=== PATIENT | female | born 1950 | race Caucasian/White ===

== ENCOUNTER 2016-11-20 10:01 | Emergency (ER) | payer MEDICARE ==
[~2016-11-20] VITALS: Ht 175.3 cm; Wt 66.0 kg
[~2016-11-20 10:01] MED LIST: ALPR.5 PO; BENZ1TAB PO; CYAN100025 SL; D32000TA PO; DICY10 PO; DIPH25CA PO; FERR325T PO; LEVO.15 PO; METH5TAB PO; OXYGENTANK NAS.CANULA; REST30CA PO; SERO50TA PO; THIA100T PO; VITA500T PO; ZOFR8TAB4 SL; ZOLO50TA PO
[2016-11-20 10:04] VITALS: BP 156/90; PULSE 77; RESP 16; TEMP 98.2; O2SAT 98
[2016-11-20] MEDS ORDERED: SODIUM CHLOR 0.9% 1000 ML INJ 1,000 ML IV SCH (11:20)
[2016-11-20 11:25] VITALS: RESP 17; O2SAT 98
[2016-11-20] MEDS ORDERED: HYDROmorphone HCL PF 1 MG/ML VIAL IVS ONE ×2 (11:30→14:00)
[2016-11-20] MEDS ORDERED: ONDANSETRON HCL 4 MG/2 ML VIAL IVP ONE ×2 (11:30→14:00)
[2016-11-20] MEDS ORDERED: DIATRIZOATE MEGLUM/DIATRIZOATE SOD 9 ML CUP ONE (11:42)
--- NOTE | 2016-11-20 11:42 | PD ---
HPI Chief Complaint: GI Complaint Time Seen by Provider: 11:05 Travel History International Travel<30 days: No Contact w/Intl Traveler<30days: No Traveled to known affect area: No History of Present Illness HPI 66-year-old female comes into the emergency Department with multiple complaints. Patient complains of question cellulitis of both lower extremities. Recently treated with Keflex. Patient has history of abdominal surgeries in the distant past as well as multiple back surgeries. Patient is a smoker of long duration, and continues to smoke 3-4 cigarettes a day. Patient denies cardiac history or circulation issues in the lower extremities. Patient reports six-day history of nausea and vomiting without "being able to keep anything down". Patient has generalized malaise, weakness, and generalized abdominal pain. She denies specific complaints of fever. She states she has been moving her bowels but she hasn't been eating as well. Patient has a history of ovarian cancer, some type of bowel cancer requiring resection in the distant past, as well as breast cancer. [facility] She has a history of MRSA, is allergic to Compazine, phenothiazines, and Tigan. 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 She lives alone. PFSH Past Medical History Hx Anticoagulant Therapy: Yes Arthritis: Yes Asthma: No Autoimmune Disease: No Bipolar Disorder: Yes Anxiety: Yes Depression: Yes Heart Rhythm Problems: No Cancer: Yes (Thyroid, Ovarian, Rt breast,colon) Cardiovascular Problems: Yes High Cholesterol: No Chemotherapy: Yes (2012) Chest Pain: No Congestive Heart Failure: No COPD: Yes Cerebrovascular Accident: Yes Diabetes: No Diminished Hearing: No Deep Vein Thrombosis: Yes Endocrine: Yes Gastrointestinal Disorders: Yes (malabsorption, partial gastrectomy s/p GI bleed ) GERD: Yes Genitourinary: Yes ("urination problems" frequency, and retention) Hiatal Hernia: No Immune Disorder: No Implanted Vascular Access Dvce: Yes Kidney Stones: No Musculoskeletal: Yes (back surgery x 5 ) Neurologic: Yes (seizure ) Psychiatric: Yes (depression) Reproductive: Yes (ovarian cancer, breast cancer ) Respiratory: No Immunizations Current: Yes Migraines: No Radiation Therapy: Yes Renal Failure: No Seizures: Yes Sickle Cell Disease: No Sleep Apnea: No Thyroid Disease: Yes (thyroidectomy/hyperthyrodism) Ulcer: Yes Tetanus Vaccination: > 5 Years Influenza Vaccination: Yes Menopausal: Yes : 2 Para: 2 Past Surgical History Abdominal Surgery: Yes (partial gastrectomy) AICD: No Appendectomy: Yes Arteriovenous Shunt: No Body Medical Devices: "hardware in back" Cardiac Surgery: Yes Cholecystectomy: Yes Ear Surgery: No Endocrine Surgery: Yes Eye Surgery: No Genitourinary Surgery: No Gynecologic Surgery: Yes (right ovary removed/D&C/C -section) Insulin Pump: No Joint Replacement: No Mastectomy: Yes (RT) Oral Surgery: No Pacemaker: No Thoracic Surgery: Yes Tonsillectomy: Yes Other Surgery: Yes (thyroidectomy, rt oopherectomy, rt lumpectomy, partial gastrectomy, back ) Social History Alcohol Use: No Tobacco Use: Yes (less than 1/2ppd) Substance Use: No Allergies-Medications (Allergen,Severity, Reaction): Coded Allergies: Phenothiazines (Verified Allergy, Severe, RASH, 11/20/16) Tigan (Verified Allergy, Severe, TETANY, 11/20/16) Compazine (Verified Adverse Reaction, Severe, Nausea/Vomiting, 11/20/16) *MDRO Multi-Drug Resistant Organism (Verified Adverse Reaction, Unknown, ) 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/19/2016 Reported Meds & Prescriptions Reported Meds & Active Scripts Active Seroquel (Quetiapine Fumarate) 50 Mg Tab 50 Mg PO BID Zofran Odt (Ondansetron Odt) 8 Mg Tab 8 Mg SL Q8H PRN Reported Diphenhydramine (Diphenhydramine HCl) 25 Mg Cap 50 Mg PO Q6H PRN itching Bentyl (Dicyclomine HCl) 10 Mg Cap 10 Mg PO QID Ferrous Sulfate 325 Mg Tab 325 Mg PO BID Methadone (Methadone HCl) 5 Mg Tab 5 Mg PO BID Restoril (Temazepam) 30 Mg Cap 30 Mg PO HS PRN Zoloft (Sertraline HCl) 50 Mg Tab 50 Mg PO BID Xanax (Alprazolam) 0.5 Mg Tab 0.5 Mg PO Q8H PRN Vitamin C (Ascorbic Acid) 500 Mg Tab 500 Mg PO Thiamine (Thiamine HCl) 100 Mg Tab 100 Mg PO DAILY D3 (Cholecalciferol) 2,000 Unit Tab PO DAILY Synthroid (Levothyroxine Sodium) 150 Mcg Tab 150 Mcg PO DAILY B-12 (Cyanocobalamin) 1,000 Mcg Subl 1,000 Mcg SL DAILY Benztropine (Benztropine Mesylate) 1 Mg Tab 1 Mg PO HS Review of Systems Except as stated in HPI: all other systems reviewed are Neg General / Constitutional: Positive: Chills, Weight Loss, No: Fever Eyes: No: Visual changes HENT: Positive: Lightheadedness, No: Headaches, Vertigo, Sore Throat, Rhinitis , Rhinorrhea, Congestion, Neck Stiffness, Neck Pain, Earache Cardiovascular: No: Chest Pain or Discomfort Respiratory: No: Cough, Shortness of Breath, Wheezing Gastrointestinal: Positive: Nausea, Vomiting, Abdominal Pain, Loss of Appetite , No: Diarrhea, Constipation Genitourinary: No: Urgency, Frequency, Dysuria Musculoskeletal: Positive: Myalgias, No: Arthralgias, Limited ROM, Edema, Pain Skin: Positive Lesions, No Rash Neurologic: No: Weakness Psychiatric: Positive: Depression, No: Suicidal Ideations, Homicidal Ideation Endocrine: No: Polydipsia Hematologic/Lymphatic: No: Easy Bruising Physical Exam Narrative GENERAL: Patient appears in mild to moderate distress. Patient is cachectic and obviously depressed. SKIN: Warm and dry. Poor turgor. Moderate pallor. HEAD: Atraumatic. Normocephalic. EYES: Pupils equal and round. No scleral icterus. No injection or drainage. ENT: No nasal bleeding or discharge. Mucous membranes pink and moist. Pharynx is normal. Airway is patent. NECK: Trachea midline. No JVD. CARDIOVASCULAR: Regular rate and rhythm. No murmurs gallops or rubs. RESPIRATORY: No accessory muscle use. Clear to auscultation. Breath sounds equal bilaterally. GASTROINTESTINAL: Abdomen soft, mild generalized tenderness, nondistended. No point tenderness or rebound. No guarding. Hepatic and splenic margins not palpable. No CVA tenderness appreciated. MUSCULOSKELETAL: Extremities without clubbing, cyanosis, or edema. No obvious deformities. NEUROLOGICAL: Awake and alert. No obvious cranial nerve deficits. Motor grossly within normal limits. Five out of 5 muscle strength in the arms and legs. Normal speech. PSYCHIATRIC: Appropriate mood and affect; insight and judgment normal. Data Data Last Documented VS Vital Signs Date Time Temp Pulse Resp B/P Pulse Ox O2 Delivery O2 Flow Rate FiO2 11/20/16 14:30 17 11/20/16 13:10 86 133/79 97 Room Air 11/20/16 10:04 98.2 Orders Complete Blood Count With Diff (11/20/16 11:20) Comprehensive Metabolic Panel (11/20/16 11:20) Lipase (11/20/16 11:20) Lactic Acid (11/20/16 11:20) Prothrombin Time / Inr (Pt) (11/20/16 11:20) Act Partial Throm Time (Ptt) (11/20/16 11:20) Urinalysis - C+S If Indicated (11/20/16 11:20) Iv Access Insert/Monitor (11/20/16 11:20) Ecg Monitoring (11/20/16 11:20) Oximetry (11/20/16 11:20) Ondansetron Inj (Zofran Inj) (11/20/16 11:30) Sodium Chlor 0.9% 1000 Ml Inj (Ns 1000 M (11/20/16 11:20) Sodium Chloride 0.9% Flush (Ns Flush) (11/20/16 11:30) Electrocardiogram (11/20/16 11:20) Hydromorphone Pf Inj (Dilaudid Pf Inj) (11/20/16 11:30) Chest, Single Ap (11/20/16 11:20) Oral Contrast - Adult (11/20/16 11:30) Diatrizoate Liq ( Gastroview Liq) (11/20/16 11:42) Ct Abd/Pel W/O Iv Contrast (11/20/16 13:12) Ondansetron Inj (Zofran Inj) (11/20/16 14:00) Pantoprazole Inj (Protonix Inj) (11/20/16 14:00) Hydromorphone Pf Inj (Dilaudid Pf Inj) (11/20/16 14:00) Labs Laboratory Tests Test 11/20/16 11/20/16 12:00 14:15 White Blood Count 4.4 TH/MM3 Red Blood Count 3.05 MIL/MM3 Hemoglobin 9.9 GM/DL Hematocrit 29.7 % Mean Corpuscular Volume 97.6 FL Mean Corpuscular Hemoglobin 32.4 PG Mean Corpuscular Hemoglobin 33.2 % Concent Red Cell Distribution Width 18.4 % Platelet Count 211 TH/MM3 Mean Platelet Volume 8.4 FL Neutrophils (%) (Auto) 59.4 % Lymphocytes (%) (Auto) 32.3 % Monocytes (%) (Auto) 5.8 % Eosinophils (%) (Auto) 1.0 % Basophils (%) (Auto) 1.5 % Neutrophils # (Auto) 2.6 TH/MM3 Lymphocytes # (Auto) 1.4 TH/MM3 Monocytes # (Auto) 0.3 TH/MM3 Eosinophils # (Auto) 0.0 TH/MM3 Basophils # (Auto) 0.1 TH/MM3 CBC Comment DIFF FINAL Differential Comment Prothrombin Time 10.3 SEC Prothromb Time International 0.9 RATIO Ratio Activated Partial 26.6 SEC Thromboplast Time Sodium Level 143 MEQ/L Potassium Level 4.0 MEQ/L Chloride Level 113 MEQ/L Carbon Dioxide Level 24.1 MEQ/L Anion Gap 6 MEQ/L Blood Urea Nitrogen 17 MG/DL Creatinine 0.84 MG/DL Estimat Glomerular Filtration 68 ML/MIN Rate Random Glucose 72 MG/DL Lactic Acid Level 0.6 mmol/L Calcium Level 8.4 MG/DL Total Bilirubin 0.4 MG/DL Aspartate Amino Transf 16 U/L (AST/SGOT) Alanine Aminotransferase 20 U/L (ALT/SGPT) Alkaline Phosphatase 98 U/L Total Protein 7.1 GM/DL Albumin 3.5 GM/DL Lipase 92 U/L Urine Color LIGHT-YELLOW Urine Turbidity CLEAR Urine pH 5.5 Urine Specific [place] 1.009 Urine Protein NEG mg/dL Urine Glucose (UA) NEG mg/dL Urine Ketones NEG mg/dL Urine Occult Blood TRACE Urine Nitrite NEG Urine Bilirubin NEG Urine Urobilinogen LESS THAN 2.0 MG/DL Urine Leukocyte Esterase NEG Urine RBC 2 /hpf Urine WBC 1 /hpf Urine Squamous Epithelial <1 /hpf Cells Urine Mucus FEW /lpf Microscopic Urinalysis Comment CULT NOT INDICATED MDM Medical Decision Making Medical Screen Exam Complete: Yes Emergency Medical Condition: Yes Differential Diagnosis Nausea vomiting. Abdominal pain. Bowel Obstruction. Sepsis. Urinary tract infection. Dehydration. Electrolyte imbalance. Narrative Course Patient is uncomfortable but medically stable at time of exam. EKG is obtained showing normal sinus rhythm without ST changes. IV access is obtained patient is given 4 mg Zofran IV as well as 1 mg of hydromorphone IV. Patient is given 1000 mL of normal saline bolus. [place] labs ordered including CBC, CMP, lipase, lactic acid, PT PTT and INR, and urinalysis. CT of the abdomen with oral contrast is ordered. Patient refuses to take oral contrast for the CT. It was switched to just IV contrast. When patient arrives to the CT area, she refused IV contrast. Upon return to the department the patient is complaining of ongoing abdominal pain and nausea. Patient is given additional Dilantin 1 mg IV as well as an additional Zofran 4 mg IV. Patient is given pantoprazole 40 mg IV as well. CBC shows CBC shows mild anemia with hemoglobin of 9.9. CMP shows a chloride of 113. Normal creatinine of 0.84. Glucose is somewhat low at 72. Calcium is 8.4. AST, LT and alkaline phosphatase are normal. Lipase is 92. Chest x-ray shows no acute process per radiology. Abdominal CT shows no acute process per radiology. Patient is given Zofran 4 mg one every 6 hours when necessary nausea vomiting. Follow-up with 1 refill. Patient should follow-up with her primary care physician as discussed. Diagnosis Primary Impression: Abdominal pain Qualified Code: R10.84 - Generalized abdominal pain Additional Impressions: Depression Qualified Code: F32.9 - Depression, unspecified depression type Intractable nausea and vomiting Qualified Code: R11.2 - Intractable vomiting with nausea, unspecified vomiting type Referrals: Primary Care Physician Patient Instructions: General Instructions Additional Instructions: Abdominal CT shows no acute process per radiology. Patient is given Zofran 4 mg one every 6 hours when necessary nausea vomiting. Follow-up with 1 refill. Patient should follow-up with her primary care physician as discussed. Med/Other Pt SpecificInfo: Prescription(s) given Disposition: 01 DISCHARGE HOME Condition: Stable Jeremy Fernandez Nov 20, 2016 11:42
[2016-11-20 12:29] LABS: AUTOMATED NEUTROPHIL # 2.6 TH/MM3 (1.8-7.7); BASOPHIL # 0.1 TH/MM3 (0-0.2); BASOPHIL % 1.5 % (0.0-2.0); HEMATOCRIT 29.7 % (35.0-46.0); HEMO FLAGS DIFF FINAL; LYMPH % 32.3 % (9.0-44.0); LYMPHOCYTE # 1.4 TH/MM3 (1.0-4.8); MEAN CELL VOLUME 97.6 FL (80.0-100.0); MEAN CORPUSCULAR HEMOGLOBIN 32.4 PG (27.0-34.0); MEAN CORPUSCULAR HGB CONC 33.2 % (32.0-36.0); MONO % 5.8 % (0.0-8.0); NEUT % 59.4 % (16.0-70.0); PLATELET COUNT 211 TH/MM3 (150-450); RED BLOOD COUNT 3.05 MIL/MM3 (4.00-5.30); RED CELL DISTRIBUTION WIDTH 18.4 % (11.6-17.2); WHITE BLOOD COUNT 4.4 TH/MM3 (4.0-11.0)
[2016-11-20 12:31] LABS: APTT (PATIENT) 26.6 SEC (24.3-30.1); INTERNATIONAL NORMALIZED RATIO 0.9 RATIO; PROTHROMBIN TIME - PATIENT 10.3 SEC (9.8-11.6)
[2016-11-20 12:38] LABS: ANION GAP 6 MEQ/L (5-15); AST (GOT) 16 U/L (15-37); BICARBONATE 24.1 MEQ/L (21.0-32.0); BLOOD UREA NITROGEN 17 MG/DL (7-18); CHLORIDE 113 MEQ/L (98-107); GLOMERULAR FILTRATION RATE 68 ML/MIN (>89); SODIUM (NA) 143 MEQ/L (136-145)
[2016-11-20 12:42] LABS: ALKALINE PHOSPHATASE 98 U/L (45-117); ALT (GPT) 20 U/L (10-53); TOTAL BILIRUBIN ADULT 0.4 MG/DL (0.2-1.0)
[2016-11-20] MEDS: SODIUM CHLORIDE 0.9% FLUSH 5 ML FLUSH IVF PRN ×2 (13:05→14:02)
[2016-11-20 13:10] VITALS: BP 133/79; PULSE 86; RESP 17; O2SAT 97
--- NOTE | 2016-11-20 13:35 | RADRPT ---
EXAM DATE/TIME: 11/20/2016 11:40 [facility] COMPARISON: CHEST SINGLE AP, May 21, 2016, 3:37. INDICATIONS : Chest pain and shortness of breath. MEDICAL HISTORY : Carcinoma, breast. Carcinoma, thyroid. SURGICAL HISTORY : Mastectomy, bilateral. ENCOUNTER: Initial ACUITY: 3 days PAIN SCORE: 2/10 LOCATION: Bilateral chest FINDINGS: A single view of the chest demonstrates the lungs to be hypoinflated with no acute infiltrate. There may be some minimal atelectatic changes in the left lower lobe, however. No effusions. Heart size is normal. Surgical clips and tomasa are seen in the upper abdomen. Possible fracture deformity of the anterolateral right sixth rib. There is some sclerosis and linear lucency along the superomedial aspe ct of the left scapula possibly representing an old fracture injury. CONCLUSION: 1. Hypoinflation with minimal left basilar atelectatic changes. 2. Suggestion of old healed fracture deformities in the anterolateral right sixth rib in the superome dial aspect of the left scapula. 3. Stable postsurgical changes in the abdomen. 4. No acute infiltrate. Mitchell Pretty MD on November 20, 2016 at 13:28 Board Certified Radiologist. This report was verified electronically.
[2016-11-20] MEDS ORDERED: PANTOPRAZOLE SODIUM 40 MG VIAL IVP ONE (14:00)
[2016-11-20 14:30] VITALS: RESP 17
[2016-11-20 14:30] LABS: BLOOD, URINE TRACE (NEG); COMMENT (UR) CULT NOT INDICATED; CULTURE IF INDICATED CULT NOT INDICATED; GLUCOSE,URINE NEG (NEG); KETONE, URINE NEG (NEG); MUCUS URINE FEW /lpf (OCC); NITRITE,URINE NEG (NEG); PH, URINE 5.5 (5.0-8.5); SQUAMOUS EPITHELIAL CELL URINE <1 /hpf (0-5); URINE COLOR LIGHT-YELLOW (YELLW/STRAW)
--- NOTE | 2016-11-20 14:33 | RADRPT ---
EXAM DATE/TIME: 11/20/2016 13:37 [facility] COMPARISON: CT ABDOMEN & PELVIS W CONTRAST, June 28, 2016, 21:27. INDICATIONS : Nausea, vomiting and abdominal pain. ORAL CONTRAST: Patient refused oral contrast. RADIATION DOSE: 6.68 CTDIvol (mGy) MEDICAL HISTORY : Hypertension. Cerebrovascular disease. Cardiovascular disease. Thyroid, ovarian, breast and colon ca ncer. SURGICAL HISTORY : Appendectomy. Cholecystectomy. Hysterectomy. Partial gastrectomy. Right mastectomy. Oophorectomy. Lum bar fusion. Right femoral hay. ENCOUNTER: Initial ACUITY: 1 day PAIN SCALE: 6/10 LOCATION: Bilateral lower quadrant TECHNIQUE: Volumetric scanning of the abdomen and pelvis was performed. Using automated exposure control and ad justment of the mA and/or kV according to patient size, radiation dose was kept as low as reasonably achievable to obtain optimal diagnostic quality images. FINDINGS: LOWER LUNGS: The visualized lower lungs are clear. LIVER: Homogeneous density without lesion. There is no dilation of the biliary tree. No calcified gallston es. Status post cholecystectomy. SPLEEN: Normal size without lesion. PANCREAS: Within normal limits. KIDNEYS: Normal in size and shape. There is no mass, stone, or hydronephrosis. ADRENAL GLANDS: Within normal limits. VASCULAR: There is no aortic aneurysm. BOWEL/MESENTERY: The patient is status post partial gastrectomy. The small bowel and colon demonstrate no acute abnorm ality. There is no free intraperitoneal air or fluid. ABDOMINAL WALL: Within normal limits. RETROPERITONEUM: There is no lymphadenopathy. BLADDER: No wall thickening or mass. REPRODUCTIVE: Within normal limits. INGUINAL: There is no lymphadenopathy or hernia. MUSCULOSKELETAL: Hardware is noted within the lower lumbar spine and right proximal femur. CONCLUSION: No acute disease. Joseph Carter MD on November 20, 2016 at 14:27 Board Certified Radiologist. This report was verified electronically.
[2016-11-20] MEDS ORDERED: ZOFR4TAB PO (14:37)
[2016-11-20 16:20] VITALS: BP 130/76; TEMP 98
--- NOTE | 2016-11-21 12:59 | EKG ---
Date Performed: 11/20/2016 Time Performed: 12:11:59 PTAGE: 66 years EKG: Sinus rhythm NORMAL ECG WARNING: DATA QUALITY MAY AFFECT INTERPRETATION PREVIOUS TRACING : 06/29/2016 13.58 Compared to previous tracing, sinus rate is slower. DOCTOR: Claude Campos Interpretating Date/Time 11/21/2016 12:58:18
== END 2016-11-20 16:20 | disposition home or self-care (01) ==
LOC: NEPB 10:01
DX: R10.84 Generalized abdominal pain (principal); F32.9 Major depressive disorder, single episode, unspecified; R11.2 Nausea with vomiting, unspecified; R53.1 Weakness; E07.9 Disorder of thyroid, unspecified; Z72.0 Tobacco use; Z79.01 Long term (current) use of anticoagulants; Z87.39 Personal history of other diseases of the musculoskeletal system and connective tissue; Z86.59 Personal history of other mental and behavioral disorders; Z87.09 Personal history of other diseases of the respiratory system; Z86.718 Personal history of other venous thrombosis and embolism; Z87.19 Personal history of other diseases of the digestive system; Z87.448 Personal history of other diseases of urinary system; Z86.14 Personal history of Methicillin resistant Staphylococcus aureus infection; Z86.69 Personal history of other diseases of the nervous system and sense organs; Z85.43 Personal history of malignant neoplasm of ovary; Z85.3 Personal history of malignant neoplasm of breast; Z85.038 Personal history of other malignant neoplasm of large intestine
CPT/HCPCS: 71010; 74176; 80053; 81001; 83605; 83690; 85025; 85610; 85730; 93005; 96374; 96375; 96376; 99285; C9113; J1170; J2405; J7030; Q9963

== ENCOUNTER 2016-12-28 13:01 | Inpatient (IN) | payer OTHER, MEDICARE ==
[~2016-12-28] VITALS: Ht 175.3 cm; Wt 63.0 kg
[~2016-12-28 13:01] MED LIST changes: -OXYGENTANK NAS.CANULA; +ZOFR4TAB PO
[2016-12-28 13:08] VITALS: BP 145/74; PULSE 99; RESP 20; TEMP 98.3; O2SAT 99
--- NOTE | 2016-12-28 14:51 | PD ---
HPI Chief Complaint: Edema Time Seen by Provider: 14:50 Travel History International Travel<30 days: No Contact w/Intl Traveler<30days: No Traveled to known affect area: No History of Present Illness HPI 66 year old female presents to the emergency department for evaluation of bilateral leg edema and chest pain. Patient states that she has had bilateral lower leg edema for approximately 10 days. She states this has been improving over the course of the 10 days. She has been elevating them and staying off of her feet as much as possible. She states that she was on a diuretic which she quit approximately 3 weeks ago because she did not like the side effects from the diuretic. The patient states the last night she had an episode of chest pain which kept her awake throughout the night. She states it was on the left side and radiated to the right side. She reports minor discomfort at this time associated with breathing and congestion. Patient states she went to her primary care physician [facility] today who told her she needed come to the emergency department. She states she does not really want to be here, but promised her physician she would be here. The patient states that she has been coughing up sputum. She does state that there has been some black specks in her sputum. Patient states she has mild shortness of breath associated with a cough. She does report 3 episodes of vomiting last night. Patient reports history of chronic back pain, multiple GI surgeries, previous pneumonia in 2003 , gastric ulcers, hypothyroidism. Patient denies any cardiac history or history of CHF. PFSH Past Medical History Hx Anticoagulant Therapy: Yes Arthritis: Yes Asthma: No Autoimmune Disease: No Bipolar Disorder: Yes Anxiety: Yes Depression: Yes Heart Rhythm Problems: No Cancer: Yes (Thyroid, Ovarian, Rt breast,colon) Cardiovascular Problems: Yes High Cholesterol: No Chemotherapy: Yes (2012) Chest Pain: No Congestive Heart Failure: No COPD: Yes Cerebrovascular Accident: Yes Diabetes: No Diminished Hearing: No Deep Vein Thrombosis: Yes Endocrine: Yes Gastrointestinal Disorders: Yes (malabsorption, partial gastrectomy s/p GI bleed ) GERD: Yes Genitourinary: Yes ("urination problems" frequency, and retention) Hiatal Hernia: No Immune Disorder: No Implanted Vascular Access Dvce: Yes Kidney Stones: No Musculoskeletal: Yes (back surgery x 5 ) Neurologic: Yes (seizure ) Psychiatric: Yes (depression) Reproductive: Yes (ovarian cancer, breast cancer ) Respiratory: Yes Immunizations Current: Yes Migraines: No Radiation Therapy: Yes Renal Failure: No Seizures: Yes Sickle Cell Disease: No Sleep Apnea: No Thyroid Disease: Yes (thyroidectomy/hyperthyrodism) Ulcer: Yes Menopausal: Yes : 2 Para: 2 Past Surgical History Abdominal Surgery: Yes (partial gastrectomy) AICD: No Appendectomy: Yes Arteriovenous Shunt: No Body Medical Devices: "hardware in back" Cardiac Surgery: Yes Cholecystectomy: Yes Ear Surgery: No Endocrine Surgery: Yes Eye Surgery: No Genitourinary Surgery: No Gynecologic Surgery: Yes (right ovary removed/D&C/C -section) Insulin Pump: No Joint Replacement: No Mastectomy: Yes (RT) Oral Surgery: No Pacemaker: No Thoracic Surgery: Yes Tonsillectomy: Yes Other Surgery: Yes (thyroidectomy, rt oopherectomy, rt lumpectomy, partial gastrectomy, back ) Social History Alcohol Use: No Tobacco Use: Yes (less than 1/2ppd) Substance Use: No Allergies-Medications (Allergen,Severity, Reaction): Coded Allergies: Phenothiazines (Verified Allergy, Severe, RASH, 12/28/16) Tigan (Verified Allergy, Severe, TETANY, 12/28/16) Compazine (Verified Adverse Reaction, Severe, Nausea/Vomiting, 12/28/16) *MDRO Multi-Drug Resistant Organism (Verified Adverse Reaction, Unknown, ) 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/19/2016 Reported Meds & Prescriptions Reported Meds & Active Scripts Active Reported Ferrous Sulfate 325 Mg Tab 325 Mg PO BID Restoril (Temazepam) 30 Mg Cap 30 Mg PO HS PRN Vitamin C (Ascorbic Acid) 500 Mg Tab 500 Mg PO DAILY Thiamine (Thiamine HCl) 100 Mg Tab 100 Mg PO DAILY D3 (Cholecalciferol) 2,000 Unit Tab 2,000 Units PO DAILY Synthroid (Levothyroxine Sodium) 150 Mcg Tab 150 Mcg PO DAILY B-12 (Cyanocobalamin) 1,000 Mcg Subl 1,000 Mcg SL DAILY Review of Systems Except as stated in HPI: all other systems reviewed are Neg Physical Exam Narrative GENERAL: Well-developed well-nourished female patient, ambulatory. Afebrile. SKIN: Warm and dry. HEAD: Normocephalic. Traumatic. EYES: No scleral icterus. No injection or drainage. NECK: Supple, trachea midline. No JVD or lymphadenopathy. CARDIOVASCULAR: Regular rate and rhythm without murmurs, gallops, or rubs. RESPIRATORY: Breath sounds equal bilaterally. No accessory muscle use. Lungs sounds with scattered rhonchi and wheezing throughout. GASTROINTESTINAL: Abdomen soft, non-tender, nondistended. MUSCULOSKELETAL: No cyanosis. Bilateral 2+ lower extremity edema. BACK: Nontender without obvious deformity. No CVA tenderness. Data Data Last Documented VS Vital Signs Date Time Temp Pulse Resp B/P Pulse Ox O2 Delivery O2 Flow Rate FiO2 12/28/16 19:46 83 16 101/57 100 Nasal Cannula 2 12/28/16 13:08 98.3 Orders Electrocardiogram (12/28/16 13:12) Basic Metabolic Panel (Bmp) (12/28/16 14:48) B-Type Natriuretic Peptide (12/28/16 14:48) Ckmb (Isoenzyme) Profile (12/28/16 14:48) Complete Blood Count With Diff (12/28/16 14:48) D-Dimer (12/28/16 14:48) Magnesium (Mg) (12/28/16 14:48) Prothrombin Time / Inr (Pt) (12/28/16 14:48) Act Partial Throm Time (Ptt) (12/28/16 14:48) Troponin I (12/28/16 14:48) Chest, Single Ap (12/28/16 14:48) Ecg Monitoring (12/28/16 14:48) Bilateral Bp Monitoring (12/28/16 14:48) Iv Access Insert/Monitor (12/28/16 14:48) Oximetry (12/28/16 14:48) Oxygen Administration (12/28/16 14:48) Sodium Chloride 0.9% Flush (Ns Flush) (12/28/16 15:00) Albuterol-Ipratropium Neb (Duoneb Neb) (12/28/16 15:00) Aspirin Chew (Aspirin Chew) (12/28/16 15:00) Vascular Access Team Consult PRN (12/28/16 15:33) Vascular Poc Ultrasound (12/28/16 ) Lactic Acid Sepsis Protocol (12/28/16 16:27) Blood Culture (12/28/16 16:27) Sodium Chloride 0.9% Flush (Ns Flush) (12/28/16 16:30) Ceftriaxone Inj (Rocephin Inj) (12/28/16 16:30) Azithromycin Inj (Zithromax Inj) (12/28/16 16:30) CKMB (12/28/16 16:09) CKMB% (12/28/16 16:09) Ct Pulmonary Angiogram (12/28/16 ) Morphine Inj (Morphine Inj) (12/28/16 17:45) Vascular Access Team Consult PRN (12/28/16 17:39) Lorazepam Inj (Ativan Inj) (12/28/16 18:15) Vascular Poc Ultrasound (12/28/16 ) Iohexol 350 Inj (Omnipaque 350 Inj) (12/28/16 19:28) Labs Laboratory Tests Test 12/28/16 12/28/16 16:09 16:38 White Blood Count 6.2 TH/MM3 Red Blood Count 3.19 MIL/MM3 Hemoglobin 10.1 GM/DL Hematocrit 29.7 % Mean Corpuscular Volume 93.0 FL Mean Corpuscular Hemoglobin 31.5 PG Mean Corpuscular Hemoglobin 33.9 % Concent Red Cell Distribution Width 17.4 % Platelet Count 287 TH/MM3 Mean Platelet Volume 8.1 FL Neutrophils (%) (Auto) 66.1 % Lymphocytes (%) (Auto) 22.5 % Monocytes (%) (Auto) 9.5 % Eosinophils (%) (Auto) 1.0 % Basophils (%) (Auto) 0.9 % Neutrophils # (Auto) 4.1 TH/MM3 Lymphocytes # (Auto) 1.4 TH/MM3 Monocytes # (Auto) 0.6 TH/MM3 Eosinophils # (Auto) 0.1 TH/MM3 Basophils # (Auto) 0.1 TH/MM3 CBC Comment DIFF FINAL Differential Comment Prothrombin Time 10.7 SEC Prothromb Time International 1.0 RATIO Ratio Activated Partial 32.3 SEC Thromboplast Time D-Dimer Quantitative (PE/DVT) 1.60 MG/L FEU Sodium Level 136 MEQ/L Potassium Level 3.4 MEQ/L Chloride Level 102 MEQ/L Carbon Dioxide Level 27.6 MEQ/L Anion Gap 6 MEQ/L Blood Urea Nitrogen 14 MG/DL Creatinine 1.05 MG/DL Estimat Glomerular Filtration 53 ML/MIN Rate Random Glucose 101 MG/DL Calcium Level 8.3 MG/DL Magnesium Level 2.0 MG/DL Total Creatine Kinase 377 U/L Creatine Kinase MB 4.9 NG/ML Creatine Kinase MB % 1.3 % Troponin I LESS THAN 0.02 NG/ML B-Type Natriuretic Peptide 27 PG/ML Lactic Acid Level 1.3 mmol/L MDM Medical Decision Making Medical Screen Exam Complete: Yes Emergency Medical Condition: Yes Medical Record Reviewed: Yes Interpretation(s) Last Impressions Chest X-Ray 12/28/16 1448 Signed Impressions: Service Date/Time: Wednesday, December 28, 2016 14:52 - CONCLUSION: 1. Patchy opacity within the left lung base consistent with probable pneumonia. Clinical pneumonia is recommended. Joseph Carter MD CT PA - CONCLUSION: 1. No evidence of pulmonary embolism. 2. Multiple bilateral scattered pulmonary infiltrates suggestive of an inflammatory process such as pneumonia. 3. Questionable thickening of the distal esophagus. Differential Diagnosis ACS versus pneumonia versus PE versus URI versus CHF Narrative Course 66-year-old female presents to the emergency department for evaluation of bilateral lower extremity edema that is improving and an episode of chest pain last night. She does report associated cough with sputum production. EKG is completed in triage shows normal sinus rhythm, heart rate 84, no acute ST changes. CBC, BMP, BNP, CK, troponin, magnesium, d-dimer, PTT, PTT/INR are ordered and pending. Chest x-ray is ordered and pending. Patient is given DuoNeb 2 and aspirin 162 by mouth. BC shows no acute abnormalities. BMP shows creatinine of 1.05. BNP is 27. CK is 377. Troponin is 0.02. Magnesium is 2.0. D-dimer is 1.60. Coags show no acute abnormality. Chest x-ray shows Patchy opacity within the left lung base consistent with probable pneumonia. Lactic Acid is 1.3. Patient is given Rocephin 1 gm IV and Azithromycin 500mg IV. CT PA is ordered and pending. CT PA shows no evidence of pulmonary embolism; multiple bilateral scattered pulmonary infiltrates suggestive of an inflammatory process such as pneumonia; questionable thickening of the distal esophagus. [facility] is paged for admission. Dr. Taylor accepted admission. Diagnosis Primary Impression: Pneumonia Qualified Code: J18.9 - Pneumonia of both lungs due to infectious organism, unspecified part of lung Additional Impression: Chest pain Qualified Code: R07.9 - Chest pain, unspecified type Admitting Information Admitting Physician Requests: Admit Domi Garsia Dec 28, 2016 14:51
[2016-12-28] MEDS ORDERED: SODIUM CHLORIDE 0.9% FLUSH 5 ML FLUSH IVF PRN ×2 (15:00→16:30)
[2016-12-28] MEDS ORDERED: ASPIRIN 81 MG CHEW TAB CHEW ONE (15:00)
[2016-12-28] MEDS: RESP: ALBUTEROL 2.5 MG/IPRATROPIUM 0.5 MG NEB (SCH) INH (15:25)
--- NOTE | 2016-12-28 16:23 | RADRPT ---
EXAM DATE/TIME: 12/28/2016 14:52 [facility] COMPARISON: CHEST SINGLE AP, November 20, 2016, 11:40. INDICATIONS: Chest pain. Cough. MEDICAL HISTORY: Hypertension. Cerebrovascular disease. Cardiovascular disease. Thyroid, ovarian, breast and colo n cancer. SURGICAL HISTORY: Appendectomy. Cholecystectomy. Hysterectomy. Partial gastrectomy. Right mastectomy. Oophorectomy. Lum bar fusion. Right femoral hay. ENCOUNTER: Initial ACUITY: 2 days PAIN SCORE: 3/10 LOCATION: Bilateral chest FINDINGS: There is patchy opacity within the left lung base consistent with probable focal pneumonia. Clinical correlation is recommended. The right lung is clear. The heart is stable. Hardware is noted withi n the lumbar spine. CONCLUSION: 1. Patchy opacity within the left lung base consistent with probable pneumonia. Clinical pneumonia is recommended. Joseph Carter MD on December 28, 2016 at 16:08 Board Certified Radiologist. This report was verified electronically.
[2016-12-28] MEDS ORDERED: AZITHROMYCIN INJ 500 MG in SODIUM CHLOR 0.9% 250 ML INJ 250 ML IV ONE (16:30)
[2016-12-28] MEDS ORDERED: cefTRIAXone INJ 1,000 MG in SODIUM CHLORIDE 0.9% INJ 100 ML IV ONE (16:30)
[2016-12-28 16:44] LABS: AUTOMATED NEUTROPHIL # 4.1 TH/MM3 (1.8-7.7); BASOPHIL # 0.1 TH/MM3 (0-0.2); BASOPHIL % 0.9 % (0.0-2.0); EOSINOPHIL # 0.1 TH/MM3 (0-0.4); HEMATOCRIT 29.7 % (35.0-46.0); HEMO FLAGS DIFF FINAL; LYMPH % 22.5 % (9.0-44.0); LYMPHOCYTE # 1.4 TH/MM3 (1.0-4.8); MEAN CORPUSCULAR HEMOGLOBIN 31.5 PG (27.0-34.0); MEAN CORPUSCULAR HGB CONC 33.9 % (32.0-36.0); MONO % 9.5 % (0.0-8.0); NEUT % 66.1 % (16.0-70.0); PLATELET COUNT 287 TH/MM3 (150-450); RED BLOOD COUNT 3.19 MIL/MM3 (4.00-5.30); RED CELL DISTRIBUTION WIDTH 17.4 % (11.6-17.2); WHITE BLOOD COUNT 6.2 TH/MM3 (4.0-11.0)
[2016-12-28 16:50] LABS: ANION GAP 6 MEQ/L (5-15); BICARBONATE 27.6 MEQ/L (21.0-32.0); BLOOD UREA NITROGEN 14 MG/DL (7-18); CHLORIDE 102 MEQ/L (98-107); GLOMERULAR FILTRATION RATE 53 ML/MIN (>89); POTASSIUM 3.4 MEQ/L (3.5-5.1); SODIUM (NA) 136 MEQ/L (136-145)
[2016-12-28 16:54] LABS: CREATINE KINASE 377 U/L (26-192)
[2016-12-28 17:01] LABS: APTT (PATIENT) 32.3 SEC (24.3-30.1); PROTHROMBIN TIME - PATIENT 10.7 SEC (9.8-11.6)
[2016-12-28 17:07] LABS: CKMB 4.9 NG/ML (0.5-3.6)
[2016-12-28 17:29] VITALS: BP 133/70; PULSE 80; RESP 20; O2SAT 98
[2016-12-28 17:30] VITALS: O2SAT 98
[2016-12-28] MEDS ORDERED: MORPHINE SULFATE 8 MG/ML INJ IV PUSH ONE (17:45)
[2016-12-28] MEDS ORDERED: LORazepam 2 MG/ML VIAL IV PUSH ONE (18:15)
--- NOTE | 2016-12-28 18:25 | PD ---
Physical Exam Date Seen by Provider: Dec 28, 2016 Narrative Patient is being seen with Domi Garsia for several complaints. [facility]. However, she also has cellulitis of both lower extremities. She states that the cellulitis is actually markedly improved today compared to previous. Data Data Last Documented VS Vital Signs Date Time Temp Pulse Resp B/P Pulse Ox O2 Delivery O2 Flow Rate FiO2 12/28/16 17:30 98 Room Air 12/28/16 17:29 80 20 133/70 12/28/16 13:08 98.3 Orders Electrocardiogram (12/28/16 13:12) Basic Metabolic Panel (Bmp) (12/28/16 14:48) B-Type Natriuretic Peptide (12/28/16 14:48) Ckmb (Isoenzyme) Profile (12/28/16 14:48) Complete Blood Count With Diff (12/28/16 14:48) D-Dimer (12/28/16 14:48) Magnesium (Mg) (12/28/16 14:48) Prothrombin Time / Inr (Pt) (12/28/16 14:48) Act Partial Throm Time (Ptt) (12/28/16 14:48) Troponin I (12/28/16 14:48) Chest, Single Ap (12/28/16 14:48) Ecg Monitoring (12/28/16 14:48) Bilateral Bp Monitoring (12/28/16 14:48) Iv Access Insert/Monitor (12/28/16 14:48) Oximetry (12/28/16 14:48) Oxygen Administration (12/28/16 14:48) Sodium Chloride 0.9% Flush (Ns Flush) (12/28/16 15:00) Albuterol-Ipratropium Neb (Duoneb Neb) (12/28/16 15:00) Aspirin Chew (Aspirin Chew) (12/28/16 15:00) Vascular Access Team Consult PRN (12/28/16 15:33) Vascular Poc Ultrasound (12/28/16 ) Lactic Acid Sepsis Protocol (12/28/16 16:27) Blood Culture (12/28/16 16:27) Sodium Chloride 0.9% Flush (Ns Flush) (12/28/16 16:30) Ceftriaxone Inj (Rocephin Inj) (12/28/16 16:30) Azithromycin Inj (Zithromax Inj) (12/28/16 16:30) CKMB (12/28/16 16:09) CKMB% (12/28/16 16:09) Ct Pulmonary Angiogram (12/28/16 ) Morphine Inj (Morphine Inj) (12/28/16 17:45) Vascular Access Team Consult PRN (12/28/16 17:39) Lorazepam Inj (Ativan Inj) (12/28/16 18:15) Vascular Poc Ultrasound (12/28/16 ) Labs Laboratory Tests Test 12/28/16 12/28/16 16:09 16:38 White Blood Count 6.2 TH/MM3 Red Blood Count 3.19 MIL/MM3 Hemoglobin 10.1 GM/DL Hematocrit 29.7 % Mean Corpuscular Volume 93.0 FL Mean Corpuscular Hemoglobin 31.5 PG Mean Corpuscular Hemoglobin 33.9 % Concent Red Cell Distribution Width 17.4 % Platelet Count 287 TH/MM3 Mean Platelet Volume 8.1 FL Neutrophils (%) (Auto) 66.1 % Lymphocytes (%) (Auto) 22.5 % Monocytes (%) (Auto) 9.5 % Eosinophils (%) (Auto) 1.0 % Basophils (%) (Auto) 0.9 % Neutrophils # (Auto) 4.1 TH/MM3 Lymphocytes # (Auto) 1.4 TH/MM3 Monocytes # (Auto) 0.6 TH/MM3 Eosinophils # (Auto) 0.1 TH/MM3 Basophils # (Auto) 0.1 TH/MM3 CBC Comment DIFF FINAL Differential Comment Prothrombin Time 10.7 SEC Prothromb Time International 1.0 RATIO Ratio Activated Partial 32.3 SEC Thromboplast Time D-Dimer Quantitative (PE/DVT) 1.60 MG/L FEU Sodium Level 136 MEQ/L Potassium Level 3.4 MEQ/L Chloride Level 102 MEQ/L Carbon Dioxide Level 27.6 MEQ/L Anion Gap 6 MEQ/L Blood Urea Nitrogen 14 MG/DL Creatinine 1.05 MG/DL Estimat Glomerular Filtration 53 ML/MIN Rate Random Glucose 101 MG/DL Calcium Level 8.3 MG/DL Magnesium Level 2.0 MG/DL Total Creatine Kinase 377 U/L Creatine Kinase MB 4.9 NG/ML Creatine Kinase MB % 1.3 % Troponin I LESS THAN 0.02 NG/ML B-Type Natriuretic Peptide 27 PG/ML Lactic Acid Level 1.3 mmol/L MDM Supervised Visit with HIRO: Yes Narrative Course I, Dr. Gurrola, have reviewed the advance practice practitioner's documentation and am in agreement, met with the patient face to face, made the diagnosis, and the medical decision making was done by me. *My assessment and Findings: Patient is awake and alert. She is a little bit despondent and tearful. She states she is very uncomfortable and would like to go home. She understands that she needs to stay. She has redness and warmth of both lower extremities. CBC & BMP Diagram 12/28/16 16:09 Last Impressions Chest X-Ray 12/28/16 1448 Signed Impressions: Service Date/Time: Wednesday, December 28, 2016 14:52 - CONCLUSION: 1. Patchy opacity within the left lung base consistent with probable pneumonia. Clinical pneumonia is recommended. MD Galileo Reynolds,Linda Ghotra MD Dec 28, 2016 18:25
[2016-12-28 18:42] VITALS: BP 125/70; PULSE 85; RESP 22; O2SAT 96
[2016-12-28] MEDS ORDERED: IOHEXOL 350 MG/ML 10 ML VIAL (for RAD DIAG) IV ONE (19:28)
--- NOTE | 2016-12-28 19:44 | RADRPT ---
EXAM DATE/TIME: 12/28/2016 19:22 [facility] COMPARISON: No previous studies available for comparison. INDICATIONS : Bilateral leg edema and chest pain last night. IV CONTRAST: 50 cc Omnipaque 350 (iohexol) IV RADIATION DOSE: 23.38 CTDIvol (mGy) MEDICAL HISTORY : Stroke. Hypertension. deep vein thrombosis, breast cancer, colon cancer, ovarian cancer SURGICAL HISTORY : Mastectomy, bilateral. Cholecystectomy. ENCOUNTER: Initial ACUITY: 1 day PAIN SCALE: Non-responsive LOCATION: Bilateral chest TECHNIQUE: Volumetric scanning of the chest was performed using a pulmonary embolism protocol MIP images were re constructed. Using automated exposure control and adjustment of the mA and/or kV according to patien t size, radiation dose was kept as low as reasonably achievable to obtain optimal diagnostic quality images. FINDINGS: PULMONARY ARTERIES: No filling defects are seen in the pulmonary arteries through the segmental level. LUNGS: There are multiple scattered pulmonary infiltrates throughout both lung carpenter. The scattered infiltr ates are seen throughout the upper and lower lung carpenter. PLEURAE: There is no pleural thickening or pleural effusion. MEDIASTINUM: There is good visualization of the great vessels of the middle mediastinum. No evidence of mediastin al or hilar adenopathy/mass. MUSCULOSKELETAL: Within normal limits for patient age. MISCELLANEOUS: There is some questionable thickening of the distal esophagus. CONCLUSION: 1. No evidence of pulmonary embolism. 2. Multiple bilateral scattered pulmonary infiltrates suggestive of an inflammatory process such as p neumonia. 3. Questionable thickening of the distal esophagus. Rayshawn Fritz MD on December 28, 2016 at 19:39 Board Certified Radiologist. This report was verified electronically.
[2016-12-28 19:46] VITALS: BP 101/57; PULSE 83; RESP 16; O2SAT 100
[2016-12-28] MEDS ORDERED: SODIUM CHLORIDE 0.9% FLUSH 5 ML FLUSH FLUSH PRN (20:15)
[2016-12-28] MEDS ORDERED: NALOXONE HCL 0.4 MG/ML AMP IV PRN (20:15)
[2016-12-28] MEDS ORDERED: ONDANSETRON HCL 4 MG/2 ML VIAL IVP PRN (20:15)
[2016-12-28] MEDS: SODIUM CHLORIDE 0.9% FLUSH 5 ML FLUSH FLUSH SCH (21:41)
[2016-12-28 22:15] VITALS: BP 134/77; PULSE 87; RESP 20; TEMP 97; O2SAT 100
[2016-12-29] VITALS: BP 121/72; PULSE 80; RESP 19; TEMP 96.8; O2SAT 100
--- NOTE | 2016-12-29 01:08 | HHI.HP ---
[facility] Admission Diagnosis bilateral pneumonia, chest pain Diagnoses: Chief Complaint: not giving specific complaints to me Travel History International Travel<30 Days: No Contact w/Intl Traveler <30 Da: No Traveled to Known Affected Are: No History of Present Illness History from ER PA communication, minimally from patient, and review of medical records. Patient is quite sleepy at the time of my exam. She is also somewhat angry because she states she is afraid that she would not fall asleep. She states she just cannot shut her mind down. She also reports of pain as soon as I came in. She is however pleasant enough to answer yes or no questions. She just wouldn' t participate in conversation. As per ER communication, patient came to hospital with complaint of chest pain. To me, patient did report of chest pain which she is not really able to describe in detail. She also reports her shortness of breath. Stated she was having nausea and vomiting as well. Not able to clarify how much. Denies any blood in it. Denies diarrhea. Denies abdominal pain. Patient states that she was under hospice care up until about 3 months ago. She states that she was receiving oxygen at home at that time and now she has been off oxygen. She reports that she is under hospice because she lives alone and that they are afraid that she would not do well. However denies any history of cancer. Denies history of CHF. Reports she does have COPD. But she states she is not really on oxygen otherwise. Again, patient states she is afraid to live alone. When asked whether she would like to stay at a rehabilitation facility or assisted living facility, she answered yes. In the emergency room, further workup revealed the patient has multiple bilateral pulmonary infiltrates. Review of Systems Except as stated in HPI: all other systems reviewed are Neg Past Family Social History Past Medical History Per EMR: Bipolar disorder History of alcohol abuse Chronic back pains Hypothyroidism History of subarachnoid hemorrhagesecondary to fall History of thyroid and ovarian cancer per notes History of breast cancer per notes History of DVT Past Surgical History Per EMR: Thyroidectomy, oophorectomy Cholecystectomy Partial gastrectomy Mastectomy Appendectomy Reported Medications Patient's medications listed on EMRreviewed Allergies: Coded Allergies: Phenothiazines (Verified Allergy, Severe, RASH, 12/28/16) Tigan (Verified Allergy, Severe, TETANY, 12/28/16) Compazine (Verified Adverse Reaction, Severe, Nausea/Vomiting, 12/28/16) *MDRO Multi-Drug Resistant Organism (Verified Adverse Reaction, Unknown, ) 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/19/2016 Family History Patient does not remember medical conditions and her family Social History Report she smokes less than half a pack a day. She denies any alcohol abuse or drug abuse. Per EMR: Patient used to be alcoholic and did have hospital admissions for withdrawal Physical Exam Vital Signs Vital Signs Date Time Temp Pulse Resp B/P Pulse Ox O2 Delivery O2 Flow Rate FiO2 12/29/16 00:00 96.8 80 19 121/72 100 12/28/16 22:15 97.0 87 20 134/77 100 12/28/16 19:46 83 16 101/57 100 Nasal Cannula 2 12/28/16 18:42 85 22 125/70 96 Room Air 12/28/16 17:30 98 Room Air 12/28/16 17:30 98 Room Air 12/28/16 17:29 80 20 133/70 98 Room Air 12/28/16 14:36 20 Room Air 12/28/16 13:08 98.3 99 20 145/74 99 Room Air Physical Exam GENERAL: This is elderly lady, looks much older than her age, sleeping and quite drowsy, only answers yes or no questions, but did get quite mad when car pusher came to draw blood SKIN: No rashes, ecchymoses or lesions. Cool and dry. HEAD: Atraumatic. Normocephalic. No temporal or scalp tenderness. EYES: No scleral icterus. No injection or drainage. ENT: Nose without bleeding, purulent drainage or septal hematoma. Airway patent. NECK: Trachea midline. No JVD Supple, nontender, no meningeal signs. CARDIOVASCULAR: Regular rate and rhythm without murmurs, gallops, or rubs. RESPIRATORY: Decreased air entry bilaterally, has a productive cough during exam. Breath sounds equal bilaterally. GASTROINTESTINAL: Abdomen soft, non-tender, nondistended. No guarding. MUSCULOSKELETAL: Extremities without clubbing, cyanosis, or edema. No calf tenderness. NEUROLOGICAL: quite sleepy, but is alert and oriented, moving all 4 limbs, no focal deficit noted grossly, Normal speech. Laboratory Laboratory Tests Test 12/28/16 12/28/16 16:09 16:38 White Blood Count 6.2 Red Blood Count 3.19 Hemoglobin 10.1 Hematocrit 29.7 Mean Corpuscular Volume 93.0 Mean Corpuscular Hemoglobin 31.5 Mean Corpuscular Hemoglobin 33.9 Concent Red Cell Distribution Width 17.4 Platelet Count 287 Mean Platelet Volume 8.1 Neutrophils (%) (Auto) 66.1 Lymphocytes (%) (Auto) 22.5 Monocytes (%) (Auto) 9.5 Eosinophils (%) (Auto) 1.0 Basophils (%) (Auto) 0.9 Neutrophils # (Auto) 4.1 Lymphocytes # (Auto) 1.4 Monocytes # (Auto) 0.6 Eosinophils # (Auto) 0.1 Basophils # (Auto) 0.1 CBC Comment DIFF FINAL Differential Comment Prothrombin Time 10.7 Prothromb Time International 1.0 Ratio Activated Partial 32.3 Thromboplast Time D-Dimer Quantitative (PE/DVT) 1.60 Sodium Level 136 Potassium Level 3.4 Chloride Level 102 Carbon Dioxide Level 27.6 Anion Gap 6 Blood Urea Nitrogen 14 Creatinine 1.05 Estimat Glomerular Filtration 53 Rate Random Glucose 101 Calcium Level 8.3 Magnesium Level 2.0 Total Creatine Kinase 377 Creatine Kinase MB 4.9 Creatine Kinase MB % 1.3 Troponin I LESS THAN 0.02 B-Type Natriuretic Peptide 27 Lactic Acid Level 1.3 Date/Time Procedure Status Source Growth 12/28/16 16:45 Aerobic Blood Culture Received Blood Peripheral Pending 12/28/16 16:45 Anaerobic Blood Culture Received Blood Peripheral Pending Result Diagram: 12/28/16 1609 12/28/16 1609 Imaging Last 48 hours Impressions Chest X-Ray 12/28/16 1448 Signed Impressions: Service Date/Time: Wednesday, December 28, 2016 14:52 - CONCLUSION: 1. Patchy opacity within the left lung base consistent with probable pneumonia. Clinical pneumonia is recommended. Joseph Carter MD CT Angiography 12/28/16 0000 Signed Impressions: Service Date/Time: Wednesday, December 28, 2016 19:22 - CONCLUSION: 1. No evidence of pulmonary embolism. 2. Multiple bilateral scattered pulmonary infiltrates suggestive of an inflammatory process such as pneumonia. 3. Questionable thickening of the distal esophagus. Rayshawn Fritz MD Assessment and Plan Problem List: (1) Pneumonia ICD Code: J18.9 Status: Acute (2) Chest pain ICD Code: R07.9 Status: Acute Assessment and Plan Impression: Bilateral pneumoniawas multiple pulmonary infiltrates Hypokalemia Elevated d-dimerCT pulmonary angiogram is negative for pulmonary emboli Inability to care for selfwith history of being on hospice service up until about 3 weeks ago per patient Bipolar disorder History of alcohol abuse Chronic back pains Hypothyroidism History of subarachnoid hemorrhagesecondary to fall History of thyroid and ovarian cancer per notes History of breast cancer per notes History of DVT Plan: Patient was given Rocephin and azithromycin in ER. Given that patient has multiple pulmonary infiltrates, with questionable history of alcoholism, I would choose levofloxacin at this point. Replace potassium 50 mEq by mouth 1 dose now. Case management consult for possible rehabilitation/intermediate placement. Physical therapy consult. Would need further history from patient once she is a little more cooperative. Patient did have previous hospitalizations and her psychiatry service. Consider psychiatry or palliative care evaluation based on how much patient can provide history and clarify her goals of care. She was telling me that she was under hospice service up until 3 weeks ago. Resume home meds. DVT prophylaxiswith Lovenox. GI prophylaxis on pantoprazole. Discussed Condition With patient, ER provider Physician Certification 2 Midnight Certification Type: Admission for Inpatient Services Order for Inpatient Services The services are ordered in accordance with Medicare regulations or non- Medicare payer requirements, as applicable. In the case of services not specified as inpatient-only, they are appropriately provided as inpatient services in accordance with the 2-midnight benchmark. Estimated LOS (days): 2 days is the estimated time the patient will need to remain in the hospital, assuming treatment plan goals are met and no additional complications. Post-Hospital Plan: Not yet determined Problem Qualifiers (1) Pneumonia: Qualified Code: J18.9 - Pneumonia of both lungs due to infectious organism, unspecified part of lung (2) Chest pain: Qualified Code: R07.9 - Chest pain, unspecified type Sangeeta Taylor MD Dec 29, 2016 01:08
[2016-12-29 01:36] LABS: CREATINE KINASE 214 U/L (26-192)
[2016-12-29 01:49] LABS: CKMB 2.7 NG/ML (0.5-3.6)
[2016-12-29 04:00] VITALS: BP 120/70; PULSE 92; RESP 19; TEMP 96.9; O2SAT 98
[2016-12-29] MEDS ORDERED: POTASSIUM CHLORIDE 25 MEQ EFFERVESCENT TAB PO ONE (05:00)
[2016-12-29 05:23] LABS: AUTOMATED NEUTROPHIL # 3.6 TH/MM3 (1.8-7.7); BASOPHIL % 0.9 % (0.0-2.0); EOSINOPHIL # 0.1 TH/MM3 (0-0.4); EOSINOPHIL % 1.2 % (0.0-4.0); HEMATOCRIT 26.6 % (35.0-46.0); HEMO FLAGS DIFF FINAL; LYMPH % 17.9 % (9.0-44.0); LYMPHOCYTE # 0.9 TH/MM3 (1.0-4.8); MEAN CELL VOLUME 92.7 FL (80.0-100.0); MEAN CORPUSCULAR HEMOGLOBIN 32.2 PG (27.0-34.0); MEAN CORPUSCULAR HGB CONC 34.7 % (32.0-36.0); MONO % 9.9 % (0.0-8.0); NEUT % 70.1 % (16.0-70.0); PLATELET COUNT 265 TH/MM3 (150-450); RED BLOOD COUNT 2.87 MIL/MM3 (4.00-5.30); RED CELL DISTRIBUTION WIDTH 17.5 % (11.6-17.2); WHITE BLOOD COUNT 5.1 TH/MM3 (4.0-11.0)
[2016-12-29 05:41] LABS: ANION GAP 7 MEQ/L (5-15); BICARBONATE 26.8 MEQ/L (21.0-32.0); BLOOD UREA NITROGEN 11 MG/DL (7-18); CHLORIDE 107 MEQ/L (98-107); GLOMERULAR FILTRATION RATE 61 ML/MIN (>89); POTASSIUM 3.5 MEQ/L (3.5-5.1); SODIUM (NA) 141 MEQ/L (136-145)
[2016-12-29 05:45] LABS: CREATINE KINASE 287 U/L (26-192)
[2016-12-29 05:57] LABS: CKMB 3.9 NG/ML (0.5-3.6)
[2016-12-29] MEDS ORDERED: LEVOTHYROXINE SODIUM 150 MCG TAB PO SCH (06:00)
[2016-12-29] MEDS ORDERED: MORPHINE SULFATE 4 MG/ML INJ IV PUSH ONE (06:30)
[2016-12-29 08:00] VITALS: BP 133/74; PULSE 86; RESP 17; TEMP 97.8; O2SAT 97
[2016-12-29] MEDS: SODIUM CHLORIDE 0.9% FLUSH 5 ML FLUSH FLUSH SCH (08:29)
[2016-12-29 08:59] LABS: BLOOD, URINE NEG (NEG); COMMENT (UR) CULT NOT INDICATED; CULTURE IF INDICATED CULT NOT INDICATED; GLUCOSE,URINE NEG (NEG); KETONE, URINE NEG (NEG); MUCUS URINE FEW /lpf (OCC); NITRITE,URINE NEG (NEG); SQUAMOUS EPITHELIAL CELL URINE 1 /hpf (0-5); URINE COLOR YELLOW (YELLW/STRAW)
[2016-12-29] MEDS ORDERED: THIAMINE HCL 100 MG TAB PO SCH (09:00)
[2016-12-29] MEDS ORDERED: LEVOFLOXACIN 750 MG PREMIX INJ 150 ML IV SCH (09:00)
[2016-12-29] MEDS ORDERED: ENOXAPARIN SODIUM 40 MG/0.4 ML SYRINGE SQ SCH (09:00)
--- NOTE | 2016-12-29 09:46 | HHI.PR ---
Addendum to Inpatient Note Additional Information Patient was admitted due to chest pain, leg swelling. Patient seen/examined. Patient wants to go home badly. She is on room air. We will get a PT eval. If she does well with PT, we may be able to discharge her home today with oral abx and we can continue home health. Discussed with GREG. Conrado Prince DO Dec 29, 2016 9:46 am
--- NOTE | 2016-12-29 09:47 | HHI.FF ---
Face to Face Verification Diagnosis: (1) Pneumonia (2) Chest pain Physical Therapy Order: Evaluate and Treat, Improve ambulation, Strength and gait training Home Health Nursing Order: Medical education Signs/symptoms of disease process Medication education-adverse effect Nursing assessment with vital signs I have seen patient Nancy Cain on 12/29/16. My clinical findings support the need for the requested home health care services because: Ltd mobility - disease progression Patient has SOB Deconditioned w/ increased weakness Need for psychosocial assistance High risk of falls Infection w/ risk of complications I certify that my clinical findings support that this patient is homebound because: Unsteady gait/balance Unsafe to leave home unassisted Need for psychosocial assistance Unable to use public transportation Conrado Prince DO Dec 29, 2016 9:47 am
--- NOTE | 2016-12-29 10:01 | EKG ---
Date Performed: 12/29/2016 Time Performed: 05:12:10 PTAGE: 66 years EKG: Sinus rhythm Possible anterior infarct - age undetermined Low QRS voltages in precordial leads Abnormal ECG PREVIOUS TRACING : 12/28/2016 13.19 DOCTOR: Nabor Lopes Interpretating Date/Time 12/29/2016 09:59:53
--- NOTE | 2016-12-29 10:24 | EKG ---
Date Performed: 12/28/2016 Time Performed: 13:19:14 PTAGE: 66 years EKG: Sinus rhythm NORMAL ECG INTERPRETATION BASED ON A DEFAULT AGE OF 41 YEARS NO PREVIOUS TRACING DOCTOR: Nabor Lopes Interpretating Date/Time 12/29/2016 10:20:09
[2016-12-29 12:00] VITALS: BP 136/81; PULSE 89; RESP 18; TEMP 97.3; O2SAT 95
[2016-12-29] MEDS ORDERED: LEVA750T PO ×2 (13:00→13:01)
--- NOTE | 2016-12-29 13:09 | HHI.PR ---
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 CT PE showed no PE but showed patchy infiltrates. Patient was started on IV abx. Currently, patient is doing well on room air. She is tolerating diet. PT evaluated patient and she is doing well using her walker. Patient strongly feels that she would do better at home where she can sleep better. She will [facility] this week or at the latest on Wednesday next week. Objective Vitals Vital Signs Date Time Temp Pulse Resp B/P Pulse Ox O2 Delivery O2 Flow Rate FiO2 12/29/16 12:00 97.3 89 18 136/81 95 12/29/16 08:00 97.8 86 17 133/74 97 12/29/16 04:00 96.9 92 19 120/70 98 12/29/16 00:00 96.8 80 19 121/72 100 12/28/16 22:15 97.0 87 20 134/77 100 12/28/16 19:46 83 16 101/57 100 Nasal Cannula 2 12/28/16 18:42 85 22 125/70 96 Room Air 12/28/16 17:30 98 Room Air 12/28/16 17:30 98 Room Air 12/28/16 17:29 80 20 133/70 98 Room Air 12/28/16 14:36 20 Room Air 12/28/16 13:08 98.3 99 20 145/74 99 Room Air I/O 12/28/16 12/28/16 12/28/16 12/29/16 12/29/16 12/29/16 07:00 15:00 23:00 07:00 15:00 23:00 Intake Total 120 ml 240 ml Balance 120 ml 240 ml Intake Oral 120 ml 240 ml IV Total 0 ml # Voids 0 2 Result Diagram: 12/29/16 0458 12/29/16 0458 Imaging Last Impressions Chest X-Ray 12/28/16 1448 Signed Impressions: Service Date/Time: Wednesday, December 28, 2016 14:52 - CONCLUSION: 1. Patchy opacity within the left lung base consistent with probable pneumonia. Clinical pneumonia is recommended. Joseph Carter MD CT Angiography 12/28/16 0000 Signed Impressions: Service Date/Time: Wednesday, December 28, 2016 19:22 - CONCLUSION: 1. No evidence of pulmonary embolism. 2. Multiple bilateral scattered pulmonary infiltrates suggestive of an inflammatory process such as pneumonia. 3. Questionable thickening of the distal esophagus. Rayshawn Fritz MD Objective Remarks GENERAL: AOX3, NAD. SKIN: Warm and dry. HEAD: Normocephalic. EYES: No scleral icterus. No injection or drainage. NECK: Supple, trachea midline. No JVD or lymphadenopathy. CARDIOVASCULAR: Regular rate and rhythm without murmurs, gallops, or rubs. RESPIRATORY: Breath sounds equal bilaterally. No accessory muscle use. GASTROINTESTINAL: Abdomen soft, non-tender, nondistended. MUSCULOSKELETAL: No cyanosis, or edema. BACK: Nontender without obvious deformity. No CVA tenderness. Procedures None. A/P Problem List: (1) Pneumonia ICD Code: J18.9 Status: Acute (2) Chest pain ICD Code: R07.9 Status: Acute Assessment and Plan Ms. Cain is a 66 year old [place] who presented to the ED on 2016 due to bilateral lower ext edema, chest discomfort. She reports feeling much better. She wants to be discharged home today 12/29/2016. - Bilateral pneumonia - Will continue Levaquin for 4 more days to complete a 5 day course. - Patient is doing well on room air. - Follow up with PCP in 3-5 days. - Lower ext edema - BNP 27. - Keep legs elevated - Chest discomfort - Troponins x [address] PE did not show any PE. Full code. Discharge patient to home with home health. Condition on discharge: Improved Heart healthy Diet as tolerated Ad Freya activity Rx written: - Levaquin 750mg Qday x 4 days. Follow-up with primary care physician within 3-5 days. Problem Qualifiers (1) Pneumonia: Qualified Code: J18.9 - Pneumonia of both lungs due to infectious organism, unspecified part of lung (2) Chest pain: Qualified Code: R07.9 - Chest pain, unspecified type Conrado Prince DO Dec 29, 2016 1:09 pm
--- NOTE | 2016-12-29 13:10 | HHI.DCPOC ---
Discharge Care Plan Diagnosis: (1) Pneumonia Goals to Promote Your Health * To prevent worsening of your condition and complications * To maintain your health at the optimal level Directions to Meet Your Goals Take your medications as prescribed Follow your dietary instruction Follow activity as directed Keep your appointments as scheduled Take your immunizations and boosters as scheduled If your symptoms worsen call your PCP, if no PCP go to Urgent Care Center or Emergency Room Smoking is Dangerous to Your Health. Avoid second hand smoke Call the 24-hour hour crisis hotline for domestic abuse at Conrado Prince DO Dec 29, 2016 1:10 pm
[2016-12-30] MEDS ORDERED: PNEUMOCOCCAL POLYVALENT INJ 25 MCG/0.5 ML SYR IM ONE (10:00)
== END 2016-12-29 14:00 | disposition home health service (06) | DRG 190 ==
LOC: NEPA 13:01 → NEDA 20:03 → N07A 22:05
PROVIDERS: ADMIT Hospitalist; ATTEND Hospitalist
DX: J44.0 Chronic obstructive pulmonary disease with (acute) lower respiratory infection (principal); J18.9 Pneumonia, unspecified organism; E03.9 Hypothyroidism, unspecified; G89.29 Other chronic pain; M54.9 Dorsalgia, unspecified; R60.9 Edema, unspecified; F17.210 Nicotine dependence, cigarettes, uncomplicated; Z85.43 Personal history of malignant neoplasm of ovary; Z85.3 Personal history of malignant neoplasm of breast; Z86.718 Personal history of other venous thrombosis and embolism; E87.6 Hypokalemia; Z87.01 Personal history of pneumonia (recurrent); Z87.11 Personal history of peptic ulcer disease; Z90.3 Acquired absence of stomach [part of]; Z86.73 Personal history of transient ischemic attack (TIA), and cerebral infarction without residual deficits
CPT/HCPCS: 71010; 71275; 76937; 80048; 81001; 82550; 82552; 83605; 83735; 83880; 84484; 85025; 85379; 85610; 85730; 87040; 93005; 94664; 96374; 96375; J0456; J0696; J1650; J1956; J2060; J2270; J7050; Q9967

== ENCOUNTER 2017-02-07 16:10 | Inpatient (IN) | payer MEDICARE, OTHER ==
[~2017-02-07] VITALS: Ht 172.7 cm; Wt 63.8 kg
[2017-02-07] VITALS (8 sets, daily range): BP systolic 105–155; BP diastolic 67–105; PULSE 57–67; RESP 16–24; TEMP 97.9; O2SAT 95–99
[~2017-02-07 16:10] MED LIST changes: -ALPR.5 PO; -BENZ1TAB PO; -DICY10 PO; -DIPH25CA PO; +LEVA750T PO; -METH5TAB PO; -SERO50TA PO; -ZOFR4TAB PO; -ZOFR8TAB4 SL; -ZOLO50TA PO
[2017-02-07] MEDS ORDERED: SODIUM CHLORIDE 0.9% FLUSH 10 ML FLUSH IVF PRN (16:45)
[2017-02-07] MEDS ORDERED: SODIUM CHLOR 0.9% 1000 ML INJ 1,000 ML IV ONE (16:45)
[2017-02-07] MEDS ORDERED: HALOPERIDOL LACTATE 5 MG/ML AMP IM ONE (16:45)
--- NOTE | 2017-02-07 17:05 | RADRPT ---
EXAM DATE/TIME: 02/07/2017 16:29 [facility] COMPARISON: CHEST SINGLE AP, December 28, 2016, 14:52. INDICATIONS : Syncope MEDICAL HISTORY : Hypertension. Cardiovascular disease. Cerebrovascular disease. Thyroid, ovarian, breast and colo n cancer. SURGICAL HISTORY : Appendectomy. Cholecystectomy. Hysterectomy. Thyroid, ovarian, breast and colon cancer. ENCOUNTER: Initial ACUITY: 1 day PAIN SCORE: 0/10 LOCATION: chest FINDINGS: The previously seen left lung base infiltrate has improved with minimal atelectasis and/or infiltrate remaining at the site. There is no appreciable pleural effusion for technique. Heart and mediastin um are unremarkable. There are old left clavicular and rib fractures. CONCLUSION: Minimal left lung base atelectasis and/or infiltrate. Chester Thorpe MD on February 07, 2017 at 17:01 Board Certified Radiologist. This report was verified electronically.
[2017-02-07 17:10] LABS: AUTOMATED NEUTROPHIL # 1.7 TH/MM3 (1.8-7.7); BASOPHIL % 1.2 % (0.0-2.0); HEMATOCRIT 32.6 % (35.0-46.0); HEMO FLAGS DIFF FINAL; LYMPH % 44.6 % (9.0-44.0); LYMPHOCYTE # 1.5 TH/MM3 (1.0-4.8); MEAN CELL VOLUME 91.4 FL (80.0-100.0); MEAN CORPUSCULAR HEMOGLOBIN 31.1 PG (27.0-34.0); MONO % 4.6 % (0.0-8.0); NEUT % 48.6 % (16.0-70.0); PLATELET COUNT 237 TH/MM3 (150-450); RED BLOOD COUNT 3.57 MIL/MM3 (4.00-5.30); RED CELL DISTRIBUTION WIDTH 18.8 % (11.6-17.2); WHITE BLOOD COUNT 3.4 TH/MM3 (4.0-11.0)
[2017-02-07 17:21] LABS: APTT (PATIENT) 28.9 SEC (24.3-30.1); PROTHROMBIN TIME - PATIENT 11.1 SEC (9.8-11.6)
[2017-02-07] MEDS ORDERED: LACTULOSE SYRUP 20 GM/30 ML CUP PO ONE (18:15)
--- NOTE | 2017-02-07 18:18 | RADRPT ---
EXAM DATE/TIME: 02/07/2017 17:58 [facility] COMPARISON: CT BRAIN W/O CONTRAST, June 12, 2016, 12:36. INDICATIONS : Altered mental status. RADIATION DOSE: 58.72 CTDIvol (mGy) MEDICAL HISTORY : Stroke. Seizures. Cardiovascular diseaseDVT, Breast and ovarian cancer SURGICAL HISTORY : Appendectomy. Cholecystectomy.Mastectomy, bilateral. ENCOUNTER: Initial ACUITY: 1 day PAIN SCALE: Non-responsive LOCATION: cranial TECHNIQUE: Multiple contiguous axial images were obtained of the head. Using automated exposure control and adjustment of the mA and/or kV according to patient size, radiation dose was kept as low as reasonably achievable to obtain optimal diagnostic quality images. FINDINGS: There is no evidence for intracranial hemorrhage, mass effect, mass lesions, or edema. The visualize d bony structures appear intact. Slight degree of brain atrophy is seen. Slight periventricular whit e matter changes are seen nonspecific mostly consistent with chronic small vessel ischemic changes. There are no signs of acute infarction for technique. CONCLUSION: Slight atrophic and small vessel ischemic changes without any evidence for acute hemorrhage or mass effect. Chester Thorpe MD on February 07, 2017 at 18:15 Board Certified Radiologist. This report was verified electronically.
[2017-02-07] MEDS ORDERED: LORazepam 2 MG/ML VIAL IV PUSH ONE ×2 (18:30→22:15)
[2017-02-07] MEDS ORDERED: KETOROLAC TROMETHAMINE 30 MG/ML (IVP) VIAL IV PUSH ONE (19:00)
[2017-02-07 19:12] LABS: BLOOD, URINE TRACE (NEG); COMMENT (UR) CULT NOT INDICATED; CULTURE IF INDICATED CULT NOT INDICATED; GLUCOSE,URINE NEG (NEG); KETONE, URINE NEG (NEG); NITRITE,URINE NEG (NEG); PH, URINE 6.5 (5.0-8.5); SQUAMOUS EPITHELIAL CELL URINE <1 /hpf (0-5); URINE COLOR YELLOW (YELLW/STRAW)
--- NOTE | 2017-02-07 19:16 | PD ---
Physical Exam Narrative General: The patient is a well-developed well-nourished female, slightly pale appearing, in no acute distress. She reports a history of falling. She cannot recall when she fell, why, or how she fell. Head and Neck exam: Head is normocephalic atraumatic. Eyes: EOMI, pupils are equal round and reactive to light. Nose: Midline septum with pink mucous membranes Mouth: Dentition unremarkable. Moist mucus membranes. Posterior oropharynx is not erythematous. No tonsillar hypertrophy. Uvula midline. Airway patent. Neck: No palpable lymphadenopathy. No nuchal rigidity. No thyromegaly. Cardiovascular: Regular rate and rhythm without murmurs, gallops, or rubs. Lungs: Clear to auscultation bilaterally. No wheezes, rhonchi, or rales. Abdomen: Soft, with tenderness on palpation in the right lower quadrant of the abdomen and suprapubic area, no other tenderness on palpation of the other quadrants of the abdomen. Negative [place] sign. Normal bowel sounds are audible. No guarding, rebound, or rigidity. Extremities: No clubbing, cyanosis, or edema. 2+ pulses in all 4 extremities. No calf tenderness on palpation. Neurologic Exam: Cranial nerves 2-12 were intact on exam. Strength is 5/5 in all 4 extremities. No sensory deficits noted. The patient is oriented to person, place, however not time, or details regarding the situation. Skin Exam: No rash noted. Intact skin that is warm and dry. Data Data Last Documented VS Vital Signs Date Time Temp Pulse Resp B/P Pulse Ox O2 Delivery O2 Flow Rate FiO2 02/07/17 19:10 64 24 147/90 96 Room Air 02/07/17 16:29 97.9 Orders Electrocardiogram (02/07/17 16:32) Ammonia (02/07/17 16:32) Complete Blood Count With Diff (02/07/17 16:32) Comprehensive Metabolic Panel (02/07/17 16:32) Creatine Kinase (Cpk) (02/07/17 16:32) Prothrombin Time / Inr (Pt) (02/07/17 16:32) Act Partial Throm Time (Ptt) (02/07/17 16:32) Troponin I (02/07/17 16:32) Thyroid Stimulating Hormone (02/07/17 16:32) Lactic Acid Sepsis Protocol (02/07/17 16:32) Urinalysis - C+S If Indicated (02/07/17 16:32) Ua Includes Microscopic (02/07/17 16:32) Chest, Single Ap (02/07/17 16:32) Ct Brain W/O Iv Contrast(Rout) (02/07/17 16:32) Blood Glucose (02/07/17 16:32) Ecg Monitoring (02/07/17 16:32) Iv Access Insert/Monitor (02/07/17 16:32) Oximetry (02/07/17 16:32) Sodium Chloride 0.9% Flush (Ns Flush) (02/07/17 16:45) Drug Screen, Random Urine (02/07/17 16:32) Alcohol (Ethanol) (02/07/17 16:32) Salicylates (Aspirin) (02/07/17 16:32) Tylenol (Acetaminophen) (02/07/17 16:32) Sodium Chlor 0.9% 1000 Ml Inj (Ns 1000 M (02/07/17 16:45) Cath For Specimen (02/07/17 16:36) Haloperidol Inj (Haldol Inj) (02/07/17 16:45) Lactulose Liq (Lactulose Liq) (02/07/17 18:15) Consult Psychiatry (02/07/17 ) Lorazepam Inj (Ativan Inj) (02/07/17 18:30) Ketorolac Inj (Toradol Inj) (02/07/17 19:00) (Hub Use Only)Inp Phy Cons/Ref (02/07/17 ) Ct Abd/Pel W Iv Contrast(Rout) (02/07/17 19:10) Ceftriaxone Inj (Rocephin Inj) (02/07/17 19:30) Azithromycin Inj (Zithromax Inj) (02/07/17 19:30) Restraints Non-Violent FER.Q3H (02/07/17 19:29) CKMB (02/07/17 16:40) CKMB% (02/07/17 16:40) Iohexol 350 Inj (Omnipaque 350 Inj) (02/07/17 20:59) Labs Laboratory Tests Test 02/07/17 02/07/17 02/07/17 16:40 17:15 18:40 White Blood Count 3.4 TH/MM3 Red Blood Count 3.57 MIL/MM3 Hemoglobin 11.1 GM/DL Hematocrit 32.6 % Mean Corpuscular Volume 91.4 FL Mean Corpuscular Hemoglobin 31.1 PG Mean Corpuscular Hemoglobin 34.0 % Concent Red Cell Distribution Width 18.8 % Platelet Count 237 TH/MM3 Mean Platelet Volume 10.3 FL Neutrophils (%) (Auto) 48.6 % Lymphocytes (%) (Auto) 44.6 % Monocytes (%) (Auto) 4.6 % Eosinophils (%) (Auto) 1.0 % Basophils (%) (Auto) 1.2 % Neutrophils # (Auto) 1.7 TH/MM3 Lymphocytes # (Auto) 1.5 TH/MM3 Monocytes # (Auto) 0.2 TH/MM3 Eosinophils # (Auto) 0.0 TH/MM3 Basophils # (Auto) 0.0 TH/MM3 CBC Comment DIFF FINAL Differential Comment Prothrombin Time 11.1 SEC Prothromb Time International 1.0 RATIO Ratio Activated Partial 28.9 SEC Thromboplast Time Sodium Level 138 MEQ/L Potassium Level 4.8 MEQ/L Chloride Level 108 MEQ/L Carbon Dioxide Level 20.0 MEQ/L Anion Gap 10 MEQ/L Blood Urea Nitrogen 17 MG/DL Creatinine 0.98 MG/DL Estimat Glomerular Filtration 57 ML/MIN Rate Random Glucose 83 MG/DL Calcium Level 7.5 MG/DL Total Bilirubin 0.6 MG/DL Aspartate Amino Transf 36 U/L (AST/SGOT) Alanine Aminotransferase 18 U/L (ALT/SGPT) Alkaline Phosphatase 66 U/L Ammonia 56 MCMOL/L Total Creatine Kinase 351 U/L Creatine Kinase MB 6.1 NG/ML Creatine Kinase MB % 1.7 % Troponin I LESS THAN 0.02 NG/ML Total Protein 6.1 GM/DL Albumin 2.9 GM/DL Thyroid Stimulating Hormone 50.000 uIU/ML 3rd Gen Acetaminophen Level LESS THAN 2.0 MCG/ML Ethyl Alcohol Level LESS THAN 3 MG/DL Lactic Acid Level 0.6 mmol/L Salicylates Level 3.8 MG/DL Urine Color YELLOW Urine Turbidity CLEAR Urine pH 6.5 Urine Specific [place] 1.015 Urine Protein NEG mg/dL Urine Glucose (UA) NEG mg/dL Urine Ketones NEG mg/dL Urine Occult Blood TRACE Urine Nitrite NEG Urine Bilirubin NEG Urine Urobilinogen 2.0 MG/DL Urine Leukocyte Esterase NEG Urine RBC 5 /hpf Urine WBC 2 /hpf Urine Squamous Epithelial <1 /hpf Cells Microscopic Urinalysis Comment CULT NOT INDICATED Urine Opiates Screen POS Urine Barbiturates Screen NEG Urine Amphetamines Screen NEG Urine Benzodiazepines Screen POS Urine Cocaine Screen NEG Urine Cannabinoids Screen POS MDM Medical Record Reviewed: Yes Supervised Visit with HIRO: No Interpretation(s) Last Impressions Abdomen/Pelvis CT 02/07/17 1910 Signed Impressions: Service Date/Time: Tuesday, February 07, 2017 20:57 - CONCLUSION: Stable chronic changes. Chester Thorpe MD Head CT 02/07/17 1632 Signed Impressions: Service Date/Time: Tuesday, February 07, 2017 17:58 - CONCLUSION: Slight atrophic and small vessel ischemic changes without any evidence for acute hemorrhage or mass effect. Chester Thorpe MD Chest X-Ray 02/07/171631 Signed Impressions: Service Date/Time: Tuesday, February 07, 2017 16:29 - CONCLUSION: Minimal left lung base atelectasis and/or infiltrate. Chester Thorpe MD Narrative Course During the course of the patients emergency department visit, the patients history, examination, and differential diagnosis were reviewed with the patient. The patient had IV access obtained and blood work sent for analysis. The patient's case was checked out to me by Dr. Shah. Please see her complete history and physical. She reported that the patient has a history of falling and being found on the ground. The patient was noted to have an elevated ammonia level on her laboratory studies. CT scan of the head, chest x- ray was reportedly unremarkable. On my examination the patient had right lower quadrant abdominal discomfort. A CT scan abdomen and pelvis has been added to the patient's workup. The patient was initially provided normal saline 1 L IV fluid bolus, Haldol 2 mg IM, Ativan 1 mg IV, Toradol 30 mg IV 1 for pain. The patient reports a history of chronic low back pain with 5 prior surgeries. The patient was also given lactulose for an elevated ammonia level at 56. The patient was also treated for her lung infiltrate with antibiotic as Dr. Shah was concerned that her altered mentation may be related to an infection. The patients laboratory studies were reviewed and remarkable for a white count of 3.4, hemoglobin 11.1, platelets 237 with 44.6 monocytes, ammonia level LVI, lactic acid 0.6, PT 11.1, PTT 28.9, urinalysis shows trace occult blood, 5 RBCs , otherwise unremarkable. Urine drug screen is positive for opiates, benzodiazepines, cannabinoids. Alcohol level less than 3, acetaminophen less than 2, salicylate 3.8. CMP is remarkable for chloride of 108, CO2 20, calcium 7.5, CPK 351 with 1.7% MB, troponin I less than 0.02, TSH 50. Radiology studies were reviewed and remarkable for a CT scan of the brain that shows a slight atrophic and small vessel ischemic change without any evidence for acute hemorrhage or mass effect, chest x-ray shows minimal left lung base atelectasis and / or infiltrate. CT scan of the abdomen and pelvis showed no acute abnormality. The patients results were discussed with the patient, including the plan of care. I explained that further testing and/ or monitoring is indicated based on the patients history, examination, and/ or laboratory findings. Therefore, I recommended admission for additional evaluation. The patient expressed understanding and was agreeable with this plan. The patient was admitted to the hospital in guarded condition and [facility] Physician Communication Physician Communication The patient's case will be discussed with the [facility] service for admission. Diagnosis Primary Impression: Altered mental status Qualified Code: R41.0 - Disorientation Additional Impression: Hypothyroid Qualified Code: E03.9 - Hypothyroidism, unspecified type Admitting Information Admitting Physician Requests: Admit Supriya Marie MD Feb 07, 2017 19:16
[2017-02-07 19:21] LABS: ANION GAP 10 MEQ/L (5-15); AST (GOT) 36 U/L (15-37); BLOOD UREA NITROGEN 17 MG/DL (7-18); CHLORIDE 108 MEQ/L (98-107); GLOMERULAR FILTRATION RATE 57 ML/MIN (>89); POTASSIUM 4.8 MEQ/L (3.5-5.1); SODIUM (NA) 138 MEQ/L (136-145)
[2017-02-07 19:23] LABS: AMPHETAMINE, URINE NEG (NEG); BARBITURATES, URINE NEG (NEG); COCAINE, URINE NEG (NEG)
--- NOTE | 2017-02-07 19:23 | PD ---
HPI Chief Complaint: Psychiatric Symptoms Time Seen by Provider: 16:32 Travel History International Travel<30 days: No Contact w/Intl Traveler<30days: No Traveled to known affect area: No History of Present Illness HPI Patient is a 66-year-old female brought in by EMS after she was on the ground for 16 hours and unable to get up. Per EMS she told them that she was unable to care for herself and she had not eaten in 2 days. EMS states that she was unwilling to go to the hospital, place were called. Police placed the patient under David act because supposedly she said that she did not want to live. Patient does not provide any history, states she is cold. PFSH Past Medical History Hx Anticoagulant Therapy: Yes Arthritis: Yes Asthma: No Autoimmune Disease: No Bipolar Disorder: Yes Anxiety: Yes Depression: Yes Heart Rhythm Problems: No Cancer: Yes (Thyroid, Ovarian, Rt breast,colon) Cardiovascular Problems: Yes High Cholesterol: No Chemotherapy: Yes (2012) Chest Pain: No Congestive Heart Failure: No COPD: Yes Cerebrovascular Accident: Yes Diabetes: No Diminished Hearing: No Deep Vein Thrombosis: Yes Endocrine: Yes Gastrointestinal Disorders: Yes (malabsorption, partial gastrectomy s/p GI bleed ) GERD: Yes Genitourinary: Yes ("urination problems" frequency, and retention) Hiatal Hernia: No Immune Disorder: No Implanted Vascular Access Dvce: Yes Kidney Stones: No Musculoskeletal: Yes (back surgery x 5 ) Neurologic: Yes (seizure ) Psychiatric: Yes (depression) Reproductive: Yes (ovarian cancer, breast cancer ) Respiratory: Yes Immunizations Current: Yes Migraines: No Radiation Therapy: Yes Renal Failure: No Seizures: Yes Sickle Cell Disease: No Sleep Apnea: No Thyroid Disease: Yes (thyroidectomy/hyperthyrodism) Ulcer: Yes Tetanus Vaccination: Unknown Menopausal: Yes : 2 Para: 2 Past Surgical History Abdominal Surgery: Yes (partial gastrectomy) AICD: No Appendectomy: Yes Arteriovenous Shunt: No Body Medical Devices: "hardware in back" Cardiac Surgery: Yes Cholecystectomy: Yes Ear Surgery: No Endocrine Surgery: Yes Eye Surgery: No Genitourinary Surgery: No Gynecologic Surgery: Yes (right ovary removed/D&C/C -section) Insulin Pump: No Joint Replacement: No Mastectomy: Yes (RT) Oral Surgery: No Pacemaker: No Thoracic Surgery: Yes Tonsillectomy: Yes Other Surgery: Yes (thyroidectomy, rt oopherectomy, rt lumpectomy, partial gastrectomy, back ) Social History Alcohol Use: No Tobacco Use: Yes (less than 1/2ppd) Substance Use: No Allergies-Medications (Allergen,Severity, Reaction): Coded Allergies: Phenothiazines (Verified Allergy, Severe, RASH, 02/07/17) Tigan (Verified Allergy, Severe, TETANY, 02/07/17) Compazine (Verified Adverse Reaction, Severe, Nausea/Vomiting, 02/07/17) *MDRO Multi-Drug Resistant Organism (Verified Adverse Reaction, Unknown, ) 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 SKIN: Focused skin assessment warm/dry. No wounds or skin breakdown. HEAD: Atraumatic. Normocephalic. EYES: Pupils equal and round. No scleral icterus. Extraocular movements intact. ENT: Mucous membranes pink and moist. NECK: Trachea midline. No JVD. CARDIOVASCULAR: Regular rate and rhythm. No murmur appreciated. RESPIRATORY: No accessory muscle use. Clear to auscultation. Breath sounds equal bilaterally. GASTROINTESTINAL: Abdomen soft, non-tender, nondistended. MUSCULOSKELETAL: No obvious deformities. No clubbing. No cyanosis. No edema. NEUROLOGICAL: Awake and alert, refusing to answer questions.. No obvious cranial nerve deficits. Motor grossly within normal limits. Normal speech. Data Data Last Documented VS Vital Signs Date Time Temp Pulse Resp B/P Pulse Ox O2 Delivery O2 Flow Rate FiO2 02/07/17 21:39 65 17 152/105 99 Room Air 02/07/17 16:29 97.9 Orders Electrocardiogram (02/07/17 16:32) Ammonia (02/07/17 16:32) Complete Blood Count With Diff (02/07/17 16:32) Comprehensive Metabolic Panel (02/07/17 16:32) Creatine Kinase (Cpk) (02/07/17 16:32) Prothrombin Time / Inr (Pt) (02/07/17 16:32) Act Partial Throm Time (Ptt) (02/07/17 16:32) Troponin I (02/07/17 16:32) Thyroid Stimulating Hormone (02/07/17 16:32) Lactic Acid Sepsis Protocol (02/07/17 16:32) Urinalysis - C+S If Indicated (02/07/17 16:32) Ua Includes Microscopic (02/07/17 16:32) Chest, Single Ap (02/07/17 16:32) Ct Brain W/O Iv Contrast(Rout) (02/07/17 16:32) Blood Glucose (02/07/17 16:32) Ecg Monitoring (02/07/17 16:32) Iv Access Insert/Monitor (02/07/17 16:32) Oximetry (02/07/17 16:32) Sodium Chloride 0.9% Flush (Ns Flush) (02/07/17 16:45) Drug Screen, Random Urine (02/07/17 16:32) Alcohol (Ethanol) (02/07/17 16:32) Salicylates (Aspirin) (02/07/17 16:32) Tylenol (Acetaminophen) (02/07/17 16:32) Sodium Chlor 0.9% 1000 Ml Inj (Ns 1000 M (02/07/17 16:45) Cath For Specimen (02/07/17 16:36) Haloperidol Inj (Haldol Inj) (02/07/17 16:45) Lactulose Liq (Lactulose Liq) (02/07/17 18:15) Consult Psychiatry (02/07/17 ) Lorazepam Inj (Ativan Inj) (02/07/17 18:30) Ketorolac Inj (Toradol Inj) (02/07/17 19:00) (Hub Use Only)Inp Phy Cons/Ref (02/07/17 ) Ct Abd/Pel W Iv Contrast(Rout) (02/07/17 19:10) Ceftriaxone Inj (Rocephin Inj) (02/07/17 19:30) Azithromycin Inj (Zithromax Inj) (02/07/17 19:30) Restraints Non-Violent FER.Q3H (02/07/17 19:29) CKMB (02/07/17 16:40) CKMB% (02/07/17 16:40) Iohexol 350 Inj (Omnipaque 350 Inj) (02/07/17 20:59) Admit Order (Ed Use Only) (02/07/17 21:39) Labs Laboratory Tests Test 02/07/17 02/07/17 02/07/17 16:40 17:15 18:40 White Blood Count 3.4 TH/MM3 Red Blood Count 3.57 MIL/MM3 Hemoglobin 11.1 GM/DL Hematocrit 32.6 % Mean Corpuscular Volume 91.4 FL Mean Corpuscular Hemoglobin 31.1 PG Mean Corpuscular Hemoglobin 34.0 % Concent Red Cell Distribution Width 18.8 % Platelet Count 237 TH/MM3 Mean Platelet Volume 10.3 FL Neutrophils (%) (Auto) 48.6 % Lymphocytes (%) (Auto) 44.6 % Monocytes (%) (Auto) 4.6 % Eosinophils (%) (Auto) 1.0 % Basophils (%) (Auto) 1.2 % Neutrophils # (Auto) 1.7 TH/MM3 Lymphocytes # (Auto) 1.5 TH/MM3 Monocytes # (Auto) 0.2 TH/MM3 Eosinophils # (Auto) 0.0 TH/MM3 Basophils # (Auto) 0.0 TH/MM3 CBC Comment DIFF FINAL Differential Comment Prothrombin Time 11.1 SEC Prothromb Time International 1.0 RATIO Ratio Activated Partial 28.9 SEC Thromboplast Time Sodium Level 138 MEQ/L Potassium Level 4.8 MEQ/L Chloride Level 108 MEQ/L Carbon Dioxide Level 20.0 MEQ/L Anion Gap 10 MEQ/L Blood Urea Nitrogen 17 MG/DL Creatinine 0.98 MG/DL Estimat Glomerular Filtration 57 ML/MIN Rate Random Glucose 83 MG/DL Calcium Level 7.5 MG/DL Total Bilirubin 0.6 MG/DL Aspartate Amino Transf 36 U/L (AST/SGOT) Alanine Aminotransferase 18 U/L (ALT/SGPT) Alkaline Phosphatase 66 U/L Ammonia 56 MCMOL/L Total Creatine Kinase 351 U/L Creatine Kinase MB 6.1 NG/ML Creatine Kinase MB % 1.7 % Troponin I LESS THAN 0.02 NG/ML Total Protein 6.1 GM/DL Albumin 2.9 GM/DL Thyroid Stimulating Hormone 50.000 uIU/ML 3rd Gen Acetaminophen Level LESS THAN 2.0 MCG/ML Ethyl Alcohol Level LESS THAN 3 MG/DL Lactic Acid Level 0.6 mmol/L Salicylates Level 3.8 MG/DL Urine Color YELLOW Urine Turbidity CLEAR Urine pH 6.5 Urine Specific [place] 1.015 Urine Protein NEG mg/dL Urine Glucose (UA) NEG mg/dL Urine Ketones NEG mg/dL Urine Occult Blood TRACE Urine Nitrite NEG Urine Bilirubin NEG Urine Urobilinogen 2.0 MG/DL Urine Leukocyte Esterase NEG Urine RBC 5 /hpf Urine WBC 2 /hpf Urine Squamous Epithelial <1 /hpf Cells Microscopic Urinalysis Comment CULT NOT INDICATED Urine Opiates Screen POS Urine Barbiturates Screen NEG Urine Amphetamines Screen NEG Urine Benzodiazepines Screen POS Urine Cocaine Screen NEG Urine Cannabinoids Screen POS MDM Medical Decision Making Medical Screen Exam Complete: Yes Emergency Medical Condition: Yes Medical Record Reviewed: Yes Interpretation(s) ECG shows sinus rhythm at 69, no ST elevation or depression. Differential Diagnosis Electrolyte abnormality versus sepsis versus CVA versus encephalopathy Narrative Course Patient is a 66-year-old female who comes in because she was unable to care for self at home and is placed under David act. Patient does not provide any history. Exam shows no obvious injuries. IV established, labs sent. Labs show an elevated ammonia level. Patient given lactulose. Patient is very agitated, refusing to cooperate with any medical treatments her exams. She was given a small dose of Haldol as well as Ativan. CT head performed shows no acute abnormalities. Chest x-ray shows a possible left lower lung infiltrate. Given Rocephin and azithromycin. Patient will require admission. Signed out to Dr. Marie for further management. Diagnosis Primary Impression: Altered mental status Qualified Code: R41.0 - Delirium Additional Impression: Pneumonia Qualified Code: J18.1 - Pneumonia of left lower lobe due to infectious organism Scripts Docusate Sodium (Colace)100 Mg [id number] Mg PO BID PRN (Constipation) #60 CAP Ref 0 Prov:Naldo Chase MD 02/11/17 Morphine IR 15 Mg Tab15 Mg PO Q6HR PRN (PAIN GREATER THAN 5) #120 TAB Prov:Naldo Chase MD 02/11/17 Morphine ER 30 Mg Tab30 Mg PO Q12HR #60 TAB Prov:Naldo Chase MD 02/11/17 Temazepam (Restoril)15 Mg Cap15 Mg PO HS PRN (INSOMNIA) #30 CAP Prov:Naldo Chase MD 02/11/17 Farhana Shah MD Feb 07, 2017 19:23
[2017-02-07] MEDS ORDERED: AZITHROMYCIN INJ 500 MG in SODIUM CHLOR 0.9% 250 ML INJ 250 ML IV ONE (19:30)
[2017-02-07] MEDS ORDERED: cefTRIAXone INJ 1,000 MG in SODIUM CHLORIDE 0.9% INJ 100 ML IV ONE (19:30)
[2017-02-07 19:33] LABS: ACETAMINOPHEN LESS THAN 2.0 MCG/ML (10.0-30.0); ALKALINE PHOSPHATASE 66 U/L (45-117); ALT (GPT) 18 U/L (10-53); CREATINE KINASE 351 U/L (26-192); TOTAL BILIRUBIN ADULT 0.6 MG/DL (0.2-1.0)
[2017-02-07 19:46] LABS: CKMB 6.1 NG/ML (0.5-3.6)
[2017-02-07] MEDS ORDERED: IOHEXOL 350 MG/ML 10 ML VIAL (for RAD DIAG) IV ONE (20:59)
--- NOTE | 2017-02-07 21:16 | RADRPT ---
EXAM DATE/TIME: 02/07/2017 20:57 [facility] COMPARISON: CT ABDOMEN & PELVIS W/O CONTRAST, November 20, 2016, 13:37. INDICATIONS : Possible fall. Failure to thrive. IV CONTRAST: 86 cc Omnipaque 350 (iohexol) IV ORAL CONTRAST: No oral contrast ingested. RADIATION DOSE: 5.78 CTDIvol (mGy) MEDICAL HISTORY : Cardiovascular disease. Seizures. Deep venous thrombosis.CVA. Thyroid cancer. Breast cancer. Colon ca ncer. SURGICAL HISTORY : Appendectomy. Cholecystectomy.Mastectomy. Lumbar surgery. Right hip replacement. ENCOUNTER: Initial ACUITY: 1 day PAIN SCALE: 10/10 LOCATION: Bilateral abdomen TECHNIQUE: Volumetric scanning of the abdomen and pelvis was performed. Using automated exposure control and ad justment of the mA and/or kV according to patient size, radiation dose was kept as low as reasonably achievable to obtain optimal diagnostic quality images. FINDINGS: CT Abdomen: The liver, spleen, pancreas, kidneys, adrenals are unremarkable. There is no evidence for any appreciable pathological adenopathy, free fluid, or bowel obstruction. There is old fracture of L1 transverse process on the right. There are postsurgical changes in the lower lumbosacral spine an d right hip. There is evidence for prior cholecystectomy. Chronic vascular calcifications are present involving the aorta, iliac arteries without any significant stenosis or aneurysmal dilatations for t echnique. Small hiatal hernia is seen. CT pelvis: There is no evidence for mass, abscess formation, or any significant adenopathy within the pelvis. CONCLUSION: Stable chronic changes. Chester Thorpe MD on February 07, 2017 at 21:11 Board Certified Radiologist. This report was verified electronically.
[2017-02-07] MEDS ORDERED: SODIUM CHLORIDE 0.9% FLUSH 10 ML FLUSH IV FLUSH PRN (22:15)
[2017-02-07] MEDS ORDERED: NALOXONE HCL 0.4 MG/ML AMP IV PRN (22:15)
[2017-02-07] MEDS ORDERED: ONDANSETRON HCL 4 MG/2 ML VIAL IVP PRN (22:15)
--- NOTE | 2017-02-07 22:43 | HHI.HP ---
[facility] Service [facility] Primary Care Physician [facility] Admission Diagnosis AMS, hepatic encephalopathy, hypothyroid Diagnoses: Chief Complaint: found down unable to get up- under david act Travel History International Travel<30 Days: No Contact w/Intl Traveler <30 Da: No Traveled to Known Affected Are: No History of Present Illness This is a 66-year-old female patient with a past medical history per medical records include bipolar disorder, EtOH abuse, chronic back pain, hypothyroidism , subarachnoid hemorrhage secondary to fall, thyroid, ovarian and breast cancer , breast cancer and DVT. Patient is currently confused and disoriented alert and oriented to person and place only. Unable to provide reliable information. Information gathered from patient as well as prior computerized charting. Patient reports earlier today she got dizzy and fell down. This not recall if she lost consciousness or hit her head. Unable to recall any further information regarding the event. Blood glucose on arrival was 83. Per ER documentation patient neighbor heard her yelling for help and called EMS. EMS arrived patient was found on the living room floor and unable to get up. Patient was reluctant to come to the hospital and made a statement regarding she wanted to . Police were then called and patient was placed under David act and brought to the emergency department for further evaluation and treatment At this time patient denies shortness of breath chest pain nausea vomiting diarrhea constipation fevers or chills. Patient does complain of right knee pain and abrasion noted. Review of Systems ROS Limitations: Clinical Condition, Poor Historian Past Family Social History Past Medical History Per EMR: Bipolar disorder History of alcohol abuse Chronic back pains Hypothyroidism History of subarachnoid hemorrhagesecondary to fall History of thyroid and ovarian cancer per notes History of breast cancer per notes History of DVT Past Surgical History Per EMR: Thyroidectomy, oophorectomy Cholecystectomy Partial gastrectomy Mastectomy Appendectomy Reported Medications Per record: Ferrous Sulfate 325 Mg Tab 325 Mg PO BID Restoril (Temazepam) 30 Mg Cap 30 Mg PO HS PRN Vitamin C (Ascorbic Acid) 500 Mg Tab 500 Mg PO DAILY Thiamine (Thiamine HCl) 100 Mg Tab 100 Mg PO DAILY D3 (Cholecalciferol) 2,000 Unit Tab 2,000 Units PO DAILY Synthroid (Levothyroxine Sodium) 150 Mcg Tab 150 Mcg PO DAILY B-12 (Cyanocobalamin) 1,000 Mcg Subl 1,000 Mcg SL DAILY Allergies: Coded Allergies: Phenothiazines (Verified Allergy, Severe, RASH, 02/07/17) Tigan (Verified Allergy, Severe, TETANY, 02/07/17) Compazine (Verified Adverse Reaction, Severe, Nausea/Vomiting, 02/07/17) *MDRO Multi-Drug Resistant Organism (Verified Adverse Reaction, Unknown, ) 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/19/2016 Active Ordered Medications Current Medications Medications (Trade) Dose Ordered Sig/Anya Route Start Time Stop Time Status Last Admin (NS Flush) 2 ml UNSCH PRN IV FLUSH 02/07/17 22:15 (NS Flush) 2 ml BID IV FLUSH 02/08/17 09:00 (Zofran Inj) 4 mg Q6H PRN IVP 02/07/17 22:15 (Narcan Inj) 0.4 mg UNSCH PRN IV 02/07/17 22:15 (Lactulose Liq) 30 ml QID PO 02/08/17 09:00 (Ferrous Sulfate) 325 mg BID PO 02/08/17 09:00 (Synthroid) 150 mcg DAILY@06 PO 02/08/17 06:00 Family History Patient does not remember medical conditions and her family Social History Report she smokes less than half a pack a day. She denies any alcohol abuse at this time reports she quit drinking New Years reilly Denies illicit or drug abuse. Per EMR: Patient has a history of ETOH abuse and did have hospital admissions for withdrawal Physical Exam Vital Signs Vital Signs Date Time Temp Pulse Resp B/P Pulse Ox O2 Delivery O2 Flow Rate FiO2 02/07/17 22:11 98 02/07/17 21:39 65 17 152/105 99 Room Air 02/07/17 19:10 64 24 147/90 96 Room Air 02/07/17 18:51 65 20 120/85 99 02/07/17 16:35 95 Room Air 02/07/17 16:29 97.9 67 19 105/67 96 Physical Exam GENERAL: This is a thin malnourished 66 year old female patient who appears older than stated age, is currently confused alert and oriented to person and place only SKIN: Abrasion right HEAD: Atraumatic. Normocephalic. No temporal or scalp tenderness. EYES: Extraocular motions intact. No scleral icterus. No injection or drainage. CARDIOVASCULAR: Regular rate and rhythm without murmurs, gallops, or rubs. RESPIRATORY: Clear to auscultation. Breath sounds equal bilaterally. No wheezes , rales, or rhonchi. GASTROINTESTINAL: Abdomen soft, non-tender, nondistended. No guarding. MUSCULOSKELETAL: generalized muscle atrophy Extremities without edema. No joint tenderness, effusion, or edema noted. No calf tenderness. Negative Homans sign bilaterally. NEUROLOGICAL: Awake and alert. Confused alert and oriented to person and place. No focal deficits appreciated. Slurred speech. Laboratory Laboratory Tests Test 02/07/17 02/07/17 02/07/17 16:40 17:15 18:40 White Blood Count 3.4 Red Blood Count 3.57 Hemoglobin 11.1 Hematocrit 32.6 Mean Corpuscular Volume 91.4 Mean Corpuscular Hemoglobin 31.1 Mean Corpuscular Hemoglobin 34.0 Concent Red Cell Distribution Width 18.8 Platelet Count 237 Mean Platelet Volume 10.3 Neutrophils (%) (Auto) 48.6 Lymphocytes (%) (Auto) 44.6 Monocytes (%) (Auto) 4.6 Eosinophils (%) (Auto) 1.0 Basophils (%) (Auto) 1.2 Neutrophils # (Auto) 1.7 Lymphocytes # (Auto) 1.5 Monocytes # (Auto) 0.2 Eosinophils # (Auto) 0.0 Basophils # (Auto) 0.0 CBC Comment DIFF FINAL Differential Comment Prothrombin Time 11.1 Prothromb Time International 1.0 Ratio Activated Partial 28.9 Thromboplast Time Sodium Level 138 Potassium Level 4.8 Chloride Level 108 Carbon Dioxide Level 20.0 Anion Gap 10 Blood Urea Nitrogen 17 Creatinine 0.98 Estimat Glomerular Filtration 57 Rate Random Glucose 83 Calcium Level 7.5 Total Bilirubin 0.6 Aspartate Amino Transf 36 (AST/SGOT) Alanine Aminotransferase 18 (ALT/SGPT) Alkaline Phosphatase 66 Ammonia 56 Total Creatine Kinase 351 Creatine Kinase MB 6.1 Creatine Kinase MB % 1.7 Troponin I LESS THAN 0.02 Total Protein 6.1 Albumin 2.9 Thyroid Stimulating Hormone 50.000 3rd Gen Acetaminophen Level LESS THAN 2.0 Ethyl Alcohol Level LESS THAN 3 Lactic Acid Level 0.6 Salicylates Level 3.8 Urine Color YELLOW Urine Turbidity CLEAR Urine pH 6.5 Urine Specific [place] 1.015 Urine Protein NEG Urine Glucose (UA) NEG Urine Ketones NEG Urine Occult Blood TRACE Urine Nitrite NEG Urine Bilirubin NEG Urine Urobilinogen 2.0 Urine Leukocyte Esterase NEG Urine RBC 5 Urine WBC 2 Urine Squamous Epithelial <1 Cells Microscopic Urinalysis Comment CULT NOT INDICATED Urine Opiates Screen POS Urine Barbiturates Screen NEG Urine Amphetamines Screen NEG Urine Benzodiazepines Screen POS Urine Cocaine Screen NEG Urine Cannabinoids Screen POS Result Diagram: 02/07/17 1640 02/07/17 1640 Imaging Last Impressions Abdomen/Pelvis CT 02/07/17 1910 Signed Impressions: Service Date/Time: Tuesday, February 07, 2017 20:57 - CONCLUSION: Stable chronic changes. Chester Thorpe MD Head CT 02/07/17 1632 Signed Impressions: Service Date/Time: Tuesday, February 07, 2017 17:58 - CONCLUSION: Slight atrophic and small vessel ischemic changes without any evidence for acute hemorrhage or mass effect. Chester Thorpe MD Chest X-Ray 02/07/17 1632 Signed Impressions: Service Date/Time: Tuesday, February 07, 2017 16:29 - CONCLUSION: Minimal left lung base atelectasis and/or infiltrate. Chester Thorpe MD Assessment and Plan Problem List: (1) Fall ICD Code: W19.XXXA Status: Acute (2) Rhabdomyolysis ICD Code: M62.82 Status: Acute (3) Hepatic encephalopathy ICD Code: K72.90 Status: Acute (4) Hypothyroid ICD Code: E03.9 Status: Chronic Assessment and Plan This is a 66-year-old female patient with a past medical history per medical records include bipolar disorder, EtOH abuse, chronic back pain, hypothyroidism , subarachnoid hemorrhage secondary to fall, thyroid, ovarian and breast cancer , breast cancer and DVT. Patient is currently confused and disoriented alert and oriented to person and place only. Unable to provide reliable information. Information gathered from patient as well as prior computerized charting. Patient reports earlier today she got dizzy and fell down. Patient placed under David act after she made a comment she wanted to then was brought to the emergency department for further evaluation and treatment. Fall unknown etiology possible syncopal episode CT of the head reviewed and reveals slight atrophic and small vessel ischemic changes without any evidence for acute hemorrhagic or mass effect US bilateral carotid arteries pending Echocardiogram pending Orthostatic vital signs once patient is more oriented/cooperative Altered mental status possible hepatic encephalopathy- ammonia elevated 56 CT of the head reviewed and reveals slight atrophic and small vessel ischemic changes without any evidence for acute hemorrhage or mass effect Lactulose 4 times a day Recheck ammonia in a.m. Serial neuro checks Mild rhabdomyolysis total CK 351 Normal saline 100 cc/h Recheck CPK in a.m. Hypothyroidism question medication noncompliance Restart home Synthroid 150 mcg daily Check TSH, T3 and T4 History of alcoholism not clear of current call use alcohol use CIWA protocol with thiamine and folic acid Seizure precautions and serial neuro checks Currently under David act- consult psychiatry Sitter at bedside Patient treated with azithromycin and Rocephin in emergency department for possible left lower lobe pneumonia. Chest x-ray reviewed by myself as well as Dr. Chase does not appear to be acute pneumonia. White blood cell count 3.4. Patient afebrile lung sounds clear.- Continue monitor patient off antibiotics SCDs for DVT prophylaxis Discussed with ER provider, nursing Dr. Chase and patient This note was transcribed by scribe [Merry Alvarado]. I, Dr. Naldo Chase personally performed the history, physical exam, and medical decision making; and confirmed the accuracy of the information in the transcribed note. Authenticated by Dr. Naldo Chase on 02/08/17 at 00:15. Physician Certification 2 Midnight Certification Type: Admission for Inpatient Services Order for Inpatient Services The services are ordered in accordance with Medicare regulations or non- Medicare payer requirements, as applicable. In the case of services not specified as inpatient-only, they are appropriately provided as inpatient services in accordance with the 2-midnight benchmark. Estimated LOS (days): 3 days is the estimated time the patient will need to remain in the hospital, assuming treatment plan goals are met and no additional complications. Post-Hospital Plan: Not yet determined Problem Qualifiers (1) Hypothyroid: Qualified Code: E03.9 - Hypothyroidism, unspecified type Emelyn Alvarado Feb 07, 2017 22:43 Naldo Chase MD February 08, 2017 00:15
[2017-02-08 00:01] VITALS: BP 135/83; PULSE 77; RESP 17; TEMP 95.1; O2SAT 94
--- NOTE | 2017-02-08 00:46 | RADRPT ---
EXAM DATE/TIME: 02/08/2017 00:06 [place] COMPARISON: No previous studies available for comparison. INDICATIONS : Syncope. MEDICAL HISTORY : Hyperthyroidism. Carcinoma, breast. Osteoporosis. Carcinoma, ovarian. Arthritis . UTI. Seizures. Chronic back pain. CVA. Syncope. HTN. DVT. COPD. Dyspnea. Ulcer. GI Bleed. GERD. A nticoagulant therapy. PTSD. Anxiety. Bipolar disorder. ESBL Ecoli. SURGICAL HISTORY : Thyroidectomy. Tonsillectomy. Cholecystectomy. Partial gastrectomy. Appendecto my. Right oopherectomy. Right mastectomy. D&C. . Back. ENCOUNTER: Initial ACUITY: 1 day PAIN SCORE: 0/10 LOCATION: Bilateral neck PEAK SYSTOLIC VELOCITIES (cm/sec): ICA/CCA RATIO: Right: 1.0 Left: 1.3 ICA: Right: 39 Left: 45 CCA: Right: 39 Left: 36 ECA: Right: 23 Left: 48 VERTEBRAL: Right: 19 antegrade Left: 29 antegrade Elevated flow velocities and ICA/CCA ratios have been found to correlate with increased degrees of vessel stenosis, calculated as percentage of diameter relative to a normal segment of distal ICA/CCA FINDINGS: Ultrasound of the carotid arteries was performed bilaterally using real-time Doppler and color Dopple r imaging. Examination of the right carotid artery demonstrates mild fibrous plaque within the bifurcation. No w aveform abnormalities are identified and no spectral broadening is seen. Examination of the left schulz tid artery demonstrates mild fibrous plaque within the bulb. No waveform abnormalities are identified and no spectral broadening is seen. There is antegrade flow in both vertebral arteries. CONCLUSION: No evidence of hemodynamically significant lesion. Enoc Bains MD on February 08, 2017 at 0:44 Board Certified Radiologist. This report was verified electronically.
[2017-02-08 04:19] VITALS: BP 105/66; PULSE 85; RESP 18; TEMP 98.2; O2SAT 94
[2017-02-08] MEDS: LEVOTHYROXINE SODIUM 150 MCG TAB PO SCH (06:16)
[2017-02-08 07:30] VITALS: BP 163/85; PULSE 61; RESP 20; TEMP 95.2; O2SAT 100
[2017-02-08] MEDS: SODIUM CHLOR 0.9% 1000 ML INJ 1,000 ML IV SCH ×2 (08:45→18:45)
[2017-02-08] MEDS ORDERED: LACTULOSE SYRUP 20 GM/30 ML CUP PO SCH (09:00)
[2017-02-08] MEDS: SODIUM CHLORIDE 0.9% FLUSH 10 ML FLUSH IV FLUSH SCH ×2 (09:09→21:54)
[2017-02-08] MEDS: FERROUS SULFATE 325 MG (65 MG ELEMENTAL IRON) TAB PO SCH ×2 (09:09→21:49)
[2017-02-08 09:22] LABS: AUTOMATED NEUTROPHIL # 3.4 TH/MM3 (1.8-7.7); BASOPHIL # 0.1 TH/MM3 (0-0.2); BASOPHIL % 1.2 % (0.0-2.0); EOSINOPHIL % 0.2 % (0.0-4.0); HEMATOCRIT 39.1 % (35.0-46.0); HEMO FLAGS AUTO DIFF; LYMPH % 20.8 % (9.0-44.0); LYMPHOCYTE # 0.9 TH/MM3 (1.0-4.8); MEAN CELL VOLUME 90.7 FL (80.0-100.0); MEAN CORPUSCULAR HEMOGLOBIN 30.9 PG (27.0-34.0); MEAN CORPUSCULAR HGB CONC 34.1 % (32.0-36.0); MONO % 2.4 % (0.0-8.0); NEUT % 75.4 % (16.0-70.0); PLATELET COUNT 194 TH/MM3 (150-450); RED BLOOD COUNT 4.31 MIL/MM3 (4.00-5.30); RED CELL DISTRIBUTION WIDTH 18.5 % (11.6-17.2); WHITE BLOOD COUNT 4.5 TH/MM3 (4.0-11.0)
[2017-02-08 09:41] LABS: ALKALINE PHOSPHATASE 84 U/L (45-117); ALT (GPT) 20 U/L (10-53); ANION GAP 11 MEQ/L (5-15); AST (GOT) 48 U/L (15-37); BLOOD UREA NITROGEN 13 MG/DL (7-18); CHLORIDE 102 MEQ/L (98-107); CREATINE KINASE 699 U/L (26-192); FREE T4 0.18 NG/DL (0.76-1.46); GLOMERULAR FILTRATION RATE 60 ML/MIN (>89); POTASSIUM 4.2 MEQ/L (3.5-5.1); SODIUM (NA) 134 MEQ/L (136-145); TOTAL BILIRUBIN ADULT 0.4 MG/DL (0.2-1.0)
[2017-02-08 10:05] LABS: CKMB 16.4 NG/ML (0.5-3.6)
[2017-02-08 11:20] LABS: OVALOCYTES 1+ (NORMAL); PLATELET ESTIMATE SMEAR NORMAL (NORMAL); PLATELET MORPHOLOGY ENLARGED (NORMAL); SCAN/DIFF AUTO DIFF CONFIRMED
--- NOTE | 2017-02-08 12:01 | HHI.PR ---
Subjective Remarks Mrs. Cain is doing well compared to yesterday. Less disorientation. Able to communicate. She is not aware of any history of liver disease. Hepatic encephalopathy has resolved. Objective Vital Signs Date Time Temp Pulse Resp B/P Pulse Ox O2 Delivery O2 Flow Rate FiO2 02/08/17 07:30 95.2 61 20 163/85 100 02/08/17 04:19 98.2 85 18 105/66 94 02/08/17 00:01 95.1 77 17 135/83 94 02/07/17 23:10 Room Air 02/07/17 23:03 57 16 148/85 95 Room Air 02/07/17 22:23 64 18 155/86 96 Room Air 02/07/17 22:11 98 02/07/17 21:39 65 17 152/105 99 Room Air 02/07/17 19:10 64 24 147/90 96 Room Air 02/07/17 18:51 65 20 120/85 99 02/07/17 16:35 95 Room Air 02/07/17 16:29 97.9 67 19 105/67 96 I/O 02/07/17 02/07/17 02/07/17 02/08/17 02/08/17 02/08/17 07:00 15:00 23:00 07:00 15:00 23:00 Intake Total 240 ml Balance 240 ml Intake Oral 240 ml # Voids 5 # Bowel Movements 1 Result Diagram: 02/08/17 0850 02/08/17 0714 Imaging Last Impressions Abdomen/Pelvis CT 02/07/17 1910 Signed Impressions: Service Date/Time: Tuesday, February 07, 2017 20:57 - CONCLUSION: Stable chronic changes. Chester Thorpe MD Head CT 02/07/17 163 Signed Impressions: Service Date/Time: Tuesday, February 07, 2017 17:58 - CONCLUSION: Slight atrophic and small vessel ischemic changes without any evidence for acute hemorrhage or mass effect. Chester Thorpe MD Chest X-Ray 02/07/17 163 Signed Impressions: Service Date/Time: Tuesday, February 07, 2017 16:29 - CONCLUSION: Minimal left lung base atelectasis and/or infiltrate. Chester Thorpe MD Carotid Artery Ultrasound 02/07/17 0000 Signed Impressions: Service Date/Time: Wednesday, February 08, 2017 00:06 - CONCLUSION: No evidence of hemodynamically significant lesion. Enoc Bains MD Objective Remarks GENERAL: NAD, A&Ox1 SKIN: Warm and dry. HEAD: Normocephalic. EYES: No scleral icterus. No injection or drainage. NECK: Supple, trachea midline. No JVD or lymphadenopathy. CARDIOVASCULAR: Regular rate and rhythm without murmurs, gallops, or rubs. RESPIRATORY: Breath sounds equal bilaterally. No accessory muscle use. GASTROINTESTINAL: Abdomen soft, non-tender, nondistended. MUSCULOSKELETAL: No cyanosis, or edema. BACK: Nontender without obvious deformity. No CVA tenderness. Medications and IVs Administered Medications Medications (Trade) Dose Ordered Sig/Anya Route PRN Reason Start Time Stop Time Status Last Admin Dose Admin Sodium Chloride (NS Flush) 2 ml BID IV FLUSH 02/08/17 09:00 02/08/17 09:09 Lactulose (Lactulose Liq) 30 ml QID PO 02/08/17 09:00 02/08/17 09:10 Ferrous Sulfate (Ferrous Sulfate) 325 mg BID PO 02/08/17 09:00 02/08/17 09:09 Levothyroxine Sodium 150 mcg 150 mcg DAILY@06 PO 02/08/17 06:00 02/08/17 06:16 Sodium Chloride (NS 1000 ml Inj) 1,000 ml @ 100 mls/hr Q10H IV 02/07/17 22:45 02/08/17 08:45 A/P Problem List: (1) Altered mental status ICD Code: R41.82 (2) Hepatic encephalopathy ICD Code: K72.90 (3) Hypothyroidism ICD Code: E03.9 Assessment and Plan Hepatic Encephalopathy Altered Mental Status Improving Follow for further improvement Hypothyroidism Appears not controlled May be due to non-compliance Levothyroxine Global Weakness PT started Problem Qualifiers (1) Altered mental status: Qualified Code: R41.0 - Disorientation Naldo Chase MD February 08, 2017 12:01
[2017-02-08] MEDS: traMADol HCL 50 MG TAB PO PRN ×2 (13:09→21:49)
--- NOTE | 2017-02-08 15:39 | PD.CONS ---
Provisional Diagnosis Admission Date Feb 07, 2017 at 21:41 [place] I. Bipolar disorder, alcohol and cannabis use disorder, [place] II. Deferred [place] III. Hypothyroidism, chronic back pain, SAH, breast cancer History of Present Illness Service Psychiatry Consult Requested By Primary Care Physician [facility] HPI The patient is a 66-year-old woman, domiciled alone, unemployed, single, with psychiatric history of bipolar disorder, alcohol use disorder, 1 previous psychiatric hospitalizations, no suicidal attempts, medical history chronic back pain, hypothyroidism, subarachnoid hemorrhage secondary to fall, thyroid, ovarian and breast cancer, breast cancer and DVT. Patient placed under David act after she made a comment she wanted to then was brought to the emergency department for further evaluation and treatment. Patient was admitted with acute encephalopathy, hepatic encephalopathy ammonia was elevated. Mild rhabdomyolysis total CK 351, Hypothyroidism question medication noncompliance. Patient seen today for psychiatric evaluation, patient was lethargic, distant, poorly cooperative. However, she did say that her mood is fine, she denies depression, she denies suicidal and homicidal ideation, she denies visual and auditory hallucinations. Patient knows that she is in the hospital in [place], she thinks that is the end of January 2017. She knows that the president is Myles Khoury. She reports almost daily use of cannabis , occasional use of alcohol. No agitation, aggressive behavior, hostility has been reported in the last hour. Review of Systems Constitutional: DENIES: Diaphoretic episodes, Fatigue, Fever, Weight gain, Weight loss, Chills, Dizziness, Change in appetite, Night Sweats Endocrine: DENIES: Abnorml menstrual pattern, Heat/cold intolerance, Polydipsia , Polyuria, Polyphagia Eyes: DENIES: Blurred vision, Diplopia, Eye inflammation, Eye pain, Vision loss , Photosensitivity, Double Vision Ears, nose, mouth, throat: DENIES: Tinnitus, Hearing loss, Vertigo, Nasal discharge, Oral lesions, Throat pain, Hoarseness, Ear Pain, Running Nose, Epistaxis, Sinus Pain, Toothache, Odynophagia Respiratory: DENIES: Apneas, Cough, Snoring, Wheezing, Hemoptysis, Sputum production, Shortness of breath Cardiovascular: DENIES: Chest pain, Palpitations, Syncope, Dyspnea on Exertion , PND, Lower Extremity Edema, Orthopnea, Claudication Gastrointestinal: DENIES: Abdominal pain, Black stools, Bloody stools, Constipation, Diarrhea, Nausea, Vomiting, Difficulty Swallowing, Anorexia Genitourinary: DENIES: Abnormal vaginal bleeding, Dysmenorrhea, Dyspareunia, Sexual dysfunction, Urinary frequency, Urinary incontinence, Urgency, Hematuria , Dysuria, Nocturia, Vaginal discharge Musculoskeletal: DENIES: Joint pain, Muscle aches, Stiffness, Joint Swelling, Back pain, Neck pain Integumentary: DENIES: Abnormal pigmentation, Pruritus, Rash, Nail changes, Breast masses, Breast skin changes, Nipple discharge Hematologic/lymphatic: DENIES: Bruising, Lymphadenopathy Immunologic/allergic: DENIES: Eczema, Urticaria Neurologic: DENIES: Abnormal gait, Headache, Localized weakness, Paresthesias, Seizures, Speech Problems, Tremor, Poor Balance Psychiatric: DENIES: Anxiety, Confusion, Mood changes, Depression, Hallucinations, Agitation, Suicidal Ideation, Homicidal Ideation, Delusions Past Family Social History Coded Allergies: Phenothiazines (Verified Allergy, Severe, RASH, 02/07/17) Tigan (Verified Allergy, Severe, TETANY, 02/07/17) Compazine (Verified Adverse Reaction, Severe, Nausea/Vomiting, 02/07/17) *MDRO Multi-Drug Resistant Organism (Verified Adverse Reaction, Unknown, ) 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/19/2016 Active Scripts Levofloxacin (Levaquin)750 Mg [id number] Mg PO DAILY #4 TAB Ref 0 Prov:Carolina Princezulay LEGGETT 12/29/16 Reported Medications Ferrous Sulfate 325 Mg [id number] Mg PO BID #30 TAB Ref 0 08/17/16 Temazepam (Restoril)30 Mg Cap30 Mg PO HS PRN (INSOMNIA) #30 CAP Ref 0 08/17/16 Ascorbic Acid (Vitamin C)500 Mg [id number] Mg PO DAILY Ref 0 08/17/16 Thiamine 100 Mg [id number] Mg PO DAILY Ref 0 08/17/16 Cholecalciferol (D3)2,000 Unit Tab2,000 Units PO DAILY 08/17/16 Levothyroxine (Synthroid)150 Mcg [id number] Mcg PO DAILY #30 TAB Ref 0 08/17/16 Cyanocobalamin (B-12)1,000 Mcg Subl1,000 Mcg SL DAILY Ref 0 08/17/16 Current Medications Medications (Trade) Dose Ordered Sig/Anya Route Start Time Stop Time Status Last Admin (NS Flush) 2 ml UNSCH PRN IV FLUSH 02/07/17 22:15 (NS Flush) 2 ml BID IV FLUSH 02/08/17 09:00 02/08/17 09:09 (Zofran Inj) 4 mg Q6H PRN IVP 02/07/17 22:15 (Narcan Inj) 0.4 mg UNSCH PRN IV 02/07/17 22:15 (Ferrous Sulfate) 325 mg BID PO 02/08/17 09:00 02/08/17 09:09 Levothyroxine Sodium 150 mcg 150 mcg DAILY@06 PO 02/08/17 06:00 02/08/17 06:16 (NS 1000 ml Inj) 1,000 ml @ 100 mls/hr Q10H IV 02/07/17 22:45 02/08/17 08:45 (Ultram) 50 mg Q8H PRN PO 02/08/17 12:45 02/08/17 13:09 Family History Patient denies family psychiatric history Social History Patient says that she lives alone in [place], her highest level of education is high school, she has 2 kids, she is single Patient's Strengths (min. 2) Verbal communication Physical Exam Physical exam patient seems to be lethargic, somnolent, but no tremors, no asterixis, presents Vital Signs Vital Signs Date Time Temp Pulse Resp B/P Pulse Ox O2 Delivery O2 Flow Rate FiO2 02/08/17 07:30 95.2 61 20 163/85 100 02/07/17 23:10 [address] Air Lab Results CT of the head reviewed and reveals slight atrophic and small vessel ischemic changes without any evidence for acute hemorrhagic or mass effect US bilateral carotid arteries pending Toxicology is positive for cannabis, benzodiazepines and opiates BAL is negative WBC 3.4, HBG is 4.3, HCT 39. NA 134, K 4.2, ammonia is now 17, was 56, AST 20, ALT 84, TSH 72.100, Mental Status Examination Appearance elderly woman, appears older than his stated age, [facility], superficially cooperative, lethargic Speech: Hesitant Orientation: x3 Memory: Remote Thought Content: Unremarkable Hallucination Type: None Attention and Concentration: Abnormal Suicidal Ideation: No Homicidal Ideation: No Judgment: WNL Affect: Good Affect if Inappropriate: Flat Mood: Appropriate Motor Activity: Normal gait Assessment & Plan Problem List: (1) Delirium due to another medical condition Assessment & Plan: The patient is a 66-year-old woman, domiciled alone, unemployed, single, with psychiatric history of bipolar disorder, alcohol use disorder, 1 previous psychiatric hospitalizations, no suicidal attempts, medical history chronic back pain, hypothyroidism, subarachnoid hemorrhage secondary to fall, thyroid, ovarian and breast cancer, breast cancer and DVT. Patient placed under David act after she made a comment she wanted to then was brought to the emergency department for further evaluation and treatment. On psychiatric evaluation the patient is just superficially cooperative, but denies depression, denies anxiety, denies jocelyn, and denies perceptual disturbances, no paranoia, no delusions, no disorganized behavior, not delirium observe, patient seems to be a little confused, but able to answer most of questions. Current presentation seems to be mostly related with underlying medical conditions and no to a primary psychiatric condition. Patient does not meet criteria for second admission at this moment, David act would be lifted. Agree with [facility] protocol. Patient has risk for delirium, sundowning. Agitation and aggressive behavior could be an issue, will order Haldol 2 mg every 3 hours when necessary aggressive behavior and agitation. We' ll follow-up. ICD Code: F05 Assessment & Plan Estimated LOS: Oliver Baker MD February 08, 2017 15:38
[2017-02-08 20:00] VITALS: BP 151/102; PULSE 75; RESP 18; TEMP 98.6; O2SAT 99
--- NOTE | 2017-02-08 23:03 | EKG ---
Date Performed: 02/07/2017 Time Performed: 16:39:52 PTAGE: 66 years EKG: Sinus rhythm NORMAL ECG NO PREVIOUS TRACING DOCTOR: Bashir Yeager Interpretating Date/Time 02/08/2017 23:00:53
[2017-02-08 23:33] VITALS: PULSE 78
[2017-02-08] MEDS ORDERED: HALOPERIDOL LACTATE 5 MG/ML AMP IV PUSH ONE (23:45)
[2017-02-09] VITALS (9 sets, daily range): BP systolic 103–160; BP diastolic 65–97; PULSE 63–104; RESP 17–19; TEMP 97–98.8; O2SAT 99–100
[2017-02-09] MEDS: SODIUM CHLOR 0.9% 1000 ML INJ 1,000 ML IV SCH ×3 (04:03→23:46)
[2017-02-09] MEDS: LEVOTHYROXINE SODIUM 150 MCG TAB PO SCH (06:05)
[2017-02-09] MEDS: FERROUS SULFATE 325 MG (65 MG ELEMENTAL IRON) TAB PO SCH ×2 (07:56→20:43)
[2017-02-09] MEDS: traMADol HCL 50 MG TAB PO PRN (07:57)
[2017-02-09] MEDS: SODIUM CHLORIDE 0.9% FLUSH 10 ML FLUSH IV FLUSH SCH ×2 (07:57→20:43)
--- NOTE | 2017-02-09 08:34 | HHI.PR ---
Subjective Remarks Orientation is returning to baseline. She is angry about pain and reports that at home she is on demerol, morphine, and dilaudid. No other complaints. No reported liver disease. Objective Vital Signs Date Time Temp Pulse Resp B/P Pulse Ox O2 Delivery O2 Flow Rate FiO2 02/09/17 08:16 69 02/09/17 07:54 97.2 63 18 160/97 99 02/09/17 04:00 97.4 104 19 131/96 100 02/09/17 01:24 Room Air 02/09/17 00:00 97.0 75 18 105/80 99 02/08/17 23:33 78 02/08/17 20:00 98.6 75 18 151/102 99 02/08/17 16:03 16 I/O 02/08/17 02/08/17 02/08/17 02/09/17 02/09/17 02/09/17 07:00 15:00 23:00 07:00 15:00 23:00 Intake Total 240 ml 120 ml 240 ml 120 ml Balance 240 ml 120 ml 240 ml 120 ml Intake Oral 240 ml 120 ml 240 ml 120 ml # Voids 5 5 2 1 # Bowel Movements 1 4 0 0 Result Diagram: 02/08/17 0850 02/08/17 0714 Objective Remarks GENERAL: NAD, A&Ox3 SKIN: Warm and dry. HEAD: Normocephalic. EYES: No scleral icterus. No injection or drainage. NECK: Supple, trachea midline. No JVD or lymphadenopathy. CARDIOVASCULAR: Regular rate and rhythm without murmurs, gallops, or rubs. RESPIRATORY: Breath sounds equal bilaterally. No accessory muscle use. GASTROINTESTINAL: Abdomen soft, non-tender, nondistended. MUSCULOSKELETAL: No cyanosis, or edema. BACK: Nontender without obvious deformity. No CVA tenderness. Medications and IVs Administered Medications Medications (Trade) Dose Ordered Sig/Anya Route PRN Reason Start Time Stop Time Status Last Admin Dose Admin Sodium Chloride (NS Flush) 2 ml BID IV FLUSH 02/08/17 09:00 02/09/17 07:57 Ferrous Sulfate (Ferrous Sulfate) 325 mg BID PO 02/08/17 09:00 02/09/17 07:56 Levothyroxine Sodium 150 mcg 150 mcg DAILY@06 PO 02/08/17 06:00 02/09/17 06:05 Sodium Chloride (NS 1000 ml Inj) 1,000 ml @ 100 mls/hr Q10H IV 02/07/17 22:45 02/08/17 08:45 A/P Problem List: (1) Altered mental status ICD Code: R41.82 (2) Hepatic encephalopathy ICD Code: K72.90 (3) Hypothyroidism ICD Code: E03.9 Assessment and Plan Hepatic Encephalopathy Altered Mental Status Resolved Hypothyroidism Appears not controlled May be due to non-compliance Levothyroxine Global Weakness PT continued Chronic Pain Narcotic resumed MS contin 30 mg Q12h MS IR 15 mg PRN Discharge Planning Home PT vs. SNF at discharge. Medical discharge tomorrow if improvement remains and stability is observed. Problem Qualifiers (1) Altered mental status: Qualified Code: R41.0 - Disorientation Naldo Chase MD February 09, 2017 08:33
[2017-02-09] MEDS: MORPHINE SULFATE 30 MG CONTROLLED RELEASE TAB PO SCH ×2 (09:34→20:43)
[2017-02-09 11:08] LABS: HEMATOCRIT 39.9 % (35.0-46.0); MEAN CELL VOLUME 91.6 FL (80.0-100.0); MEAN CORPUSCULAR HEMOGLOBIN 31.3 PG (27.0-34.0); MEAN CORPUSCULAR HGB CONC 34.1 % (32.0-36.0); PLATELET COUNT 237 TH/MM3 (150-450); RED BLOOD COUNT 4.35 MIL/MM3 (4.00-5.30); RED CELL DISTRIBUTION WIDTH 18.4 % (11.6-17.2); REVIEW FLAG FINAL; WHITE BLOOD COUNT 4.9 TH/MM3 (4.0-11.0)
[2017-02-09 11:25] LABS: ALKALINE PHOSPHATASE 94 U/L (45-117); ALT (GPT) 29 U/L (10-53); ANION GAP 14 MEQ/L (5-15); AST (GOT) 73 U/L (15-37); BICARBONATE 20.7 MEQ/L (21.0-32.0); BLOOD UREA NITROGEN 7 MG/DL (7-18); CHLORIDE 93 MEQ/L (98-107); GLOMERULAR FILTRATION RATE 40 ML/MIN (>89); SODIUM (NA) 128 MEQ/L (136-145); TOTAL BILIRUBIN ADULT 0.5 MG/DL (0.2-1.0)
[2017-02-10] VITALS (7 sets, daily range): BP systolic 94–118; BP diastolic 58–69; PULSE 70–90; RESP 15–18; TEMP 97.7–98.7; O2SAT 97–100
[2017-02-10] MEDS: LEVOTHYROXINE SODIUM 150 MCG TAB PO SCH (05:50)
[2017-02-10] MEDS: MORPHINE SULFATE 30 MG CONTROLLED RELEASE TAB PO SCH ×2 (08:25→21:01)
[2017-02-10] MEDS: FERROUS SULFATE 325 MG (65 MG ELEMENTAL IRON) TAB PO SCH ×2 (08:25→21:01)
[2017-02-10] MEDS: SODIUM CHLORIDE 0.9% FLUSH 10 ML FLUSH IV FLUSH SCH ×2 (08:25→21:01)
--- NOTE | 2017-02-10 09:58 | HHI.PR ---
Subjective Remarks Orientation is returned to baseline. Pain is now under control without sedation. Ambulation is unsteady. Hyponatremia is present this morning. She has no known prior history of hyponatremia. Objective Vital Signs Date Time Temp Pulse Resp B/P Pulse Ox O2 Delivery O2 Flow Rate FiO2 02/10/17 08:22 98.0 74 16 94/68 98 02/10/17 04:50 98.4 76 15 99/58 98 02/10/17 01:25 97.7 77 16 105/66 100 02/09/17 22:30 74 02/09/17 21:43 18 02/09/17 21:10 98.8 68 17 121/75 99 02/09/17 17:56 82 02/09/17 15:33 98.2 75 18 103/65 99 02/09/17 11:43 97.0 78 18 106/71 99 I/O 02/09/17 02/09/17 02/09/17 02/10/17 02/10/17 02/10/17 07:00 15:00 23:00 07:00 15:00 23:00 Intake Total 120 ml 500 ml 480 ml 240 ml Balance 120 ml 500 ml 480 ml 240 ml Intake Oral 120 ml 500 ml 480 ml 240 ml # Voids 1 2 3 2 # Bowel Movements 0 0 0 0 Result Diagram: 02/09/17 1049 02/09/17 1049 Objective Remarks GENERAL: NAD, A&Ox3 SKIN: Warm and dry. HEAD: Normocephalic. EYES: No scleral icterus. No injection or drainage. NECK: Supple, trachea midline. No JVD or lymphadenopathy. CARDIOVASCULAR: Regular rate and rhythm without murmurs, gallops, or rubs. RESPIRATORY: Breath sounds equal bilaterally. No accessory muscle use. GASTROINTESTINAL: Abdomen soft, non-tender, nondistended. MUSCULOSKELETAL: No cyanosis, or edema. BACK: Nontender without obvious deformity. No CVA tenderness. A/P Problem List: (1) Altered mental status ICD Code: R41.82 (2) Hepatic encephalopathy ICD Code: K72.90 (3) Hypothyroidism ICD Code: E03.9 Assessment and Plan Hepatic Encephalopathy Altered Mental Status Resolved Hyponatremia Likely related to metabolic disturbance that lead to her encephalopathy Limit free fluids Follow sodium level Hypothyroidism Appears not controlled May be due to non-compliance Levothyroxine Global Weakness PT continued Chronic Pain controlled MS contin 30 mg Q12h MS IR 15 mg PRN Discharge Planning Home PT vs. SNF at discharge. Medical discharge tomorrow pending improvement in hyponatremia. Problem Qualifiers (1) Altered mental status: Qualified Code: R41.0 - Disorientation Naldo Chase MD February 10, 2017 09:58
--- NOTE | 2017-02-10 10:07 | EC ---
Study Study Date:02/08/2017 STUDY CONCLUSIONS SUMMARY - Left ventricle: The cavity size was normal. Wall thickness was normal. Systolic function was normal. The estimated ejection fraction was 60%. Wall motion was normal; there were no regional wall motion abnormalities. - Aortic valve: Trace regurgitation. - Mitral valve: Mild regurgitation. If LV function is below 40, please consider prescribing an ACEI or ARB or document rationale for non-use. PROCEDURE DATA STUDY STATUS: Elective. Procedure: Transthoracic echocardiography. Image quality was good. Scanning was performed from the parasternal, apical, and subcostal acoustic windows. Study completion: The patient tolerated the procedure well. Transthoracic echocardiography. M-mode, complete 2D, complete spectral Doppler, and color Doppler. Height: Height: 69in. Weight: Weight: 159.7lb. Body mass index: BMI: 23.6kg/m^2. Body surface area: BSA: 1.88m^2. Patient status: Inpatient. CARDIAC ANATOMY LEFT VENTRICLE: The cavity size was normal. Wall thickness was normal. Systolic function was normal. The estimated ejection fraction was 60%. Wall motion was normal; there were no regional wall motion abnormalities. AORTIC VALVE: Trileaflet; mildly thickened, mildly calcified leaflets. Doppler: Transvalvular velocity was within the normal range. There was no stenosis. Trace regurgitation. Valve area: 3.09cm^2 (Vmax). Indexed valve area: 1.64cm^2/m^2 (Vmax). AORTA: Aortic root: The aortic root was normal in size. MITRAL VALVE: Structurally normal valve. Doppler: Transvalvular velocity was within the normal range. There was no evidence for stenosis. Mild regurgitation. Valve area by pressure half-time: 5.5cm^2. Indexed valve area by pressure half-time: 2.93cm^2/m^2. LEFT ATRIUM: The atrium was normal in size. RIGHT VENTRICLE: The cavity size was normal. Wall thickness was normal. PULMONIC VALVE: Doppler: Transvalvular velocity was within the normal range. There was no evidence for stenosis. No regurgitation. TRICUSPID VALVE: Structurally normal valve. Doppler: Transvalvular velocity was within the normal range. Trace regurgitation. Peak gradient: 12mm Hg (D). PULMONARY ARTERY: The main pulmonary artery was normal-sized. Systolic pressure was within the normal range. RIGHT ATRIUM: The atrium was normal in size. PERICARDIUM: There was no pericardial effusion. SYSTEMIC VEINS: Inferior vena cava: The vessel was normal in size. Patient weight: 159.7lb _Ejection fraction:_ 65-75% _Fractional shortening:_ 32% up to 5Kg 5-11.5Kg 11.6-22.9Kg 23-45Kg 45-57Kg Aortic Root 7-13 <17 13-22 17-27 17-27 LA diam 6-13 <23 24-38 33-47 37-40 RVID 10-17 7-15 7-15 7-18 8-17 LVIDd 12-22 <32 24-38 33-47 37-40 LVPW 2-4 3-6 5-7 6-8 7-8 IVS 2-4 3-6 5-7 6-8 7-8 BASIC MEASUREMENTS ADULT NORMAL Left ventricle LV internal dimension, ED, chordal *35.1 mm 43-52 level, PLAX LV internal dimension, ES, chordal 23.8 mm 23-38 level, PLAX Fractional shortening, chordal level, 32 % >29 PLAX LV posterior wall thickness, ED 8.5 mm IVS/LVPW ratio, ED 1 <1.3 Ventricular septum Septal thickness, ED 8.52 mm Aortic valve Leaflet separation 17 mm 15-26 Left atrium Anterior-posterior dimension 30 mm Anterior-posterior dimension index 1.6 cm/m^2 <2.2 Right ventricle RV internal dimension, ED, PLAX 24.8 mm 19-38 BASIC MEASUREMENTS ADULT NORMAL Aortic valve Leaflet separation 17 mm 15-26 Aorta Root diameter, ED 29 mm 20-37 DOPPLER MEASUREMENTS ADULT NORMAL Aortic valve Peak velocity, S 71.8 cm/s Valve area, Vmax 3.09 cm^2 Valve area index, Vmax 1.64 cm^2/m^2 Mitral valve Peak E-wave velocity 48.4 cm/s Peak A-wave velocity 62.7 cm/s Pressure half-time 40 ms Peak E/A ratio 0.8 Valve area, pressure half-time 5.5 cm^2 Valve area index, pressure half-time 2.93 cm^2/m^2 Tricuspid valve Peak gradient, D 12 mm Hg Maximal inflow velocity 176 cm/s Pulmonic valve Peak velocity, S 70 cm/s LEGEND: Mean values are shown as u=mean value. Asterisk (*) rosales values outside specified normal range. Prepared and signed by Brendan Lea [id number]
[2017-02-10] MEDS: SODIUM CHLOR 0.9% 1000 ML INJ 1,000 ML IV SCH ×2 (11:22→21:01)
[2017-02-10] MEDS: TEMAZEPAM 15 MG CAP PO PRN (21:27)
[2017-02-11 00:40] VITALS: BP 92/68; PULSE 84; RESP 16; TEMP 98.8; O2SAT 96
[2017-02-11] MEDS: SODIUM CHLOR 0.9% 1000 ML INJ 1,000 ML IV SCH ×3 (04:10→20:55)
[2017-02-11] MEDS: LEVOTHYROXINE SODIUM 150 MCG TAB PO SCH (04:10)
[2017-02-11] MEDS: MORPHINE SULFATE 15 MG TAB PO PRN ×2 (04:11→15:23)
[2017-02-11 04:50] VITALS: BP 102/67; PULSE 74; RESP 17; TEMP 97.1; O2SAT 100
[2017-02-11 08:00] VITALS: BP 113/72; PULSE 73; RESP 18; TEMP 98.7; O2SAT 100
[2017-02-11] MEDS: FERROUS SULFATE 325 MG (65 MG ELEMENTAL IRON) TAB PO SCH ×2 (08:35→20:55)
[2017-02-11] MEDS: SODIUM CHLORIDE 0.9% FLUSH 10 ML FLUSH IV FLUSH SCH ×2 (08:35→20:55)
[2017-02-11] MEDS: MORPHINE SULFATE 30 MG CONTROLLED RELEASE TAB PO SCH ×2 (08:36→20:55)
[2017-02-11] MEDS ORDERED: MORP1TAB25 PO (09:22)
[2017-02-11] MEDS ORDERED: REST15CA PO (09:22)
[2017-02-11] MEDS ORDERED: COLA100C3 PO (09:22)
[2017-02-11] MEDS ORDERED: MSIR15 PO (09:22)
[2017-02-11 10:29] LABS: BICARBONATE 23.4 MEQ/L (21.0-32.0)
--- NOTE | 2017-02-11 11:18 | HHI.DS ---
Discharge Summary Admission Date Feb 07, 2017 at 21:41 Discharge Date: February 11, 2017 Admitting Diagnosis AMS, hepatic encephalopathy, hypothyroid (1) Fall ICD Code: W19.XXXA Diagnosis: Principal (2) Rhabdomyolysis ICD Code: M62.82 Diagnosis: Secondary (3) Hepatic encephalopathy ICD Code: K72.90 Diagnosis: Principal (4) Hypothyroid ICD Code: E03.9 Diagnosis: Principal Procedures none Brief History - From Admission This is a 66-year-old female patient with a past medical history per medical records include bipolar disorder, EtOH abuse, chronic back pain, hypothyroidism , subarachnoid hemorrhage secondary to fall, thyroid, ovarian and breast cancer , breast cancer and DVT. Patient is currently confused and disoriented alert and oriented to person and place only. Unable to provide reliable information. Information gathered from patient as well as prior computerized charting. Patient reports earlier today she got dizzy and fell down. This not recall if she lost consciousness or hit her head. Unable to recall any further information regarding the event. Blood glucose on arrival was 83. Per ER documentation patient neighbor heard her yelling for help and called EMS. EMS arrived patient was found on the living room floor and unable to get up. Patient was reluctant to come to the hospital and made a statement regarding she wanted to . Police were then called and patient was placed under David act and brought to the emergency department for further evaluation and treatment At this time patient denies shortness of breath chest pain nausea vomiting diarrhea constipation fevers or chills. Patient does complain of right knee pain and abrasion noted. CBC/BMP: 02/09/17 1049 02/11/17 0936 Significant Findings Laboratory Tests Test 02/09/17 02/11/17 10:49 09:36 Red Cell Distribution Width 18.4 % (11.6-17.2) Sodium Level 128 MEQ/L (136-145) Chloride Level 93 MEQ/L (98-107) Carbon Dioxide Level 20.7 MEQ/L (21.0-32.0) Creatinine 1.34 MG/DL 1.13 MG/DL (0.50-1.00) (0.50-1.00) Estimat Glomerular Filtration 40 ML/MIN (>89) 48 ML/MIN (>89) Rate Random Glucose 160 MG/DL (74-106) Aspartate Amino Transf 73 U/L (15-37) (AST/SGOT) Total Protein 9.1 GM/DL (6.4-8.2) Blood Urea Nitrogen 19 MG/DL (7-18) Imaging Last Impressions Abdomen/Pelvis CT 02/07/17 1910 Signed Impressions: Service Date/Time: Tuesday, February 07, 2017 20:57 - CONCLUSION: Stable chronic changes. Chester Thorpe MD Head CT 02/07/17 1632 Signed Impressions: Service Date/Time: Tuesday, February 07, 2017 17:58 - CONCLUSION: Slight atrophic and small vessel ischemic changes without any evidence for acute hemorrhage or mass effect. Chester Thorpe MD Chest X-Ray 02/07/17 1632 Signed Impressions: Service Date/Time: Tuesday, February 07, 2017 16:29 - CONCLUSION: Minimal left lung base atelectasis and/or infiltrate. Chester Thorpe MD Carotid Artery Ultrasound 02/07/17 0000 Signed Impressions: Service Date/Time: Wednesday, February 08, 2017 00:06 - CONCLUSION: No evidence of hemodynamically significant lesion. Enoc Bains MD PE at Discharge GENERAL: NAD, A&Ox3 SKIN: Warm and dry. HEAD: Normocephalic. EYES: No scleral icterus. No injection or drainage. NECK: Supple, trachea midline. No JVD or lymphadenopathy. CARDIOVASCULAR: Regular rate and rhythm without murmurs, gallops, or rubs. RESPIRATORY: Breath sounds equal bilaterally. No accessory muscle use. GASTROINTESTINAL: Abdomen soft, non-tender, nondistended. MUSCULOSKELETAL: No cyanosis, or edema. BACK: Nontender without obvious deformity. No CVA tenderness. Pt update on day of discharge Sodium level normalized today. Cleared for discharge today. Hospital Course Mrs. Cain is a 66 year old female admitted with a fall, rhabdomyalysis, and confussion secondary to hepatic encephalopathy vs. metabolic encephalopathy. She had hyponatremia while here, likely reflective of her metabolic disturbance. Through time her mentation returned to normal, her ammonia level normalized and today her sodium level has normalized. She is medically stable now and retains weakness. She will benefit from PT with SNF placement for continued PT till strength and balance improve so that she can regain her functional and independent status. Discharge today. Pt Condition on Discharge: Stable Discharge Disposition: Discharge Home Discharge Time: > 30 minutes Discharge Instructions DIET: Follow Instructions for: As Tolerated, No Restrictions Activities you can perform: Regular-No Restrictions Follow up Referrals: PCP Follow-up - 2 Weeks New Medications: Docusate Sodium (Colace) 100 Mg Cap 100 MG PO BID PRN Constipation #60 Ref 0 CAP Morphine ER (Morphine ER) 30 Mg Tab 30 MG PO Q12HR Pain Management #60 TAB Morphine IR (Morphine IR) 15 Mg Tab 15 MG PO Q6HR PRN PAIN GREATER THAN 5 #120 TAB Temazepam (Restoril) 15 Mg Cap 15 MG PO HS PRN INSOMNIA #30 CAP Continued Medications: Ascorbic Acid (Vitamin C) 500 Mg Tab 500 MG PO DAILY Nutritional Supplement Ref 0 TAB Cholecalciferol (D3) 2,000 Unit Tab 2000 UNITS PO DAILY Cyanocobalamin (B-12) 1,000 Mcg Subl 1000 MCG SL DAILY Nutritional Supplement Ref 0 TAB.SL Ferrous Sulfate (Ferrous Sulfate) 325 Mg Tab 325 MG PO BID Nutritional Supplement #30 Ref 0 TAB Levofloxacin (Levaquin) 750 Mg Tab 750 MG PO DAILY Infection #4 Ref 0 TAB Levothyroxine (Synthroid) 150 Mcg Tab 150 MCG PO DAILY Thyroid #30 Ref 0 TAB Thiamine (Thiamine) 100 Mg Tab 100 MG PO DAILY Nutritional Supplement Ref 0 TAB Discontinued Medications: Temazepam (Restoril) 30 Mg Cap 30 MG PO HS PRN INSOMNIA #30 Ref 0 CAP Naldo Chase MD February 11, 2017 11:18
[2017-02-11 12:00] VITALS: BP 100/77; PULSE 84; RESP 18; TEMP 98.1; O2SAT 100
[2017-02-11 16:00] VITALS: BP 121/65; PULSE 82; RESP 18; TEMP 98.4; O2SAT 100
--- NOTE | 2017-02-11 17:17 | HHI.PYPN ---
Subjective Remarks Patient was seen for psychiatric reevaluation today, she was found eating her breakfast, in a good spirit, reports good mood, motivation to continue a rehabilitation program in outpatient basis, denies depressive symptoms, denies anxiety, denies perceptual disturbances, patient is fully oriented 3, no attention deficit, no fluctuation of consciousness observed. Patient is fully compliant with medications, no significant side effects reported. No agitation , no aggressive behavior, no hostility reported. Review of Systems Constitutional: DENIES: Diaphoretic episodes, Fatigue, Fever, Weight gain, Weight loss, Chills, Dizziness, Change in appetite, Night Sweats Endocrine: DENIES: Abnorml menstrual pattern, Heat/cold intolerance, Polydipsia , Polyuria, Polyphagia Eyes: DENIES: Blurred vision, Diplopia, Eye inflammation, Eye pain, Vision loss , Photosensitivity, Double Vision Ears, nose, mouth, throat: DENIES: Tinnitus, Hearing loss, Vertigo, Nasal discharge, Oral lesions, Throat pain, Hoarseness, Ear Pain, Running Nose, Epistaxis, Sinus Pain, Toothache, Odynophagia Respiratory: DENIES: Apneas, Cough, Snoring, Wheezing, Hemoptysis, Sputum production, Shortness of breath Cardiovascular: DENIES: Chest pain, Palpitations, Syncope, Dyspnea on Exertion , PND, Lower Extremity Edema, Orthopnea, Claudication Gastrointestinal: DENIES: Abdominal pain, Black stools, Bloody stools, Constipation, Diarrhea, Nausea, Vomiting, Difficulty Swallowing, Anorexia Genitourinary: DENIES: Abnormal vaginal bleeding, Dysmenorrhea, Dyspareunia, Sexual dysfunction, Urinary frequency, Urinary incontinence, Urgency, Hematuria , Dysuria, Nocturia, Vaginal discharge Musculoskeletal: DENIES: Joint pain, Muscle aches, Stiffness, Joint Swelling, Back pain, Neck pain Hematologic/lymphatic: DENIES: Bruising, Lymphadenopathy Immunologic/allergic: DENIES: Eczema, Urticaria Neurologic: DENIES: Abnormal gait, Headache, Localized weakness, Paresthesias, Seizures, Speech Problems, Tremor, Poor Balance Psychiatric: DENIES: Anxiety, Confusion, Mood changes, Depression, Hallucinations, Agitation, Suicidal Ideation, Homicidal Ideation, Delusions Objective Alert: Yes [place]: Person, Place, Date, Situation Mood: Calm Affect: Appropriate Memory Intact: Immediate, Recent, Remote Hallucinations: Other (patient denies) Delusions: No Delusion Type: Other (patient denies) Suicidal: Ideation (patient denies) Homicidal: Ideation (patient denies) Insight/Judgment Good Labs Test 02/11/17 09:36 Sodium Level 136 MEQ/L Potassium Level 5.0 MEQ/L Chloride Level 106 MEQ/L Carbon Dioxide Level 23.4 MEQ/L Anion Gap 7 MEQ/L Blood Urea Nitrogen 19 MG/DL Creatinine 1.13 MG/DL Estimat Glomerular Filtration 48 ML/MIN Rate Random Glucose 103 MG/DL Calcium Level 8.5 MG/DL Vitals/IOs Vital Signs Date Time Temp Pulse Resp B/P Pulse Ox O2 Delivery O2 Flow Rate FiO2 02/11/17 12:00 98.1 84 18 100/77 100 02/09/17 01:24 Room Air Intake and Output 02/10/17 02/10/17 02/11/17 08:00 16:00 00:00 Intake Total 240 ml 920 ml 240 ml Balance 240 ml 920 ml 240 ml Assessment & Plan Problem List: (1) Delirium due to another medical condition Assessment & Plan: Patient does not present any evidence of depression, anxiety , jocelyn or psychosis. Patient is fully oriented 3, no attention deficit, no gross cognitive impairment observed. He seems motivated, future oriented, she wants to be discharged to complete rehabilitation program. Patient does not need any further psychiatric intervention. Patient does not need a sitter, David act will be lifted. ICD Code: F05 Assessment & Plan Estimated LOS: days Justification for Cont. Inpt. Patient does not meet criteria for psychiatric admission at this moment Oliver Acevedo MD February 11, 2017 17:17
[2017-02-11 20:40] VITALS: BP 94/58; PULSE 74; RESP 17; TEMP 98.4; O2SAT 100
[2017-02-11] MEDS: TEMAZEPAM 15 MG CAP PO PRN (20:55)
[2017-02-12 00:37] VITALS: BP 96/65; PULSE 80; RESP 17; TEMP 97.7; O2SAT 99
[2017-02-12 04:50] VITALS: BP 97/66; PULSE 90; RESP 17; TEMP 98.1; O2SAT 99
[2017-02-12] MEDS: LEVOTHYROXINE SODIUM 150 MCG TAB PO SCH (04:55)
[2017-02-12 07:05] LABS: BICARBONATE 22.4 MEQ/L (21.0-32.0); POTASSIUM 4.6 MEQ/L (3.5-5.1)
[2017-02-12 07:42] LABS: HEMATOCRIT 31.2 % (35.0-46.0); MEAN CELL VOLUME 90.8 FL (80.0-100.0); MEAN CORPUSCULAR HEMOGLOBIN 30.6 PG (27.0-34.0); MEAN CORPUSCULAR HGB CONC 33.7 % (32.0-36.0); PLATELET COUNT 126 TH/MM3 (150-450); RED BLOOD COUNT 3.44 MIL/MM3 (4.00-5.30); RED CELL DISTRIBUTION WIDTH 18.4 % (11.6-17.2); WHITE BLOOD COUNT 6.3 TH/MM3 (4.0-11.0)
[2017-02-12 07:51] LABS: REVIEW FLAG AUTO DIFF
[2017-02-12 08:00] VITALS: BP 100/79; PULSE 92; RESP 18; TEMP 99; O2SAT 100
[2017-02-12] MEDS: FERROUS SULFATE 325 MG (65 MG ELEMENTAL IRON) TAB PO SCH ×2 (09:57→21:02)
[2017-02-12] MEDS: MORPHINE SULFATE 30 MG CONTROLLED RELEASE TAB PO SCH ×2 (09:58→21:02)
[2017-02-12] MEDS: SODIUM CHLORIDE 0.9% FLUSH 10 ML FLUSH IV FLUSH SCH ×2 (09:59→21:02)
[2017-02-12 12:00] VITALS: BP 101/64; PULSE 80; RESP 16; TEMP 99; O2SAT 100
[2017-02-12] MEDS: SODIUM CHLOR 0.9% 1000 ML INJ 1,000 ML IV SCH ×2 (12:45→21:07)
--- NOTE | 2017-02-12 15:37 | HHI.FF ---
Face to Face Verification Diagnosis: (1) Fall (2) Rhabdomyolysis (3) Altered mental status Physical Therapy Order: Evaluate and Treat I have seen patient Nancy Cain on 02/11/17. My clinical findings support the need for the requested home health care services because: Deconditioned w/ increased weakness High risk of falls I certify that my clinical findings support that this patient is homebound because: Unsteady gait/balance Unable to use public transportation Naldo Chase MD February 12, 2017 15:37
[2017-02-12 16:00] VITALS: BP 107/66; PULSE 76; RESP 18; TEMP 98.9; O2SAT 95
[2017-02-12] MEDS: MORPHINE SULFATE 15 MG TAB PO PRN (17:28)
[2017-02-12 20:00] VITALS: BP 102/62; PULSE 76; RESP 20; TEMP 97.4; O2SAT 100
[2017-02-12] MEDS: TEMAZEPAM 15 MG CAP PO PRN (22:26)
[2017-02-13] VITALS (7 sets, daily range): BP systolic 97–143; BP diastolic 63–78; PULSE 68–98; RESP 16–22; TEMP 97.3–99.1; O2SAT 98–100
[2017-02-13] MEDS: LEVOTHYROXINE SODIUM 150 MCG TAB PO SCH (04:03)
[2017-02-13] MEDS: MORPHINE SULFATE 15 MG TAB PO PRN ×2 (04:03→17:55)
[2017-02-13] MEDS: SODIUM CHLOR 0.9% 1000 ML INJ 1,000 ML IV SCH ×3 (08:45→22:12)
[2017-02-13] MEDS: SODIUM CHLORIDE 0.9% FLUSH 10 ML FLUSH IV FLUSH SCH ×2 (08:48→21:00)
[2017-02-13] MEDS: MORPHINE SULFATE 30 MG CONTROLLED RELEASE TAB PO SCH ×2 (08:49→22:10)
[2017-02-13] MEDS: FERROUS SULFATE 325 MG (65 MG ELEMENTAL IRON) TAB PO SCH ×2 (08:49→22:10)
[2017-02-13] MEDS: TEMAZEPAM 15 MG CAP PO PRN (22:27)
[2017-02-14] VITALS (8 sets, daily range): BP systolic 90–134; BP diastolic 65–71; PULSE 82–108; RESP 16–22; TEMP 97.3–98.5; O2SAT 98–100
[2017-02-14] MEDS: LEVOTHYROXINE SODIUM 150 MCG TAB PO SCH (05:17)
[2017-02-14] MEDS: SODIUM CHLORIDE 0.9% FLUSH 10 ML FLUSH IV FLUSH SCH ×2 (09:14→19:33)
[2017-02-14] MEDS: MAGNESIUM HYDROXIDE SUSP 30 ML CUP PO PRN (09:14)
[2017-02-14] MEDS: DOCUSATE SODIUM 100 MG CAP PO SCH ×2 (09:15→19:41)
[2017-02-14] MEDS: FERROUS SULFATE 325 MG (65 MG ELEMENTAL IRON) TAB PO SCH ×2 (09:15→19:41)
[2017-02-14] MEDS: MORPHINE SULFATE 30 MG CONTROLLED RELEASE TAB PO SCH ×2 (09:16→21:33)
[2017-02-14] MEDS: SODIUM CHLOR 0.9% 1000 ML INJ 1,000 ML IV SCH (14:45)
[2017-02-14] MEDS: MORPHINE SULFATE 15 MG TAB PO PRN (17:04)
[2017-02-15 00:40] VITALS: BP 98/63; PULSE 72; RESP 17; TEMP 98.5; O2SAT 99
[2017-02-15] MEDS: SODIUM CHLOR 0.9% 1000 ML INJ 1,000 ML IV SCH (00:45)
[2017-02-15 04:38] VITALS: BP 99/78; PULSE 85; RESP 17; TEMP 98.5; O2SAT 99
[2017-02-15] MEDS: LEVOTHYROXINE SODIUM 150 MCG TAB PO SCH (05:25)
[2017-02-15 07:50] VITALS: BP 113/68; PULSE 88; RESP 17; TEMP 97.8; O2SAT 98
[2017-02-15] MEDS: MAGNESIUM HYDROXIDE SUSP 30 ML CUP PO PRN (08:10)
[2017-02-15] MEDS: DOCUSATE SODIUM 100 MG CAP PO SCH (08:10)
[2017-02-15] MEDS: FERROUS SULFATE 325 MG (65 MG ELEMENTAL IRON) TAB PO SCH (08:11)
[2017-02-15] MEDS: SODIUM CHLORIDE 0.9% FLUSH 10 ML FLUSH IV FLUSH SCH (08:12)
[2017-02-15] MEDS: MORPHINE SULFATE 30 MG CONTROLLED RELEASE TAB PO SCH (08:12)
== END 2017-02-15 10:22 | disposition home health service (06) | DRG 442 ==
LOC: NEPE 16:10 → NEDA 21:41 → N06A 23:31
PROVIDERS: ADMIT Hospitalist; ATTEND Hospitalist
DX: K72.90 Hepatic failure, unspecified without coma (principal); E46 Unspecified protein-calorie malnutrition; F05 Delirium due to known physiological condition; M62.82 Rhabdomyolysis; E87.1 Hypo-osmolality and hyponatremia; Z68.1 Body mass index [BMI] 19.9 or less, adult; F32.9 Major depressive disorder, single episode, unspecified; Z91.14 Patient's other noncompliance with medication regimen; E89.0 Postprocedural hypothyroidism; F41.9 Anxiety disorder, unspecified; K21.9 Gastro-esophageal reflux disease without esophagitis; F17.210 Nicotine dependence, cigarettes, uncomplicated; G89.29 Other chronic pain; Z86.718 Personal history of other venous thrombosis and embolism; G47.00 Insomnia, unspecified
CPT/HCPCS: 70450; 71010; 74177; 76937; 80048; 80053; 80307; 81001; 82140; 82550; 82552; 82948; 83605; 84439; 84443; 84481; 84484; 85025; 85027; 85610; 85730; 93005; 93306; 93880; 96361; 96365; 96367; 96372; 96375; J0456; J0696; J1630; J1885; J2060; J7030; J7050; P9612; Q9967

== ENCOUNTER 2017-03-19 11:04 | Emergency (ER) | payer OTHER, MEDICARE ==
[~2017-03-19] VITALS: Ht 175.3 cm; Wt 58.0 kg
[~2017-03-19 11:04] MED LIST changes: +COLA100C3 PO; +MORP1TAB25 PO; +MSIR15 PO; +REST15CA PO; -REST30CA PO
[2017-03-19 11:14] VITALS: PULSE 64; RESP 19; TEMP 98.1; O2SAT 98
[2017-03-19] MEDS ORDERED: SODIUM CHLOR 0.9% 1000 ML INJ 1,000 ML IV SCH (11:17)
[2017-03-19 11:21] VITALS: BP 179/89; PULSE 47; RESP 16; O2SAT 98
[2017-03-19] MEDS ORDERED: ONDANSETRON HCL 4 MG/2 ML VIAL IVP ONE (11:30)
[2017-03-19] MEDS ORDERED: HYDROmorphone HCL PF 1 MG/ML VIAL IVS ONE (11:30)
[2017-03-19] MEDS ORDERED: SODIUM CHLORIDE 0.9% FLUSH 10 ML FLUSH IV FLUSH PRN (11:30)
--- NOTE | 2017-03-19 11:30 | PD ---
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 Patient states she stopped chemotherapy and radiation 2 months ago she was done doing it. Patient does not wish to have hospice. Patient states she just wants to be left alone at home by herself. Patient states starting yesterday the pain got worse and she began having vomiting and diarrhea. Patient reports she has not been able to keep her pain medications down secondary to this. Patient describes a sharp/ stabbing pain throughout her abdomen. Patient reports she has not been able to keep any fluid or food down since yesterday. Denies any blood in vomit or stool and reports vomiting is nonbilious. Patient states she's been dry heaving today. Patient patient states she does not want hospice. PFSH Past Medical History Hx Anticoagulant Therapy: Yes Arthritis: Yes Asthma: No Autoimmune Disease: No Bipolar Disorder: Yes Anxiety: Yes Depression: Yes Heart Rhythm Problems: No Cancer: Yes (Thyroid, Ovarian, Rt breast,colon) Cardiovascular Problems: Yes High Cholesterol: No Chemotherapy: Yes Chest Pain: No Congestive Heart Failure: No COPD: Yes Cerebrovascular Accident: No Diabetes: No Diminished Hearing: No Deep Vein Thrombosis: Yes Endocrine: Yes Gastrointestinal Disorders: Yes (malabsorption, partial gastrectomy s/p GI bleed ) GERD: Yes Genitourinary: Yes ("urination problems" frequency, and retention) Hiatal Hernia: No Immune Disorder: No Implanted Vascular Access Dvce: Yes Kidney Stones: No Musculoskeletal: Yes Neurologic: Yes (seizure ) Psychiatric: Yes (depression) Reproductive: Yes (ovarian cancer, breast cancer ) Respiratory: Yes Immunizations Current: Yes Migraines: No Radiation Therapy: Yes Renal Failure: No Seizures: Yes Sickle Cell Disease: No Sleep Apnea: No Thyroid Disease: Yes (thyroidectomy/hyperthyrodism) Ulcer: Yes ?: Not Menopausal: Yes : 2 Para: 2 Past Surgical History Abdominal Surgery: No AICD: No Appendectomy: Yes Arteriovenous Shunt: No Body Medical Devices: "hardware in back" Cardiac Surgery: No Cholecystectomy: Yes Ear Surgery: No Endocrine Surgery: No Eye Surgery: No Genitourinary Surgery: No Gynecologic Surgery: No Insulin Pump: No Joint Replacement: No Mastectomy: Yes (RT) Oral Surgery: No Pacemaker: No Thoracic Surgery: Yes Tonsillectomy: Yes Other Surgery: Yes (thyroidectomy, rt oopherectomy, rt lumpectomy, partial gastrectomy, back ) Social History Alcohol Use: No Tobacco Use: Yes (less than 1/2ppd) Substance Use: Yes (MARIJUANA) Allergies-Medications (Allergen,Severity, Reaction): Coded Allergies: Phenothiazines (Verified Allergy, Severe, RASH, 02/07/17) Tigan (Verified Allergy, Severe, TETANY, 02/07/17) Compazine (Verified Adverse Reaction, Severe, Nausea/Vomiting, 02/07/17) *MDRO Multi-Drug Resistant Organism (Verified Adverse Reaction, Unknown, ) 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/19/2016 Reported Meds & Prescriptions Reported Meds & Active Scripts Active Zofran Odt (Ondansetron Odt) 4 Mg Tab 4 Mg SL Q6HR PRN Colace (Docusate Sodium) 100 Mg Cap 100 Mg PO BID PRN Morphine IR (Morphine Sulfate) 15 Mg Tab 15 Mg PO Q6HR PRN Morphine ER (Morphine Sulfate) 30 Mg Tab 30 Mg PO Q12HR Restoril (Temazepam) 15 Mg Cap 15 Mg PO HS PRN Levaquin (Levofloxacin) 750 Mg Tab 750 Mg PO DAILY Reported Ferrous Sulfate 325 Mg Tab 325 Mg PO BID Vitamin C (Ascorbic Acid) 500 Mg Tab 500 Mg PO DAILY Thiamine (Thiamine HCl) 100 Mg Tab 100 Mg PO DAILY D3 (Cholecalciferol) 2,000 Unit Tab 2,000 Units PO DAILY Synthroid (Levothyroxine Sodium) 150 Mcg Tab 150 Mcg PO DAILY B-12 (Cyanocobalamin) 1,000 Mcg Subl 1,000 Mcg SL DAILY Review of Systems Except as stated in HPI: all other systems reviewed are Neg Physical Exam Narrative GENERAL: Well-developed, well nourished, in no acute distress, and non-ill appearing. SKIN: Focused skin assessment warm and dry. HEAD: Atraumatic. Normocephalic. EYES: Pupils equal and round. EOMI. No scleral icterus. No injection or drainage. ENT: No nasal bleeding or discharge. Mucous membranes pink and moist. NECK: Trachea midline. Supple. No nuclear rigidity. CARDIOVASCULAR: Regular rate and rhythm. No murmur appreciated. RESPIRATORY: No accessory muscle use. No respiratory distress. Clear to auscultation. Breath sounds equal bilaterally. GASTROINTESTINAL: Abdomen soft, nondistended, without guarding. Hepatic and splenic margins not palpable. Normal bowel sounds 4. No pulsatile mass. Patient reports tenderness to palpation throughout her abdomen. MUSCULOSKELETAL: No obvious deformities. No clubbing. No cyanosis. No edema. Full range of motion. NEUROLOGICAL: Awake and alert. No obvious cranial nerve deficits. Motor grossly within normal limits. Normal speech. PSYCHIATRIC: Appropriate mood and affect; insight and judgment normal. Data Data Last Documented VS Vital Signs Date Time Temp Pulse Resp B/P Pulse Ox O2 Delivery O2 Flow Rate FiO2 03/19/17 11:21 47 16 179/89 98 Room Air 03/19/17 11:14 98.1 Orders Complete Blood Count With Diff (03/19/17 11:17) Comprehensive Metabolic Panel (03/19/17 11:17) Lipase (03/19/17 11:17) Prothrombin Time / Inr (Pt) (03/19/17 11:17) Act Partial Throm Time (Ptt) (03/19/17 11:17) Iv Access Insert/Monitor (03/19/17 11:17) Ecg Monitoring (03/19/17 11:17) Oximetry (03/19/17 11:17) Ondansetron Inj (Zofran Inj) (03/19/17 11:30) Sodium Chlor 0.9% 1000 Ml Inj (Ns 1000 M (03/19/17 11:17) Sodium Chloride 0.9% Flush (Ns Flush) (03/19/17 11:30) Hydromorphone Pf Inj (Dilaudid Pf Inj) (03/19/17 11:30) Oral Contrast - Adult (03/19/17 11:23) Electrocardiogram (03/19/17 11:30) Chest, Single Ap (03/19/17 11:30) Thyroid Stimulating Hormone (03/19/17 11:32) Ct Abd/Pel W/O Iv Contrast (03/19/17 11:42) Sodium Chlor 0.9% 1000 Ml Inj (Ns 1000 M (03/19/17 11:45) Vascular Access Team Consult/P PRN (03/19/17 12:31) Vascular Poc Ultrasound (03/19/17 ) Creatine Kinase (Cpk) (03/19/17 13:46) Labs Laboratory Tests Test 03/19/17 13:50 White Blood Count 4.0 TH/MM3 Red Blood Count 3.50 MIL/MM3 Hemoglobin 10.8 GM/DL Hematocrit 32.4 % Mean Corpuscular Volume 92.6 FL Mean Corpuscular Hemoglobin 30.9 PG Mean Corpuscular Hemoglobin 33.4 % Concent Red Cell Distribution Width 20.0 % Platelet Count 231 TH/MM3 Mean Platelet Volume 9.2 FL Neutrophils (%) (Auto) 72.0 % Lymphocytes (%) (Auto) 23.8 % Monocytes (%) (Auto) 2.7 % Eosinophils (%) (Auto) 0.1 % Basophils (%) (Auto) 1.4 % Neutrophils # (Auto) 2.9 TH/MM3 Lymphocytes # (Auto) 1.0 TH/MM3 Monocytes # (Auto) 0.1 TH/MM3 Eosinophils # (Auto) 0.0 TH/MM3 Basophils # (Auto) 0.1 TH/MM3 CBC Comment DIFF FINAL Differential Comment Prothrombin Time 10.3 SEC Prothromb Time International 0.9 RATIO Ratio Activated Partial 26.9 SEC Thromboplast Time Sodium Level 139 MEQ/L Potassium Level 4.3 MEQ/L Chloride Level 110 MEQ/L Carbon Dioxide Level 23.6 MEQ/L Anion Gap 5 MEQ/L Blood Urea Nitrogen 11 MG/DL Creatinine 0.91 MG/DL Estimat Glomerular Filtration 62 ML/MIN Rate Random Glucose 76 MG/DL Calcium Level 8.3 MG/DL Total Bilirubin 0.6 MG/DL Aspartate Amino Transf 23 U/L (AST/SGOT) Alanine Aminotransferase 19 U/L (ALT/SGPT) Alkaline Phosphatase 77 U/L Total Protein 7.3 GM/DL Albumin 3.6 GM/DL Lipase 232 U/L Thyroid Stimulating Hormone 63.300 uIU/ML 3rd Gen [facility] Medical Decision Making Medical Screen Exam Complete: Yes Emergency Medical Condition: Yes Interpretation(s) Chest x-ray read by radiologist shows: No acute disease. EKG reviewed by Dr. Hernández shows sinus bradycardia with a ventricular rhythm of 57. No STEMI. CT the abdomen and pelvis her by the radiologist shows: 1. Post surgical changes with a possible previous gastric bypass as well as cholecystectomy. Patient has a right medullary hay and compression screw and multilevel fixation of the lumbar spine. 2. Small hiatal hernia. 3. Small amount of air within the left common femoral vein. This is non- specific and overtly benign. 4. Otherwise, no acute intraperitoneal or pelvic process to explain current clinical symptoms. Differential Diagnosis Obstruction, colitis, metastatic disease, electrolyte abnormality, dehydration, anemia, pneumonia, other Narrative Course Patient is refusing treatments patient's when something for pain and to be admitted to the hospital. 1225 patient reassessed feeling better status post medication and is now agreeable for additional intervention. 1500 discussed all findings and plan care of patient, who is agreeable to go home with a prescription for Zofran. Patient requesting additional pain medication prior to discharge. Patient informs she can take her pain medication when she gets home. The patient presented with abdominal pain with a reported history of colon and uterine cancer. There was no significant history of fever. The patient appeared comfortable, well hydrated and the abdominal exam was mildly tender without guarding or rebound and no focal tenderness to me. Laboratory and radiologic/CT evaluation revealed no significant abnormalities including cancer. There was no evidence of an acute, surgical abdomen at this time. There was no clinical evidence to support appendicitis, bowel obstruction, cholecystitis/ cholelithiasis, pancreatitis, perforation of gastric ulcer, colitis, diverticulitis, bacterial peritonitis, obstruction, volvulus, hernial incarceration or strangulation at this time. There was no evidence to support vascular pathology such as AAA, mesenteric ischemia. There was also no clinical evidence by history, exam or risk factors to suggest atypical presentation of cardiac disease such as ACS, AMI or atypical angina. No evidence to suggest genitourinary etiology as well. Clinical picture was discussed with the patient , as well as plan of care. The patient was instructed to follow up with their physician. Abdominal pain warnings were discussed with the patient. The patient is to return if worsens, pain worsens or changes, develop fever, inability to tolerate fluids with or without vomiting, unable to establish follow up or as needed. The patient agrees with plan. Upon review of patient's record it appears patient is a history of substance dependency and I would questions/ suspect that this could be some underlying drug-seeking behavior secondary to patient report a history of cancer but has not been able to be found in patient' s record or on CAT scan along with patient requesting pain medication and refused initial workup until her pain was controlled. Patient in no obvious distress upon re-evaluation. All pertinent laboratory/ Radiology result(s) discussed with patient. Discussed patient with Dr. Hernández, who saw and evaluated patient and is in agreement with plan of care and disposition. Any questions/concerns in reference to patient diagnosis/ condition discussed and clarified prior to patient's discharge. Reinforced sheer importance of close follow up with patient's primary physician or primary care clinic. Instructed patient to return to ED immediately, if symptoms return/ worsen. Pt showed understanding of above instructions. Further instructions and recommendations were detailed in discharge paperwork. Pt ambulated without difficulty out of ED at discharge. Diagnosis Primary Impression: Abdominal pain Qualified Code: R10.9 - Abdominal pain, unspecified location Patient Instructions: Abdominal Pain (ED), General Instructions Additional Instructions: Follow-up with your primary care physician in 2-3 days for reevaluation. Take all medication as prescribed. Return to the emergency department if symptoms get worse. Med/Other Pt SpecificInfo: Prescription(s) given Scripts Ondansetron Odt (Zofran Odt)4 Mg Tab4 Mg SL Q6HR PRN (Nausea/Vomiting) #12 TAB Ref 0 Prov:Swathi Hernández MD 03/19/17 Disposition: 01 DISCHARGE HOME Condition: Stable Joaquín Cunha Mar 19, 2017 11:30
[2017-03-19] MEDS ORDERED: SODIUM CHLOR 0.9% 1000 ML INJ 1,000 ML IV ONE (11:45)
--- NOTE | 2017-03-19 12:38 | RADRPT ---
EXAM DATE/TIME: 03/19/2017 12:09 [facility] COMPARISON: CHEST SINGLE AP, February 07, 2017, 16:29. INDICATIONS : Vomiting. MEDICAL HISTORY : Carcinoma, colon. Chronic obstructive pulmonary disease. Ovarian cancer. SURGICAL HISTORY : Patient was unsure of procedures. ENCOUNTER: Initial ACUITY: 1 day PAIN SCORE: 9/10 LOCATION: Bilateral chest FINDINGS: A single view of the chest demonstrates the lungs to be symmetrically aerated without evidence of mas s, infiltrate or effusion. The cardiomediastinal contours are unremarkable. Old rib fractures are n oted. CONCLUSION: No acute disease. Shahab Low MD FACR on March 19, 2017 at 12:36 Board Certified Radiologist. This report was verified electronically.
[2017-03-19 14:37] LABS: AUTOMATED NEUTROPHIL # 2.9 TH/MM3 (1.8-7.7); BASOPHIL # 0.1 TH/MM3 (0-0.2); BASOPHIL % 1.4 % (0.0-2.0); EOSINOPHIL % 0.1 % (0.0-4.0); HEMATOCRIT 32.4 % (35.0-46.0); HEMO FLAGS DIFF FINAL; LYMPH % 23.8 % (9.0-44.0); MEAN CELL VOLUME 92.6 FL (80.0-100.0); MEAN CORPUSCULAR HEMOGLOBIN 30.9 PG (27.0-34.0); MEAN CORPUSCULAR HGB CONC 33.4 % (32.0-36.0); MONO % 2.7 % (0.0-8.0); PLATELET COUNT 231 TH/MM3 (150-450)
--- NOTE | 2017-03-19 14:39 | RADRPT ---
EXAM DATE/TIME: 03/19/2017 13:04 [facility] COMPARISON: CT ABDOMEN & PELVIS W CONTRAST, February 07, 2017, 20:57. CT ABDOMEN & PELVIS W/O CONTRAST, November, 13:37. INDICATIONS : Nausea, vomiting, Diarhhea for one day. ORAL CONTRAST: Prescribed oral contrast ingested. RADIATION DOSE: 10.08 CTDIvol (mGy) MEDICAL HISTORY : Seizures. Chronic obstructive pulmonary disease. Carcinoma, breast. Ovarian and colon cancer. SURGICAL HISTORY : Gastrectomy, cholecystectomy, appendectomy, right mastectomy ENCOUNTER: Initial ACUITY: 1 day PAIN SCALE: 0/10 LOCATION: Bilateral upper quadrant TECHNIQUE: Volumetric scanning of the abdomen and pelvis was performed. Using automated exposure control and ad justment of the mA and/or kV according to patient size, radiation dose was kept as low as reasonably achievable to obtain optimal diagnostic quality images. FINDINGS: The lung bases are clear. There appears to be a small hiatal hernia. Below the diaphragm, there are post surgical changes with a line of tomasa along the lesser curvatur e of the stomach. This may be part of a gastric bypass with an apparent gastric jejunostomy and poss ibly partitioning of the majority of the gastric lumen. There is a second area of surgical staple ri ng in the left abdomen possibly representing Kwesi-en-Y loop. The patient has also had a cholecystect tucker. Otherwise, the liver, spleen, pancreas, adrenals and kidneys are grossly unremarkable on this non-con trasted study. The uterus is diminutive but otherwise radiographically intact. Non-contrasted bowel is grossly unremarkable. Marked atrophy of the left rectus abdominus musculature. There is some be nign appearing dystrophic type calcification in the aponeurosis overlying the gluteus haris muscle bilaterally. The patient has posterior fixation of the lower lumbar spine. Of note, there is a small amount of air identified in the left common femoral vein. CONCLUSION: 1. Post surgical changes with a possible previous gastric bypass as well as cholecystectomy. Patient has a right medullary hay and compression screw and multilevel fixation of the lumbar spine. 2. Small hiatal hernia. 3. Small amount of air within the left common femoral vein. This is non-specific and overtly benign. Has the patient had a recent intervention in this region? 4. Otherwise, no acute intraperitoneal or pelvic process to explain current clinical symptoms. Mitchell Pretty MD on March 19, 2017 at 13:38 Board Certified Radiologist. This report was verified electronically.
[2017-03-19 14:45] LABS: APTT (PATIENT) 26.9 SEC (24.3-30.1); INTERNATIONAL NORMALIZED RATIO 0.9 RATIO; PROTHROMBIN TIME - PATIENT 10.3 SEC (9.8-11.6)
[2017-03-19 14:55] LABS: ANION GAP 5 MEQ/L (5-15); AST (GOT) 23 U/L (15-37); BICARBONATE 23.6 MEQ/L (21.0-32.0); BLOOD UREA NITROGEN 11 MG/DL (7-18); CHLORIDE 110 MEQ/L (98-107); GLOMERULAR FILTRATION RATE 62 ML/MIN (>89); POTASSIUM 4.3 MEQ/L (3.5-5.1); SODIUM (NA) 139 MEQ/L (136-145)
[2017-03-19 14:59] LABS: ALKALINE PHOSPHATASE 77 U/L (45-117); ALT (GPT) 19 U/L (10-53); TOTAL BILIRUBIN ADULT 0.6 MG/DL (0.2-1.0)
--- NOTE | 2017-03-19 15:05 | PD ---
Data Data Last Documented VS Vital Signs Date Time Temp Pulse Resp B/P Pulse Ox O2 Delivery O2 Flow Rate FiO2 03/19/17 11:21 47 16 179/89 98 Room Air 03/19/17 11:14 98.1 Orders Complete Blood Count With Diff (03/19/17 11:17) Comprehensive Metabolic Panel (03/19/17 11:17) Lipase (03/19/17 11:17) Prothrombin Time / Inr (Pt) (03/19/17 11:17) Act Partial Throm Time (Ptt) (03/19/17 11:17) Iv Access Insert/Monitor (03/19/17 11:17) Ecg Monitoring (03/19/17 11:17) Oximetry (03/19/17 11:17) Ondansetron Inj (Zofran Inj) (03/19/17 11:30) Sodium Chlor 0.9% 1000 Ml Inj (Ns 1000 M (03/19/17 11:17) Sodium Chloride 0.9% Flush (Ns Flush) (03/19/17 11:30) Hydromorphone Pf Inj (Dilaudid Pf Inj) (03/19/17 11:30) Oral Contrast - Adult (03/19/17 11:23) Electrocardiogram (03/19/17 11:30) Chest, Single Ap (03/19/17 11:30) Thyroid Stimulating Hormone (03/19/17 11:32) Ct Abd/Pel W/O Iv Contrast (03/19/17 11:42) Sodium Chlor 0.9% 1000 Ml Inj (Ns 1000 M (03/19/17 11:45) Vascular Access Team Consult/P PRN (03/19/17 12:31) Vascular Poc Ultrasound (03/19/17 ) Creatine Kinase (Cpk) (03/19/17 13:46) Labs Laboratory Tests Test 03/19/17 13:50 White Blood Count 4.0 TH/MM3 Red Blood Count 3.50 MIL/MM3 Hemoglobin 10.8 GM/DL Hematocrit 32.4 % Mean Corpuscular Volume 92.6 FL Mean Corpuscular Hemoglobin 30.9 PG Mean Corpuscular Hemoglobin 33.4 % Concent Red Cell Distribution Width 20.0 % Platelet Count 231 TH/MM3 Mean Platelet Volume 9.2 FL Neutrophils (%) (Auto) 72.0 % Lymphocytes (%) (Auto) 23.8 % Monocytes (%) (Auto) 2.7 % Eosinophils (%) (Auto) 0.1 % Basophils (%) (Auto) 1.4 % Neutrophils # (Auto) 2.9 TH/MM3 Lymphocytes # (Auto) 1.0 TH/MM3 Monocytes # (Auto) 0.1 TH/MM3 Eosinophils # (Auto) 0.0 TH/MM3 Basophils # (Auto) 0.1 TH/MM3 CBC Comment DIFF FINAL Differential Comment Prothrombin Time 10.3 SEC Prothromb Time International 0.9 RATIO Ratio Activated Partial 26.9 SEC Thromboplast Time Sodium Level 139 MEQ/L Potassium Level 4.3 MEQ/L Chloride Level 110 MEQ/L Carbon Dioxide Level 23.6 MEQ/L Anion Gap 5 MEQ/L Blood Urea Nitrogen 11 MG/DL Creatinine 0.91 MG/DL Estimat Glomerular Filtration 62 ML/MIN Rate Random Glucose 76 MG/DL Calcium Level 8.3 MG/DL Total Bilirubin 0.6 MG/DL Aspartate Amino Transf 23 U/L (AST/SGOT) Alanine Aminotransferase 19 U/L (ALT/SGPT) Alkaline Phosphatase 77 U/L Total Protein 7.3 GM/DL Albumin 3.6 GM/DL Lipase 232 U/L MDM Supervised Visit with HIRO: Yes Narrative Course The history, exam, and medical decision-making in the associated midlevel provider note were completed with my assistance. I reviewed and agree with the findings presented. I attest that I had a [id number] encounter with the patient on the same day, and personally performed and documented my assessment and findings in the medical record. *My assessment and Findings: This is a 66-year-old female who reports that she has a history of end-stage cancer coming in with pain all over, nausea and vomiting. She is a very poor historian, Very disagreeable and says she doesn't want to talk to us only ask her questions. She says she only wants pain medication and to be admitted overnight. She wants to be left to . She says she is supposed to be on hospice care but she hates hospice and hospice is just a " watch". Her history is pretty inconsistent. She has a fairly benign exam. Labs were obtained and a CT abdomen and pelvis was obtained that demonstrates no evidence of diffuse metastatic cancer as her history would suggest. She has been admitted multiple times for similar bizarre presentations. When she was told that her tests were all normal she was eager to go and wanted a phone. She appears normal and not encephalopathic or delirious. I think she is safe for discharge. I have a suspicion for drug-seeking behavior or secondary gain. Swathi Hernández MD Mar 19, 2017 15:04
[2017-03-19] MEDS ORDERED: ZOFR4TAB3 SL (15:14)
--- NOTE | 2017-03-21 10:10 | EKG ---
Date Performed: 03/19/2017 Time Performed: 14:15:15 PTAGE: 66 years EKG: SINUS BRADYCARDIA WITH SINUS ARRHYTHMIA BORDERLINE ECG PREVIOUS TRACING : 02/07/2017 16.39 DOCTOR: Rigo Harry Interpretating Date/Time 03/21/2017 09:53:31
== END 2017-03-19 15:42 | disposition home or self-care (01) ==
LOC: NEPC 11:04
DX: R10.84 Generalized abdominal pain (principal); R11.2 Nausea with vomiting, unspecified; G89.3 Neoplasm related pain (acute) (chronic); R19.7 Diarrhea, unspecified; R00.1 Bradycardia, unspecified; I49.8 Other specified cardiac arrhythmias; J44.9 Chronic obstructive pulmonary disease, unspecified; K21.9 Gastro-esophageal reflux disease without esophagitis; F17.210 Nicotine dependence, cigarettes, uncomplicated; Z85.038 Personal history of other malignant neoplasm of large intestine; Z85.42 Personal history of malignant neoplasm of other parts of uterus; Z85.3 Personal history of malignant neoplasm of breast; Z85.43 Personal history of malignant neoplasm of ovary; Z86.718 Personal history of other venous thrombosis and embolism; Z92.21 Personal history of antineoplastic chemotherapy; Z92.3 Personal history of irradiation
CPT/HCPCS: 71010; 74176; 80053; 82550; 83690; 84443; 85025; 85610; 85730; 93005; 96361; 96374; 96375; 99285; J1170; J2405; J7030

== ENCOUNTER 2017-03-21 03:43 | Emergency (ER) | payer OTHER, MEDICARE ==
[~2017-03-21] VITALS: Ht 175.3 cm; Wt 57.0 kg
[~2017-03-21 03:43] MED LIST changes: +ZOFR4TAB3 SL
[2017-03-21 03:50] VITALS: BP 167/87; PULSE 65; RESP 22; TEMP 98.2; O2SAT 98
[2017-03-21] MEDS ORDERED: VITA250T3 PO (04:00)
[2017-03-21] MEDS ORDERED: FERR325T2 (04:00)
[2017-03-21] MEDS ORDERED: COLA100C (04:00)
[2017-03-21] MEDS ORDERED: VITA100T54 PO (04:00)
[2017-03-21] MEDS ORDERED: MORPHINE SULFATE 4 MG/ML INJ IM ONE (04:30)
--- NOTE | 2017-03-21 04:32 | PD ---
HPI Chief Complaint: Abdominal Pain Time Seen by Provider: 04:29 Travel History International Travel<30 days: No Contact w/Intl Traveler<30days: No Traveled to known affect area: No History of Present Illness HPI Patient 66-year-old female presents emergency Department with abdominal pain. Patient states she has a history of pelvic cancer and is currently on hospice. She states that the pain became very severe this morning and she's been taking her hydrocodone at home without significant relief. Notably she was here yesterday for similar complaints she had a CAT scan of her abdomen at that time which was completely negative and did not show any masses according to Dr. Swathi Dumas's note. Patient denies any chest pain or shortness of breath. She states that she cannot keep any food down. PFSH Past Medical History Hx Anticoagulant Therapy: Yes Arthritis: Yes Asthma: No Autoimmune Disease: No Bipolar Disorder: Yes Anxiety: Yes Depression: Yes Heart Rhythm Problems: No Cancer: Yes (STAGE III OVARIAN CA) Cardiovascular Problems: Yes High Cholesterol: No Chemotherapy: Yes (2 MONTHS AGO ) Chest Pain: No Congestive Heart Failure: No COPD: Yes Cerebrovascular Accident: No Diabetes: No Diminished Hearing: No Deep Vein Thrombosis: Yes Endocrine: Yes Gastrointestinal Disorders: Yes (malabsorption, partial gastrectomy s/p GI bleed ) GERD: Yes Genitourinary: Yes ("urination problems" frequency, and retention) Headaches: No Hiatal Hernia: No Hypertension: No (PATIENT LOW ) Immune Disorder: No Implanted Vascular Access Dvce: Yes Kidney Stones: No Musculoskeletal: Yes Neurologic: Yes (seizure ) Psychiatric: Yes (depression) Reproductive: Yes (ovarian cancer, breast cancer ) Respiratory: Yes Immunizations Current: Yes Migraines: No Radiation Therapy: Yes Renal Failure: No Seizures: Yes Sickle Cell Disease: No Sleep Apnea: No Thyroid Disease: Yes (THROID SX) Ulcer: Yes Menopausal: Yes : 2 Para: 2 Past Surgical History Abdominal Surgery: Yes (CANCER REMOVAL SX IN INTESTINES) AICD: No Appendectomy: Yes Arteriovenous Shunt: No Body Medical Devices: "hardware in back" Cardiac Surgery: No Cholecystectomy: Yes Ear Surgery: No Endocrine Surgery: Yes (THYROID SX, BREAST SX) Eye Surgery: No Genitourinary Surgery: No Gynecologic Surgery: No Insulin Pump: No Joint Replacement: No Mastectomy: Yes (RT) Neurologic Surgery: No Oral Surgery: No Pacemaker: No Thoracic Surgery: Yes Tonsillectomy: Yes Other Surgery: Yes (5 BACK SURGERIES) Social History Alcohol Use: No Tobacco Use: Yes (2 CIGARETTES PER DAY) Substance Use: No Allergies-Medications (Allergen,Severity, Reaction): Coded Allergies: Phenothiazines (Verified Allergy, Severe, RASH, 03/21/17) Tigan (Verified Allergy, Severe, TETANY, 03/21/17) Compazine (Verified Adverse Reaction, Severe, Nausea/Vomiting, 03/21/17) *MDRO Multi-Drug Resistant Organism (Verified Adverse Reaction, Unknown, ) 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/19/2016 Reported Meds & Prescriptions Reported Meds & Active Scripts Active Zofran Odt (Ondansetron Odt) 4 Mg Tab 4 Mg SL Q6HR PRN Morphine IR (Morphine Sulfate) 15 Mg Tab 15 Mg PO Q6HR PRN Morphine ER (Morphine Sulfate) 30 Mg Tab 30 Mg PO Q12HR Restoril (Temazepam) 15 Mg Cap 15 Mg PO HS PRN Reported Vitamin B-1 (Thiamine HCl) 100 Mg Tab 100 Mg PO DAILY Ferrous Sulfate DR (Ferrous Sulfate) 325 Mg Tabdr BID Colace (Docusate Sodium) 100 Mg Capsule BID Vitamin C (Ascorbic Acid) 250 Mg Tab 500 Mg PO D3 (Cholecalciferol) 2,000 Unit Tab 2,000 Units PO DAILY Synthroid (Levothyroxine Sodium) 150 Mcg Tab 150 Mcg PO DAILY B-12 (Cyanocobalamin) 1,000 Mcg Subl 1,000 Mcg SL DAILY Review of Systems Except as stated in HPI: all other systems reviewed are Neg Physical Exam Narrative GENERAL: Well developed, thin build, appears much older than stated age, in moderate discomfort. SKIN: Focused skin assessment warm/dry. HEAD: Atraumatic. Normocephalic. EYES: Pupils equal and round. No scleral icterus. No injection or drainage. ENT: No nasal bleeding or discharge. Mucous membranes pink and moist. NECK: Trachea midline. No JVD. CARDIOVASCULAR: Regular rate and rhythm. No murmur appreciated. RESPIRATORY: No accessory muscle use. Clear to auscultation. Breath sounds equal bilaterally. GASTROINTESTINAL: Abdomen soft, non-tender, nondistended. Hepatic and splenic margins not palpable. MUSCULOSKELETAL: No obvious deformities. No clubbing. No cyanosis. No edema. NEUROLOGICAL: Awake and alert. No obvious cranial nerve deficits. Motor grossly within normal limits. Normal speech. PSYCHIATRIC: Appropriate mood and affect; insight and judgment normal. Data Data Last Documented VS Vital Signs Date Time Temp Pulse Resp B/P Pulse Ox O2 Delivery O2 Flow Rate FiO2 03/21/17 06:57 66 16 135/84 96 Room Air 03/21/17 03:50 98.2 Orders Morphine Inj (Morphine Inj) (03/21/17 04:30) Basic Metabolic Panel (Bmp) (03/21/17 04:31) Complete Blood Count With Diff (03/21/17 04:31) Hospice Consult (03/21/17 07:23) Labs Laboratory Tests Test 03/21/17 04:36 White Blood Count 4.5 TH/MM3 Red Blood Count 3.96 MIL/MM3 Hemoglobin 12.3 GM/DL Hematocrit 37.3 % Mean Corpuscular Volume 94.3 FL Mean Corpuscular Hemoglobin 31.2 PG Mean Corpuscular Hemoglobin 33.1 % Concent Red Cell Distribution Width 19.2 % Platelet Count 221 TH/MM3 Mean Platelet Volume 9.5 FL Neutrophils (%) (Auto) 59.4 % Lymphocytes (%) (Auto) 33.7 % Monocytes (%) (Auto) 4.9 % Eosinophils (%) (Auto) 0.5 % Basophils (%) (Auto) 1.5 % Neutrophils # (Auto) 2.7 TH/MM3 Lymphocytes # (Auto) 1.5 TH/MM3 Monocytes # (Auto) 0.2 TH/MM3 Eosinophils # (Auto) 0.0 TH/MM3 Basophils # (Auto) 0.1 TH/MM3 CBC Comment DIFF FINAL Differential Comment Sodium Level 133 MEQ/L Potassium Level 4.2 MEQ/L Chloride Level 103 MEQ/L Carbon Dioxide Level 17.9 MEQ/L Anion Gap 12 MEQ/L Blood Urea Nitrogen 10 MG/DL Creatinine 0.97 MG/DL Estimat Glomerular Filtration 58 ML/MIN Rate Random Glucose 88 MG/DL Calcium Level 8.8 MG/DL [facility] Medical Decision Making Medical Screen Exam Complete: Yes Emergency Medical Condition: Yes Differential Diagnosis Dehydration, electrolyte abnormalities, anemia, chronic abdominal pain. Narrative Course Patient 66-year-old female presents emerged permit with abdominal pain. She's been evaluated once already in this institution this week. Abdomen is benign. Multiple times by me and nursing to start IV was unsuccessful. Blood work was obtained and sent for analysis. The patient was given morphine IM and is much more comfortable. Discussed with her she needs to consider going to hospice care center and she stated to me that she didn't want to ever go to the care center because they just won't let her there. I asked her why she is on hospice then and she could not give me a straight answer. I think it is appropriate for [facility] to come speak with the patient that she says this is her company. We'll speak with case management to possibly arrange them coming in. She was discussed with Dr. Tafoya to follow-up laboratory results disposition the patient appropriately. Joseph Marcum MD Mar 21, 2017 04:32
[2017-03-21 06:14] LABS: AUTOMATED NEUTROPHIL # 2.7 TH/MM3 (1.8-7.7); BASOPHIL # 0.1 TH/MM3 (0-0.2); BASOPHIL % 1.5 % (0.0-2.0); EOSINOPHIL % 0.5 % (0.0-4.0); HEMATOCRIT 37.3 % (35.0-46.0); HEMO FLAGS DIFF FINAL; LYMPH % 33.7 % (9.0-44.0); LYMPHOCYTE # 1.5 TH/MM3 (1.0-4.8); MEAN CELL VOLUME 94.3 FL (80.0-100.0); MEAN CORPUSCULAR HEMOGLOBIN 31.2 PG (27.0-34.0); MEAN CORPUSCULAR HGB CONC 33.1 % (32.0-36.0); MONO % 4.9 % (0.0-8.0); NEUT % 59.4 % (16.0-70.0); PLATELET COUNT 221 TH/MM3 (150-450); RED BLOOD COUNT 3.96 MIL/MM3 (4.00-5.30); RED CELL DISTRIBUTION WIDTH 19.2 % (11.6-17.2); WHITE BLOOD COUNT 4.5 TH/MM3 (4.0-11.0)
[2017-03-21 06:57] VITALS: BP 135/84; PULSE 66; RESP 16; O2SAT 96
[2017-03-21 07:04] LABS: BICARBONATE 17.9 MEQ/L (21.0-32.0)
[2017-03-21 07:07] LABS: POTASSIUM 4.2 MEQ/L (3.5-5.1)
--- NOTE | 2017-03-21 07:45 | PD ---
Physical Exam Date Seen by Provider: Mar 21, 2017 Time Seen by Provider: 07:30 Narrative Patient was signed out to me by Dr. Joseph Marcum at 7 AM. We're awaiting laboratory tests. The patient presented with complaints of abdominal pain. Patient has a reported history of pelvic cancer. She was previously on the [place] hosp[facility] service. She states that she was not happy with the way that they treated her. Laboratory tests appear within normal limits other than a low bicarbonate. She was seen and evaluated 2 days ago and at that time had a CAT scan done that was essentially negative for acute process. The patient is willing to speak with hospice about her options. Data Data Last Documented VS Vital Signs Date Time Temp Pulse Resp B/P Pulse Ox O2 Delivery O2 Flow Rate FiO2 03/21/17 06:57 66 16 135/84 96 Room Air 03/21/17 03:50 98.2 Orders Morphine Inj (Morphine Inj) (03/21/17 04:30) Basic Metabolic Panel (Bmp) (03/21/17 04:31) Complete Blood Count With Diff (03/21/17 04:31) Hospice Consult (03/21/17 07:23) Labs Laboratory Tests Test 03/21/17 04:36 White Blood Count 4.5 TH/MM3 Red Blood Count 3.96 MIL/MM3 Hemoglobin 12.3 GM/DL Hematocrit 37.3 % Mean Corpuscular Volume 94.3 FL Mean Corpuscular Hemoglobin 31.2 PG Mean Corpuscular Hemoglobin 33.1 % Concent Red Cell Distribution Width 19.2 % Platelet Count 221 TH/MM3 Mean Platelet Volume 9.5 FL Neutrophils (%) (Auto) 59.4 % Lymphocytes (%) (Auto) 33.7 % Monocytes (%) (Auto) 4.9 % Eosinophils (%) (Auto) 0.5 % Basophils (%) (Auto) 1.5 % Neutrophils # (Auto) 2.7 TH/MM3 Lymphocytes # (Auto) 1.5 TH/MM3 Monocytes # (Auto) 0.2 TH/MM3 Eosinophils # (Auto) 0.0 TH/MM3 Basophils # (Auto) 0.1 TH/MM3 CBC Comment DIFF FINAL Differential Comment Sodium Level 133 MEQ/L Potassium Level 4.2 MEQ/L Chloride Level 103 MEQ/L Carbon Dioxide Level 17.9 MEQ/L Anion Gap 12 MEQ/L Blood Urea Nitrogen 10 MG/DL Creatinine 0.97 MG/DL Estimat Glomerular Filtration 58 ML/MIN Rate Random Glucose 88 MG/DL Calcium Level 8.8 MG/DL MDM Medical Record Reviewed: Yes Supervised Visit with HIRO: No Differential Diagnosis End-stage pelvic cancer versus failure to thrive versus chronic pain Narrative Course 66-year-old female with a reported pelvic cancer, presents here with complaints of abdominal pain. The patient had a CAT scan 2 days ago that was essentially negative for acute process. The patient's laboratory tests other than a bicarbonate below 20 was essentially within normal limits. She's been given pain medication. She's been observed resting comfortably. She is requesting to speak with hospice. An order has been placed. Disposition will be pending hospice evaluation. Diagnosis Primary Impression: Abdominal pain Additional Impression: Failure to thrive in adult Scott Tafoya MD Mar 21, 2017 07:45
[2017-03-21] MEDS ORDERED: MORPHINE SULFATE 4 MG/ML INJ IV ONE ×2 (08:00→11:15)
== END 2017-03-21 13:34 | disposition hospice, inpatient (51) ==
LOC: NEPE 03:43
DX: R10.10 Upper abdominal pain, unspecified (principal); J44.9 Chronic obstructive pulmonary disease, unspecified; Z86.718 Personal history of other venous thrombosis and embolism; K21.9 Gastro-esophageal reflux disease without esophagitis; F17.210 Nicotine dependence, cigarettes, uncomplicated; Z85.43 Personal history of malignant neoplasm of ovary; Z90.11 Acquired absence of right breast and nipple
CPT/HCPCS: 80048; 85025; 96372; 99285; J2270

== ENCOUNTER 2017-04-25 08:29 | Inpatient (IN) | payer MEDICARE, OTHER ==
[2017-04-25] VITALS (8 sets, daily range): BP systolic 122–152; BP diastolic 78–92; PULSE 58–72; RESP 16–20; TEMP 97.8–99.6; O2SAT 98–100
[~2017-04-25] VITALS: Ht 170.2 cm; Wt 58.1 kg
[~2017-04-25 08:29] MED LIST changes: +COLA100C; -COLA100C3 PO; -FERR325T PO; +FERR325T2; -LEVA750T PO; -THIA100T PO; +VITA100T54 PO; +VITA250T3 PO; -VITA500T PO
[2017-04-25] MEDS ORDERED: SODIUM CHLOR 0.9% 1000 ML INJ 1,000 ML IV ONE (08:40)
[2017-04-25] MEDS ORDERED: SODIUM CHLORIDE 0.9% FLUSH 10 ML FLUSH IVF PRN (08:45)
[2017-04-25] MEDS ORDERED: MORPHINE SULFATE 8 MG/ML INJ IV PUSH ONE (08:45)
--- NOTE | 2017-04-25 08:47 | PD ---
HPI Chief Complaint: syncope, generalized weakness Time Seen by Provider: 08:39 Travel History International Travel<30 days: No Contact w/Intl Traveler<30days: No History of Present Illness HPI Patient is a 67-year-old female who presents to emergency room from home for evaluation of generalized weakness. Patient reports that she has history of stage IV colon cancer, chronic back pain, chronic pain, reports that she took herself off of hospice care a few weeks ago. Patient reports that for the past few days, she has not been feeling well. Reports that she has been feeling nauseous, has been vomiting and having diarrhea. Patient reports that she has pain all over body, reports that she cannot focalize her pain. Patient reports that since last night, she has had 2 syncopal episodes. Reports that her left will episode was around 4 AM, reports that she was walking in her home when she woke up and found herself on the ground. Patient reports that at this point, she feels unsafe being home as she was at home by herself. Patient denies any fevers or chills, reports generalized pain with decreased oral intake. As per patient's stage IV colon cancer, patient reports that she does not want any further management or treatment for her cancer. PFSH Past Medical History Hx Anticoagulant Therapy: Yes Arthritis: Yes Asthma: No Autoimmune Disease: No Bipolar Disorder: Yes Anxiety: Yes Depression: Yes Heart Rhythm Problems: No Cancer: Yes (STAGE III OVARIAN CA) Cardiovascular Problems: Yes High Cholesterol: No Chemotherapy: Yes (2 MONTHS AGO ) Chest Pain: No Congestive Heart Failure: No COPD: Yes Cerebrovascular Accident: No Diabetes: No Diminished Hearing: No Deep Vein Thrombosis: Yes Endocrine: Yes Gastrointestinal Disorders: Yes (malabsorption, partial gastrectomy s/p GI bleed ) GERD: Yes Genitourinary: Yes ("urination problems" frequency, and retention) Headaches: No Hiatal Hernia: No Hypertension: No (PATIENT LOW ) Immune Disorder: No Implanted Vascular Access Dvce: Yes Kidney Stones: No Musculoskeletal: Yes Neurologic: Yes (seizure ) Psychiatric: Yes (depression) Reproductive: Yes (ovarian cancer, breast cancer ) Respiratory: Yes Immunizations Current: Yes Migraines: No Radiation Therapy: Yes Renal Failure: No Seizures: Yes Sickle Cell Disease: No Sleep Apnea: No Thyroid Disease: Yes (THROID SX) Ulcer: Yes Menopausal: Yes : 2 Para: 2 Past Surgical History Abdominal Surgery: Yes (CANCER REMOVAL SX IN INTESTINES) AICD: No Appendectomy: Yes Arteriovenous Shunt: No Body Medical Devices: "hardware in back" Cardiac Surgery: No Cholecystectomy: Yes Ear Surgery: No Endocrine Surgery: Yes (THYROID SX, BREAST SX) Eye Surgery: No Genitourinary Surgery: No Gynecologic Surgery: No Insulin Pump: No Joint Replacement: No Mastectomy: Yes (RT) Neurologic Surgery: No Oral Surgery: No Pacemaker: No Thoracic Surgery: Yes Tonsillectomy: Yes Other Surgery: Yes (5 BACK SURGERIES) Social History Alcohol Use: No Tobacco Use: Yes (2 CIGARETTES PER DAY) Substance Use: No Allergies-Medications (Allergen,Severity, Reaction): Coded Allergies: Phenothiazines (Verified Allergy, Severe, RASH, 04/25/17) Tigan (Verified Allergy, Severe, TETANY, 04/25/17) Compazine (Verified Adverse Reaction, Severe, Nausea/Vomiting, 04/25/17) *MDRO Multi-Drug Resistant Organism (Verified Adverse Reaction, Unknown, ) 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/19/2016 Reported Meds & Prescriptions Reported Meds & Active Scripts Active Zofran Odt (Ondansetron Odt) 4 Mg Tab 4 Mg SL Q6HR PRN Morphine IR (Morphine Sulfate) 15 Mg Tab 15 Mg PO Q6HR PRN Morphine ER (Morphine Sulfate) 30 Mg Tab 30 Mg PO Q12HR Restoril (Temazepam) 15 Mg Cap 15 Mg PO HS PRN Reported Vitamin B-1 (Thiamine HCl) 100 Mg Tab 100 Mg PO DAILY Ferrous Sulfate DR (Ferrous Sulfate) 325 Mg Tabdr BID Colace (Docusate Sodium) 100 Mg Capsule BID Vitamin C (Ascorbic Acid) 250 Mg Tab 500 Mg PO D3 (Cholecalciferol) 2,000 Unit Tab 2,000 Units PO DAILY Synthroid (Levothyroxine Sodium) 150 Mcg Tab 150 Mcg PO DAILY B-12 (Cyanocobalamin) 1,000 Mcg Subl 1,000 Mcg SL DAILY Review of Systems General / Constitutional: No: Fever Eyes: No: Visual changes HENT: No: Headaches Cardiovascular: Positive: Syncope, No: Chest Pain or Discomfort Respiratory: No: Shortness of Breath Gastrointestinal: Positive: Nausea, Vomiting, Diarrhea, Abdominal Pain Genitourinary: No: Dysuria Musculoskeletal: No: Pain Skin: No Rash Neurologic: Positive: Weakness Psychiatric: No: Depression Endocrine: No: Polydipsia Hematologic/Lymphatic: No: Easy Bruising Physical Exam Narrative GENERAL: Mild distress SKIN: Focused skin assessment warm/dry. HEAD: Atraumatic. Normocephalic. EYES: Pupils equal and round. No scleral icterus. No injection or drainage. ENT: No nasal bleeding or discharge. Mucous membranes pink and moist. NECK: Trachea midline. No JVD. CARDIOVASCULAR: Regular rate and rhythm. No murmur appreciated. RESPIRATORY: No accessory muscle use. Clear to auscultation. Breath sounds equal bilaterally. GASTROINTESTINAL: Abdomen soft, patient with diffuse abdominal tenderness on exam, nondistended. Hepatic and splenic margins not palpable. MUSCULOSKELETAL: No obvious deformities. No clubbing. No cyanosis. No edema. NEUROLOGICAL: Awake and alert. No obvious cranial nerve deficits. Motor grossly within normal limits. Normal speech. PSYCHIATRIC: Appropriate mood and affect; insight and judgment normal. Data Data Last Documented VS Vital Signs Date Time Temp Pulse Resp B/P Pulse Ox O2 Delivery O2 Flow Rate FiO2 04/25/17 12:00 97.8 69 17 122/78 99 Room Air Orders Electrocardiogram (04/25/17 08:40) Complete Blood Count With Diff (04/25/17 08:40) Comprehensive Metabolic Panel (04/25/17 08:40) Magnesium (Mg) (04/25/17 08:40) B-Type Natriuretic Peptide (04/25/17 08:40) Ckmb (Isoenzyme) Profile (04/25/17 08:40) Troponin I (04/25/17 08:40) Act Partial Throm Time (Ptt) (04/25/17 08:40) Prothrombin Time / Inr (Pt) (04/25/17 08:40) Urinalysis - C+S If Indicated (04/25/17 08:40) Chest, Single Ap (04/25/17 08:40) Ct Brain W/O Iv Contrast(Rout) (04/25/17 08:40) Blood Glucose (04/25/17 08:40) Ecg Monitoring (04/25/17 08:40) Iv Access Insert/Monitor (04/25/17 08:40) Oximetry (04/25/17 08:40) Sodium Chloride 0.9% Flush (Ns Flush) (04/25/17 08:45) Sodium Chlor 0.9% 1000 Ml Inj (Ns 1000 M (04/25/17 08:40) Ct Abd/Pel W Iv Contrast(Rout) (04/25/17 08:40) Morphine Inj (Morphine Inj) (04/25/17 08:45) CKMB (04/25/17 07:41) CKMB% (04/25/17 07:41) Iohexol 350 Inj (Omnipaque 350 Inj) (04/25/17 11:13) Aspirin (Aspirin) (04/25/17 12:00) Place In Observation (04/25/17 ) Vital Signs (Adult) Q4H (04/25/17 12:45) Activity Bed Rest (04/25/17 12:45) Intake + Output FER.QSHIFT (04/25/17 12:45) Diet Regular Basic (04/25/17 Lunch) Sodium Chlor 0.9% 1000 Ml Inj (Ns 1000 M (04/25/17 13:00) Sodium Chloride 0.9% Flush (Ns Flush) (04/25/17 12:45) Sodium Chloride 0.9% Flush (Ns Flush) (04/25/17 21:00) Acetaminophen (Tylenol) (04/25/17 12:45) Ondansetron Inj (Zofran Inj) (04/25/17 12:45) Basic Metabolic Panel (Bmp) (04/26/17 06:00) Complete Blood Count With Diff (04/26/17 06:00) Hepatic Functional Panel (04/26/17 06:00) Pt Request For Service (04/25/17 12:45) Enoxaparin Inj (Lovenox Inj) (04/25/17 14:00) Naloxone Inj (Narcan Inj) (04/25/17 12:45) Orthostatic Vital Signs (04/25/17 12:45) Stool Wbc (Leukocytes) (04/25/17 12:50) C Diff Toxin Pcr (04/25/17 12:50) Rotavirus Ag Detection (Stool) (04/25/17 12:50) Occult Blood (Hemoccult) Stool (04/25/17 12:50) Specimen To Be Collected PRN (04/25/17 12:50) Enteric Path (Stool) (04/25/17 12:50) Admit Order (Ed Use Only) (04/25/17 13:00) Labs Laboratory Tests Test 04/25/17 04/25/17 07:41 09:50 White Blood Count 4.9 TH/MM3 Red Blood Count 3.45 MIL/MM3 Hemoglobin 10.9 GM/DL Hematocrit 31.6 % Mean Corpuscular Volume 91.4 FL Mean Corpuscular Hemoglobin 31.5 PG Mean Corpuscular Hemoglobin 34.5 % Concent Red Cell Distribution Width 18.5 % Platelet Count 261 TH/MM3 Mean Platelet Volume 8.8 FL Neutrophils (%) (Auto) 65.0 % Lymphocytes (%) (Auto) 26.9 % Monocytes (%) (Auto) 6.4 % Eosinophils (%) (Auto) 0.5 % Basophils (%) (Auto) 1.2 % Neutrophils # (Auto) 3.2 TH/MM3 Lymphocytes # (Auto) 1.3 TH/MM3 Monocytes # (Auto) 0.3 TH/MM3 Eosinophils # (Auto) 0.0 TH/MM3 Basophils # (Auto) 0.1 TH/MM3 CBC Comment DIFF FINAL Differential Comment Prothrombin Time 10.7 SEC Prothromb Time International 1.0 RATIO Ratio Activated Partial 27.5 SEC Thromboplast Time Sodium Level 127 MEQ/L Potassium Level 3.9 MEQ/L Chloride Level 98 MEQ/L Carbon Dioxide Level 20.8 MEQ/L Anion Gap 8 MEQ/L Blood Urea Nitrogen 8 MG/DL Creatinine 0.76 MG/DL Estimat Glomerular Filtration 76 ML/MIN Rate Random Glucose 96 MG/DL Calcium Level 8.6 MG/DL Magnesium Level 1.9 MG/DL Total Bilirubin 0.6 MG/DL Aspartate Amino Transf 23 U/L (AST/SGOT) Alanine Aminotransferase 19 U/L (ALT/SGPT) Alkaline Phosphatase 74 U/L Total Creatine Kinase 201 U/L Creatine Kinase MB 4.0 NG/ML Creatine Kinase MB % 2.0 % Troponin I LESS THAN 0.02 NG/ML B-Type Natriuretic Peptide 82 PG/ML Total Protein 7.3 GM/DL Albumin 3.7 GM/DL Urine Color LIGHT-YELLOW Urine Turbidity CLEAR Urine pH 6.5 Urine Specific [place] 1.004 Urine Protein NEG mg/dL Urine Glucose (UA) NEG mg/dL Urine Ketones NEG mg/dL Urine Occult Blood NEG Urine Nitrite NEG Urine Bilirubin NEG Urine Urobilinogen LESS THAN 2.0 MG/DL Urine Leukocyte Esterase NEG Urine RBC LESS THAN 1 /hpf Urine WBC 1 /hpf Urine Squamous Epithelial <1 /hpf Cells Urine Bacteria OCC /hpf Microscopic Urinalysis Comment CULT NOT INDICATED MDM Medical Decision Making Medical Screen Exam Complete: Yes Emergency Medical Condition: Yes Interpretation(s) EKG at 0849: NSR at 63bpm, qt/qtc: 413/420, no acute st or t wave changes Vital Signs Date Time Temp Pulse Resp B/P Pulse Ox O2 Delivery O2 Flow Rate FiO2 04/25/17 08:45 17 04/25/17 08:43 17 98 Room Air 04/25/17 08:36 98.1 69 16 152/92 98 Differential Diagnosis Differential includes closed head injury, intracranial hemorrhage, arrhythmia, ACS, electrolyte abnormality, dehydration, mesenteric ischemia, colitis, gastroenteritis, failure to thrive Narrative Course Patient is a 67-year-old female who presents to emergency room with complaints of generalized weakness for the past 2 days. She's been suffering from nausea, vomiting and diarrhea, reports that she has had decreased oral intake, reports that she suffered 2 syncopal episodes yesterday. Patient was at home by herself , feels unsafe. 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 EKG ordered. Blood sugar ordered. Plan to obtain CT of the head and abdomen and pelvis. Plan to obtain lab work, will give IV fluids and medications to help with her pain. Plan to monitor patient Vital Signs Date Time Temp Pulse Resp B/P Pulse Ox O2 Delivery O2 Flow Rate FiO2 04/25/17 09:50 72 17 137/82 98 Room Air 04/25/17 08:54 16 04/25/17 08:45 17 04/25/17 08:43 17 98 Room Air 04/25/17 08:36 98.1 69 16 152/92 98 Laboratory Tests Test 04/25/17 04/25/17 07:41 09:50 White Blood Count 4.9 TH/MM3 (4.0-11.0) Red Blood Count 3.45 MIL/MM3 (4.00-5.30) Hemoglobin 10.9 GM/DL (11.6-15.3) Hematocrit 31.6 % (35.0-46.0) Mean Corpuscular Volume 91.4 FL (80.0-100.0) Mean Corpuscular Hemoglobin 31.5 PG (27.0-34.0) Mean Corpuscular Hemoglobin 34.5 % Concent (32.0-36.0) Red Cell Distribution Width 18.5 % (11.6-17.2) Platelet Count 261 TH/MM3 (150-450) Mean Platelet Volume 8.8 FL (7.0-11.0) Neutrophils (%) (Auto) 65.0 % (16.0-70.0) Lymphocytes (%) (Auto) 26.9 % (9.0-44.0) Monocytes (%) (Auto) 6.4 % (0.0-8.0) Eosinophils (%) (Auto) 0.5 % (0.0-4.0) Basophils (%) (Auto) 1.2 % (0.0-2.0) Neutrophils # (Auto) 3.2 TH/MM3 (1.8-7.7) Lymphocytes # (Auto) 1.3 TH/MM3 (1.0-4.8) Monocytes # (Auto) 0.3 TH/MM3 (0-0.9) Eosinophils # (Auto) 0.0 TH/MM3 (0-0.4) Basophils # (Auto) 0.1 TH/MM3 (0-0.2) CBC Comment DIFF FINAL Differential Comment Prothrombin Time 10.7 SEC (9.8-11.6) Prothromb Time International 1.0 RATIO Ratio Activated Partial 27.5 SEC Thromboplast Time (24.3-30.1) Sodium Level 127 MEQ/L (136-145) Potassium Level 3.9 MEQ/L (3.5-5.1) Chloride Level 98 MEQ/L (98-107) Carbon Dioxide Level 20.8 MEQ/L (21.0-32.0) Anion Gap 8 MEQ/L (5-15) Blood Urea Nitrogen 8 MG/DL (7-18) Creatinine 0.76 MG/DL (0.50-1.00) Estimat Glomerular Filtration 76 ML/MIN (>89) Rate Random Glucose 96 MG/DL (74-106) Calcium Level 8.6 MG/DL (8.5-10.1) Magnesium Level 1.9 MG/DL (1.5-2.5) Total Bilirubin 0.6 MG/DL (0.2-1.0) Aspartate Amino Transf 23 U/L (15-37) (AST/SGOT) Alanine Aminotransferase 19 U/L (10-53) (ALT/SGPT) Alkaline Phosphatase 74 U/L (45-117) Total Creatine Kinase 201 U/L (26-192) Creatine Kinase MB 4.0 NG/ML (0.5-3.6) Creatine Kinase MB % 2.0 % (0.0-4.0) Troponin I LESS THAN 0.02 NG/ML (0.02-0.05) B-Type Natriuretic Peptide 82 PG/ML (0-100) Total Protein 7.3 GM/DL (6.4-8.2) Albumin 3.7 GM/DL (3.4-5.0) Urine Color LIGHT-YELLOW (YELLW/STRAW) Urine Turbidity CLEAR (CLEAR) Urine pH 6.5 (5.0-8.5) Urine Specific [place] 1.004 (1.002-1.035) Urine Protein NEG mg/dL (NEG-TRACE) Urine Glucose (UA) NEG mg/dL (NEG) Urine Ketones NEG mg/dL (NEG) Urine Occult Blood NEG (NEG) Urine Nitrite NEG (NEG) Urine Bilirubin NEG (NEG) Urine Urobilinogen LESS THAN 2.0 MG/DL (LESS THAN 2.0) Urine Leukocyte Esterase NEG (NEG) Urine RBC LESS THAN 1 /hpf (0-3) Urine WBC 1 /hpf (0-5) Urine Squamous Epithelial <1 /hpf (0-5) Cells Urine Bacteria OCC /hpf (NONE) Microscopic Urinalysis Comment CULT NOT INDICATED Last Impressions Head CT 04/25/17839 Signed Impressions: Service Date/Time: Tuesday, April 25, 2017 10:45 - CONCLUSION: Stable evaluation of the brain without evidence of acute infarct, hemorrhage, mass or edema. Benny De La O MD Chest X-Ray 04/25/17839 Signed Impressions: Service Date/Time: Tuesday, April 25, 2017 08:41 - CONCLUSION: No acute disease. Benny De La O MD Abdomen/Pelvis CT 04/25/17839 Signed Impressions: Service Date/Time: Tuesday, April 25, 2017 10:50 - CONCLUSION: Stable exam again demonstrating postsurgical changes in the stomach and proximal small bowel. No evidence of acute process, suspicious mass or lymphadenopathy. Stable mild prominence of the biliary tree status post cholecystectomy. Status post lumbar fusion. Benny De La O MD labs and ct studies reviewed. plan to obs for syncope and hyponatremia case reviewed with dr. soria who accepts pt to service Physician Communication Physician Communication case reviewed with dr soria who accepts pt to service Diagnosis Primary Impression: Syncope and collapse Additional Impressions: Hyponatremia Anemia Admitting Information Admitting Physician Requests: Observation Aminah Solis DO Apr 25, 2017 08:46
--- NOTE | 2017-04-25 09:16 | RADRPT ---
EXAM DATE/TIME: 04/25/2017 08:41 [facility] COMPARISON: CHEST SINGLE AP, March 19, 2017, 12:09. INDICATIONS : Syncopal episode. Weakness. MEDICAL HISTORY : Chronic obstructive pulmonary disease. Carcinoma, breast. Carcinoma, colon. Ovarian cancer. SURGICAL HISTORY : Cholecystectomy. Appendectomy. Mastectomy, right. ENCOUNTER: Initial ACUITY: 1 day PAIN SCORE: 3/10 LOCATION: Bilateral chest FINDINGS: A single view of the chest demonstrates the lungs to be symmetrically hyperaerated without evidence o f mass, infiltrate or effusion. The cardiomediastinal contours are unremarkable. Osseous structures are intact. CONCLUSION: No acute disease. Benny De La O MD on April 25, 2017 at 9:13 Board Certified Radiologist. This report was verified electronically.
[2017-04-25 09:18] LABS: AUTOMATED NEUTROPHIL # 3.2 TH/MM3 (1.8-7.7); BASOPHIL # 0.1 TH/MM3 (0-0.2); BASOPHIL % 1.2 % (0.0-2.0); EOSINOPHIL % 0.5 % (0.0-4.0); HEMATOCRIT 31.6 % (35.0-46.0); HEMO FLAGS DIFF FINAL; LYMPH % 26.9 % (9.0-44.0); LYMPHOCYTE # 1.3 TH/MM3 (1.0-4.8); MEAN CELL VOLUME 91.4 FL (80.0-100.0); MEAN CORPUSCULAR HEMOGLOBIN 31.5 PG (27.0-34.0); MEAN CORPUSCULAR HGB CONC 34.5 % (32.0-36.0); MONO % 6.4 % (0.0-8.0); PLATELET COUNT 261 TH/MM3 (150-450); RED BLOOD COUNT 3.45 MIL/MM3 (4.00-5.30); RED CELL DISTRIBUTION WIDTH 18.5 % (11.6-17.2); WHITE BLOOD COUNT 4.9 TH/MM3 (4.0-11.0)
[2017-04-25 09:28] LABS: APTT (PATIENT) 27.5 SEC (24.3-30.1); PROTHROMBIN TIME - PATIENT 10.7 SEC (9.8-11.6)
[2017-04-25 09:32] LABS: ANION GAP 8 MEQ/L (5-15); AST (GOT) 23 U/L (15-37); BICARBONATE 20.8 MEQ/L (21.0-32.0); BLOOD UREA NITROGEN 8 MG/DL (7-18); CHLORIDE 98 MEQ/L (98-107); GLOMERULAR FILTRATION RATE 76 ML/MIN (>89); MAGNESIUM 1.9 MG/DL (1.5-2.5); POTASSIUM 3.9 MEQ/L (3.5-5.1); SODIUM (NA) 127 MEQ/L (136-145)
[2017-04-25 09:33] LABS: ALT (GPT) 19 U/L (10-53)
[2017-04-25 09:37] LABS: ALKALINE PHOSPHATASE 74 U/L (45-117); CREATINE KINASE 201 U/L (26-192); TOTAL BILIRUBIN ADULT 0.6 MG/DL (0.2-1.0)
[2017-04-25 10:19] LABS: BACTERIA, URINE OCC /hpf; BLOOD, URINE NEG (NEG); COMMENT (UR) CULT NOT INDICATED; CULTURE IF INDICATED CULT NOT INDICATED; GLUCOSE,URINE NEG (NEG); KETONE, URINE NEG (NEG); NITRITE,URINE NEG (NEG); PH, URINE 6.5 (5.0-8.5); SQUAMOUS EPITHELIAL CELL URINE <1 /hpf (0-5); URINE COLOR LIGHT-YELLOW (YELLW/STRAW)
[2017-04-25] MEDS ORDERED: IOHEXOL 350 MG/ML 10 ML VIAL (for RAD DIAG) IV ONE (11:13)
--- NOTE | 2017-04-25 11:32 | RADRPT ---
EXAM DATE/TIME: 04/25/2017 10:45 [facility] COMPARISON: CT BRAIN W/O CONTRAST, February 07, 2017, 17:58. INDICATIONS : Syncope. General weakness. RADIATION DOSE: 31.33 CTDIvol (mGy) MEDICAL HISTORY : Seizures. Hypertension. Carcinoma, gastric.Ovarian ca, UTI SURGICAL HISTORY : Gastrectomy, Breast surgery. ENCOUNTER: Initial ACUITY: 1 day PAIN SCALE: 4/10 LOCATION: cranial TECHNIQUE: Multiple contiguous axial images were obtained of the head. Using automated exposure control and adj ustment of the mA and/or kV according to patient size, radiation dose was kept as low as reasonably a chievable to obtain optimal diagnostic quality images. DICOM format image data is available electro nically for review and comparison. FINDINGS: CEREBRUM: The ventricles are normal for age. No evidence of midline shift, mass lesion, hemorrhage or acute in farction. No extra-axial fluid collections are seen. POSTERIOR FOSSA: The cerebellum and brainstem are intact. The 4th ventricle is midline. The cerebellopontine angle i s unremarkable. EXTRACRANIAL: The visualized portion of the orbits is intact. SKULL: The calvaria is intact. No evidence of skull fracture. CONCLUSION: Stable evaluation of the brain without evidence of acute infarct, hemorrhage, mass or edema. Benny De La O MD on April 25, 2017 at 11:30 Board Certified Radiologist. This report was verified electronically.
--- NOTE | 2017-04-25 11:38 | RADRPT ---
EXAM DATE/TIME: 04/25/2017 10:50 [facility] COMPARISON: CT ABDOMEN & PELVIS W CONTRAST, February 07, 2017, 20:57. INDICATIONS : Abdominal pain, general weakness. IV CONTRAST: 75 cc Omnipaque 350 (iohexol) IV ORAL CONTRAST: No oral contrast ingested. RADIATION DOSE: 4.61 CTDIvol (mGy) MEDICAL HISTORY : Hypertension. Carcinoma, gastric. Carcinoma, ovarian.Gi bleed. UTI SURGICAL HISTORY : Gastrectomy, Breast surgery ENCOUNTER: Initial ACUITY: 1 day PAIN SCALE: 4/10 LOCATION: middle abdomen. TECHNIQUE: Volumetric scanning of the abdomen and pelvis was performed. Using automated exposure control and ad justment of the mA and/or kV according to patient size, radiation dose was kept as low as reasonably achievable to obtain optimal diagnostic quality images. DICOM format image data is available electro nically for review and comparison. FINDINGS: LOWER LUNGS: The visualized lower lungs are clear. LIVER: Mild prominence of the intra-and extrahepatic biliary tree remains evident. Patient is status post ch olecystectomy. There are no focal hepatic lesions. Common bile that measures 10 mm. SPLEEN: Normal size without lesion. PANCREAS: Within normal limits. KIDNEYS: Normal in size and shape. There is no mass, stone or hydronephrosis. ADRENAL GLANDS: Within normal limits. VASCULAR: There is no aortic aneurysm. BOWEL/MESENTERY: Postsurgical changes are seen along the gastric wall. Mild concentric thickening is again noted in th e lower thoracic esophagus. Anastomotic suture is identified in the proximal small intestinal tract. ABDOMINAL WALL: Within normal limits. RETROPERITONEUM: There is no lymphadenopathy. BLADDER: No wall thickening or mass. REPRODUCTIVE: Within normal limits. INGUINAL: There is no lymphadenopathy or hernia. MUSCULOSKELETAL: Postsurgical changes following lumbar fusion are again noted. No acute abnormality is identified. CONCLUSION: Stable exam again demonstrating postsurgical changes in the stomach and proximal small bowel. No evidence of acute process, suspicious mass or lymphadenopathy. Stable mild prominence of the biliary tree status post cholecystectomy. Status post lumbar fusion. Benny De La O MD on April 25, 2017 at 11:31 Board Certified Radiologist. This report was verified electronically.
[2017-04-25] MEDS ORDERED: ASPIRIN 325 MG TAB PO ONE (12:00)
[2017-04-25] MEDS ORDERED: ACETAMINOPHEN 325 MG TAB PO PRN (12:45)
[2017-04-25] MEDS ORDERED: NALOXONE HCL 0.4 MG/ML AMP IV PRN ×2 (12:45→19:00)
[2017-04-25] MEDS ORDERED: ONDANSETRON HCL 4 MG/2 ML VIAL IVP PRN (12:45)
[2017-04-25] MEDS ORDERED: SODIUM CHLORIDE 0.9% FLUSH 10 ML FLUSH IV FLUSH PRN (12:45)
--- NOTE | 2017-04-25 12:46 | EKG ---
Date Performed: 04/25/2017 Time Performed: 08:49:00 PTAGE: 67 years EKG: Sinus rhythm WITH SINUS ARRHYTHMIA NORMAL ECG INTERPRETATION BASED ON A DEFAULT AGE OF 40 YEARS PREVIOUS TRACING : 03/19/2017 14.15 Since prior tracing, sinus rate has increased. DOCTOR: Claude Campos Interpretating Date/Time 04/25/2017 12:43:59
[2017-04-25] MEDS: ENOXAPARIN SODIUM 30 MG/0.3 ML SYRINGE SQ SCH (13:36)
[2017-04-25] MEDS: SODIUM CHLOR 0.9% 1000 ML INJ 1,000 ML IV SCH (13:37)
--- NOTE | 2017-04-25 16:40 | HHI.HP ---
HPI Service [facility] Hospitalists Primary Care Physician [facility] Admission Diagnosis Syncope, hypontremia Diagnoses: Chief Complaint: weakness and pain Travel History International Travel<30 Days: No Contact w/Intl Traveler <30 Da: No Traveled to Known Affected Are: No History of Present Illness Ms. Cain is 67 yo, with reported history inclusive of Ovarian cancer (stage III), Colon cancer (stage IV), thyroid cancer, breast cancer, and COPD. She stated she is has received oncological services from the [place]. She stated she stopped radiation/chemotherapy "about a year ago". She stated she did not undergo colorectal surgery for her cancer. Ms. Cain reported she was under the care of Hospice until a few weeks ago when "I fired them." Pt noted she is on supplemental oxygen at home on as as needed basis. Ms. Cain reported she was in her normal state of health early in the week. Over the course of the past 3-4 days she reported weakness and fatigue with Nausea, vomiting, and diarrhea. She stated she has not been able to "keep anything down over the past several days." She said her condition worsened over the past 24 hours with increased weakness and 2-3 falls in which "I blacked out for a few minutes." She denied striking her head during these events. She reported she is afraid of being alone as "I am too weak to take care of myself and I am afraid I might fall down again." She was brought to [facility] ED for evaluation and management of her condition. Review of Systems Constitutional: COMPLAINS OF: Fatigue, Change in appetite Eyes: DENIES: Blurred vision, Eye pain Cardiovascular: DENIES: Chest pain, Palpitations, Syncope, Lower Extremity Edema, Orthopnea Gastrointestinal: COMPLAINS OF: Abdominal pain, Nausea, Vomiting Musculoskeletal: COMPLAINS OF: Muscle aches, Back pain Integumentary: DENIES: Abnormal pigmentation, Pruritus, Rash, Nail changes, Breast masses, Breast skin changes, Nipple discharge Hematologic/lymphatic: DENIES: Bruising, Lymphadenopathy Immunologic/allergic: DENIES: Eczema, Urticaria Neurologic: COMPLAINS OF: Poor Balance (two to three falls within past 24 hours.) Psychiatric: COMPLAINS OF: Depression (would like to see psychiatrist. "My depression isn't debilitating right now.") Except as stated in HPI: all other systems reviewed are Neg Past Family Social History Past Medical History Ovarian cancer (stage III) Colon cancer (stage IV) Thyroid cancer Breast cancer, COPD Depression Hypothyroidism Chronic back pain Seizures DVT Arthritis Malabsorption Past Surgical History Tonsillectomy Cholecystectomy Appendectomy Right oophorectomy Thyroid surgery abdominal surgery back surgeries (x5) Gastrectomy Reported Medications Reported Meds & Active Scripts Active Zofran Odt (Ondansetron Odt) 4 Mg Tab 4 Mg SL Q6HR PRN Morphine IR (Morphine Sulfate) 15 Mg Tab 15 Mg PO Q6HR PRN Morphine ER (Morphine Sulfate) 30 Mg Tab 30 Mg PO Q12HR Restoril (Temazepam) 15 Mg Cap 15 Mg PO HS PRN Reported Vitamin B-1 (Thiamine HCl) 100 Mg Tab 100 Mg PO DAILY Ferrous Sulfate DR (Ferrous Sulfate) 325 Mg Tabdr BID Colace (Docusate Sodium) 100 Mg Capsule BID Vitamin C (Ascorbic Acid) 250 Mg Tab 500 Mg PO D3 (Cholecalciferol) 2,000 Unit Tab 2,000 Units PO DAILY Synthroid (Levothyroxine Sodium) 150 Mcg Tab 150 Mcg PO DAILY B-12 (Cyanocobalamin) 1,000 Mcg Subl 1,000 Mcg SL DAILY Allergies: Coded Allergies: Phenothiazines (Verified Allergy, Severe, RASH, 04/25/17) Tigan (Verified Allergy, Severe, TETANY, 04/25/17) Compazine (Verified Adverse Reaction, Severe, Nausea/Vomiting, 04/25/17) *MDRO Multi-Drug Resistant Organism (Verified Adverse Reaction, Unknown, ) 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/19/2016 Active Ordered Medications Current Medications Medications (Trade) Dose Ordered Sig/Anya Route Start Time Stop Time Status Last Admin (NS 1000 ml Inj) 1,000 ml @ 100 mls/hr Q10H IV 04/25/17 13:00 04/25/17 13:37 (NS Flush) 2 ml UNSCH PRN IV FLUSH 04/25/17 12:45 (NS Flush) 2 ml BID IV FLUSH 04/25/17 21:00 (Tylenol) 650 mg Q4H PRN PO 04/25/17 12:45 (Zofran Inj) 4 mg Q6H PRN IVP 04/25/17 12:45 (Lovenox Inj) 30 mg Q24H SQ 04/25/17 14:00 04/25/17 13:36 (Narcan Inj) 0.4 mg UNSCH PRN IV 04/25/17 12:45 Family History None noted or reported. Social History Pt reports currently she does not drink (though she does have alcohol use history) Pt denied current use of recreational or illicit substances (previous admission she was positive for marijuana). She reports smoking two cigarettes per day. 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 Physical Exam Vital Signs Vital Signs Date Time Temp Pulse Resp B/P Pulse Ox O2 Delivery O2 Flow Rate FiO2 04/25/17 15:05 97.8 72 16 134/85 99 04/25/17 12:50 72 18 122/78 69 16 128/79 68 18 131/80 04/25/17 12:00 97.8 69 17 122/78 99 Room Air 04/25/17 09:50 72 17 137/82 98 Room Air 04/25/17 08:54 16 04/25/17 08:45 17 04/25/17 08:43 17 98 Room Air 04/25/17 08:36 98.1 69 16 152/92 98 Physical Exam GENERAL: This is a well-nourished, well-developed patient, in no apparent distress. SKIN: No rashes, ecchymoses or lesions. Cool and dry. HEAD: Atraumatic. Normocephalic. EYES: Pupils equal round and reactive. Extraocular motions intact. No scleral icterus. No injection or drainage. Glasses worn during examination. ENT: Nose without bleeding or purulent drainage. Airway patent. NECK: Trachea midline. No lymphadenopathy. Supple and nontender. CARDIOVASCULAR: Regular rate and rhythm without murmurs, gallops, or rubs. RESPIRATORY: Clear to auscultation. Breath sounds equal bilaterally. No wheezes , rales, or rhonchi. GASTROINTESTINAL: Abdomen soft, tender, nondistended. No hepato-splenomegaly or guarding. MUSCULOSKELETAL: Extremities without clubbing, cyanosis, or edema. No joint tenderness, effusion, or edema noted. NEUROLOGICAL: Awake and alert. Cranial nerves II through XII intact. Motor and sensory grossly within normal limits. Five out of 5 muscle strength in upper extremities and 4/5 in lower extremities. Speech was clear and fluent. Laboratory Laboratory Tests Test 04/25/17 04/25/17 07:41 09:50 White Blood Count 4.9 Red Blood Count 3.45 Hemoglobin 10.9 Hematocrit 31.6 Mean Corpuscular Volume 91.4 Mean Corpuscular Hemoglobin 31.5 Mean Corpuscular Hemoglobin 34.5 Concent Red Cell Distribution Width 18.5 Platelet Count 261 Mean Platelet Volume 8.8 Neutrophils (%) (Auto) 65.0 Lymphocytes (%) (Auto) 26.9 Monocytes (%) (Auto) 6.4 Eosinophils (%) (Auto) 0.5 Basophils (%) (Auto) 1.2 Neutrophils # (Auto) 3.2 Lymphocytes # (Auto) 1.3 Monocytes # (Auto) 0.3 Eosinophils # (Auto) 0.0 Basophils # (Auto) 0.1 CBC Comment DIFF FINAL Differential Comment Prothrombin Time 10.7 Prothromb Time International 1.0 Ratio Activated Partial 27.5 Thromboplast Time Sodium Level 127 Potassium Level 3.9 Chloride Level 98 Carbon Dioxide Level 20.8 Anion Gap 8 Blood Urea Nitrogen 8 Creatinine 0.76 Estimat Glomerular Filtration 76 Rate Random Glucose 96 Calcium Level 8.6 Magnesium Level 1.9 Total Bilirubin 0.6 Aspartate Amino Transf 23 (AST/SGOT) Alanine Aminotransferase 19 (ALT/SGPT) Alkaline Phosphatase 74 Total Creatine Kinase 201 Creatine Kinase MB 4.0 Creatine Kinase MB % 2.0 Troponin I LESS THAN 0.02 B-Type Natriuretic Peptide 82 Total Protein 7.3 Albumin 3.7 Urine Color LIGHT-YELLOW Urine Turbidity CLEAR Urine pH 6.5 Urine Specific [place] 1.004 Urine Protein NEG Urine Glucose (UA) NEG Urine Ketones NEG Urine Occult Blood NEG Urine Nitrite NEG Urine Bilirubin NEG Urine Urobilinogen LESS THAN 2.0 Urine Leukocyte Esterase NEG Urine RBC LESS THAN 1 Urine WBC 1 Urine Squamous Epithelial <1 Cells Urine Bacteria OCC Microscopic Urinalysis Comment CULT NOT INDICATED Result Diagram: 04/25/17 0741 04/25/17 0741 Imaging Last Impressions Head CT 04/25/17 0840 Signed Impressions: Service Date/Time: Tuesday, April 25, 2017 10:45 - CONCLUSION: Stable evaluation of the brain without evidence of acute infarct, hemorrhage, mass or edema. Benny De La O MD Chest X-Ray 04/25/17839 Signed Impressions: Service Date/Time: Tuesday, April 25, 2017 08:41 - CONCLUSION: No acute disease. Benny De La O MD Abdomen/Pelvis CT 04/25/17839 Signed Impressions: Service Date/Time: Tuesday, April 25, 2017 10:50 - CONCLUSION: Stable exam again demonstrating postsurgical changes in the stomach and proximal small bowel. No evidence of acute process, suspicious mass or lymphadenopathy. Stable mild prominence of the biliary tree status post cholecystectomy. Status post lumbar fusion. Benny De La O MD Assessment and Plan Problem List: (1) Syncope and collapse ICD Code: R55 Status: Acute (2) Nausea & vomiting ICD Code: R11.2 Status: Acute (3) Diarrhea ICD Code: R19.7 Status: Acute (4) Hyponatremia ICD Code: E87.1 Status: Acute (5) Abdominal pain ICD Code: R10.9 Status: Acute (6) Anemia ICD Code: D64.9 Status: Acute (7) Hypothyroidism ICD Code: E03.9 Status: Chronic (8) Depression ICD Code: F32.9 Status: Chronic Assessment and Plan Ms. Cain is 67 yo, with reported history inclusive of Ovarian cancer (stage III), Colon cancer (stage IV), thyroid cancer, breast cancer, and COPD. She stated she is has [facility]. She stated she stopped radiation/chemotherapy "about a year ago". She stated she did not undergo colorectal surgery for her cancer. Ms. Cain reported she was under the care of Hospice until a few weeks ago when "I fired them." Pt noted she is on supplemental oxygen at home on as as needed basis. Syncope and collapse Nausea and vomiting Abdominal pain Diarrhea Hyponatremia Admit to inpatient IVF labs IV zofran Stool cultures Hepatic function tests C.diff PCR test Enteric pathogen Hypothyroidism -Continue pt's home regimen 150 mcg po daily Depression -Consider psychiatric consult Diet: Normal DVT prophylaxis: Lovenox Attestation Patient seen and examined with Kolby Corona PA-C. The exam, history, and the medical decision-making described in the above note were completed with the assistance of the dictating practitioner. I attest that I had a [id number] encounter with the patient on the same day, and personally performed all of the history, exam, or medical decision making. Discussed case with him thoroughly after seeing the patient, reviewed and agreed with the plan. Please see addendum in History, Physical examination and Plan. See below for any errata/ additional input: This is a 67-year-old female with history of ovarian cancer stage III and colon cancer stage IV, thyroid cancer and breast cancer with COPD presenting to the emergency department with a five-day history of nausea, vomiting and diarrhea with generalized weakness. No note of hematemesis or bilious emesis. Diarrhea is loose, watery but no blood. Patient denies any abdominal pain, chest pain, cough or fever. Of note, [facility]. Allegedly, she had oophorectomy but no chemotherapy. For colon cancer, she allegedly had chemotherapy and resection. She was on hospice but she stopped it a few weeks ago. Not in distress Regular rate and rhythm Clear breath sounds neck since abdomen soft nontender No edema Alert, awake and 3, no focal deficits Syncope and Generalized weakness-likely secondary to dehydration from diarrhea, and vomiting. Continue IVF. Consult physical therapy, check orthostatic blood pressure. Check echocardiogram. Diarrhea-CT scan of the abdomen unremarkable. Check stool studies including C. difficile assay. No note of bleeding. Start Protonix twice a day, possible gastritis, supportive management with Zofran, advance diet as tolerated Hyponatremia-likely secondary to hypovolemia, IVF. Recheck sodium tomorrow DVT prophylaxis: Lovenox Discussed Condition With Pt, ED staff, and unit nurse. Physician Certification 2 Midnight Certification Type: Admission for Inpatient Services Order for Inpatient Services The services are ordered in accordance with Medicare regulations or non- Medicare payer requirements, as applicable. In the case of services not specified as inpatient-only, they are appropriately provided as inpatient services in accordance with the 2-midnight benchmark. Estimated LOS (days): 3 Three days is the estimated time the patient will need to remain in the hospital , assuming treatment plan goals are met and no additional complications. Post-Hospital Plan: Not yet determined Problem Qualifiers (1) Diarrhea: Qualified Code: R19.7 - Diarrhea, unspecified type (2) Abdominal pain: Qualified Code: R10.84 - Generalized abdominal pain (3) Anemia: Qualified Code: D64.9 - Anemia, unspecified type (4) Hypothyroidism: Qualified Code: E89.0 - Postoperative hypothyroidism (5) Depression: Qualified Code: F33.1 - Moderate episode of recurrent major depressive disorder Shantanu Corona Jr. Apr 25, 2017 16:40 William Awad MD Apr 25, 2017 18:25
[2017-04-25] MEDS ORDERED: MORPHINE SULFATE 15 MG TAB PO PRN (16:45)
[2017-04-25] MEDS ORDERED: ACETAMINOPHEN/HYDROcodone 325 MG/5 MG TAB PO PRN (19:00)
[2017-04-25] MEDS: ACETAMINOPHEN/HYDROcodone 325 MG/10 MG TAB PO PRN (19:35)
[2017-04-25] MEDS: MORPHINE SULFATE 30 MG CONTROLLED RELEASE TAB PO SCH (21:36)
[2017-04-25] MEDS: SODIUM CHLORIDE 0.9% FLUSH 10 ML FLUSH IV FLUSH SCH (21:36)
[2017-04-25] MEDS: PANTOPRAZOLE SODIUM 40 MG VIAL IV PUSH SCH (21:36)
[2017-04-25] MEDS: TEMAZEPAM 15 MG CAP PO PRN (21:39)
[2017-04-26] MEDS: ACETAMINOPHEN/HYDROcodone 325 MG/10 MG TAB PO PRN ×2 (00:59→04:49)
[2017-04-26] MEDS: SODIUM CHLOR 0.9% 1000 ML INJ 1,000 ML IV SCH ×3 (01:00→18:41)
[2017-04-26] MEDS: LEVOTHYROXINE SODIUM 150 MCG TAB PO SCH (05:00)
[2017-04-26] MEDS: PANTOPRAZOLE SODIUM 40 MG VIAL IV PUSH SCH ×2 (08:00→20:35)
[2017-04-26 08:10] VITALS: BP 126/73; PULSE 55; RESP 16; TEMP 98.4; O2SAT 100
[2017-04-26] MEDS: MORPHINE SULFATE 30 MG CONTROLLED RELEASE TAB PO SCH ×3 (09:00→20:34)
[2017-04-26] MEDS ORDERED: THIAMINE HCL 100 MG TAB PO SCH (09:00)
[2017-04-26] MEDS: SODIUM CHLORIDE 0.9% FLUSH 10 ML FLUSH IV FLUSH SCH ×2 (09:00→20:35)
[2017-04-26] MEDS ORDERED: NON-FORMULARY DRUG (Cyanocobalamin (B-12) 1,000 MCG) SL SCH (09:00)
[2017-04-26 11:00] VITALS: BP 123/74; PULSE 74; RESP 16; TEMP 98.1; O2SAT 97
[2017-04-26 11:02] LABS: AUTOMATED NEUTROPHIL # 1.3 TH/MM3 (1.8-7.7); BASOPHIL % 1.3 % (0.0-2.0); EOSINOPHIL % 1.4 % (0.0-4.0); HEMATOCRIT 27.4 % (35.0-46.0); HEMO FLAGS DIFF FINAL; LYMPH % 51.8 % (9.0-44.0); LYMPHOCYTE # 1.7 TH/MM3 (1.0-4.8); MEAN CELL VOLUME 92.9 FL (80.0-100.0); MEAN CORPUSCULAR HEMOGLOBIN 30.9 PG (27.0-34.0); MEAN CORPUSCULAR HGB CONC 33.3 % (32.0-36.0); MONO % 6.7 % (0.0-8.0); NEUT % 38.8 % (16.0-70.0); PLATELET COUNT 196 TH/MM3 (150-450); RED BLOOD COUNT 2.95 MIL/MM3 (4.00-5.30); RED CELL DISTRIBUTION WIDTH 18.8 % (11.6-17.2); WHITE BLOOD COUNT 3.4 TH/MM3 (4.0-11.0)
[2017-04-26 11:32] LABS: BICARBONATE 20.6 MEQ/L (21.0-32.0); POTASSIUM 3.9 MEQ/L (3.5-5.1)
[2017-04-26 11:33] LABS: INDIRECT BILIRUBIN 0.2 MG/DL (0.0-0.8); TOTAL BILIRUBIN ADULT 0.4 MG/DL (0.2-1.0)
--- NOTE | 2017-04-26 13:14 | HHI.PR ---
Subjective Remarks Follow up syncope/hyponatremia/ovarian cancer 04/26/17-patient seen and examined, complains of abdominal pain and requesting all medication to be changed to IV. Objective Vitals Vital Signs Date Time Temp Pulse Resp B/P Pulse Ox O2 Delivery O2 Flow Rate FiO2 04/26/17 11:00 98.1 74 16 123/74 97 04/26/17 08:10 98.4 55 16 126/73 100 04/25/17 21:00 98.8 70 19 147/85 100 04/25/17 16:59 99.6 58 20 138/86 100 04/25/17 15:05 97.8 72 16 134/85 99 I/O 04/25/17 04/25/17 04/25/17 04/26/17 04/26/17 04/26/17 06:59 14:59 22:59 06:59 14:59 22:59 Intake Total 800 ml 2875 ml Balance 800 ml 2875 ml Intake Oral 800 ml 1675 ml IV Total 1200 ml # Voids 2 4 # Bowel Movements 0 Result Diagram: 04/26/17 1030 04/26/17 1030 Imaging Last Impressions Head CT 04/25/17 0840 Signed Impressions: Service Date/Time: Tuesday, April 25, 2017 10:45 - CONCLUSION: Stable evaluation of the brain without evidence of acute infarct, hemorrhage, mass or edema. Benny De La O MD Chest X-Ray 04/25/17839 Signed Impressions: Service Date/Time: Tuesday, April 25, 2017 08:41 - CONCLUSION: No acute disease. Benny De La O MD Abdomen/Pelvis CT 04/25/17839 Signed Impressions: Service Date/Time: Tuesday, April 25, 2017 10:50 - CONCLUSION: Stable exam again demonstrating postsurgical changes in the stomach and proximal small bowel. No evidence of acute process, suspicious mass or lymphadenopathy. Stable mild prominence of the biliary tree status post cholecystectomy. Status post lumbar fusion. Benny De La O MD Objective Remarks GENERAL: NAD SKIN: Warm and dry. HEAD: Normocephalic. EYES: No scleral icterus. No injection or drainage. NECK: Supple, trachea midline. No JVD or lymphadenopathy. CARDIOVASCULAR: Regular rate and rhythm without murmurs, gallops, or rubs. RESPIRATORY: Breath sounds equal bilaterally. No accessory muscle use. GASTROINTESTINAL: Abdomen soft, non-tender, nondistended. MUSCULOSKELETAL: No cyanosis, or edema. BACK: Nontender without obvious deformity. No CVA tenderness. A/P Problem List: (1) Syncope and collapse ICD Code: R55 Status: Acute (2) Nausea & vomiting ICD Code: R11.2 Status: Acute (3) Diarrhea ICD Code: R19.7 Status: Acute (4) Hyponatremia ICD Code: E87.1 Status: Acute (5) Abdominal pain ICD Code: R10.9 Status: Acute (6) Anemia ICD Code: D64.9 Status: Acute (7) Hypothyroidism ICD Code: E03.9 Status: Chronic (8) Depression ICD Code: F32.9 Status: Chronic Assessment and Plan 67-year-old female with Syncope and collapse Hyponatremia Continue IVF, monitor BMP Diarrhea C.diff PCR test Enteric pathogen Continue IV fluid hydration History of ovarian cancer Hospice consultation pending Hypothyroidism -Continue Synthroid 150 mcg po daily Depression -Consider psychiatric consult DVT prophylaxis: Lovenox Problem Qualifiers (1) Diarrhea: Qualified Code: R19.7 - Diarrhea, unspecified type (2) Abdominal pain: Qualified Code: R10.84 - Generalized abdominal pain (3) Anemia: Qualified Code: D64.9 - Anemia, unspecified type (4) Hypothyroidism: Qualified Code: E89.0 - Postoperative hypothyroidism (5) Depression: Qualified Code: F33.1 - Moderate episode of recurrent major depressive disorder Andrea Nunes MD Apr 26, 2017 13:14
[2017-04-26] MEDS: HYDROmorphone HCL PF 1 MG/ML VIAL IV PUSH PRN ×2 (14:10→18:53)
[2017-04-26] MEDS: ENOXAPARIN SODIUM 30 MG/0.3 ML SYRINGE SQ SCH (14:17)
[2017-04-26 18:10] VITALS: BP 130/71; PULSE 58; RESP 16; TEMP 98; O2SAT 98
[2017-04-26 20:23] VITALS: BP 125/66; PULSE 68; RESP 20; TEMP 97.7; O2SAT 97
[2017-04-26] MEDS: TEMAZEPAM 15 MG CAP PO PRN (20:34)
[2017-04-27] VITALS (7 sets, daily range): BP systolic 94–155; BP diastolic 53–89; PULSE 60–76; RESP 18–20; TEMP 97–98.8; O2SAT 97–100
[2017-04-27] MEDS: HYDROmorphone HCL PF 1 MG/ML VIAL IV PUSH PRN ×3 (00:20→11:41)
[2017-04-27] MEDS: SODIUM CHLOR 0.9% 1000 ML INJ 1,000 ML IV SCH ×2 (04:44→17:56)
[2017-04-27] MEDS: LEVOTHYROXINE SODIUM 150 MCG TAB PO SCH (06:03)
[2017-04-27] MEDS ORDERED: THIAMINE HCL 200 MG/2 ML VIAL IM SCH (09:00)
[2017-04-27 09:07] LABS: BICARBONATE 19.3 MEQ/L (21.0-32.0); POTASSIUM 4.1 MEQ/L (3.5-5.1)
[2017-04-27] MEDS: THIAMINE IV SCH ×2 (09:45)
[2017-04-27] MEDS: NS IV SCH ×2 (09:45)
[2017-04-27] MEDS: SODIUM CHLORIDE 0.9% FLUSH 10 ML FLUSH IV FLUSH SCH ×2 (09:46→20:54)
[2017-04-27] MEDS: MORPHINE SULFATE 30 MG CONTROLLED RELEASE TAB PO SCH ×2 (09:46→20:55)
[2017-04-27] MEDS: PANTOPRAZOLE SODIUM 40 MG VIAL IV PUSH SCH ×2 (09:47→20:02)
--- NOTE | 2017-04-27 12:55 | HHI.PR ---
Subjective Remarks Follow up syncope/hyponatremia/ovarian cancer 04/26/17-patient seen and examined, complains of abdominal pain and requesting all medication to be changed to IV. 04/27/17-patient seen and examined, although she complains of nausea however has no emesis. Patient was able to tolerate by mouth this morning. Patient was all in by mouth when I talked about discharging her today. She is still complaining of back pain. Initially patient states she would like to go home after tomorrow however lives alone. I mentioned to patient that it will be in her best interest to go to [facility] Objective Vitals Vital Signs Date Time Temp Pulse Resp B/P Pulse Ox O2 Delivery O2 Flow Rate FiO2 04/27/17 08:00 97.5 70 18 135/89 100 04/27/17 05:35 97.0 60 20 127/72 100 04/27/17 00:42 97.1 65 20 94/53 97 04/26/17 20:23 97.7 68 20 125/66 97 04/26/17 18:10 98.0 58 16 130/71 98 I/O 04/26/17 04/26/17 04/26/17 04/27/17 04/27/17 04/27/17 06:59 14:59 22:59 06:59 14:59 22:59 Intake Total 2875 ml 1010 ml 571 ml Balance 2875 ml 1010 ml 571 ml Intake Oral 1675 ml IV Total 1200 ml 1010 ml 571 ml # Voids 4 6 4 Result Diagram: 04/26/17 1030 04/27/17 0750 Objective Remarks GENERAL: NAD SKIN: Warm and dry. HEAD: Normocephalic. EYES: No scleral icterus. No injection or drainage. NECK: Supple, trachea midline. No JVD or lymphadenopathy. CARDIOVASCULAR: Regular rate and rhythm without murmurs, gallops, or rubs. RESPIRATORY: Breath sounds equal bilaterally. No accessory muscle use. GASTROINTESTINAL: Abdomen soft, non-tender, nondistended. MUSCULOSKELETAL: No cyanosis, or edema. BACK: Nontender without obvious deformity. No CVA tenderness. A/P Problem List: (1) Syncope and collapse ICD Code: R55 Status: Acute (2) Nausea & vomiting ICD Code: R11.2 Status: Acute (3) Diarrhea ICD Code: R19.7 Status: Acute (4) Hyponatremia ICD Code: E87.1 Status: Acute (5) Abdominal pain ICD Code: R10.9 Status: Acute (6) Anemia ICD Code: D64.9 Status: Acute (7) Hypothyroidism ICD Code: E03.9 Status: Chronic (8) Depression ICD Code: F32.9 Status: Chronic Assessment and Plan 67-year-old female with Syncope and collapse Hyponatremia Resolved with IVF, monitor BMP Diarrhea-resolved C.diff PCR test Enteric pathogen Continue IV fluid hydration History of ovarian cancer- in remission Continue current pain medications Hospice consultation Hypothyroidism -Continue Synthroid 150 mcg po daily Depression -Stable DVT prophylaxis: Lovenox Discharge Planning Likely discharge to SNF vs [facility] possible 04/28/17 Problem Qualifiers (1) Diarrhea: Qualified Code: R19.7 - Diarrhea, unspecified type (2) Abdominal pain: Qualified Code: R10.84 - Generalized abdominal pain (3) Anemia: Qualified Code: D64.9 - Anemia, unspecified type (4) Hypothyroidism: Qualified Code: E89.0 - Postoperative hypothyroidism (5) Depression: Qualified Code: F33.1 - Moderate episode of recurrent major depressive disorder Andrea Nunes MD Apr 27, 2017 12:55 Andrea Nunes MD Apr 27, 2017 12:55
--- NOTE | 2017-04-27 12:56 | HHI.FF ---
Face to Face Verification Diagnosis: (1) Hyponatremia (2) Hypothyroidism (3) Syncope and collapse Physical Therapy Order: Evaluate and Treat Home Health Nursing Order: Signs/symptoms of disease process I have seen patient Nancy Cain on 04/27/17. My clinical findings support the need for the requested home health care services because: Deconditioned w/ increased weakness I certify that my clinical findings support that this patient is homebound because: Unsteady gait/balance Poor cardiac reserve Andrea Nunes MD Apr 27, 2017 12:56
[2017-04-27] MEDS ORDERED: MORP1TAB25 PO (12:58)
[2017-04-27] MEDS ORDERED: REST15CA PO (12:58)
[2017-04-27] MEDS ORDERED: MSIR15 PO (12:58)
[2017-04-27] MEDS: ENOXAPARIN SODIUM 30 MG/0.3 ML SYRINGE SQ SCH (13:52)
[2017-04-27] MEDS: CYANOCOBALAMIN 1,000 MCG TAB PO SCH (13:52)
[2017-04-27] MEDS: TEMAZEPAM 15 MG CAP PO PRN (21:14)
[2017-04-28] MEDS: SODIUM CHLOR 0.9% 1000 ML INJ 1,000 ML IV SCH ×3 (00:58→21:00)
[2017-04-28] MEDS: LEVOTHYROXINE SODIUM 150 MCG TAB PO SCH (05:05)
[2017-04-28 06:00] VITALS: BP 144/74; PULSE 63; RESP 20; TEMP 95.8; O2SAT 98
[2017-04-28 08:00] VITALS: BP 128/74; PULSE 85; RESP 18; TEMP 98.6; O2SAT 99
[2017-04-28 08:04] VITALS: PULSE 62
[2017-04-28] MEDS: CYANOCOBALAMIN 1,000 MCG TAB PO SCH (08:20)
[2017-04-28] MEDS: MORPHINE SULFATE 30 MG CONTROLLED RELEASE TAB PO SCH ×2 (08:20→21:57)
[2017-04-28] MEDS: PANTOPRAZOLE SODIUM 40 MG VIAL IV PUSH SCH ×2 (08:21→21:56)
[2017-04-28] MEDS: SODIUM CHLORIDE 0.9% FLUSH 10 ML FLUSH IV FLUSH SCH ×2 (08:22→21:57)
[2017-04-28] MEDS: NS IV SCH ×2 (08:22)
[2017-04-28] MEDS: THIAMINE IV SCH ×2 (08:22)
[2017-04-28] MEDS: HYDROmorphone HCL PF 1 MG/ML VIAL IV PUSH PRN ×3 (11:05→22:57)
--- NOTE | 2017-04-28 12:45 | HHI.DS ---
Discharge Summary Admission Date Apr 25, 2017 at 14:44 Discharge Date: Apr 28, 2017 Admitting Diagnosis Syncope, hypontremia (1) Syncope and collapse ICD Code: R55 (2) Nausea & vomiting ICD Code: R11.2 (3) Diarrhea ICD Code: R19.7 (4) Hyponatremia ICD Code: E87.1 (5) Abdominal pain ICD Code: R10.9 (6) Anemia ICD Code: D64.9 (7) Hypothyroidism ICD Code: E03.9 (8) Depression ICD Code: F32.9 Procedures none Brief History - From Admission Ms. Cain is 67 yo, with reported history inclusive of Ovarian cancer (stage III), Colon cancer (stage IV), thyroid cancer, breast cancer, and COPD. She stated she is has received oncological services from the [place]. She stated she stopped radiation/chemotherapy "about a year ago". She stated she did not undergo colorectal surgery for her cancer. Ms. Cain reported she was under the care of Hospice until a few weeks ago when "I fired them." Pt noted she is on supplemental oxygen at home on as as needed basis. Ms. Cain reported she was in her normal state of health early in the week. Over the course of the past 3-4 days she reported weakness and fatigue with Nausea, vomiting, and diarrhea. She stated she has not been able to "keep anything down over the past several days." She said her condition worsened over the past 24 hours with increased weakness and 2-3 falls in which "I blacked out for a few minutes." She denied striking her head during these events. She reported she is afraid of being alone as "I am too weak to take care of myself and I am afraid I might fall down again." She was brought to [facility] ED for evaluation and management of her condition. CBC/BMP: 04/26/17 1030 04/27/17 0750 Significant Findings Laboratory Tests Test 04/26/17 04/27/17 10:30 07:50 White Blood Count 3.4 TH/MM3 (4.0-11.0) Red Blood Count 2.95 MIL/MM3 (4.00-5.30) Hemoglobin 9.1 GM/DL (11.6-15.3) Hematocrit 27.4 % (35.0-46.0) Red Cell Distribution Width 18.8 % (11.6-17.2) Lymphocytes (%) (Auto) 51.8 % (9.0-44.0) Neutrophils # (Auto) 1.3 TH/MM3 (1.8-7.7) Carbon Dioxide Level 20.6 MEQ/L 19.3 MEQ/L (21.0-32.0) (21.0-32.0) Estimat Glomerular Filtration 62 ML/MIN (>89) 61 ML/MIN (>89) Rate Random Glucose 125 MG/DL (74-106) Calcium Level 8.1 MG/DL 7.8 MG/DL (8.5-10.1) (8.5-10.1) Chloride Level 111 MEQ/L (98-107) Imaging Last Impressions Head CT 04/25/17 0840 Signed Impressions: Service Date/Time: Tuesday, April 25, 2017 10:45 - CONCLUSION: Stable evaluation of the brain without evidence of acute infarct, hemorrhage, mass or edema. Benny De La O MD Chest X-Ray 04/25/17 0840 Signed Impressions: Service Date/Time: Tuesday, April 25, 2017 08:41 - CONCLUSION: No acute disease. Benny De La O MD Abdomen/Pelvis CT 04/25/17 0840 Signed Impressions: Service Date/Time: Tuesday, April 25, 2017 10:50 - CONCLUSION: Stable exam again demonstrating postsurgical changes in the stomach and proximal small bowel. No evidence of acute process, suspicious mass or lymphadenopathy. Stable mild prominence of the biliary tree status post cholecystectomy. Status post lumbar fusion. Benny De La O MD PE at Discharge GENERAL: NAD SKIN: Warm and dry. HEAD: Normocephalic. EYES: No scleral icterus. No injection or drainage. NECK: Supple, trachea midline. No JVD or lymphadenopathy. CARDIOVASCULAR: Regular rate and rhythm without murmurs, gallops, or rubs. RESPIRATORY: Breath sounds equal bilaterally. No accessory muscle use. GASTROINTESTINAL: Abdomen soft, non-tender, nondistended. MUSCULOSKELETAL: No cyanosis, or edema. BACK: Nontender without obvious deformity. No CVA tenderness. Pt update on day of discharge Complains of low back pain. States that the oral medication is not helping and is requesting IV medication for pain. However upon review of the medication reconciliation form, the patient has been obtaining IV Dilaudid, the last being given at 11 AM. Patient was seen ambulating well by herself. Denies nausea, vomiting or abdominal pain as well as diarrhea. Pt Condition on Discharge: Stable Discharge Disposition: Discharge to SNF Discharge Time: > 30 minutes Discharge Instructions DIET: Follow Instructions for: As Tolerated, No Restrictions Activities you can perform: See Additionl Instruction Other Activity Instructions: as per PT OOB with assistance ambulate with walker Follow up Referrals: PCP Follow-up New Medications: Morphine ER (Morphine ER) 30 Mg Tab 30 MG PO Q12HR Pain Management #20 TAB Morphine IR (Morphine IR) 15 Mg Tab 15 MG PO Q6HR PRN PAIN GREATER THAN 5 #10 TAB Temazepam (Restoril) 15 Mg Cap 15 MG PO HS PRN INSOMNIA #20 CAP Continued Medications: Ascorbic Acid (Vitamin C) 250 Mg Tab 500 MG PO Nutritional Supplement Ref 0 TAB Cholecalciferol (D3) 2,000 Unit Tab 2000 UNITS PO DAILY Cyanocobalamin (B-12) 1,000 Mcg Subl 1000 MCG SL DAILY Nutritional Supplement Ref 0 TAB.SL Docusate Sodium (Colace) 100 Mg Capsule BID Ferrous Sulfate DR (Ferrous Sulfate DR) 325 Mg Tabdr BID Levothyroxine (Synthroid) 150 Mcg Tab 150 MCG PO DAILY Thyroid #30 Ref 0 TAB Ondansetron Odt (Zofran Odt) 4 Mg Tab 4 MG SL Q6HR PRN Nausea/Vomiting #12 Ref 0 TAB Thiamine (Vitamin B-1) 100 Mg Tab 100 MG PO DAILY Nutritional Supplement Ref 0 TAB Gerardo Kraus MD Apr 28, 2017 12:45
[2017-04-28] MEDS: ENOXAPARIN SODIUM 30 MG/0.3 ML SYRINGE SQ SCH (16:00)
[2017-04-28 16:27] VITALS: BP 173/95; PULSE 77; RESP 20; TEMP 98.4; O2SAT 100
[2017-04-28 20:00] VITALS: BP 127/68; PULSE 63; PULSE 82; RESP 18; TEMP 98.2; O2SAT 96
[2017-04-28] MEDS: TEMAZEPAM 15 MG CAP PO PRN (21:56)
--- NOTE | 2017-04-28 22:10 | HHI.PR ---
Subjective Remarks Patient c/o low back pain denies cp/sob requesting IV narcotic medication Objective Vitals Vital Signs Date Time Temp Pulse Resp B/P Pulse Ox O2 Delivery O2 Flow Rate FiO2 04/28/17 16:30 14 04/28/17 16:27 98.4 77 20 173/95 100 04/28/17 09:30 16 04/28/17 08:04 62 04/28/17 08:00 98.6 85 18 128/74 99 04/28/17 06:00 95.8 63 20 144/74 98 I/O 04/27/17 04/27/17 04/27/17 04/28/17 04/28/17 04/28/17 07:00 15:00 23:00 07:00 15:00 23:00 Intake Total 571 ml 960 ml 1091 ml Balance 571 ml 960 ml 1091 ml Intake Oral 960 ml IV Total 571 ml 1091 ml # Voids 4 6 Result Diagram: 04/26/17 1030 04/27/17 0750 Imaging Last Impressions Head CT 04/25/17 0840 Signed Impressions: Service Date/Time: Tuesday, April 25, 2017 10:45 - CONCLUSION: Stable evaluation of the brain without evidence of acute infarct, hemorrhage, mass or edema. Benny De La O MD Chest X-Ray 04/25/1740 Signed Impressions: Service Date/Time: Tuesday, April 25, 2017 08:41 - CONCLUSION: No acute disease. eBnny De La O MD Abdomen/Pelvis CT 04/25/17 0840 Signed Impressions: Service Date/Time: Tuesday, April 25, 2017 10:50 - CONCLUSION: Stable exam again demonstrating postsurgical changes in the stomach and proximal small bowel. No evidence of acute process, suspicious mass or lymphadenopathy. Stable mild prominence of the biliary tree status post cholecystectomy. Status post lumbar fusion. Benny De La O MD Objective Remarks GENERAL: NAD SKIN: Warm and dry. HEAD: Normocephalic. EYES: No scleral icterus. No injection or drainage. NECK: Supple, trachea midline. No JVD or lymphadenopathy. CARDIOVASCULAR: Regular rate and rhythm without murmurs, gallops, or rubs. RESPIRATORY: Breath sounds equal bilaterally. No accessory muscle use. GASTROINTESTINAL: Abdomen soft, non-tender, nondistended. MUSCULOSKELETAL: No cyanosis, or edema. muscle strength 4/5 all extremities BACK: Tender to palpation of lumbar spine and paraspinal muscles. Procedures none Medications and IVs Current Medications Medications (Trade) Dose Ordered Sig/Anya Route Start Time Stop Time Status Last Admin (NS 1000 ml Inj) 1,000 ml @ 100 mls/hr Q10H IV 04/25/17 13:00 04/28/17 11:04 (NS Flush) 2 ml UNSCH PRN IV FLUSH 04/25/17 12:45 (NS Flush) 2 ml BID IV FLUSH 04/25/17 21:00 04/28/17 21:57 (Tylenol) 650 mg Q4H PRN PO 04/25/17 12:45 (Zofran Inj) 4 mg Q6H PRN IVP 04/25/17 12:45 (Lovenox Inj) 30 mg Q24H SQ 04/25/17 14:00 04/28/17 16:00 (Narcan Inj) 0.4 mg UNSCH PRN IV 04/25/17 12:45 (Synthroid) 150 mcg DAILY@06 PO 04/26/17 06:00 04/28/17 05:05 (Oramorph Sr) 30 mg Q12HR PO 04/25/17 21:00 04/28/17 21:57 (Msir) 15 mg Q6HR PRN PO 04/25/17 16:45 Hold (Restoril) 15 mg HS PRN PO 04/25/17 16:45 04/28/17 21:56 (Vitamin B1) 100 mg DAILY PO 04/26/17 09:00 Hold (Protonix Inj) 40 mg Q12H IV PUSH 04/25/17 20:00 04/28/17 21:56 Hydromorphone HCl 1 mg 1 mg Q4H PRN IV PUSH 04/26/17 13:15 04/28/17 16:01 (Thiamine Inj/NS Inj) 101 ml @ 101 mls/hr DAILY IV 04/27/17 09:00 04/28/17 08:22 (Vitamin B12) 1,000 mcg DAILY PO 04/27/17 10:30 04/28/17 08:20 A/P Problem List: (1) Syncope and collapse ICD Code: R55 Status: Resolved (2) Nausea & vomiting ICD Code: R11.2 Status: Resolved (3) Diarrhea ICD Code: R19.7 Status: Resolved (4) Hyponatremia ICD Code: E87.1 Status: Resolved (5) Abdominal pain ICD Code: R10.9 Status: Resolved (6) Anemia ICD Code: D64.9 Status: Acute (7) Hypothyroidism ICD Code: E03.9 Status: Chronic (8) Depression ICD Code: F32.9 Status: Chronic Assessment and Plan 67-year-old female with Syncope and collapse Hyponatremia Resolved with IVF, monitor BMP Diarrhea-resolved C.diff PCR test ordered Enteric pathogen ordered DC Iv fluids History of ovarian cancer- in remission Continue Morphine IR and ER. Hypothyroidism -Continue Synthroid 150 mcg po daily Depression -Stable Low back pain Patient states has pain. Requesting IV narcotic which she has been getting. Patient seen ambulating by herself. No weakness on exam. DVT prophylaxis: Lovenox Discharge Planning DC to SNF Problem Qualifiers (1) Diarrhea: Qualified Code: R19.7 - Diarrhea, unspecified type (2) Abdominal pain: Qualified Code: R10.84 - Generalized abdominal pain (3) Anemia: Qualified Code: D64.9 - Anemia, unspecified type (4) Hypothyroidism: Qualified Code: E89.0 - Postoperative hypothyroidism (5) Depression: Qualified Code: F33.1 - Moderate episode of recurrent major depressive disorder Gerardo Kraus MD Apr 28, 2017 22:09
[2017-04-29] VITALS (7 sets, daily range): BP systolic 111–159; BP diastolic 70–91; PULSE 70–84; RESP 18–20; TEMP 97.5–98.8; O2SAT 95–100
[2017-04-29] MEDS: HYDROmorphone HCL PF 1 MG/ML VIAL IV PUSH PRN ×3 (03:23→12:43)
[2017-04-29] MEDS: LEVOTHYROXINE SODIUM 150 MCG TAB PO SCH (05:58)
[2017-04-29] MEDS: SODIUM CHLOR 0.9% 1000 ML INJ 1,000 ML IV SCH (07:00)
[2017-04-29] MEDS: SODIUM CHLORIDE 0.9% FLUSH 10 ML FLUSH IV FLUSH SCH ×2 (09:00→20:11)
[2017-04-29] MEDS: CYANOCOBALAMIN 1,000 MCG TAB PO SCH (09:04)
[2017-04-29] MEDS: PANTOPRAZOLE SODIUM 40 MG VIAL IV PUSH SCH ×2 (09:04→20:10)
[2017-04-29] MEDS: MORPHINE SULFATE 30 MG CONTROLLED RELEASE TAB PO SCH ×2 (09:07→20:12)
[2017-04-29] MEDS: THIAMINE IV SCH ×2 (09:52)
[2017-04-29] MEDS: NS IV SCH ×2 (09:52)
--- NOTE | 2017-04-29 14:57 | HHI.PR ---
Subjective Remarks still c/o low back pain but states is improving Objective Vitals Vital Signs Date Time Temp Pulse Resp B/P Pulse Ox O2 Delivery O2 Flow Rate FiO2 04/29/17 13:13 18 04/29/17 12:00 98.8 74 18 157/91 100 04/29/17 08:00 98.2 70 18 150/72 99 04/29/17 05:45 84 04/29/17 04:00 97.5 75 20 159/77 99 04/29/17 00:00 97.5 84 20 111/72 100 04/28/17 20:00 82 04/28/17 20:00 98.2 63 18 127/68 96 04/28/17 16:27 98.4 77 20 173/95 100 I/O 04/28/17 04/28/17 04/28/17 04/29/17 04/29/17 04/29/17 07:00 15:00 23:00 07:00 15:00 23:00 Intake Total 1091 ml 340 ml 1050 ml Balance 1091 ml 340 ml 1050 ml Intake Oral 340 ml IV Total 1091 ml 1050 ml # Voids 4 6 Result Diagram: 04/26/17 1030 04/27/17 0750 Imaging Last Impressions Head CT 04/25/17 0840 Signed Impressions: Service Date/Time: Tuesday, April 25, 2017 10:45 - CONCLUSION: Stable evaluation of the brain without evidence of acute infarct, hemorrhage, mass or edema. Benny De La O MD Chest X-Ray 04/25/17 0840 Signed Impressions: Service Date/Time: Tuesday, April 25, 2017 08:41 - CONCLUSION: No acute disease. Benny De La O MD Abdomen/Pelvis CT 04/25/17 0840 Signed Impressions: Service Date/Time: Tuesday, April 25, 2017 10:50 - CONCLUSION: Stable exam again demonstrating postsurgical changes in the stomach and proximal small bowel. No evidence of acute process, suspicious mass or lymphadenopathy. Stable mild prominence of the biliary tree status post cholecystectomy. Status post lumbar fusion. Benny De La O MD Objective Remarks GENERAL: NAD SKIN: Warm and dry. HEAD: Normocephalic. EYES: No scleral icterus. No injection or drainage. NECK: Supple, trachea midline. No JVD or lymphadenopathy. CARDIOVASCULAR: Regular rate and rhythm without murmurs, gallops, or rubs. RESPIRATORY: Breath sounds equal bilaterally. No accessory muscle use. GASTROINTESTINAL: Abdomen soft, non-tender, nondistended. MUSCULOSKELETAL: No cyanosis, or edema. muscle strength 4/5 all extremities BACK: Tender to palpation of lumbar spine and paraspinal muscles. Procedures none Medications and IVs Current Medications Medications (Trade) Dose Ordered Sig/Anya Route Start Time Stop Time Status Last Admin (NS 1000 ml Inj) 1,000 ml @ 100 mls/hr Q10H IV 04/25/17 13:00 04/28/17 11:04 (NS Flush) 2 ml UNSCH PRN IV FLUSH 04/25/17 12:45 (NS Flush) 2 ml BID IV FLUSH 04/25/17 21:00 04/28/17 21:57 (Tylenol) 650 mg Q4H PRN PO 04/25/17 12:45 (Zofran Inj) 4 mg Q6H PRN IVP 04/25/17 12:45 (Lovenox Inj) 30 mg Q24H SQ 04/25/17 14:00 04/29/17 15:04 (Narcan Inj) 0.4 mg UNSCH PRN IV 04/25/17 12:45 (Synthroid) 150 mcg DAILY@06 PO 04/26/17 06:00 04/29/17 05:58 (Oramorph Sr) 30 mg Q12HR PO 04/25/17 21:00 04/29/17 09:07 (Msir) 15 mg Q6HR PRN PO 04/25/17 16:45 Hold (Restoril) 15 mg HS PRN PO 04/25/17 16:45 04/28/17 21:56 (Vitamin B1) 100 mg DAILY PO 04/26/17 09:00 Hold (Protonix Inj) 40 mg Q12H IV PUSH 04/25/17 20:00 04/29/17 09:04 Hydromorphone HCl 1 mg 1 mg Q4H PRN IV PUSH 04/26/17 13:15 04/29/17 12:43 (Thiamine Inj/NS Inj) 101 ml @ 101 mls/hr DAILY IV 04/27/17 09:00 04/29/17 09:52 (Vitamin B12) 1,000 mcg DAILY PO 04/27/17 10:30 04/29/17 09:04 Urinary Catheter: No Vascular Central Line Catheter: No A/P Problem List: (1) Syncope and collapse ICD Code: R55 Status: Resolved (2) Nausea & vomiting ICD Code: R11.2 Status: Resolved (3) Diarrhea ICD Code: R19.7 Status: Resolved (4) Hyponatremia ICD Code: E87.1 Status: Resolved (5) Abdominal pain ICD Code: R10.9 Status: Resolved (6) Anemia ICD Code: D64.9 Status: Acute (7) Hypothyroidism ICD Code: E03.9 Status: Chronic (8) Depression ICD Code: F32.9 Status: Chronic Assessment and Plan 67-year-old female with Syncope and collapse Hyponatremia Resolved with IVF, monitor BMP Diarrhea-resolved C.diff PCR test ordered Enteric pathogen ordered DC Iv fluids History of ovarian cancer- in remission Continue Morphine IR and ER. Hypothyroidism -Continue Synthroid 150 mcg po daily Depression -Stable Low back pain Patient states has pain. Continue Morphine SR - Will start on oral morphine IR and change Dilaudid only for breakthrough pain. DVT prophylaxis: Lovenox Discharge Planning DC to SNF Problem Qualifiers (1) Diarrhea: Qualified Code: R19.7 - Diarrhea, unspecified type (2) Abdominal pain: Qualified Code: R10.84 - Generalized abdominal pain (3) Anemia: Qualified Code: D64.9 - Anemia, unspecified type (4) Hypothyroidism: Qualified Code: E89.0 - Postoperative hypothyroidism (5) Depression: Qualified Code: F33.1 - Moderate episode of recurrent major depressive disorder Gerardo Kraus MD Apr 29, 2017 14:57
[2017-04-29] MEDS: ENOXAPARIN SODIUM 30 MG/0.3 ML SYRINGE SQ SCH (15:04)
[2017-04-29] MEDS ORDERED: MORPHINE SULFATE 15 MG TAB PO PRN (19:15)
[2017-04-29] MEDS ORDERED: MORPHINE SULFATE 30 MG TAB PO PRN (19:15)
[2017-04-29] MEDS: TEMAZEPAM 15 MG CAP PO PRN (20:16)
[2017-04-30] VITALS: BP 114/56; PULSE 74; RESP 18; TEMP 98.3; O2SAT 98
[2017-04-30 04:00] VITALS: BP 115/59; PULSE 72; RESP 18; TEMP 98.2; O2SAT 98
[2017-04-30] MEDS: LEVOTHYROXINE SODIUM 150 MCG TAB PO SCH (05:54)
[2017-04-30] MEDS: HYDROmorphone HCL PF 1 MG/ML VIAL IV PUSH PRN ×3 (05:55→14:58)
[2017-04-30 07:41] LABS: MEAN CELL VOLUME 94.4 FL (80.0-100.0); MEAN CORPUSCULAR HGB CONC 33.9 % (32.0-36.0); PLATELET COUNT 209 TH/MM3 (150-450); RED BLOOD COUNT 2.97 MIL/MM3 (4.00-5.30); RED CELL DISTRIBUTION WIDTH 18.8 % (11.6-17.2); REVIEW FLAG FINAL; WHITE BLOOD COUNT 4.4 TH/MM3 (4.0-11.0)
[2017-04-30 08:00] VITALS: BP 124/60; PULSE 82; RESP 18; TEMP 98.3; O2SAT 98
[2017-04-30 08:21] LABS: BICARBONATE 22.9 MEQ/L (21.0-32.0); POTASSIUM 4.1 MEQ/L (3.5-5.1)
[2017-04-30] MEDS: NS IV SCH ×2 (08:54)
[2017-04-30] MEDS: CYANOCOBALAMIN 1,000 MCG TAB PO SCH (08:54)
[2017-04-30] MEDS: THIAMINE IV SCH ×2 (08:54)
[2017-04-30] MEDS: MORPHINE SULFATE 30 MG CONTROLLED RELEASE TAB PO SCH (08:54)
[2017-04-30] MEDS: PANTOPRAZOLE SODIUM 40 MG VIAL IV PUSH SCH (08:55)
[2017-04-30 09:00] VITALS: PULSE 77
[2017-04-30 12:00] VITALS: BP 147/79; PULSE 77; RESP 18; TEMP 98.5; O2SAT 100
[2017-04-30] MEDS: ENOXAPARIN SODIUM 30 MG/0.3 ML SYRINGE SQ SCH (14:21)
[2017-04-30 16:00] VITALS: BP 125/69; PULSE 79; RESP 18; TEMP 98.5; O2SAT 99
== END 2017-04-30 16:42 | DRG 641 ==
LOC: NEPC 08:29 → NEDA 13:02 → OBSVTOIN 14:44 → N05B 15:26
PROVIDERS: ADMIT Hospitalist; ATTEND Hospitalist
DX: E87.1 Hypo-osmolality and hyponatremia (principal); E86.0 Dehydration; C18.9 Malignant neoplasm of colon, unspecified; K90.9 Intestinal malabsorption, unspecified; F33.1 Major depressive disorder, recurrent, moderate; J44.9 Chronic obstructive pulmonary disease, unspecified; R55 Syncope and collapse; R19.7 Diarrhea, unspecified; Z85.850 Personal history of malignant neoplasm of thyroid; Z85.43 Personal history of malignant neoplasm of ovary; Z85.3 Personal history of malignant neoplasm of breast; Z92.3 Personal history of irradiation; Z92.21 Personal history of antineoplastic chemotherapy; M54.5 Low back pain; G89.29 Other chronic pain; M19.90 Unspecified osteoarthritis, unspecified site; F17.210 Nicotine dependence, cigarettes, uncomplicated; D64.9 Anemia, unspecified; E89.0 Postprocedural hypothyroidism; R11.2 Nausea with vomiting, unspecified; Z90.3 Acquired absence of stomach [part of]
CPT/HCPCS: 70450; 71010; 74177; 76937; 80048; 80053; 80076; 81001; 82550; 82552; 83735; 83880; 84484; 85025; 85027; 85610; 85730; 93005; 96361; 96374; C9113; J1170; J1650; J2270; J3411; J7030; Q9967

== ENCOUNTER 2017-06-17 15:54 | Inpatient (IN) | payer OTHER, MEDICARE ==
[~2017-06-17] VITALS: Ht 175.3 cm; Wt 52.8 kg
[~2017-06-17 15:54] MED LIST changes: +LEVO25TA4 PO; +PERI8.6T PO; +REST30CA PO
[2017-06-17] MEDS ORDERED: SODIUM CHLOR 0.9% 1000 ML INJ 1,000 ML IV SCH ×2 (16:05→22:45)
[2017-06-17 16:10] VITALS: BP 123/71; PULSE 63; PULSE 94; RESP 18; TEMP 98.6; O2SAT 98
[2017-06-17] MEDS ORDERED: MORPHINE SULFATE 4 MG/ML INJ IV PUSH ONE (16:15)
[2017-06-17] MEDS ORDERED: FAMOTIDINE 20 MG/2 ML VIAL IV PUSH ONE (16:15)
[2017-06-17] MEDS ORDERED: SODIUM CHLORIDE 0.9% FLUSH 10 ML FLUSH IV FLUSH PRN ×2 (16:15→22:30)
[2017-06-17] MEDS ORDERED: ONDANSETRON HCL 4 MG/2 ML VIAL IVP ONE (16:15)
--- NOTE | 2017-06-17 16:15 | PD ---
HPI Chief Complaint: nausea, vomiting, near syncope. Time Seen by Provider: 16:04 Travel History International Travel<30 days: No Contact w/Intl Traveler<30days: No History of Present Illness HPI 67-year-old female with history of chronic low back pain and previous chronic opioid use, brought into the ED via EMS with several day history of nausea, vomiting, and generalized weakness. She states she fell 3 times today due to her weakness. She was previously seen here and treated severe hypothyroidism, dehydration, and reports of C. difficile. Patient denies fever , or chills. She has generalized abdominal pain and cramping which she describes as a 3 out of 10. She states she was on chronic opioid use for her chronic back pain up until 3 days ago. Her symptoms have been present over the last week. She denies dyspnea or chest pain. She is alert and oriented. She has no known drug allergies. PFSH Past Medical History Arthritis: Yes Asthma: No Anxiety: Yes Depression: Yes Heart Rhythm Problems: No Cancer: Yes (THYROID, OVARIAN, RT BREAST, COLON) Cardiovascular Problems: Yes High Cholesterol: No Chemotherapy: Yes (2012) Chest Pain: No Congestive Heart Failure: No COPD: Yes Cerebrovascular Accident: No Diabetes: No Endocrine: Yes GERD: Yes Genitourinary: Yes (HX OF UTIs) Hiatal Hernia: Yes Immune Disorder: No Musculoskeletal: Yes Neurologic: Yes Psychiatric: Yes Reproductive: Yes (OVARIAN CANCER, BREAST CANCER) Respiratory: Yes Migraines: No Radiation Therapy: Yes Seizures: Yes Sleep Apnea: No Thyroid Disease: Yes (THYROIDECTOMY/HYPERTHYRODISM) Ulcer: Yes Past Surgical History Abdominal Surgery: Yes (PARTIAL GASTRECTOMY ) AICD: No Arteriovenous Shunt: No Body Medical Devices: "OTHER HARDWARE IN BACK" Cardiac Surgery: No Ear Surgery: No Endocrine Surgery: No Eye Surgery: No Genitourinary Surgery: No Gynecologic Surgery: No Insulin Pump: No Joint Replacement: No Oral Surgery: No Pacemaker: No Thoracic Surgery: No Social History Alcohol Use: No (on occassion) Tobacco Use: No Substance Use: No Allergies-Medications (Allergen,Severity, Reaction): Coded Allergies: No Known Allergies (Unverified , 03/01/17) Reported Meds & Prescriptions Reported Meds & Active Scripts Active Levothyroxine (Levothyroxine Sodium) 25 Mcg Tab 25 Mcg PO DAILY@0600 Elizabeth-Colace (Sennosides-Docusate Sodium) 8.6-50 Mg Tab 1 Tab PO BID PRN Reported Restoril (Temazepam) 30 Mg Cap 30 Mg PO HS Morphine IR (Morphine Sulfate) 15 Mg Tab 15 Mg PO Q6HR PRN Morphine ER (Morphine Sulfate) 30 Mg Tab 30 Mg PO BID Review of Systems Except as stated in HPI: all other systems reviewed are Neg General / Constitutional: No: Fever Eyes: No: Visual changes HENT: Positive: Lightheadedness, No: Headaches, Vertigo, Sore Throat, Rhinitis , Rhinorrhea, Congestion, Nosebleed, Neck Stiffness, Neck Pain, Ear Discharge, Earache Cardiovascular: No: Chest Pain or Discomfort Respiratory: No: Cough, Shortness of Breath, Wheezing Gastrointestinal: Positive: Nausea, Vomiting, Diarrhea, Abdominal Pain (see history present illness), Loss of Appetite Genitourinary: No: Dysuria Musculoskeletal: No: Pain Skin: No Rash Neurologic: No: Weakness Psychiatric: No: Depression Endocrine: No: Polydipsia Hematologic/Lymphatic: No: Easy Bruising Physical Exam Narrative GENERAL: Patient appears somewhat cachectic but in no acute distress. SKIN: Warm and dry. Normal color. Poor turgor with skin tenting present. HEAD: Atraumatic. Normocephalic. EYES: Pupils equal and round. No scleral icterus. No injection or drainage. ENT: No nasal bleeding or discharge. Mucous membranes pink and somewhat dry. Pharynx is clear. Airway is patent. NECK: Trachea midline. Supple and nontender. No palpable thyroid goiter. CARDIOVASCULAR: Regular rate and rhythm. No murmurs gallops or rubs. RESPIRATORY: No accessory muscle use. Clear to auscultation. Breath sounds equal bilaterally. GASTROINTESTINAL: Abdomen soft, mild generalized tenderness, nondistended. Bowel sounds present in all quadrants. Hepatic and splenic margins not palpable. MUSCULOSKELETAL: Extremities without clubbing, cyanosis, or edema. No obvious deformities. NEUROLOGICAL: Awake and alert. No obvious cranial nerve deficits. Motor grossly within normal limits. Five out of 5 muscle strength in the arms and legs. Normal speech. PSYCHIATRIC: Appropriate mood and affect; insight and judgment normal. Data Data Last Documented VS Vital Signs Date Time Temp Pulse Resp B/P (MAP) Pulse Ox O2 Delivery O2 Flow Rate FiO2 06/17/17 21:45 87 16 128/69 (88) Room Air 06/17/17 19:54 98 06/17/17 16:10 98.6 Orders Orders Complete Blood Count With Diff (06/17/17 16:05) Comprehensive Metabolic Panel (06/17/17 16:05) Lipase (06/17/17 16:05) Lactic Acid (06/17/17 16:05) Prothrombin Time / Inr (Pt) (06/17/17 16:05) Act Partial Throm Time (Ptt) (06/17/17 16:05) Urinalysis - C+S If Indicated (06/17/17 16:05) Iv Access Insert/Monitor (06/17/17 16:05) Ecg Monitoring (06/17/17 16:05) Oximetry (06/17/17 16:05) Ondansetron Inj (Zofran Inj) (06/17/17 16:15) Sodium Chlor 0.9% 1000 Ml Inj (Ns 1000 M (06/17/17 16:05) Sodium Chloride 0.9% Flush (Ns Flush) (06/17/17 16:15) Electrocardiogram (06/17/17 16:05) Chest, Single Ap (06/17/17 16:05) Famotidine Inj (Pepcid Inj) (06/17/17 16:15) Magnesium (Mg) (06/17/17 16:05) Enteric Path (Stool) (06/17/17 16:05) C Diff Toxin Pcr (06/17/17 16:05) Giardia Antigen (Stool) (06/17/17 16:05) Rotavirus Ag Detection (Stool) (06/17/17 16:05) Morphine Inj (Morphine Inj) (06/17/17 16:15) Ct Abd/Pel W Iv Contrast(Rout) (06/17/17 16:11) Thyroid Stimulating Hormone (06/17/17 16:17) Orthostatic Vital Signs (06/17/17 16:23) Vascular Access Team Consult/P PRN (06/17/17 16:46) Vascular Poc Ultrasound (06/17/17 ) Potassium Chlor 20 Meq Premix (Kcl 20 Me (06/17/17 18:45) Electrocardiogram (06/17/17 17:39) Precautions (06/17/17 20:21) Potassium Chloride (Kcl) (06/17/17 20:45) Iohexol 350 Inj (Omnipaque 350 Inj) (06/17/17 20:32) Acetamin-Hydrocod 325-7.5 Mg ([place] 7.5 (06/17/17 21:30) Admit Order (Ed Use Only) (06/17/17 22:06) Labs Laboratory Tests Test 06/17/17 17:40 06/17/17 19:20 White Blood Count 6.1 TH/MM3 Red Blood Count 3.93 MIL/MM3 Hemoglobin 12.7 GM/DL Hematocrit 36.1 % Mean Corpuscular Volume 91.8 FL Mean Corpuscular Hemoglobin 32.2 PG Mean Corpuscular Hemoglobin Concent 35.1 % Red Cell Distribution Width 17.1 % Platelet Count 260 TH/MM3 Mean Platelet Volume 8.6 FL Neutrophils (%) (Auto) 57.7 % Lymphocytes (%) (Auto) 30.4 % Monocytes (%) (Auto) 9.4 % Eosinophils (%) (Auto) 1.5 % Basophils (%) (Auto) 1.0 % Neutrophils # (Auto) 3.5 TH/MM3 Lymphocytes # (Auto) 1.8 TH/MM3 Monocytes # (Auto) 0.6 TH/MM3 Eosinophils # (Auto) 0.1 TH/MM3 Basophils # (Auto) 0.1 TH/MM3 CBC Comment DIFF FINAL Differential Comment Prothrombin Time 10.7 SEC Prothromb Time International Ratio 1.0 RATIO Activated Partial Thromboplast Time 27.1 SEC Blood Urea Nitrogen 7 MG/DL Creatinine 0.76 MG/DL Random Glucose 72 MG/DL Total Protein 7.3 GM/DL Albumin 3.8 GM/DL Calcium Level 8.5 MG/DL Magnesium Level 1.5 MG/DL Alkaline Phosphatase 64 U/L Aspartate Amino Transf (AST/SGOT) 19 U/L Alanine Aminotransferase (ALT/SGPT) 24 U/L Total Bilirubin 1.0 MG/DL Sodium Level 120 MEQ/L Potassium Level 3.2 MEQ/L Chloride Level 88 MEQ/L Carbon Dioxide Level 22.6 MEQ/L Anion Gap 9 MEQ/L Estimat Glomerular Filtration Rate 76 ML/MIN Lactic Acid Level 0.7 mmol/L Lipase 274 U/L Thyroid Stimulating Hormone 3rd Gen 13.200 uIU/ML Urine Color LIGHT-YELLOW Urine Turbidity CLEAR Urine pH 6.5 Urine Specific Evans 1.001 Urine Protein NEG mg/dL Urine Glucose (UA) NEG mg/dL Urine Ketones NEG mg/dL Urine Occult Blood NEG Urine Nitrite NEG Urine Bilirubin NEG Urine Urobilinogen LESS THAN 2.0 MG/DL Urine Leukocyte Esterase SMALL Urine RBC LESS THAN 1 /hpf Urine WBC 2 /hpf Urine Squamous Epithelial Cells <1 /hpf Urine Bacteria OCC /hpf Microscopic Urinalysis Comment CULT NOT INDICATED MDM Medical Decision Making Medical Screen Exam Complete: Yes Emergency Medical Condition: Yes Medical Record Reviewed: Yes Differential Diagnosis Nausea. Vomiting. Diarrhea. Hypothyroid. Abdominal pain. C. difficile. Dehydration. Narrative Course Patient appears ill but not septic. Labs ordered including CBC, CMP, lactic acid, urinalysis, lipase. Lactic acid. Magnesium. PT PTT and INR. C. difficile and stool sample. EKG and chest x-ray ordered. Abdominal/pelvic CT ordered with IV contrast. Orthostatic vital signs were ordered. IV access is obtained and the patient is given 4 mg Zofran IV as well as morphine 4 mg IV as well as Pepcid 20 mg IV. Patient is given 1000 mL normal saline bolus. Chest x-ray is negative for acute process. CBC is unremarkable. Coagulation studies are normal. CMP shows a sodium of 120, potassium 3.2, chloride of 88, BUN is 7 and creatinine is 0.76. Random glucose is 72. Lactic acid 0.7. Stool sample was collected by nursing staff who felt it was probably definitely positive for C. difficile. Abdominal pelvic CT scan is negative for acute process per radiologist. Patient was started on IV potassium supplementation but complaining about burning, this was discontinued as she was food by mouth, and she was given 30 mEq of potassium chloride. Call was placed to the hospitalist, and the patient was discussed with Dr. Taylor who agreed to admit the patient. Diagnosis Primary Impression: Acute hyponatremia Additional Impressions: Hypokalemia C. difficile diarrhea Admitting Information Admitting Physician Requests: Admit Condition: Stable Jeremy Fernandez Jun 17, 2017 16:15
--- NOTE | 2017-06-17 16:44 | RADRPT ---
EXAM DATE/TIME: 06/17/2017 16:22 [facility] COMPARISON: CHEST SINGLE AP, March 01, 2017, 13:52. INDICATIONS : Syncope MEDICAL HISTORY : None. SURGICAL HISTORY : None. ENCOUNTER: Initial ACUITY: 2 days PAIN SCORE: 0/10 LOCATION: chest FINDINGS: A single view of the chest demonstrates the lungs to be symmetrically aerated without evidence of mas s, infiltrate or effusion. The cardiomediastinal contours are unremarkable. Osseous structures are intact. CONCLUSION: No acute disease. Joseph Carter MD on June 17, 2017 at 16:42 Board Certified Radiologist. This report was verified electronically.
[2017-06-17 17:55] LABS: AUTOMATED NEUTROPHIL # 3.5 TH/MM3 (1.8-7.7); BASOPHIL # 0.1 TH/MM3 (0-0.2); EOSINOPHIL # 0.1 TH/MM3 (0-0.4); EOSINOPHIL % 1.5 % (0.0-4.0); HEMATOCRIT 36.1 % (35.0-46.0); HEMO FLAGS DIFF FINAL; LYMPH % 30.4 % (9.0-44.0); LYMPHOCYTE # 1.8 TH/MM3 (1.0-4.8); MEAN CELL VOLUME 91.8 FL (80.0-100.0); MEAN CORPUSCULAR HEMOGLOBIN 32.2 PG (27.0-34.0); MEAN CORPUSCULAR HGB CONC 35.1 % (32.0-36.0); MONO % 9.4 % (0.0-8.0); NEUT % 57.7 % (16.0-70.0); PLATELET COUNT 260 TH/MM3 (150-450); RED BLOOD COUNT 3.93 MIL/MM3 (4.00-5.30); RED CELL DISTRIBUTION WIDTH 17.1 % (11.6-17.2); WHITE BLOOD COUNT 6.1 TH/MM3 (4.0-11.0)
[2017-06-17 18:00] VITALS: PULSE 60; RESP 18; O2SAT 99
[2017-06-17 18:03] LABS: APTT (PATIENT) 27.1 SEC (24.3-30.1); PROTHROMBIN TIME - PATIENT 10.7 SEC (9.8-11.6)
[2017-06-17 18:15] LABS: ALKALINE PHOSPHATASE 64 U/L (45-117); ALT (GPT) 24 U/L (10-53); ANION GAP 9 MEQ/L (5-15); AST (GOT) 19 U/L (15-37); BICARBONATE 22.6 MEQ/L (21.0-32.0); BLOOD UREA NITROGEN 7 MG/DL (7-18); CHLORIDE 88 MEQ/L (98-107); GLOMERULAR FILTRATION RATE 76 ML/MIN (>89); MAGNESIUM 1.5 MG/DL (1.5-2.5); POTASSIUM 3.2 MEQ/L (3.5-5.1)
[2017-06-17 18:20] LABS: SODIUM (NA) 120 MEQ/L (136-145)
[2017-06-17 18:26] VITALS: BP_SYST 114; BP_SYST 123; BP_DIAS 60; RESP 20
[2017-06-17 18:28] VITALS: BP 131/67; RESP 18
[2017-06-17] MEDS ORDERED: POTASSIUM CHLOR 20 MEQ PREMIX 100 ML IV ONE (18:45)
[2017-06-17 19:43] LABS: BACTERIA, URINE OCC /hpf; BLOOD, URINE NEG (NEG); COMMENT (UR) CULT NOT INDICATED; CULTURE IF INDICATED CULT NOT INDICATED; GLUCOSE,URINE NEG (NEG); KETONE, URINE NEG (NEG); NITRITE,URINE NEG (NEG); PH, URINE 6.5 (5.0-8.5); SQUAMOUS EPITHELIAL CELL URINE <1 /hpf (0-5); URINE COLOR LIGHT-YELLOW (YELLW/STRAW)
[2017-06-17 19:54] VITALS: BP 149/80; PULSE 89; RESP 18; O2SAT 98
[2017-06-17] MEDS ORDERED: IOHEXOL 350 MG/ML 10 ML VIAL (for RAD DIAG) IVCONTRAST ONE (20:32)
[2017-06-17] MEDS ORDERED: POTASSIUM CHLORIDE 10 MEQ CONTROLLED RELEASE TAB PO ONE (20:45)
--- NOTE | 2017-06-17 21:07 | RADRPT ---
EXAM DATE/TIME: 06/17/2017 20:09 [facility] COMPARISON: No previous studies available for comparison. INDICATIONS : Vomiting. Nausea. IV CONTRAST: 100 cc Omnipaque 350 (iohexol) IV ORAL CONTRAST: No oral contrast ingested. RADIATION DOSE: 8.38 CTDIvol (mGy) MEDICAL HISTORY : Carcinoma, colon. Carcinoma, breast. Carcinoma, ovarian.Irritable bowel disease SURGICAL HISTORY : Cholecystectomy. ENCOUNTER: Initial ACUITY: 3 days PAIN SCALE: 7/10 LOCATION: Bilateral upper quadrant lower quadrant TECHNIQUE: Volumetric scanning of the abdomen and pelvis was performed. Using automated exposure control and ad justment of the mA and/or kV according to patient size, radiation dose was kept as low as reasonably achievable to obtain optimal diagnostic quality images. DICOM format image data is available electro nically for review and comparison. FINDINGS: LOWER LUNGS: The visualized lower lungs are clear. Small hiatal hernia. LIVER: Punctate hypodensity laterally in the right hepatic lobe characteristic of a benign cyst. There is in tra-and extra hepatic biliary ductal dilatation likely representing a capacitance effect associated w ith prior cholecystectomy. CBD measures 1.2 cm in diameter SPLEEN: Normal size without lesion. PANCREAS: Within normal limits. KIDNEYS: Normal in size and shape. There is no mass, stone or hydronephrosis. Small anterior cortical cyst in the midpole of the left kidney. ADRENAL GLANDS: Within normal limits. VASCULAR: There is no aortic aneurysm. BOWEL/MESENTERY: Findings of prior gastric bypass. There is some muscular hypertrophy in the region of the sigmoid wit hout diverticulitis. ABDOMINAL WALL: Within normal limits. Marked atrophy of the left rectus abdominis muscle belly. RETROPERITONEUM: There is no lymphadenopathy. BLADDER: No wall thickening or mass. REPRODUCTIVE: Within normal limits. INGUINAL: There is no lymphadenopathy or hernia. MUSCULOSKELETAL: Posterior fixation of the lower lumbar spine. Medullary hay and compression screw in the right hip. I njection granulomata in the buttocks bilaterally. CONCLUSION: 1. Extensive postsurgical changes and findings of prior gastric bypass, cholecystectomy, posterior fi xation of the lower lumbar spine and right hip fixation. 2. Intra-and extra peribiliary ductal dilatation is probably related to prior cholecystectomy. 3. Benign-appearing cysts in the lateral aspect of the right hepatic lobe and anterior aspect of the left kidney. 4. Otherwise, no acute intraperitoneal or pelvic process to explain current clinical symptoms. Mitchell Pretty MD on June 17, 2017 at 21:00 Board Certified Radiologist. This report was verified electronically.
[2017-06-17] MEDS ORDERED: ACETAMINOPHEN/HYDROcodone 325 MG/7.5 MG TAB PO ONE (21:30)
[2017-06-17 21:45] VITALS: BP 128/69; PULSE 87; RESP 16
[2017-06-17] MEDS: POTASSIUM CHLORIDE 25 MEQ EFFERVESCENT TAB PO ONE (22:30)
[2017-06-17] MEDS ORDERED: ONDANSETRON HCL 4 MG/2 ML VIAL IVP PRN (22:30)
[2017-06-17] MEDS ORDERED: ACETAMINOPHEN 325 MG TAB PO PRN (22:30)
[2017-06-17] MEDS: metroNIDAZOLE 500 MG INJ 100 ML IV SCH (22:59)
[2017-06-18] VITALS (10 sets, daily range): BP systolic 98–149; BP diastolic 56–73; PULSE 54–63; RESP 16–20; TEMP 98.1–99.2; O2SAT 97–100
[2017-06-18] MEDS: MORPHINE SULFATE 4 MG/ML INJ IV PUSH PRN ×7 (02:29→23:25)
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
[2017-06-18] MEDS: POTASSIUM CHLORIDE 25 MEQ EFFERVESCENT TAB PO ONE (04:34)
[2017-06-18] MEDS: metroNIDAZOLE 500 MG INJ 100 ML IV SCH ×4 (04:37→23:24)
[2017-06-18] MEDS: SODIUM CHLORIDE 0.9% FLUSH 10 ML FLUSH IV FLUSH SCH ×2 (08:34→21:00)
[2017-06-18] MEDS: ENOXAPARIN SODIUM 40 MG/0.4 ML SYRINGE SQ SCH (08:34)
[2017-06-18 11:18] LABS: AUTOMATED NEUTROPHIL # 3.1 TH/MM3 (1.8-7.7); BASOPHIL # 0.1 TH/MM3 (0-0.2); BASOPHIL % 1.4 % (0.0-2.0); EOSINOPHIL % 0.6 % (0.0-4.0); HEMATOCRIT 37.1 % (35.0-46.0); LYMPH % 27.9 % (9.0-44.0); LYMPHOCYTE # 1.4 TH/MM3 (1.0-4.8); MEAN CELL VOLUME 92.8 FL (80.0-100.0); MEAN CORPUSCULAR HGB CONC 34.5 % (32.0-36.0); MONO % 7.1 % (0.0-8.0); PLATELET COUNT 216 TH/MM3 (150-450); RED CELL DISTRIBUTION WIDTH 16.8 % (11.6-17.2); WHITE BLOOD COUNT 4.9 TH/MM3 (4.0-11.0)
[2017-06-18 11:23] LABS: HEMO FLAGS AUTO DIFF
[2017-06-18 11:36] LABS: BICARBONATE 24.6 MEQ/L (21.0-32.0); POTASSIUM 3.4 MEQ/L (3.5-5.1)
--- NOTE | 2017-06-18 11:45 | EKG ---
Date Performed: 06/17/2017 Time Performed: 17:39:21 PTAGE: 67 years EKG: SINUS BRADYCARDIA POSSIBLE INFERIOR MYOCARDIAL INFARCTION ABNORMAL ECG NO PREVIOUS TRACING DOCTOR: Jose David Pedraza Interpretating Date/Time 06/18/2017 11:43:45
--- NOTE | 2017-06-18 11:46 | EKG ---
Date Performed: 06/17/2017 Time Performed: 16:33:44 PTAGE: 67 years EKG: Sinus rhythm WITH OCCASIONAL SUPRAVENTRICULAR PREMATURE COMPLEXES POSSIBLE INFERIOR MYOCARDIAL INFARCTION ABNORMA L ECG PREVIOUS TRACING : 03/01/2017 13.58 Compared to previous tracing, T wave amplitude has increase d diffusely. DOCTOR: Jose David Pedraza Interpretating Date/Time 06/18/2017 11:45:13
[2017-06-18 13:53] LABS: OVALOCYTES 2+ (NORMAL); SCAN/DIFF AUTO DIFF CONFIRMED
--- NOTE | 2017-06-18 17:03 | HHI.PR ---
Addendum to Inpatient Note Additional Information Repeated sodium today is 133 from 120 yesterday, will DC iv fluid, resume oral diet, repeat BMP this evening, will need to avoid correction over 10 minimal per 24 hours Hypothyroidism TSH is 13 with low T4>> will increase Synthroid to 50 mc/d Addendum: BMP came back with sodium 135, will give 1 L of D5 half-normal saline with KCl and repeat BMP every 6 hours, goal is for sodium not above 140 for the next 24 hours, I discussed and indicate the nurse extensively Karine Myaa MD Jun 18, 2017 17:03
[2017-06-18 18:06] LABS: BICARBONATE 22.5 MEQ/L (21.0-32.0); POTASSIUM 3.2 MEQ/L (3.5-5.1)
[2017-06-18] MEDS ORDERED: D5-1/2 NS + KCL 20 MEQ INJ 1,000 ML IV SCH (18:30)
[2017-06-18 23:03] LABS: BICARBONATE 24.3 MEQ/L (21.0-32.0); POTASSIUM 3.6 MEQ/L (3.5-5.1)
[2017-06-19] VITALS (7 sets, daily range): BP systolic 99–158; BP diastolic 56–79; PULSE 60–74; RESP 16–20; TEMP 98.3–98.7; O2SAT 97–100
[2017-06-19] MEDS: metroNIDAZOLE 500 MG INJ 100 ML IV SCH ×4 (05:05→23:08)
[2017-06-19] MEDS: MORPHINE SULFATE 4 MG/ML INJ IV PUSH PRN ×6 (05:06→23:07)
[2017-06-19] MEDS: LEVOTHYROXINE SODIUM 50 MCG TAB PO SCH (05:06)
[2017-06-19] MEDS: ENOXAPARIN SODIUM 40 MG/0.4 ML SYRINGE SQ SCH (10:34)
[2017-06-19] MEDS: SODIUM CHLORIDE 0.9% FLUSH 10 ML FLUSH IV FLUSH SCH ×2 (10:34→19:57)
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
[2017-06-19 20:46] LABS: BICARBONATE 20.4 MEQ/L (21.0-32.0); POTASSIUM 3.5 MEQ/L (3.5-5.1)
[2017-06-19] MEDS: TEMAZEPAM 15 MG CAP PO SCH (20:57)
[2017-06-19 21:20] LABS: CALCIUM-PROTEIN CORRECTED 7.8 MG/DL (8.5-10.1)
[2017-06-20] VITALS (7 sets, daily range): BP systolic 97–160; BP diastolic 57–84; PULSE 64–83; RESP 18–20; TEMP 97.9–98.4; O2SAT 97–100
[2017-06-20] MEDS: MORPHINE SULFATE 4 MG/ML INJ IV PUSH PRN ×7 (02:16→21:18)
[2017-06-20] MEDS: LEVOTHYROXINE SODIUM 50 MCG TAB PO SCH (05:22)
[2017-06-20] MEDS: metroNIDAZOLE 500 MG INJ 100 ML IV SCH ×4 (05:22→22:06)
[2017-06-20] MEDS: SODIUM CHLORIDE 0.9% FLUSH 10 ML FLUSH IV FLUSH SCH ×2 (09:00→22:06)
[2017-06-20] MEDS: ENOXAPARIN SODIUM 40 MG/0.4 ML SYRINGE SQ SCH (09:01)
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
[2017-06-20 13:47] LABS: BICARBONATE 21.9 MEQ/L (21.0-32.0); POTASSIUM 3.7 MEQ/L (3.5-5.1)
[2017-06-20] MEDS: TEMAZEPAM 15 MG CAP PO SCH (22:05)
[2017-06-21] VITALS: BP 118/64; PULSE 79; RESP 16; TEMP 98.5; O2SAT 98
[2017-06-21] MEDS: MORPHINE SULFATE 4 MG/ML INJ IV PUSH PRN ×7 (01:43→21:16)
[2017-06-21 04:00] VITALS: BP 115/66; PULSE 85; RESP 16; TEMP 98.4; O2SAT 99
[2017-06-21] MEDS: metroNIDAZOLE 500 MG INJ 100 ML IV SCH (05:04)
[2017-06-21] MEDS: LEVOTHYROXINE SODIUM 50 MCG TAB PO SCH (05:04)
[2017-06-21] MEDS: ENOXAPARIN SODIUM 40 MG/0.4 ML SYRINGE SQ SCH (08:00)
[2017-06-21] MEDS: SODIUM CHLORIDE 0.9% FLUSH 10 ML FLUSH IV FLUSH SCH ×2 (08:01→21:17)
[2017-06-21 08:30] VITALS: PULSE 60
[2017-06-21 08:52] LABS: BICARBONATE 23.7 MEQ/L (21.0-32.0); POTASSIUM 4.1 MEQ/L (3.5-5.1)
[2017-06-21] MEDS ORDERED: LEVO.05 PO (10:42)
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
[2017-06-21 10:56] LABS: C. DIFF EPI 027 PRESUMPTIVE NEGATIVE (NEGATIVE)
[2017-06-21 17:10] VITALS: BP 119/70; PULSE 67; RESP 20; TEMP 98.1; O2SAT 98
[2017-06-21] MEDS: METRONIDAZOLE 500 MG/100 ML ISONTONIC SOLN IV SCH (17:53)
[2017-06-21 20:00] VITALS: BP 116/58; PULSE 71; RESP 18; TEMP 98.5; O2SAT 97
[2017-06-21] MEDS: TEMAZEPAM 15 MG CAP PO SCH (21:14)
[2017-06-21 22:15] VITALS: PULSE 60
[2017-06-22] VITALS (11 sets, daily range): BP systolic 100–125; BP diastolic 62–70; PULSE 60–99; RESP 16–20; TEMP 97.8–98.5; O2SAT 97–99
[2017-06-22] MEDS: METRONIDAZOLE 500 MG/100 ML ISONTONIC SOLN IV SCH ×3 (00:08→12:01)
[2017-06-22] MEDS: MORPHINE SULFATE 4 MG/ML INJ IV PUSH PRN ×6 (00:10→22:03)
[2017-06-22] MEDS: LEVOTHYROXINE SODIUM 50 MCG TAB PO SCH (06:08)
[2017-06-22] MEDS: ENOXAPARIN SODIUM 40 MG/0.4 ML SYRINGE SQ SCH (08:48)
[2017-06-22] MEDS: SODIUM CHLORIDE 0.9% FLUSH 10 ML FLUSH IV FLUSH SCH ×2 (08:48→22:04)
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
[2017-06-22] MEDS: TEMAZEPAM 15 MG CAP PO SCH (22:02)
[2017-06-22] MEDS: metroNIDAZOLE 500 MG TAB PO SCH (22:04)
[2017-06-23 04:58] VITALS: BP 111/74; PULSE 75; RESP 18; TEMP 98.6; O2SAT 100
[2017-06-23] MEDS: LEVOTHYROXINE SODIUM 50 MCG TAB PO SCH (05:04)
[2017-06-23] MEDS: metroNIDAZOLE 500 MG TAB PO SCH ×2 (05:04→11:12)
[2017-06-23] MEDS: MORPHINE SULFATE 4 MG/ML INJ IV PUSH PRN ×3 (05:06→17:08)
[2017-06-23 09:00] VITALS: PULSE 68
[2017-06-23 09:12] VITALS: BP 113/59; PULSE 72; RESP 20; TEMP 97.8; O2SAT 98
[2017-06-23] MEDS: ENOXAPARIN SODIUM 40 MG/0.4 ML SYRINGE SQ SCH (10:03)
[2017-06-23] MEDS: SODIUM CHLORIDE 0.9% FLUSH 10 ML FLUSH IV FLUSH SCH (10:03)
[2017-06-23 10:36] VITALS: O2SAT 98
[2017-06-23 12:48] VITALS: BP 110/60; PULSE 70; RESP 20; TEMP 98; O2SAT 100
[2017-06-23] MEDS ORDERED: MORP1TAB25 PO (14:12)
[2017-06-23] MEDS ORDERED: METR-1 PO ×2 (15:00→15:01)
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
[2017-06-23 17:30] VITALS: BP 127/65; PULSE 74; RESP 20; TEMP 98.3; O2SAT 98
== END 2017-06-23 18:12 | disposition home or self-care (01) | DRG 372 ==
LOC: NEPC 15:54 → MERGE 22:08 → NEDA 22:08 → N05B 06-18 00:49
PROVIDERS: ADMIT Hospitalist; ATTEND Hospitalist
DX: A04.7 Enterocolitis due to Clostridium difficile (principal); E87.1 Hypo-osmolality and hyponatremia; J44.9 Chronic obstructive pulmonary disease, unspecified; R56.9 Unspecified convulsions; E87.6 Hypokalemia; E86.0 Dehydration; E03.9 Hypothyroidism, unspecified; G89.29 Other chronic pain; M54.5 Low back pain; K21.9 Gastro-esophageal reflux disease without esophagitis; R29.6 Repeated falls; Z79.891 Long term (current) use of opiate analgesic; Z85.3 Personal history of malignant neoplasm of breast; Z85.43 Personal history of malignant neoplasm of ovary; Z85.850 Personal history of malignant neoplasm of thyroid; Z92.21 Personal history of antineoplastic chemotherapy; Z92.3 Personal history of irradiation; Z86.718 Personal history of other venous thrombosis and embolism; Z87.440 Personal history of urinary (tract) infections; Z90.3 Acquired absence of stomach [part of]; Z96.641 Presence of right artificial hip joint; Z98.84 Bariatric surgery status; F41.8 Other specified anxiety disorders
CPT/HCPCS: 71010; 74177; 76937; 80048; 80053; 81001; 83605; 83690; 83735; 83930; 83935; 84155; 84439; 84443; 85025; 85610; 85730; 87493; 93005; 96361; 96365; 96375; J1650; J2270; J2405; J3480; J7030; Q9967

== ENCOUNTER 2017-06-28 17:19 | Inpatient (IN) | payer MEDICARE, OTHER ==
[~2017-06-28] VITALS: Ht 170.2 cm; Wt 59.5 kg
[2017-06-28] MEDS: SODIUM CHLOR 0.9% 1000 ML INJ 1,000 ML IV SCH (01:00)
[~2017-06-28 17:19] MED LIST changes: +LEVO.05 PO; +METR-1 PO
[2017-06-28] MEDS ORDERED: IOHEXOL 350 MG/ML 10 ML VIAL (for RAD DIAG) IVCONTRAST ONE (17:20)
[2017-06-28 17:40] VITALS: BP 111/67; PULSE 98; RESP 16; TEMP 98; O2SAT 98
[2017-06-28 18:55] VITALS: BP 115/85; PULSE 71; RESP 18; TEMP 98.1; O2SAT 99
[2017-06-28] MEDS ORDERED: SODIUM CHLOR 0.9% 1000 ML INJ 1,000 ML IV SCH (19:02)
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
[2017-06-28] MEDS ORDERED: ONDANSETRON HCL 4 MG/2 ML VIAL IVP ONE (19:15)
[2017-06-28] MEDS ORDERED: SODIUM CHLORIDE 0.9% FLUSH 10 ML FLUSH IV FLUSH PRN ×2 (19:15→23:15)
[2017-06-28] MEDS ORDERED: metroNIDAZOLE 500 MG INJ 100 ML IV ONE (19:15)
[2017-06-28 20:00] VITALS: BP 160/85; PULSE 68; RESP 18; O2SAT 99
[2017-06-28] MEDS ORDERED: MORPHINE SULFATE 4 MG/ML INJ IV PUSH ONE (20:00)
[2017-06-28 20:24] LABS: BACTERIA, URINE RARE /hpf; BLOOD, URINE NEG (NEG); COMMENT (UR) CULT NOT INDICATED; CULTURE IF INDICATED CULT NOT INDICATED; GLUCOSE,URINE NEG (NEG); KETONE, URINE NEG (NEG); NITRITE,URINE NEG (NEG); SQUAMOUS EPITHELIAL CELL URINE <1 /hpf (0-5); URINE COLOR LIGHT-YELLOW (YELLW/STRAW)
[2017-06-28 20:25] LABS: AUTOMATED NEUTROPHIL # 4.4 TH/MM3 (1.8-7.7); BASOPHIL # 0.1 TH/MM3 (0-0.2); BASOPHIL % 1.3 % (0.0-2.0); EOSINOPHIL # 0.1 TH/MM3 (0-0.4); EOSINOPHIL % 1.2 % (0.0-4.0); HEMATOCRIT 23.6 % (35.0-46.0); HEMO FLAGS DIFF FINAL; LYMPH % 39.2 % (9.0-44.0); LYMPHOCYTE # 3.2 TH/MM3 (1.0-4.8); MEAN CELL VOLUME 96.4 FL (80.0-100.0); MEAN CORPUSCULAR HEMOGLOBIN 32.6 PG (27.0-34.0); MEAN CORPUSCULAR HGB CONC 33.8 % (32.0-36.0); MONO % 3.9 % (0.0-8.0); NEUT % 54.4 % (16.0-70.0); PLATELET COUNT 295 TH/MM3 (150-450); RED BLOOD COUNT 2.45 MIL/MM3 (4.00-5.30); WHITE BLOOD COUNT 8.1 TH/MM3 (4.0-11.0)
--- NOTE | 2017-06-28 20:43 | RADRPT ---
EXAM DATE/TIME: 06/28/2017 20:16 [place] COMPARISON: CT THORAX W CONTRAST, May 20, 2016, 18:03. INDICATIONS : Fall this afternoon out of the shower. MEDICAL HISTORY : Hypertension. Carcinoma, gastric. Carcinoma, ovarian. GI bleed. UTI SURGICAL HISTORY : Gastrectomy, Breast surgery, Lumbar fusion. ENCOUNTER: Initial ACUITY: 1 day PAIN SCORE: 10/10 LOCATION: Bilateral L-spine FINDINGS: There is a mild chronic compression deformity involving T12. Posterior fusion hardware is again note d from L2 through L4 and is stable. No acute fracture is identified. CONCLUSION: 1. Mild chronic compression deformity involving T12. 2. Stable posterior fusion hardware from L2 through L4. 3. No acute fracture or subluxation. Joseph Carter MD on June 28, 2017 at 20:36 Board Certified Radiologist. This report was verified electronically.
[2017-06-28 21:13] LABS: ALT (GPT) 33 U/L (10-53)
[2017-06-28 21:17] LABS: ALKALINE PHOSPHATASE 79 U/L (45-117); CREATINE KINASE 107 U/L (26-192); TOTAL BILIRUBIN ADULT 0.4 MG/DL (0.2-1.0)
[2017-06-28 21:20] LABS: ANION GAP 9 MEQ/L (5-15); AST (GOT) 30 U/L (15-37); BICARBONATE 21.4 MEQ/L (21.0-32.0); BLOOD UREA NITROGEN 9 MG/DL (7-18); CHLORIDE 107 MEQ/L (98-107); GLOMERULAR FILTRATION RATE 66 ML/MIN (>89); SODIUM (NA) 137 MEQ/L (136-145)
[2017-06-28 22:00] VITALS: BP 135/77; PULSE 80; RESP 16; O2SAT 99
--- NOTE | 2017-06-28 22:01 | RADRPT ---
EXAM DATE/TIME: 06/28/2017 21:34 [facility] COMPARISON: CT BRAIN W/O CONTRAST, April 25, 2017, 10:45. INDICATIONS : Patient complains of headache., fell hit head. RADIATION DOSE: 69.15 CTDIvol (mGy) MEDICAL HISTORY : Seizures. Hypertension. Chronic obstructive pulmonary disease. breast cancer, ovarian cancer SURGICAL HISTORY : Appendectomy. Cholecystectomy. ENCOUNTER: Initial ACUITY: 1 day PAIN SCALE: 4/10 LOCATION: cranial TECHNIQUE: Multiple contiguous axial images were obtained of the head. Using automated exposure control and adj ustment of the mA and/or kV according to patient size, radiation dose was kept as low as reasonably a chievable to obtain optimal diagnostic quality images. DICOM format image data is available electro nically for review and comparison. FINDINGS: CEREBRUM: Mild cerebral atrophy is noted. No evidence of midline shift, mass lesion, hemorrhage or acute infar ction. No extra-axial fluid collections are seen. Mild periventricular and subcortical white matter small vessel ischemic changes are noted bilaterally. POSTERIOR FOSSA: The cerebellum and brainstem are intact. The 4th ventricle is midline. The cerebellopontine angle i s unremarkable. EXTRACRANIAL: The visualized portion of the orbits is intact. SKULL: The calvaria is intact. No evidence of skull fracture. CONCLUSION: 1. Mild cerebral atrophy. 2. Mild periventricular and subcortical white matter small vessel ischemic changes bilaterally. 3. No acute infarct, acute hemorrhage, mass effect or extra-axial fluid collections. Joseph Carter MD on June 28, 2017 at 21:56 Board Certified Radiologist. This report was verified electronically.
--- NOTE | 2017-06-28 22:07 | RADRPT ---
EXAM DATE/TIME: 06/28/2017 21:38 [facility] COMPARISON: CT ABDOMEN & PELVIS W CONTRAST, April 25, 2017, 10:50. INDICATIONS : Patient complains of abdominal pain. IV CONTRAST: 70 cc Omnipaque 350 (iohexol) IV ORAL CONTRAST: No oral contrast ingested. RADIATION DOSE: 6.64 CTDIvol (mGy) MEDICAL HISTORY : Seizures. Hypertension. Chronic obstructive pulmonary disease. ovarian cancer, breast cancer SURGICAL HISTORY : Appendectomy. Cholecystectomy. ENCOUNTER: Initial ACUITY: 1 day PAIN SCALE: 5/10 LOCATION: lower quadrant TECHNIQUE: Volumetric scanning of the abdomen and pelvis was performed. Using automated exposure control and ad justment of the mA and/or kV according to patient size, radiation dose was kept as low as reasonably achievable to obtain optimal diagnostic quality images. DICOM format image data is available electro nically for review and comparison. FINDINGS: LOWER LUNGS: The visualized lower lungs are clear. LIVER: There is mild persistent prominence of the intrahepatic and extrahepatic biliary system suggestive of possible mild chronic biliary obstruction. Clinical correlation is recommended. No focal hepatic mas s is noted. The patient is status post cholecystectomy. SPLEEN: Normal size without lesion. PANCREAS: Within normal limits. KIDNEYS: Normal in size and shape. There is no mass, stone or hydronephrosis. ADRENAL GLANDS: Within normal limits. VASCULAR: There is no aortic aneurysm. BOWEL/MESENTERY: There is persistent diffuse concentric thickening of the wall of the distal esophagus. Postsurgical c hanges are again noted in the region of the stomach. Postsurgical changes are also noted within the l eft abdomen in the region of the small intestine. No bowel obstruction or ileus is noted. ABDOMINAL WALL: Within normal limits. RETROPERITONEUM: There is no lymphadenopathy. BLADDER: No wall thickening or mass. REPRODUCTIVE: Within normal limits. INGUINAL: There is no lymphadenopathy or hernia. MUSCULOSKELETAL: Lumbar fusion hardware is stable. CONCLUSION: 1. Persistent intrahepatic and extrahepatic biliary ductal location. Correlation with alkaline phosph atase and bilirubin levels is suggested to rule out biliary obstruction. 2. Diffuse thickening involving the wall of the distal esophagus which is stable. Joseph Carter MD on June 28, 2017 at 22:00 Board Certified Radiologist. This report was verified electronically.
[2017-06-28] MEDS ORDERED: NALOXONE HCL 0.4 MG/ML AMP IV PUSH PRN (23:15)
--- NOTE | 2017-06-28 23:53 | HHI.HP ---
HPI Service [facility] Primary Care Physician [facility] Admission Diagnosis diarrhea, generalized weakness, frequent falls Diagnoses: Travel History International Travel<30 Days: No Contact w/Intl Traveler <30 Da: No Traveled to Known Affected Are: No History of Present Illness History from patient, ER PA communication, and review of medical records. Patient is known to me from her previous hospitalization. Patient was admitted to our service from for about 1 week duration this month to medical service and was discharged on Sunday, June 25, 2017. Her medical records were not malnourished and does it will not show up on this visit number. However under her name search, previous visit will be available. Patient was managed at that time for C. difficile colitis which was the second episode. She had previous episode in May 2017 as well. Patient was treated with IV Flagyl and was discharged home on Flagyl. Patient reports that over the weekend, she was feeling weaker and weaker and still felt very sick. She reports she was having diarrhea still. She also fell down several times and hit her head against the floor. She then went to the OR clinic this morning as part of her follow-up and the doctor and staff members there were quite mad at her because they strongly believe that she belongs in the hospital. She stated that they called the ambulance for her to come to hospital. She reports that the caser shoe parts and the doctors at the OR also strongly started to believe that she is not safe at home alone because of her frequent falls and frequent hospitalizations. She is now agreeable to their assessment as well and is considering [facility] placement. Patient reports that she has been having diarrhea for about 4 times a day over the weekend. It was yellow color watery. No melena or hematochezia. Still has foul-smelling odor. Denies any urinary symptoms such as burning/pain on urination/. However reports of frequent urination and feeling of inability to empty the bladder with dribbling sensation. She reports her axillary temperature was 99 at the OR clinic today. Patient does report of continued abdominal pain which is vague and dull and mostly located at left lower quadrant area. Review of Systems Except as stated in HPI: all other systems reviewed are Neg Past Family Social History Past Medical History COPD Seizures C. Difficile May 2017 Right leg DVT a couple of years ago - on coumadin x 6 months Ovarian, breast, and thyroid CA - has had chemo and radiation for breast CA - 5 years ago TBI s/p fall 4 - 5 months ago Denies hypertension, diabetes, CAD, atrial fibrillation, liver problems, kidney problems, PE, CVA, or seizures . Past Surgical History Back surgery - metal rods and plates Thyroidectomy Right breast lumpectomy Right Oophorectomy Partial Gastrectomy Right hip replacement Cholecystectomy Allergies: Coded Allergies: Phenothiazines (Unverified Allergy, Severe, RASH, 05/25/17) trimethobenzamide (Unverified Allergy, Severe, TETANY, 05/25/17) prochlorperazine (Unverified Adverse Reaction, Severe, Nausea/Vomiting, ) *MDRO Multi-Drug Resistant Organism (Verified Adverse Reaction, Unknown, ) 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/19/2016 Family History Sister with bladder CA Daughter with brain aneurysm . 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 Physical Exam Vital Signs Vital Signs Date Time Temp Pulse Resp B/P (MAP) Pulse Ox O2 Delivery O2 Flow Rate FiO2 06/28/17 20:00 68 18 160/85 (110) 99 Room Air 06/28/17 18:55 98.1 71 18 115/85 (95) 99 Room Air 06/28/17 17:40 98.0 98 16 111/67 (82) 98 Physical Exam GENERAL: This is a well-nourished, well-developed patient, in no apparent distress. SKIN: No rashes, ecchymoses or lesions. Cool and dry. HEAD: Atraumatic. Normocephalic. No temporal or scalp tenderness. EYES: No scleral icterus. No injection or drainage. ENT: Nose without bleeding, purulent drainage or septal hematoma. Airway patent. NECK: Trachea midline. No JVD Supple, nontender, no meningeal signs. CARDIOVASCULAR: Regular rate and rhythm without murmurs, gallops, or rubs. RESPIRATORY: Clear to auscultation. Breath sounds equal bilaterally. No wheezes , rales, or rhonchi. GASTROINTESTINAL: Abdomen soft, non-tender, nondistended.No guarding. MUSCULOSKELETAL: Extremities without clubbing, cyanosis, or edema. . No calf tenderness. NEUROLOGICAL: Awake and alert. Motor and sensory grossly within normal limits. Normal speech. Laboratory Laboratory Tests Test 06/28/17 19:25 06/28/17 19:40 Urine Color LIGHT-YELLOW Urine Turbidity CLEAR Urine pH 6.0 Urine Specific [place] 1.004 Urine Protein NEG Urine Glucose (UA) NEG Urine Ketones NEG Urine Occult Blood NEG Urine Nitrite NEG Urine Bilirubin NEG Urine Urobilinogen LESS THAN 2.0 Urine Leukocyte Esterase NEG Urine RBC LESS THAN 1 Urine WBC 2 Urine Squamous Epithelial Cells <1 Urine Bacteria RARE Microscopic Urinalysis Comment CULT NOT INDICATED White Blood Count 8.1 Red Blood Count 2.45 Hemoglobin 8.0 Hematocrit 23.6 Mean Corpuscular Volume 96.4 Mean Corpuscular Hemoglobin 32.6 Mean Corpuscular Hemoglobin Concent 33.8 Red Cell Distribution Width 17.0 Platelet Count 295 Mean Platelet Volume 8.9 Neutrophils (%) (Auto) 54.4 Lymphocytes (%) (Auto) 39.2 Monocytes (%) (Auto) 3.9 Eosinophils (%) (Auto) 1.2 Basophils (%) (Auto) 1.3 Neutrophils # (Auto) 4.4 Lymphocytes # (Auto) 3.2 Monocytes # (Auto) 0.3 Eosinophils # (Auto) 0.1 Basophils # (Auto) 0.1 CBC Comment DIFF FINAL Differential Comment Blood Urea Nitrogen 9 Creatinine 0.86 Random Glucose 70 Total Protein 7.6 Albumin 3.8 Calcium Level 9.0 Alkaline Phosphatase 79 Aspartate Amino Transf (AST/SGOT) 30 Alanine Aminotransferase (ALT/SGPT) 33 Total Bilirubin 0.4 Sodium Level 137 Potassium Level 5.0 Chloride Level 107 Carbon Dioxide Level 21.4 Anion Gap 9 Estimat Glomerular Filtration Rate 66 Lactic Acid Level 1.2 Total Creatine Kinase 107 Troponin I LESS THAN 0.02 Lipase 351 Date/Time Source Procedure Growth Status 06/28/17 19:40 Blood Peripheral Aerobic Blood Culture Pending Received 06/28/17 19:40 Blood Peripheral Anaerobic Blood Culture Pending Received Result Diagram: 06/28/17193906/28/171939 Imaging Last 48 hours Impressions Abdomen/Pelvis CT 06/28/171901 Signed Impressions: Service Date/Time: Wednesday, June 28, 2017 21:38 - CONCLUSION: 1. Persistent intrahepatic and extrahepatic biliary ductal location. Correlation with alkaline phosphatase and bilirubin levels is suggested to rule out biliary obstruction. 2. Diffuse thickening involving the wall of the distal esophagus which is stable. Joseph Carter MD Lumbar Spine X-Ray 06/28/17 0000 Signed Impressions: Service Date/Time: Wednesday, June 28, 2017 20:16 - CONCLUSION: 1. Mild chronic compression deformity involving T12. 2. Stable posterior fusion hardware from L2 through L4. 3. No acute fracture or subluxation. Joseph Carter MD Head CT 06/28/17 0000 Signed Impressions: Service Date/Time: Wednesday, June 28, 2017 21:34 - CONCLUSION: 1. Mild cerebral atrophy. 2. Mild periventricular and subcortical white matter small vessel ischemic changes bilaterally. 3. No acute infarct, acute hemorrhage, mass effect or extra-axial fluid collections. MD Rob Reynoldsi VTE Risk Assessment Caprini VTE Risk Assessment: Mod/High Risk (score >= 2) Caprini Risk Assessment Model Point Value = 1 Point Value = 2 Point Value = 3 Point Value = 5 Age 41-60 Minor surgery BMI > 25 kg/m2 Swollen legs Varicose veins or History of unexplained or recurrent spontaneous Oral contraceptives or hormone replacement Sepsis (< 1 month) Serious lung disease, including pneumonia (< 1 month) Abnormal pulmonary function Acute myocardial infarction Congestive heart failure (< 1 month) History of inflammatory bowel disease Medical patient at bed rest Age 61-74 Arthroscopic surgery Major open surgery (> 45 min) Laparoscopic surgery (> 45 min) Malignancy Confined to bed (> 72 hours) Immobilizing plaster cast Central venous access Age >= 75 History of VTE Family history of VTE Factor V Leiden Prothrombin [id number] Lupus anticoagulant Anticardiolipin antibodies Elevated serum homocysteine Heparin-induced thrombocytopenia Other congenital or acquired thrombophilia Stroke (< 1 month) Elective arthroplasty Hip, pelvis, or leg fracture Acute spinal cord injury (< 1 month) Prophylaxis Regimen Total Risk Factor Score Risk Level Prophylaxis Regimen 0-1 Low Early ambulation 2 Moderate Order ONE of the following: *Sequential Compression Device (SCD) *Heparin 5000 units SQ BID 3-4 Higher Order ONE of the following medications: *Heparin 5000 units SQ TID *Enoxaparin/Lovenox 40 mg SQ daily (WT < 150 kg, CrCl > 30 mL/min) *Enoxaparin/Lovenox 30 mg SQ daily (WT < 150 kg, CrCl > 10-29 mL/min) *Enoxaparin/Lovenox 30 mg SQ BID (WT < 150 kg, CrCl > 30 mL/min) AND/OR *Sequential Compression Device (SCD) 5 or more Highest Order ONE of the following medications: *Heparin 5000 units SQ TID (Preferred with Epidurals) *Enoxaparin/Lovenox 40 mg SQ daily (WT < 150 kg, CrCl > 30 mL/min) *Enoxaparin/Lovenox 30 mg SQ daily (WT < 150 kg, CrCl > 10-29 mL/min) *Enoxaparin/Lovenox 30 mg SQ BID (WT < 150 kg, CrCl > 30 mL/min) AND *Sequential Compression Device (SCD) Assessment and Plan Assessment and Plan Impression: 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 Generalized weakness/frequent falls- from GI loss, general deconditioning from frequent hospitalizations. Anemia stable. Plan: We'll start patient on IV Flagyl, with by mouth Vanco FOR C. difficile treatment. Stool for C. difficile. Would consult infectious disease specialist since this is recurrent C. difficile in an elderly patient who is quite debilitated from the illness. PT consult. Case management consult for placement to [facility]. Fall precautions. Resume home meds. DVT prophylaxis- with lovenox . Discussed Condition With Patient, ER PA, patient's nurse Physician Certification 2 Midnight Certification Type: Admission for Inpatient Services Order for Inpatient Services The services are ordered in accordance with Medicare regulations or non- Medicare payer requirements, as applicable. In the case of services not specified as inpatient-only, they are appropriately provided as inpatient services in accordance with the 2-midnight benchmark. Estimated LOS (days): 2 days is the estimated time the patient will need to remain in the hospital, assuming treatment plan goals are met and no additional complications. Post-Hospital Plan: Not yet determined Sangeeta Taylor MD Jun 28, 2017 23:53
[2017-06-29] MEDS ORDERED: VANCOMYCIN 500 MG VIAL (FOR ORAL USE ONLY) PO ONE (00:45)
[2017-06-29] MEDS: metroNIDAZOLE 500 MG INJ 100 ML IV SCH ×4 (01:42→21:13)
[2017-06-29] MEDS: MORPHINE SULFATE 4 MG/ML INJ IV PUSH PRN ×3 (01:42→12:47)
[2017-06-29 03:43] VITALS: PULSE 83
[2017-06-29 04:00] VITALS: BP 140/8; PULSE 84; RESP 20; TEMP 98.3; O2SAT 98
[2017-06-29] MEDS: LEVOTHYROXINE SODIUM 150 MCG TAB PO SCH (05:24)
[2017-06-29] MEDS: SODIUM CHLORIDE 0.9% FLUSH 10 ML FLUSH IV FLUSH SCH ×2 (09:00→21:08)
[2017-06-29] MEDS: MORPHINE SULFATE 30 MG CONTROLLED RELEASE TAB PO SCH ×2 (09:36→21:08)
[2017-06-29] MEDS: VANCOMYCIN 500 MG VIAL (FOR ORAL USE ONLY) PO SCH ×4 (09:36→21:08)
[2017-06-29] MEDS: THIAMINE HCL 100 MG TAB PO SCH (09:37)
[2017-06-29] MEDS: ENOXAPARIN SODIUM 40 MG/0.4 ML SYRINGE SQ SCH (09:51)
[2017-06-29 10:16] LABS: BICARBONATE 21.2 MEQ/L (21.0-32.0); POTASSIUM 5.4 MEQ/L (3.5-5.1)
--- NOTE | 2017-06-29 10:42 | HHI.PR ---
Subjective Remarks Patient in bed, says she still has diffuse abdominal pain. No nausea or vomiting. Had diarrhea last night. No fever or chills. Wants regular diet. Objective Vitals Vital Signs Date Time Temp Pulse Resp B/P (MAP) Pulse Ox O2 Delivery O2 Flow Rate FiO2 06/29/17 04:00 98.3 84 20 140/8 (52) 98 06/29/17 03:43 83 06/29/17 00:09 06/28/17 22:00 80 16 135/77 (96) 99 06/28/17 20:00 68 18 160/85 (110) 99 Room Air 06/28/17 18:55 98.1 71 18 115/85 (95) 99 Room Air 06/28/17 17:40 98.0 98 16 111/67 (82) 98 I/O 06/28/17 06/28/17 06/28/17 06/29/17 06/29/17 06/29/17 07:00 15:00 23:00 07:00 15:00 23:00 Intake Total 100 ml 1000 ml Balance 100 ml 1000 ml Intake IV Total 100 ml 1000 ml Result Diagram: 06/28/17193906/29/17 0805 Imaging Last Impressions Abdomen/Pelvis CT 06/28/17 190 Signed Impressions: Service Date/Time: Wednesday, June 28, 2017 21:38 - CONCLUSION: 1. Persistent intrahepatic and extrahepatic biliary ductal location. Correlation with alkaline phosphatase and bilirubin levels is suggested to rule out biliary obstruction. 2. Diffuse thickening involving the wall of the distal esophagus which is stable. Joseph Carter MD Lumbar Spine X-Ray 06/28/17 0000 Signed Impressions: Service Date/Time: Wednesday, June 28, 2017 20:16 - CONCLUSION: 1. Mild chronic compression deformity involving T12. 2. Stable posterior fusion hardware from L2 through L4. 3. No acute fracture or subluxation. Joseph Carter MD Head CT 06/28/17 0000 Signed Impressions: Service Date/Time: Wednesday, June 28, 2017 21:34 - CONCLUSION: 1. Mild cerebral atrophy. 2. Mild periventricular and subcortical white matter small vessel ischemic changes bilaterally. 3. No acute infarct, acute hemorrhage, mass effect or extra-axial fluid collections. Joseph Carter MD Objective Remarks GENERAL: This is a well-nourished, well-developed patient, in no apparent distress. CARDIOVASCULAR: Regular rate and rhythm without murmurs, gallops, or rubs. RESPIRATORY: Clear to auscultation. Breath sounds equal bilaterally. No wheezes , rales, or rhonchi. GASTROINTESTINAL: Abdomen soft, non-tender, nondistended.No guarding. MUSCULOSKELETAL: Extremities without clubbing, cyanosis, or edema. . No calf tenderness. NEUROLOGICAL: Awake and alert. Motor and sensory grossly within normal limits. Normal speech. 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 Generalized weakness/frequent falls- from GI loss, general deconditioning from frequent hospitalizations. Anemia - stable. Continue IV Flagyl, with by mouth Vanco FOR C. difficile treatment. Stool for C. difficile. Would consult infectious disease specialist since this is recurrent C. difficile in an elderly patient who is quite debilitated from the illness. PT consult. Case management consult for placement to [facility]. Fall precautions. Resume home meds. DVT prophylaxis- with lovenox Discussed Condition With Patient, nurse Vickie Thurman MD Jun 29, 2017 10:42
--- NOTE | 2017-06-29 11:05 | PD.CONS ---
History of Present Illness Service infectious disease Consult Requested By Dr Fredy Taylor Reason for Consult Evaluate patient with C. difficile colitis Primary Care Physician [facility] Diagnoses: History of Present Illness Patient seen and examined. Records reviewed. Patient is a 67-year-old female, presented to the hospital, for nausea and vomiting, and diarrhea. Patient is not a very good historian. She was recently admitted here at [facility] and was diagnosed to have C. difficile colitis. She was discharged June 25. When I reviewed the records, she was not really having a lot of bowel movements recorded. Patient stated however that during that hospitalization, her by mouth intake was very limited. When she went home, she started eating, but she said that she would always vomit. She also started having more episodes of diarrhea, and claims that it was sometimes go up to 20 episodes per day and is very liquidy. She felt chilly , but did not take her temperature. She had some cramping. She said that she only took 1 more pill of Flagyl when she was discharged, and was told that she was finished with her C. difficile treatment. Patient stated she had an episode of C. difficile colitis when she was in the rehabilitation facility, but could not really tell me when that was. She went to see her primary care physician at the OR clinic, and she was told to go to the hospital for further evaluation and treatment. Patient since admission has not had any bowel movement. He also has not vomited. Patient stated that she hasn't really had any good food since she has been in the hospital. Her WBC is normal. She is not febrile. Her BUN/ creatinine is normal, and she is not acidotic. Infectious disease consultation has been requested to evaluate the patient. Review of Systems Constitutional: COMPLAINS OF: Chills, Change in appetite, DENIES: Fever, Night Sweats Eyes: DENIES: Eye pain Ears, nose, mouth, throat: DENIES: Nasal discharge, Oral lesions, Throat pain, Ear Pain, Running Nose Respiratory: DENIES: Cough, Shortness of breath Cardiovascular: DENIES: Chest pain, Palpitations, Dyspnea on Exertion, Lower Extremity Edema Gastrointestinal: COMPLAINS OF: Abdominal pain, Diarrhea, Nausea, Vomiting, DENIES: Difficulty Swallowing Genitourinary: COMPLAINS OF: Urinary frequency Musculoskeletal: DENIES: Joint pain, Joint Swelling Integumentary: DENIES: Rash Neurologic: DENIES: Headache Psychiatric: DENIES: Hallucinations Past Family Social History Allergies: Coded Allergies: Phenothiazines (Unverified Allergy, Severe, RASH, 05/25/17) trimethobenzamide (Unverified Allergy, Severe, TETANY, 05/25/17) prochlorperazine (Unverified Adverse Reaction, Severe, Nausea/Vomiting, ) Past Medical History COPD Seizures C. Difficile May 2017 Right leg DVT a couple of years ago - on coumadin x 6 months Ovarian, breast, and thyroid CA - has had chemo and radiation for breast CA - 5 years ago TBI s/p fall 4 - 5 months ago Past Surgical History Back surgery - metal rods and plates Thyroidectomy Right breast lumpectomy Right Oophorectomy Partial Gastrectomy Right hip replacement Cholecystectomy Active Ordered Medications Lovenox Synthroid Flagyl Morphine Thiamine Vancomycin oral Family History Sister with bladder CA Daughter with brain aneurysm Social History Lives alone Tobacco: smokes 6 per day Alcohol: denies Illicit Drugs: "I've been known to smoke a joint" once in a while; denies IV drugs 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 SKIN: Warm and dry. No generalized rash, no ecchymoses and no evidence of embolic lesions. HEAD: Normocephalic. No temporal wasting, or tenderness. EYES: [place] conjunctiva. No petechia or hemorrhage. Pupils equal, round and reactive to light. Extraocular movements full and intact. No scleral icterus. No injection or drainage. EARS, NOSE AND THROAT: Nose without bleeding or purulent nasal discharge. No sinus tenderness. Mucous membranes pink and moist. No oral lesions noted. No exudate. No oral thrush. NECK: Trachea midline. Supple and not tender, no meningeal signs CARDIOVASCULAR: Regular rate and rhythm. No murmurs, rubs or gallops heard RESPIRATORY: Clear to auscultation. Breath sounds equal bilaterally. No rales , wheezing or rhonchi ABDOMEN: Soft, nondistended, bowel sounds present and normoactive, mild diffuse tenderness. No guarding. No rebound. No organomegaly. Has multiple scars compatible with surgical history. EXTREMITIES: No clubbing, cyanosis, or edema. No joint effusion, has good ROM. No calf tenderness. Well perfused and warm. NEUROLOGICAL: Awake and alert. Cranial nerves grossly intact. Motor grossly within normal limits. PSYCHIATRIC: Normal affect, calm and cooperative. LINE: No evidence of infection Laboratory Laboratory Tests Test 06/28/17 19:25 06/28/17 19:40 06/29/17 08:05 Urine Color LIGHT-YELLOW Urine Turbidity CLEAR Urine pH 6.0 Urine Specific [place] 1.004 Urine Protein NEG Urine Glucose (UA) NEG Urine Ketones NEG Urine Occult Blood NEG Urine Nitrite NEG Urine Bilirubin NEG Urine Urobilinogen LESS THAN 2.0 Urine Leukocyte Esterase NEG Urine RBC LESS THAN 1 Urine WBC 2 Urine Squamous Epithelial Cells <1 Urine Bacteria RARE Microscopic Urinalysis Comment CULT NOT INDICATED White Blood Count 8.1 Red Blood Count 2.45 Hemoglobin 8.0 Hematocrit 23.6 Mean Corpuscular Volume 96.4 Mean Corpuscular Hemoglobin 32.6 Mean Corpuscular Hemoglobin Concent 33.8 Red Cell Distribution Width 17.0 Platelet Count 295 Mean Platelet Volume 8.9 Neutrophils (%) (Auto) 54.4 Lymphocytes (%) (Auto) 39.2 Monocytes (%) (Auto) 3.9 Eosinophils (%) (Auto) 1.2 Basophils (%) (Auto) 1.3 Neutrophils # (Auto) 4.4 Lymphocytes # (Auto) 3.2 Monocytes # (Auto) 0.3 Eosinophils # (Auto) 0.1 Basophils # (Auto) 0.1 CBC Comment DIFF FINAL Differential Comment Blood Urea Nitrogen 9 9 Creatinine 0.86 0.79 Random Glucose 70 68 Total Protein 7.6 Albumin 3.8 Calcium Level 9.0 8.1 Alkaline Phosphatase 79 Aspartate Amino Transf (AST/SGOT) 30 Alanine Aminotransferase (ALT/SGPT) 33 Total Bilirubin 0.4 Sodium Level 137 138 Potassium Level 5.0 5.4 Chloride Level 107 108 Carbon Dioxide Level 21.4 21.2 Anion Gap 9 9 Estimat Glomerular Filtration Rate 66 73 Lactic Acid Level 1.2 Total Creatine Kinase 107 Troponin I LESS THAN 0.02 Lipase 351 Date/Time Source Procedure Growth Status 06/28/17 19:40 Blood Peripheral Aerobic Blood Culture Pending Received 06/28/17 19:40 Blood Peripheral Anaerobic Blood Culture Pending Received Result Diagram: 06/28/17 1940 06/29/17 0805 Imaging RADIOLOGY STUDIES/FILMS REVIEWED Abdomen/Pelvis CT 06/28/17 1902 Signed Impressions: Service Date/Time: Wednesday, June 28, 2017 21:38 - CONCLUSION: 1. Persistent intrahepatic and extrahepatic biliary ductal location. Correlation with alkaline phosphatase and bilirubin levels is suggested to rule out biliary obstruction. 2. Diffuse thickening involving the wall of the distal esophagus which is stable. Joseph Carter MD Lumbar Spine X-Ray 06/28/17 0000 Signed Impressions: Service Date/Time: Wednesday, June 28, 2017 20:16 - CONCLUSION: 1. Mild chronic compression deformity involving T12. 2. Stable posterior fusion hardware from L2 through L4. 3. No acute fracture or subluxation. Joseph Carter MD Head CT 06/28/17 0000 Signed Impressions: Service Date/Time: Wednesday, June 28, 2017 21:34 - CONCLUSION: 1. Mild cerebral atrophy. 2. Mild periventricular and subcortical white matter small vessel ischemic changes bilaterally. 3. No acute infarct, acute hemorrhage, mass effect or extra-axial fluid collections. Joseph Carter MD Assessment and Plan Assessment and Plan IMPRESSION C difficile colitis - states she has had N/V and diarrhea, but her labs does not show dehydration or acidosis - also has not had any N/V/D since admission, possibly could be due to no oral intake - no fever, WBC normal - CT A/P no evidence of bowel wall thickening C/O dysuria and urgency, but UA normal Hx multiple CA - breast, ovarian and thyroid Hx hypothyroidism, on replacement, ?status - last TSH March 2017 still very high RECOMMENDATION Continue IV Flagyl and po Vanco Monitor diarrhea and if she develops a lot, will try Asacol, right now she has not had any BM Add lactinex Will review last admission if she completed her course of C diff Rx Monitor progress I will follow along with you Thank you for this consultation Asha Mclean MD Jun 29, 2017 11:05
--- NOTE | 2017-06-29 14:21 | EKG ---
Date Performed: 06/28/2017 Time Performed: 19:20:16 PTAGE: 67 years EKG: Sinus rhythm LOW QRS VOLTAGE IN PRECORDIAL LEADS BORDERLINE ECG NO PREVIOUS TRACING DOCTOR: Harrison Raymond Interpretating Date/Time 06/29/2017 14:14:39
[2017-06-29 17:00] VITALS: PULSE 63
[2017-06-29] MEDS: SODIUM CHLOR 0.9% 1000 ML INJ 1,000 ML IV SCH ×2 (18:40→23:08)
[2017-06-29 20:20] VITALS: BP 110/70; PULSE 69; RESP 18; TEMP 98; O2SAT 99
[2017-06-29 21:00] VITALS: BP 110/68; PULSE 60; RESP 17; TEMP 98; O2SAT 100
[2017-06-29 22:00] VITALS: PULSE 69
[2017-06-29] MEDS ORDERED: TEMAZEPAM 15 MG CAP PO ONE (22:00)
[2017-06-30] VITALS (8 sets, daily range): BP systolic 100–115; BP diastolic 56–75; PULSE 62–74; RESP 17–19; TEMP 97.3–98.4; O2SAT 98–100
[2017-06-30] MEDS: MORPHINE SULFATE 4 MG/ML INJ IV PUSH PRN ×6 (00:34→23:32)
[2017-06-30] MEDS: metroNIDAZOLE 500 MG INJ 100 ML IV SCH ×3 (00:36→13:56)
[2017-06-30] MEDS: LEVOTHYROXINE SODIUM 150 MCG TAB PO SCH (05:16)
[2017-06-30] MEDS: SODIUM CHLOR 0.9% 1000 ML INJ 1,000 ML IV SCH ×2 (08:45→23:33)
[2017-06-30] MEDS: VANCOMYCIN 500 MG VIAL (FOR ORAL USE ONLY) PO SCH ×2 (08:45→13:56)
[2017-06-30] MEDS: THIAMINE HCL 100 MG TAB PO SCH (08:45)
[2017-06-30] MEDS: ENOXAPARIN SODIUM 40 MG/0.4 ML SYRINGE SQ SCH (08:46)
[2017-06-30] MEDS: MORPHINE SULFATE 30 MG CONTROLLED RELEASE TAB PO SCH ×2 (08:46→19:58)
[2017-06-30] MEDS: SODIUM CHLORIDE 0.9% FLUSH 10 ML FLUSH IV FLUSH SCH ×2 (08:54→19:58)
--- NOTE | 2017-06-30 11:44 | HHI.PR ---
Subjective Remarks ays she feesl very weak. Feels nauseated, say she is not eating much. No v/d/ c. Denies fever, says she has chills. Has diffuse abdominal pain, did not have a BM. Patient says she had diarrhea at home, however here she did not have any BM. VSS , labs normal. Objective Vitals Vital Signs Date Time Temp Pulse Resp B/P (MAP) Pulse Ox O2 Delivery O2 Flow Rate FiO2 06/30/17 09:09 98.4 74 18 100/56 (71) 99 06/30/17 05:00 98.0 65 19 112/75 (87) 99 06/30/17 00:00 97.9 69 18 115/70 (85) 99 06/29/17 22:00 69 06/29/17 21:00 98.0 60 17 110/68 (82) 100 06/29/17 17:00 63 I/O 06/29/17 06/29/17 06/29/17 06/30/17 06/30/17 06/30/17 07:00 15:00 23:00 07:00 15:00 23:00 Intake Total 1000 ml 2442 ml 800 ml Output Total 800 ml Balance 1000 ml 2442 ml 0 ml Intake Oral 1250 ml 800 ml IV Total 1000 ml 1192 ml Output Urine Total 800 ml # Voids 4 3 # Bowel Movements 0 0 Result Diagram: 06/28/17 19406/29/17 0805 Imaging Last Impressions Abdomen/Pelvis CT 06/28/17 1902 Signed Impressions: Service Date/Time: Wednesday, June 28, 2017 21:38 - CONCLUSION: 1. Persistent intrahepatic and extrahepatic biliary ductal location. Correlation with alkaline phosphatase and bilirubin levels is suggested to rule out biliary obstruction. 2. Diffuse thickening involving the wall of the distal esophagus which is stable. Joseph Carter MD Lumbar Spine X-Ray 06/28/17 0000 Signed Impressions: Service Date/Time: Wednesday, June 28, 2017 20:16 - CONCLUSION: 1. Mild chronic compression deformity involving T12. 2. Stable posterior fusion hardware from L2 through L4. 3. No acute fracture or subluxation. Joseph Carter MD Head CT 06/28/17 0000 Signed Impressions: Service Date/Time: Wednesday, June 28, 2017 21:34 - CONCLUSION: 1. Mild cerebral atrophy. 2. Mild periventricular and subcortical white matter small vessel ischemic changes bilaterally. 3. No acute infarct, acute hemorrhage, mass effect or extra-axial fluid collections. Joseph Carter MD Objective Remarks GENERAL: This is a well-nourished, well-developed patient, in no apparent distress. CARDIOVASCULAR: Regular rate and rhythm without murmurs, gallops, or rubs. RESPIRATORY: Clear to auscultation. Breath sounds equal bilaterally. No wheezes , rales, or rhonchi. GASTROINTESTINAL: Abdomen soft, non-tender, nondistended.No guarding. MUSCULOSKELETAL: Extremities without clubbing, cyanosis, or edema. . No calf tenderness. NEUROLOGICAL: Awake and alert. Motor and sensory grossly within normal limits. Normal speech. 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 Generalized weakness/frequent falls- from GI loss, general deconditioning from frequent hospitalizations. Anemia - stable. Positive blood Cx GPC per micro labs , awaiting report. Discused with Jurgen Mclean ID specialist will eval patient. Continue IV Flagyl, with by mouth Vanco FOR C. difficile treatment. Stool for C. difficile. Would consult infectious disease specialist since this is recurrent C. difficile in an elderly patient who is quite debilitated from the illness. PT consult. Case management consult for placement to [facility]. Fall precautions. Resume home meds. DVT prophylaxis- with lovenox Discussed Condition With Patient, nurse, Vickie Santacruz MD Jun 30, 2017 11:44
[2017-06-30] MEDS ORDERED: MORP1TAB25 PO (12:21)
[2017-06-30] MEDS ORDERED: REST15CA PO (12:21)
--- NOTE | 2017-06-30 14:09 | HHI.IDPN ---
Subjective Subjective Remarks 67 year old female admitted for N/V and diarrhea. Recently hospitalized and Dx C diff colitis, better when she was D/C, and was supposed to be on Flagyl. Patient stated she only took one more day of Flagyl after she was D/C. her Hx is very inconsistent. Since admission has not had any diarrhea. Notes po intake fair, trying to eat more, no vomiting. No fever. Some abdominal cramping. Notes reviewed Temps ok Labs ok Has one out of 2 BC with GPC Antibiotics IV Flagyl Vanco oral Past Medical History COPD Seizures C. Difficile May 2017 Right leg DVT a couple of years ago - on coumadin x 6 months Ovarian, breast, and thyroid CA - has had chemo and radiation for breast CA - 5 years ago TBI s/p fall 4 - 5 months ago Past Surgical History Back surgery - metal rods and plates Thyroidectomy Right breast lumpectomy Right Oophorectomy Partial Gastrectomy Right hip replacement Cholecystectomy Allergies: Coded Allergies: Phenothiazines (Unverified Allergy, Severe, RASH, 05/25/17) trimethobenzamide (Unverified Allergy, Severe, TETANY, 05/25/17) prochlorperazine (Unverified Adverse Reaction, Severe, Nausea/Vomiting, ) Objective . Vital Signs Date Time Temp Pulse Resp B/P (MAP) Pulse Ox O2 Delivery O2 Flow Rate FiO2 06/30/17 12:55 98.3 68 18 104/70 (81) 98 06/30/17 09:09 98.4 74 18 100/56 (71) 99 06/30/17 05:00 98.0 65 19 112/75 (87) 99 06/30/17 00:00 97.9 69 18 115/70 (85) 99 06/29/17 22:00 69 06/29/17 21:00 98.0 60 17 110/68 (82) 100 06/29/17 17:00 63 . Laboratory Tests Test 06/28/17 19:40 White Blood Count 8.1 TH/MM3 Red Blood Count 2.45 MIL/MM3 Hemoglobin 8.0 GM/DL Hematocrit 23.6 % Mean Corpuscular Volume 96.4 FL Mean Corpuscular Hemoglobin 32.6 PG Mean Corpuscular Hemoglobin Concent 33.8 % Red Cell Distribution Width 17.0 % Platelet Count 295 TH/MM3 Mean Platelet Volume 8.9 FL Neutrophils (%) (Auto) 54.4 % Lymphocytes (%) (Auto) 39.2 % Monocytes (%) (Auto) 3.9 % Eosinophils (%) (Auto) 1.2 % Basophils (%) (Auto) 1.3 % Neutrophils # (Auto) 4.4 TH/MM3 Lymphocytes # (Auto) 3.2 TH/MM3 Monocytes # (Auto) 0.3 TH/MM3 Eosinophils # (Auto) 0.1 TH/MM3 Basophils # (Auto) 0.1 TH/MM3 CBC Comment DIFF FINAL Differential Comment Laboratory Tests Test 06/28/17 19:40 06/29/17 08:05 Blood Urea Nitrogen 9 MG/DL 9 MG/DL Creatinine 0.86 MG/DL 0.79 MG/DL Random Glucose 70 MG/DL 68 MG/DL Total Protein 7.6 GM/DL Albumin 3.8 GM/DL Calcium Level 9.0 MG/DL 8.1 MG/DL Alkaline Phosphatase 79 U/L Aspartate Amino Transf (AST/SGOT) 30 U/L Alanine Aminotransferase (ALT/SGPT) 33 U/L Total Bilirubin 0.4 MG/DL Sodium Level 137 MEQ/L 138 MEQ/L Potassium Level 5.0 MEQ/L 5.4 MEQ/L Chloride Level 107 MEQ/L 108 MEQ/L Carbon Dioxide Level 21.4 MEQ/L 21.2 MEQ/L Anion Gap 9 MEQ/L 9 MEQ/L Estimat Glomerular Filtration Rate 66 ML/MIN 73 ML/MIN Lactic Acid Level 1.2 mmol/L Total Creatine Kinase 107 U/L Troponin I LESS THAN 0.02 NG/ML Lipase 351 U/L Microbiology Date/Time Source Procedure Growth Status 06/28/17 19:40 Blood Peripheral Aerobic Blood Culture - Preliminary NO GROWTH IN 2 DAYS Resulted 06/28/17 19:40 Anaerobic Blood Culture - Preliminary Staphylococcus Epidermidis Resulted 06/28/17 19:30 Blood Peripheral Aerobic Blood Culture - Preliminary NO GROWTH IN 2 DAYS Resulted 06/28/17 19:30 Blood Peripheral Anaerobic Blood Culture - Preliminary NO GROWTH IN 2 DAYS Resulted Imaging Last Impressions Abdomen/Pelvis CT 06/28/171901 Signed Impressions: Service Date/Time: Wednesday, June 28, 2017 21:38 - CONCLUSION: 1. Persistent intrahepatic and extrahepatic biliary ductal location. Correlation with alkaline phosphatase and bilirubin levels is suggested to rule out biliary obstruction. 2. Diffuse thickening involving the wall of the distal esophagus which is stable. Joseph Carter MD Lumbar Spine X-Ray 06/28/17 0000 Signed Impressions: Service Date/Time: Wednesday, June 28, 2017 20:16 - CONCLUSION: 1. Mild chronic compression deformity involving T12. 2. Stable posterior fusion hardware from L2 through L4. 3. No acute fracture or subluxation. Joseph Carter MD Head CT 06/28/17 0000 Signed Impressions: Service Date/Time: Wednesday, June 28, 2017 21:34 - CONCLUSION: 1. Mild cerebral atrophy. 2. Mild periventricular and subcortical white matter small vessel ischemic changes bilaterally. 3. No acute infarct, acute hemorrhage, mass effect or extra-axial fluid collections. Joseph Carter MD Physical Exam GENERAL: awake and alert, not in respiratory distress. SKIN: Warm and dry. No generalized rash, no ecchymoses and no evidence of embolic lesions. HEAD: Normocephalic. No temporal wasting, or tenderness. EYES: [place] conjunctiva. No petechia or hemorrhage. No scleral icterus. No injection or drainage. EARS, NOSE AND THROAT: Nose without bleeding or purulent nasal discharge. No sinus tenderness. Mucous membranes pink and moist. No oral lesions noted. No exudate. No oral thrush. NECK: Trachea midline. Supple and not tender, no meningeal signs CARDIOVASCULAR: Regular rate and rhythm. No murmurs, rubs or gallops heard RESPIRATORY: Clear to auscultation. Breath sounds equal bilaterally. No rales , wheezing or rhonchi ABDOMEN: Soft, nondistended, bowel sounds present and normoactive, mild diffuse tenderness. No guarding. No rebound. No organomegaly. Has multiple scars compatible with surgical history. EXTREMITIES: No clubbing, cyanosis, or edema. No joint effusion, has good ROM. No calf tenderness. Well perfused and warm. NEUROLOGICAL: Awake and alert. Cranial nerves grossly intact. Motor grossly within normal limits. PSYCHIATRIC: Normal affect, calm and cooperative. LINE: No evidence of infection Assessment & Plan Remarks IMPRESSION C difficile colitis - states she has had N/V and diarrhea, but her labs does not show dehydration or acidosis - also has not had any N/V/D since admission, possibly could be due to no oral intake - no fever, WBC normal - CT A/P no evidence of bowel wall thickening C/O dysuria and urgency, but UA normal Hx multiple CA - breast, ovarian and thyroid Hx hypothyroidism, on replacement, ?status - last TSH March 2017 still very high One (+) BC with GPC, ?contaminant RECOMMENDATION Change Flagyl to po Stop Vanco po Monitor diarrhea and if she develops a lot, will try Asacol, right now she has not had any BM Continue lactinex Will not start any new Abx for (+) BC. likely a contaminant Monitor progress D/W RN D/W Dr Thurman earlier today Asha Mclean MD Jun 30, 2017 14:09
[2017-06-30] MEDS ORDERED: TEMAZEPAM 15 MG CAP PO PRN (19:00)
[2017-06-30] MEDS ORDERED: ONDANSETRON HCL 4 MG/2 ML VIAL IV PUSH PRN (19:45)
[2017-06-30] MEDS: metroNIDAZOLE 500 MG TAB PO SCH (21:29)
[2017-07-01] MEDS: MORPHINE SULFATE 4 MG/ML INJ IV PUSH PRN ×3 (02:43→09:40)
[2017-07-01 06:20] VITALS: BP 108/75; PULSE 66; RESP 18; TEMP 98.6; O2SAT 99
[2017-07-01] MEDS: metroNIDAZOLE 500 MG TAB PO SCH (06:21)
[2017-07-01] MEDS: LEVOTHYROXINE SODIUM 150 MCG TAB PO SCH (06:22)
[2017-07-01] MEDS ORDERED: METR-1 PO (07:53)
--- NOTE | 2017-07-01 07:53 | HHI.DS ---
Discharge Summary Admission Date Jun 28, 2017 at 23:03 Discharge Date: Jul 01, 2017 Admitting Diagnosis diarrhea, generalized weakness, frequent falls (1) C. difficile diarrhea ICD Code: A04.7 - Enterocolitis due to Clostridium difficile (2) Nausea & vomiting ICD Code: R11.2 - Nausea with vomiting, unspecified Status: Resolved (3) Hypothyroid ICD Code: E03.9 - Hypothyroidism, unspecified Status: Chronic (4) Abdominal pain ICD Code: R10.9 - Unspecified abdominal pain Status: Resolved Procedures none Brief History - From Admission History from patient, ER PA communication, and review of medical records. Patient is known to me from her previous hospitalization. Patient was admitted to our service from for about 1 week duration this month to medical service and was discharged on Wednesday, June 25, 2017. Her medical records were not malnourished and does it will not show up on this visit number. However under her name search, previous visit will be available. Patient was managed at that time for C. difficile colitis which was the second episode. She had previous episode in May 2017 as well. Patient was treated with IV Flagyl and was discharged home on Flagyl. Patient reports that over the weekend, she was feeling weaker and weaker and still felt very sick. She reports she was having diarrhea still. She also fell down several times and hit her head against the floor. She then went to the [facility] this morning as part of her follow-up and the doctor and staff members there were quite mad at her because they strongly believe that she belongs in the hospital. She stated that they called the ambulance for her to come to hospital. She reports that the manager case management and the doctors at the [facility] also strongly started to believe that she is not safe at home alone because of her frequent falls and frequent hospitalizations. She is now agreeable to their assessment as well and is considering [facility] placement. Patient reports that she has been having diarrhea for about 4 times a day over the weekend. It was yellow color watery. No melena or hematochezia. Still has foul-smelling odor. Denies any urinary symptoms such as burning/pain on urination/. However reports of frequent urination and feeling of inability to empty the bladder with dribbling sensation. She reports her axillary temperature was 99 at the [facility] today. Patient does report of continued abdominal pain which is vague and dull and mostly located at left lower quadrant area. CBC/BMP: 06/28/17193906/29/17 0805 Significant Findings Laboratory Tests Test 06/28/17 19:25 06/28/17 19:40 06/29/17 08:05 Urine Bacteria RARE /hpf (NONE) Red Blood Count 2.45 MIL/MM3 (4.00-5.30) Hemoglobin 8.0 GM/DL (11.6-15.3) Hematocrit 23.6 % (35.0-46.0) Random Glucose 70 MG/DL (74-106) 68 MG/DL (74-106) Estimat Glomerular Filtration Rate 66 ML/MIN (>89) 73 ML/MIN (>89) Troponin I LESS THAN 0.02 NG/ML Calcium Level 8.1 MG/DL (8.5-10.1) Potassium Level 5.4 MEQ/L (3.5-5.1) Chloride Level 108 MEQ/L (98-107) Imaging Last Impressions Abdomen/Pelvis CT 06/28/17 1902 Signed Impressions: Service Date/Time: Wednesday, June 28, 2017 21:38 - CONCLUSION: 1. Persistent intrahepatic and extrahepatic biliary ductal location. Correlation with alkaline phosphatase and bilirubin levels is suggested to rule out biliary obstruction. 2. Diffuse thickening involving the wall of the distal esophagus which is stable. Joseph Carter MD Lumbar Spine X-Ray 06/28/17 0000 Signed Impressions: Service Date/Time: Wednesday, June 28, 2017 20:16 - CONCLUSION: 1. Mild chronic compression deformity involving T12. 2. Stable posterior fusion hardware from L2 through L4. 3. No acute fracture or subluxation. Joseph Carter MD Head CT 06/28/17 0000 Signed Impressions: Service Date/Time: Wednesday, June 28, 2017 21:34 - CONCLUSION: 1. Mild cerebral atrophy. 2. Mild periventricular and subcortical white matter small vessel ischemic changes bilaterally. 3. No acute infarct, acute hemorrhage, mass effect or extra-axial fluid collections. Joseph Carter MD PE at Discharge GENERAL: This is a well-nourished, well-developed patient, in no apparent distress. CARDIOVASCULAR: Regular rate and rhythm without murmurs, gallops, or rubs. RESPIRATORY: Clear to auscultation. Breath sounds equal bilaterally. No wheezes , rales, or rhonchi. GASTROINTESTINAL: Abdomen soft, non-tender, nondistended.No guarding. MUSCULOSKELETAL: Extremities without clubbing, cyanosis, or edema. . No calf tenderness. NEUROLOGICAL: Awake and alert. Motor and sensory grossly within normal limits. Normal speech. Hospital Course Patient is a 67 yo F was admitted to our service from for about 1 week duration this month to medical service and was discharged on Sunday, June 25, 2017. Her medical records were not malnourished and does it will not show up on this visit number. However under her name search, previous visit will be available. Patient was managed at that time for C. difficile colitis which was the second episode. She had previous episode in May 2017 as well. Patient was treated with IV Flagyl and was discharged home on Flagyl. 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 However did not have diarrhea during the stay. Generalized weakness/frequent falls- from GI loss, general deconditioning from frequent hospitalizations. Anemia - stable. Positive blood Cx GPC staph epi. Discussed with Dr Mclean ID specialist likely contaminant. Continue Flagyl, switch to PO, DC by mouth Vanco FOR C. difficile treatment. Stool for C. difficile. Would consult infectious disease specialist since this is recurrent C. difficile in an elderly patient who is quite debilitated from the illness. PT consult. Case management consult for placement to [facility]. Fall precautions. Resume home meds. DVT prophylaxis- with lovenox Imprpved no diarrhea, continue flagyl at CT. PT recommends SNF. DC to snf in stable condition to gf/u as OP with Pcp and consultants. Pt Condition on Discharge: Stable Discharge Disposition: Discharge to SNF Discharge Time: > 30 minutes Discharge Instructions DIET: Follow Instructions for: Heart Healthy Diet Activities you can perform: Regular-No Restrictions Follow up Referrals: PCP Follow-up - 2-3 Days New Medications: Metronidazole (Flagyl) 500 Mg Tab 500 MG PO TID for Infection for 14 Days, TAB 0 Refills Continued Medications: Ascorbic Acid (Vitamin C) 250 Mg Tab 500 MG PO for Nutritional Supplement, TAB 0 Refills Cholecalciferol (D3) 2,000 Unit Tab 2000 UNITS PO DAILY Cyanocobalamin (B-12) 1,000 Mcg Subl 1000 MCG SL DAILY for Nutritional Supplement, TAB.SL 0 Refills Docusate Sodium (Colace) 100 Mg Capsule BID Ferrous Sulfate DR (Ferrous Sulfate DR) 325 Mg Tabdr BID Levothyroxine (Synthroid) 150 Mcg Tab 150 MCG PO DAILY for Thyroid, #30 TAB 0 Refills Morphine ER (Morphine ER) 30 Mg Tab 30 MG PO Q12HR for Pain Management, #10 TAB (This prescription has been renewed) Ondansetron Odt (Zofran Odt) 4 Mg Tab 4 MG SL Q6HR PRN for Nausea/Vomiting, #12 TAB 0 Refills Temazepam (Restoril) 15 Mg Cap 15 MG PO HS PRN for INSOMNIA, #30 CAP (This prescription has been renewed) Thiamine (Vitamin B-1) 100 Mg Tab 100 MG PO DAILY for Nutritional Supplement, TAB 0 Refills Discontinued Medications: Morphine ER (Morphine ER) 30 Mg Tab 30 MG PO Q12HR for Pain Management, #20 TAB Morphine IR (Morphine IR) 15 Mg Tab 15 MG PO Q6HR PRN for PAIN GREATER THAN 5, #120 TAB Morphine IR (Morphine IR) 15 Mg Tab 15 MG PO Q6HR PRN for PAIN GREATER THAN 5, #10 TAB Temazepam (Restoril) 15 Mg Cap 15 MG PO HS PRN for INSOMNIA, #20 CAP Vickie Thurman MD Jul 01, 2017 07:53
[2017-07-01] MEDS: THIAMINE HCL 100 MG TAB PO SCH (08:47)
[2017-07-01] MEDS: MORPHINE SULFATE 30 MG CONTROLLED RELEASE TAB PO SCH (08:48)
[2017-07-01] MEDS: ENOXAPARIN SODIUM 40 MG/0.4 ML SYRINGE SQ SCH (08:49)
[2017-07-01] MEDS: SODIUM CHLORIDE 0.9% FLUSH 10 ML FLUSH IV FLUSH SCH (08:49)
[2017-07-01 08:52] VITALS: BP 126/59; PULSE 73; RESP 20; TEMP 97; O2SAT 98
[2017-07-01 09:59] VITALS: PULSE 72
[2017-07-01] MEDS: SODIUM CHLOR 0.9% 1000 ML INJ 1,000 ML IV SCH (10:50)
--- NOTE | 2017-07-01 11:12 | HHI.PR ---
Subjective Remarks In bed appears in nad. Patient had a large soft BM today, no diarrhea. No abd pain. No n/v/d/c. Eating well. Feels tired. Objective Vitals Vital Signs Date Time Temp Pulse Resp B/P (MAP) Pulse Ox O2 Delivery O2 Flow Rate FiO2 07/01/17 09:59 72 07/01/17 08:52 97.0 73 20 126/59 (81) 98 07/01/17 06:20 98.6 66 18 108/75 (86) 99 06/30/17 21:45 98.2 68 17 107/67 (80) 99 06/30/17 20:00 68 06/30/17 16:55 97.3 70 18 111/67 (82) 100 06/30/17 12:55 98.3 68 18 104/70 (81) 98 I/O 06/30/17 06/30/17 06/30/17 07/01/17 07/01/17 07/01/17 07:00 15:00 23:00 07:00 15:00 23:00 Intake Total 800 ml 1305 ml 750 ml Output Total 800 ml Balance 0 ml 1305 ml 750 ml Intake Oral 800 ml 1305 ml 750 ml Output Urine Total 800 ml # Voids 3 9 6 # Bowel Movements 0 0 3 Result Diagram: 06/28/17193906/29/17 0805 Imaging Last Impressions Abdomen/Pelvis CT 06/28/17 190 Signed Impressions: Service Date/Time: Wednesday, June 28, 2017 21:38 - CONCLUSION: 1. Persistent intrahepatic and extrahepatic biliary ductal location. Correlation with alkaline phosphatase and bilirubin levels is suggested to rule out biliary obstruction. 2. Diffuse thickening involving the wall of the distal esophagus which is stable. Joseph Carter MD Lumbar Spine X-Ray 06/28/17 0000 Signed Impressions: Service Date/Time: Wednesday, June 28, 2017 20:16 - CONCLUSION: 1. Mild chronic compression deformity involving T12. 2. Stable posterior fusion hardware from L2 through L4. 3. No acute fracture or subluxation. Joseph Carter MD Head CT 06/28/17 0000 Signed Impressions: Service Date/Time: Wednesday, June 28, 2017 21:34 - CONCLUSION: 1. Mild cerebral atrophy. 2. Mild periventricular and subcortical white matter small vessel ischemic changes bilaterally. 3. No acute infarct, acute hemorrhage, mass effect or extra-axial fluid collections. Joseph Carter MD Objective Remarks GENERAL: This is a well-nourished, well-developed patient, in no apparent distress. CARDIOVASCULAR: Regular rate and rhythm without murmurs, gallops, or rubs. RESPIRATORY: Clear to auscultation. Breath sounds equal bilaterally. No wheezes , rales, or rhonchi. GASTROINTESTINAL: Abdomen soft, non-tender, nondistended.No guarding. MUSCULOSKELETAL: Extremities without clubbing, cyanosis, or edema. . No calf tenderness. NEUROLOGICAL: Awake and alert. Motor and sensory grossly within normal limits. Normal speech. 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 However did not have diarrhea during the stay. Generalized weakness/frequent falls- from GI loss, general deconditioning from frequent hospitalizations. Anemia - stable. Positive blood Cx GPC staph epi. Discussed with Dr Mclean ID specialist likely contaminant. Continue Flagyl, switch to PO, DC by mouth Vanco FOR C. difficile treatment. Stool for C. difficile. Would consult infectious disease specialist since this is recurrent C. difficile in an elderly patient who is quite debilitated from the illness. PT consult. Case management consult for placement to [facility]. Fall precautions. Resume home meds. DVT prophylaxis- with lovenox Discussed Condition With Patient, nurse, Dr Vinay MURPHY plan : Plan to DC to snf. CM following for Dc plan. Vickie Thurman MD Jul 01, 2017 11:11
[2017-07-01 11:18] LABS: AUTOMATED NEUTROPHIL # 2.8 TH/MM3 (1.8-7.7); BASOPHIL # 0.1 TH/MM3 (0-0.2); BASOPHIL % 1.2 % (0.0-2.0); EOSINOPHIL # 0.1 TH/MM3 (0-0.4); EOSINOPHIL % 1.3 % (0.0-4.0); HEMATOCRIT 29.7 % (35.0-46.0); HEMO FLAGS DIFF FINAL; LYMPH % 31.3 % (9.0-44.0); LYMPHOCYTE # 1.4 TH/MM3 (1.0-4.8); MEAN CELL VOLUME 97.3 FL (80.0-100.0); MEAN CORPUSCULAR HEMOGLOBIN 32.7 PG (27.0-34.0); MEAN CORPUSCULAR HGB CONC 33.6 % (32.0-36.0); MONO % 5.3 % (0.0-8.0); NEUT % 60.9 % (16.0-70.0); PLATELET COUNT 200 TH/MM3 (150-450); RED BLOOD COUNT 3.06 MIL/MM3 (4.00-5.30); RED CELL DISTRIBUTION WIDTH 17.2 % (11.6-17.2); WHITE BLOOD COUNT 4.6 TH/MM3 (4.0-11.0)
[2017-07-01 11:43] LABS: BICARBONATE 20.7 MEQ/L (21.0-32.0); POTASSIUM 5.2 MEQ/L (3.5-5.1)
[2017-07-01 12:00] VITALS: BP 118/63; PULSE 69; RESP 18; TEMP 97.8; O2SAT 100
[2017-07-01 12:40] LABS: C. DIFF EPI 027 PRESUMPTIVE NEGATIVE (NEGATIVE)
== END 2017-07-01 13:27 | DRG 372 ==
LOC: NEPC 17:19 → NEDA 23:03 → N05A 06-29 00:45
PROVIDERS: ADMIT Hospitalist; ATTEND Hospitalist
DX: A04.7 Enterocolitis due to Clostridium difficile (principal); E87.1 Hypo-osmolality and hyponatremia; R56.9 Unspecified convulsions; J44.9 Chronic obstructive pulmonary disease, unspecified; Z86.718 Personal history of other venous thrombosis and embolism; Z85.3 Personal history of malignant neoplasm of breast; Z85.850 Personal history of malignant neoplasm of thyroid; Z92.21 Personal history of antineoplastic chemotherapy; Z92.3 Personal history of irradiation; Z96.641 Presence of right artificial hip joint; Z85.43 Personal history of malignant neoplasm of ovary; D64.9 Anemia, unspecified; E03.9 Hypothyroidism, unspecified; E87.6 Hypokalemia; F17.210 Nicotine dependence, cigarettes, uncomplicated; F31.9 Bipolar disorder, unspecified; K21.9 Gastro-esophageal reflux disease without esophagitis; M19.90 Unspecified osteoarthritis, unspecified site; Z79.01 Long term (current) use of anticoagulants; F41.8 Other specified anxiety disorders
CPT/HCPCS: 70450; 72100; 74177; 76937; 80048; 80053; 81001; 82550; 83605; 83690; 84484; 85025; 87040; 87186; 87205; 87493; 87506; 93005; 96365; 96366; 96375; J1650; J2270; J2405; J7030; Q9967

== ENCOUNTER 2018-07-08 23:20 | Inpatient (IN) ==
[2018-07-08] MEDS ORDERED: HYDROmorphone PF Inj 0.5 MG/0.5 ML Syringe IV.PUSH PRN (23:57)
[2018-07-09 00:26] LABS: Baso # (Auto) 0.1 th/mm3 (0.0-0.2); Baso % (Auto) 0.9 % (0.0-2.0); Eos # (Auto) 0.1 th/mm3 (0.0-0.4); Eos % (Auto) 1.1 % (0.0-4.0); Hematocrit 31.5 % (35.0-46.0); Hemoglobin 10.4 gm/dL (11.6-15.3); Lymph # (Auto) 1.8 th/mm3 (1.0-4.8); Lymph % (Auto) 26.8 % (9.0-44.0); Mean Corpuscular HGB Conc 32.9 % (32.0-36.0); Mean Corpuscular Hemoglobin 33.2 pg (27.0-34.0); Mean Corpuscular Volume 100.9 fL (80.0-100.0); Mean Platelet Volume 9.9 fL (7.0-11.0); Mono # (Auto) 0.3 th/mm3 (0.0-0.9); Mono % (Auto) 4.2 % (0.0-8.0); Neut # (Auto) 4.5 th/mm3 (1.8-7.7); Platelet Count 147 th/mm3 (150-450); Red Blood Count 3.12 mil/mm3 (4.00-5.30); Red Cell Distribution Width 16.6 % (11.6-17.2); White Blood Count 6.7 th/mm3 (4.0-11.0)
[2018-07-09 00:34] LABS: Prothrombin Time 9.9 sec (9.8-11.6)
[2018-07-09 00:54] LABS: Albumin 3.7 g/dL (3.4-5.0); Anion Gap 9 meq/L (5-15); Aspartate Aminotransferase 16 U/L (15-37); Blood Urea Nitrogen 24 mg/dL (7-18); Calcium 8.1 mg/dL (8.5-10.1); Carbon Dioxide 22.3 meq/L (21.0-32.0); Chloride 110 meq/L (98-107); Glomerular Filtration Rate 50 mL/min (>89); Glucose,Random 106 mg/dL (74-106); Sodium 141 meq/L (136-145)
[2018-07-09 00:57] LABS: Alanine Aminotransferase 17 U/L (10-53); Alkaline Phosphatase 79 U/L (45-117); Total Protein 7.2 g/dL (6.4-8.2)
--- NOTE | 2018-07-09 01:26 | XR ---
EXAM DATE: 07/09/2018 12:15 AM EDT AGE/SEX: 68 years / Female INDICATIONS: Fracture. CLINICAL DATA: This is the patient's initial encounter. Patient reports that signs and symptoms have been present for 1 day and indicates a pain score of 10/10. MEDICAL/SURGICAL HISTORY: . Seizures. Hypertension. Chronic obstructive pulmonary disease. Ovar alexandro cancer, breast cancer . Appendectomy. Cholecystectomy. Right hip. COMPARISON: No prior exams available for comparison. FINDINGS: There is an intertrochanteric left femoral neck fracture. There is a fracture at the base of the less er trochanter. The left hip joint is normally aligned. CONCLUSION: Left intertrochanteric femoral neck fracture. Electronically signed by: Tyson Rader MD 07/09/2018 1:25 AM EDT
--- NOTE | 2018-07-09 01:27 | XR ---
EXAM DATE: 07/09/2018 12:15 AM EDT AGE/SEX: 68 years / Female INDICATIONS: Fracture. CLINICAL DATA: This is the patient's initial encounter. Patient reports that signs and symptoms have been present for 1 day and indicates a pain score of 10/10. MEDICAL/SURGICAL HISTORY: . Seizures. Hypertension. Chronic obstructive pulmonary disease. Ovar alexandro cancer, breast cancer . Appendectomy. Cholecystectomy. Right hip. COMPARISON: No prior exams available for comparison. FINDINGS: There is a left intertrochanteric femoral neck fracture. There is fracturing at the base of the left lesser trochanter. Surgical hardware is seen within the proximal right femur prior fracture. Surgical hardware seen in the lower lumbar spine. There are some hypertrophic change seen adjacent to the isaiah ac crest regions. CONCLUSION: Acute left intertrochanteric femoral neck fracture. Electronically signed by: Tyson Rader MD 07/09/2018 1:26 AM EDT
[2018-07-09] MEDS ORDERED: Bupivacaine 0.25% Inj 50 ML MDV Vial NERV BLOCK ONE (01:38)
--- NOTE | 2018-07-09 01:38 | ED ---
HPI General Chief Complaint: Back Pain/Injury Stated Complaint: Hip Pain Time Seen by Provider: 07/08/18 23:46 History of Present Illness HPI Narrative: 68-year-old woman tripped and fell at home, sustaining injury to her left hip area, being unable to stand or walk on it. EMS was called and brought patient for further care. She did not strike her head, did not lose consciousness, has no other injury. She rates pain as 9 out of 10, there is no radiation of discomfort, it is very sharp and lancinating, localized to the left hip area. Related Data Allergies Allergy/AdvReac Type Severity Reaction Status Date / Time Phenothiazines Allergy Severe RASH Unverified 05/25/17 17:51 trimethobenzamide Allergy Severe TETANY Unverified 05/25/17 17:51 prochlorperazine AdvReac Severe Nausea/Vomi Unverified 05/25/17 17:51 ting PMFSH Medical History Medical History Breast cancer (Acute) DDD (degenerative disc disease) (Acute) Ovarian cancer (Acute) Thyroid cancer (Acute) Surgical History Surgical History History of spinal surgery (Acute) Social History Social History Substance History: No History of Abuse Second Hand Smoke Exposure: Yes Smoking Status: Current every day smoker Tobacco Type: Cigarettes How Often Do You Have a Drink Containing Alcohol: Never Immunization History Tetanus Immunization: >5 Years Hx Influenza Vaccine This Season: No Exam Narrative Exam Narrative: GENERAL: Elderly female, awake and oriented, evident acute distress, with foreshortening of left hip. SKIN: Focused skin assessment warm/dry. HEAD: Atraumatic. Normocephalic. EYES: Pupils equal and round. No scleral icterus. No injection or drainage. ENT: No nasal bleeding or discharge. Mucous membranes pink and moist. NECK: Trachea midline. No JVD. CARDIOVASCULAR: Regular rate and rhythm. No murmur appreciated. RESPIRATORY: No accessory muscle use. Clear to auscultation. Breath sounds equal bilaterally. GASTROINTESTINAL: Abdomen soft, non-tender, nondistended. Hepatic and splenic margins not palpable. MUSCULOSKELETAL: Unable to fully examine lower extremity on left due to pain, but there is foreshortening of left leg in relation to right. She has good movement of her lower extremity, normal capillary refill, normal sensation. Right lower extremity is uninjured. NEUROLOGICAL: Awake and alert. No obvious cranial nerve deficits. Motor grossly within normal limits. Normal speech. PSYCHIATRIC: Appropriate mood and affect; insight and judgment normal. Procedures Nerve Block Nerve Block 1: Time Out Performed: Yes Anesthetic Used: bupivacaine 0.25% Location of anesthetic used: left inguinal fascia Amount of anesthesia used (mL): 9 Nerve Blocks: femoral Procedure Successful: Yes Patient Tolerated Procedure: well Complications: none Additional Comments: patient experiencing pain afterward but general level of comfort improved. Course Initial Documented Vital Signs Pulse Rate 65 07/08/18 23:40 Respiratory Rate 18 07/08/18 23:40 Blood Pressure 140/97 H 07/08/18 23:40 Pulse Oximetry 96 07/08/18 23:40 Last Documented Vital Signs Pulse Rate 65 07/08/18 23:40 Respiratory Rate 18 07/08/18 23:46 Blood Pressure 140/97 H 07/08/18 23:46 Pulse Oximetry 96 07/08/18 23:46 Medical Decision Making MDM Narrative Medical decision making narrative: Patient has a left intertrochanteric hip fracture, will need admission for further operative repair. Patient medicated for comfort, arrangements made for admission. Medical Screen Exam Complete: Yes Emergency Medical Condition: Yes Lab Data Result diagrams: 07/09/18 00:04 07/09/18 00:04 Lab Results 07/09/18 07/09/18 07/09/18 Range/Units 00:04 00:04 00:04 WBC 6.7 (4.0-11.0) th/mm3 RBC 3.12 L (4.00-5.30) mil/mm3 Hgb 10.4 L (11.6-15.3) gm/dL Hct 31.5 L (35.0-46.0) % MCV 100.9 H (80.0-100.0) fL MCH 33.2 (27.0-34.0) pg MCHC 32.9 (32.0-36.0) % RDW 16.6 (11.6-17.2) % Plt Count 147 L (150-450) th/mm3 MPV 9.9 (7.0-11.0) fL Neut % (Auto) 67.0 (16.0-70.0) % Lymph % (Auto) 26.8 (9.0-44.0) % [place] % (Auto) 4.2 (0.0-8.0) % Eos % (Auto) 1.1 (0.0-4.0) % Baso % (Auto) 0.9 (0.0-2.0) % Neut # (Auto) 4.5 (1.8-7.7) th/mm3 Lymph # (Auto) 1.8 (1.0-4.8) th/mm3 [place] # (Auto) 0.3 (0.0-0.9) th/mm3 Eos # (Auto) 0.1 (0.0-0.4) th/mm3 Baso # (Auto) 0.1 (0.0-0.2) th/mm3 WBC Differential . Differential Comment Auto diff final PT 9.9 (9.8-11.6) sec INR 1.0 Ratio APTT 25.0 (24.3-30.1) sec Sodium 141 (136-145) meq/L Potassium 5.0 (3.5-5.1) meq/L Chloride 110 H (98-107) meq/L Carbon Dioxide 22.3 (21.0-32.0) meq/L Anion Gap 9 (5-15) meq/L BUN 24 H (7-18) mg/dL Creatinine 1.10 H (0.50-1.00) mg/dL Estimated GFR 50 L (>89) mL/min Random Glucose 106 (74-106) mg/dL Calcium 8.1 L (8.5-10.1) mg/dL Total Bilirubin 0.3 (0.2-1.0) mg/dL AST 16 (15-37) U/L ALT 17 (10-53) U/L Alkaline Phosphatase 79 (45-117) U/L Total Protein 7.2 (6.4-8.2) g/dL Albumin 3.7 (3.4-5.0) g/dL Blood Type Blood Type Recheck Antibody Screen 07/09/18 Range/Units 00:04 WBC (4.0-11.0) th/mm3 RBC (4.00-5.30) mil/mm3 Hgb (11.6-15.3) gm/dL Hct (35.0-46.0) % MCV (80.0-100.0) fL MCH (27.0-34.0) pg MCHC (32.0-36.0) % RDW (11.6-17.2) % Plt Count (150-450) th/mm3 MPV (7.0-11.0) fL Neut % (Auto) (16.0-70.0) % Lymph % (Auto) (9.0-44.0) % [place] % (Auto) (0.0-8.0) % Eos % (Auto) (0.0-4.0) % Baso % (Auto) (0.0-2.0) % Neut # (Auto) (1.8-7.7) th/mm3 Lymph # (Auto) (1.0-4.8) th/mm3 [place] # (Auto) (0.0-0.9) th/mm3 Eos # (Auto) (0.0-0.4) th/mm3 Baso # (Auto) (0.0-0.2) th/mm3 WBC Differential Differential Comment PT (9.8-11.6) sec INR Ratio APTT (24.3-30.1) sec Sodium (136-145) meq/L Potassium (3.5-5.1) meq/L Chloride (98-107) meq/L Carbon Dioxide (21.0-32.0) meq/L Anion Gap (5-15) meq/L BUN (7-18) mg/dL Creatinine (0.50-1.00) mg/dL Estimated GFR (>89) mL/min Random Glucose (74-106) mg/dL Calcium (8.5-10.1) mg/dL Total Bilirubin (0.2-1.0) mg/dL AST (15-37) U/L ALT (10-53) U/L Alkaline Phosphatase (45-117) U/L Total Protein (6.4-8.2) g/dL Albumin (3.4-5.0) g/dL Blood Type A Positive Blood Type Recheck Not needed Antibody Screen Negative Imaging Data Radiologist's impression: Hip X-Ray 07/09/18 00:15 CONCLUSION: Left intertrochanteric femoral neck fracture. Pelvis X-Ray 07/09/18 00:15 CONCLUSION: Acute left intertrochanteric femoral neck fracture. Discharge Plan Discharge Disposition Patient Disposition: 30 Still Patient Discharge Condition Condition: Stable Discharge Details Diagnosis: Closed hip fracture Physicians Team ED Provider: Ady David Primary Care Provider: [facility],Physician 's Attending Provider: Colt Rosenbaum Other Providers: Pablo Wilkins Status ED Status: Admitted Patient
[2018-07-09] MEDS ORDERED: Bisacodyl 10 MG Supp RECTAL PRN (01:56)
[2018-07-09] MEDS ORDERED: Morphine Inj 4 MG/ML Vial IV.PUSH ONE ×2 (02:50→08:30)
--- NOTE | 2018-07-09 03:41 | P.HPIM ---
History of Present Illness Service: [facility] Primary Care Physician: [facility] Chief Complaint: Left hip pain History of Present Illness: 68 y/o female with a history of COPD, seizures, ovarian/breast/thyroid cancer presented to the ED status post fall at her nursing facility. She states she was at the vending machine and when she turned around she fell over her walker. She is currently complaining of constant, pain, 10/10, pain to left hip, with radiation down her left leg, worse with movement, better with pain medication. She denies any chest pain, shortness of breath, fever, chills. Inpatient Certification: I certify that the inpatient services were ordered in accordance with Medicare regulations governing the order. This includes certification that hospital inpatient services are reasonable and necessary and in the case of services not specified as inpatient-only under 42 CFR 419.22(n), that they are appropriately provided as inpatient services in accordance to with the 2-midnight benchmark under 43 CFR 412.3(e) Estimated Total Length of Stay (Days): 3 Plans for Post Hospital Care: Not yet determined PMFSH - History History Provided By: Patient - Medical History Medical History: Medical History (Last Reviewed 07/09/18 @ 03:39 by ASYA Miller) Breast cancer COPD (chronic obstructive pulmonary disease) DDD (degenerative disc disease) DVT (deep venous thrombosis) History of gastrectomy Ovarian cancer Seizures Thyroid cancer - Surgical History Surgical History: Surgical History (Last Reviewed 07/09/18 @ 03:39 by ASYA Miller) H/O oophorectomy H/O thyroidectomy History of right hip replacement History of spinal surgery Hx of cholecystectomy - Family History Family History: Family History (Last Reviewed 07/09/18 @ 03:39 by ASYA Miller) Sister Bladder cancer - Social History I have reviewed the patient's Social History: Yes - Tobacco History Second Hand Smoke Exposure: Yes Tobacco Use In Past 30 Days: Yes Smoking Status: Current every day smoker Tobacco Type: Cigarettes - Alcohol History How Often Do You Have a Drink Containing Alcohol: Never - Substance Use History Substance History: No History of Abuse - Immunization History Tetanus Immunization: >5 Years Hx Influenza Vaccine This Season: No Medications and Allergies Active Medications: Active Medications Al Hydroxide/Mg Hydroxide (Milk Of Magnesia Liq) 30 ml PO Q12H PRN PRN Reason: Mild Constipation Bisacodyl (Dulcolax Supp) 10 mg RECTAL DAILY PRN PRN Reason: SEVERE CONSITIPATION Hydromorphone HCl (Dilaudid Pf Inj) 0.5 mg IV.PUSH Q1H PRN PRN Reason: PAIN SCALE 6 TO 10 Stop: 07/09/18 05:59 Last Admin: 07/09/18 00:33 Dose: 0.5 mg Sodium Chloride (Ns Inj) 1,000 mls @ 125 mls/hr IV.CONT .Q8H ALEJANDRA Sodium Chloride (Ns Inj) 1,000 mls @ 75 mls/hr IV.CONT .[id number] ALEJANDRA Lactulose (Lactulose Liq) 30 ml PO DAILY PRN PRN Reason: SEVERE CONSITIPATION Ondansetron HCl (Zofran Inj) 4 mg IV.PUSH Q6H PRN PRN Reason: NAUSEA OR VOMITING Sennosides (Senokot) 17.2 mg PO Q12H PRN PRN Reason: Moderate Constipation Allergies Allergy/AdvReac Type Severity Reaction Status Date / Time Phenothiazines Allergy Severe RASH Unverified 05/25/17 17:51 trimethobenzamide Allergy Severe TETANY Unverified 05/25/17 17:51 prochlorperazine AdvReac Severe Nausea/Vomi Unverified 05/25/17 17:51 ting Exam Vital signs: Vital Signs 07/08/18 23:40 07/08/18 23:46 Pulse Rate 65 Respiratory Rate 18 18 Blood Pressure 140/97 H 140/97 H Pulse Oximetry 96 96 Intake & Output 07/08/18 07/08/18 07/09/18 06:59 18:59 06:59 Weight 63.049 kg Narrative: GENERAL: This is a well-nourished, well-developed patient, in no apparent distress. CARDIOVASCULAR: Regular rate and rhythm without murmurs, gallops, or rubs. RESPIRATORY: Clear to auscultation. Breath sounds equal bilaterally. No wheezes , rales, or rhonchi. GASTROINTESTINAL: Abdomen soft, non-tender, nondistended. Normal active bowel sounds MUSCULOSKELETAL: Extremities without clubbing, cyanosis, or edema. NEURO: Alert & Oriented x4 to person, place, time, situation. Limited ROM Left lower extremity Results - Labs CBC & Chem 7: 07/09/18 00:04 07/09/18 00:04 Labs: Short CBC 07/09/18 Range/Units 00:04 WBC 6.7 (4.0-11.0) th/mm3 Hgb 10.4 L (11.6-15.3) gm/dL Hct 31.5 L (35.0-46.0) % Plt Count 147 L (150-450) th/mm3 BMP 07/09/18 00:04 Sodium 141 Potassium 5.0 Chloride 110 H Carbon Dioxide 22.3 BUN 24 H Creatinine 1.10 H Calcium 8.1 L Liver Function 07/09/18 Range/Units 00:04 Total Bilirubin 0.3 (0.2-1.0) mg/dL AST 16 (15-37) U/L ALT 17 (10-53) U/L Alkaline Phosphatase 79 (45-117) U/L Albumin 3.7 (3.4-5.0) g/dL - Imaging Impressions Hip X-Ray 07/09/18 00:15 CONCLUSION: Left intertrochanteric femoral neck fracture. Pelvis X-Ray 07/09/18 00:15 CONCLUSION: Acute left intertrochanteric femoral neck fracture. Caprini VTE Risk Assessment Caprini VTE Risk Assessment: Moderate/High Risk (score >= 2) Caprini Risk Assessment Model: Point Value = 1 Point Value = 2 Point Value = 3 Point Value = 5 Age 41-60 Minor surgery BMI > 25 kg/m2 Swollen legs Varicose veins or History of unexplained or recurrent spontaneous Oral contraceptives or hormone replacement Sepsis (< 1 month) Serious lung disease, including pneumonia (< 1 month) Abnormal pulmonary function Acute myocardial infarction Congestive heart failure (< 1 month) History of inflammatory bowel disease Medical patient at bed rest Age 61-74 Arthroscopic surgery Major open surgery (> 45 min) Laparoscopic surgery (> 45 min) Malignancy Confined to bed (> 72 hours) Immobilizing plaster cast Central venous access Age >= 75 History of VTE Family history of VTE Factor V Leiden Prothrombin [id number] Lupus anticoagulant Anticardiolipin antibodies Elevated serum homocysteine Heparin-induced thrombocytopenia Other congenital or acquired thrombophilia Stroke (< 1 month) Elective arthroplasty Hip, pelvis, or leg fracture Acute spinal cord injury (< 1 month) Prophylaxis Regimen: Total Risk Factor Score Risk Level Prophylaxis Regimen 0-1 Low Early ambulation 2 Moderate Order ONE of the following: *Sequential Compression Device (SCD) *Heparin 5000 units SQ BID 3-4 Higher Order ONE of the following medications: *Heparin 5000 units SQ TID *Enoxaparin/Lovenox 40 mg SQ daily (WT < 150 kg, CrCl > 30 mL/min) *Enoxaparin/Lovenox 30 mg SQ daily (WT < 150 kg, CrCl > 10-29 mL/min) *Enoxaparin/Lovenox 30 mg SQ BID (WT < 150 kg, CrCl > 30 mL/min) AND/OR *Sequential Compression Device (SCD) 5 or more Highest Order ONE of the following medications: *Heparin 5000 units SQ TID (Preferred with Epidurals) *Enoxaparin/Lovenox 40 mg SQ daily (WT < 150 kg, CrCl > 30 mL/min) *Enoxaparin/Lovenox 30 mg SQ daily (WT < 150 kg, CrCl > 10-29 mL/min) *Enoxaparin/Lovenox 30 mg SQ BID (WT < 150 kg, CrCl > 30 mL/min) AND *Sequential Compression Device (SCD) Assessment and Plan - Plan 68 y/o female with a history of COPD, seizures, ovarian/breast/thyroid cancer presented to the ED status post fall at her nursing facility. Left hip fracture Hip x ray reviewed and shows a Left intertrochanteric femoral neck fracture. -Consult orthopedics for evaluation -N.p.o., IVF -Pain management with IV morphine -PT eval after surgery COPD, chronic -DuoNeb's. All chronic medical conditions: Resume home meds once updated from nursing facility. DVT prophylaxis: SCDs Discussed Condition With: Patient and RN
[2018-07-09] MEDS ORDERED: Chlorhexidine Gluconate 2% 1 Pack (2 Cloths) TOPICAL ONE (04:15)
[2018-07-09] MEDS ORDERED: Sodium Chlor 0.9% Inj 500 ML IV.SIG SCH (05:00)
[2018-07-09] MEDS ORDERED: HYDROmorphone PF Inj 2 MG/ML Vial IV.PUSH PRN (05:00)
[2018-07-09] MEDS: Sod Chloride 0.9% Inj 1,000 ML IV.CONT SCH ×5 (05:03→17:23)
--- NOTE | 2018-07-09 07:38 | P.PNOP ---
Subjective Interval history: Status post fall at home. Left hip pain. No other complaints. Physical Exam Vital signs: Vital Signs 07/08/18 23:40 07/08/18 23:46 07/09/18 03:46 Temperature 98.3 F Pulse Rate 65 69 Respiratory Rate 18 18 17 Blood Pressure 140/97 H 140/97 H 154/65 H Pulse Oximetry 96 96 98 07/09/18 04:00 Temperature 98.3 F Pulse Rate 69 Respiratory Rate 17 Blood Pressure 154/65 H Pulse Oximetry 98 Intake & Output 07/08/18 07/09/18 07/09/18 18:59 06:59 18:59 Output Total 975 / 975 Balance -975 / -975 Weight 74.5 kg Output: Urine 975 / 975 Other: Weight On Admission 74.5 kg Narrative: LLE: Pain with any movement. Full sensation distally in a ability to wiggle toes Results - Labs CBC & Chem 7: 07/09/18 00:04 07/09/18 00:04 Laboratory Results - last 24 hr 07/09/18 07/09/18 07/09/18 00:04 00:04 00:04 WBC 6.7 RBC 3.12 L Hgb 10.4 L Hct 31.5 L MCV 100.9 H MCH 33.2 MCHC 32.9 RDW 16.6 Plt Count 147 L MPV 9.9 Neut % (Auto) 67.0 Lymph % (Auto) 26.8 Ware % (Auto) 4.2 Eos % (Auto) 1.1 Baso % (Auto) 0.9 Neut # (Auto) 4.5 Lymph # (Auto) 1.8 Ware # (Auto) 0.3 Eos # (Auto) 0.1 Baso # (Auto) 0.1 WBC Differential . Differential Comment Auto diff final PT 9.9 INR 1.0 APTT 25.0 Sodium 141 Potassium 5.0 Chloride 110 H Carbon Dioxide 22.3 Anion Gap 9 BUN 24 H Creatinine 1.10 H Estimated GFR 50 L Random Glucose 106 Calcium 8.1 L Total Bilirubin 0.3 AST 16 ALT 17 Alkaline Phosphatase 79 Total Protein 7.2 Albumin 3.7 Blood Type Blood Type Recheck Antibody Screen 07/09/18 00:04 WBC RBC Hgb Hct MCV MCH MCHC RDW Plt Count MPV Neut % (Auto) Lymph % (Auto) Ware % (Auto) Eos % (Auto) Baso % (Auto) Neut # (Auto) Lymph # (Auto) Ware # (Auto) Eos # (Auto) Baso # (Auto) WBC Differential Differential Comment PT INR APTT Sodium Potassium Chloride Carbon Dioxide Anion Gap BUN Creatinine Estimated GFR Random Glucose Calcium Total Bilirubin AST ALT Alkaline Phosphatase Total Protein Albumin Blood Type A Positive Blood Type Recheck Not needed Antibody Screen Negative - Imaging Impressions Hip X-Ray 07/09/18 00:15 CONCLUSION: Left intertrochanteric femoral neck fracture. Pelvis X-Ray 07/09/18 00:15 CONCLUSION: Acute left intertrochanteric femoral neck fracture. Assessment and Plan - Assessment and Plan 1) left intertrochanteric hip fracture -npo -consents -surgery today with [facility]
[2018-07-09] MEDS ORDERED: ceFAZolin 2 GM Premix Inj 2 GM/50 ML PIGGYBACK IV.SIG ONE (09:23)
[2018-07-09] MEDS ORDERED: Bupivacaine/Epinephrine PF Inj 0.25% 10 ML Vial ONE (09:26)
[2018-07-09] MEDS ORDERED: ceFAZolin 1 GM Premix Inj 0 GM/0 ML FROZ.PIGGY IV.SIG ONE (09:40)
--- NOTE | 2018-07-09 09:40 | ECG ---
Date Performed: 07/09/2018 Time Performed: 09:19:01 PTAGE: 68 years EKG: Sinus rhythm NORMAL ECG No significant change from prior electrocardiogram. PREVIOUS TRACING : 06/28/2017 19.20 DOCTOR: Ignacio Zarate Interpretating Date/Time 07/09/2018 09:38:41
[2018-07-09] MEDS ORDERED: HYDROmorphone PF Inj 2 MG/ML Vial ONE ×3 (09:48→11:39)
[2018-07-09] MEDS ORDERED: Phenylephrine/NS 1000 MCG/10ML Syringe IV.PUSH ONE (09:55)
[2018-07-09] MEDS ORDERED: Lidocaine PF 1% Inj 5 ML Syringe OTHER ONE (09:55)
[2018-07-09] MEDS ORDERED: Ketamine Inj 50 MG/5 ML Syringe IV.PUSH ONE (10:41)
[2018-07-09] MEDS ORDERED: Post-op Orders (for Pharmacy) OTHER STA (10:51)
--- NOTE | 2018-07-09 10:55 | P.OP ---
- Preoperative Diagnosis (1) Closed intertrochanteric fracture of left hip Date of procedure: 07/09/18 Procedure: Left hip reduction and intramedullary nail fixation Anesthesia: GETA Surgeon: Pablo Wilkins MD Technical Services Rep: CADEN Gallo PA-C The surgical procedure was assisted by my physician administrative sales assistant. My P.A. presence was necessary throughout this case for the manipulation and positioning of the surgical extremity. My P.A. was assisting me throughout the duration of this procedure. The skill set of a physician administrative sales assistant was medically necessary to complete this procedure. During the surgical case the manager surgical was working at the back table and the physician administrative sales assistant was directly assisting me. Operation and Findings: Implants used: Biomet 11 mm x 400 mm troch nail Plan of activity: 50% weightbearing Patient was seen and evaluated preoperatively. The patient has significant hip pain from proximal femur fracture. The risk and benefits of surgery were discussed in depth with the patient to include bleeding, infection, nonunion, malunion, need for hip replacement, painful hardware, as well as medical competitions including blood clots, stroke, heart attack, and . Informed consent was obtained. Operative site was marked. Patient was brought to the operating room and placed on fracture table. IV sedation was administered by anesthesiologist. Timeout procedure was performed. Hip and leg were prepped with alcohol followed by DuraPrep and draped in the usual sterile fashion. IV antibiotics were given prior to incision. Procedure began with reduction of fracture. Traction was applied. The leg was manipulated to achieve reduction. Excellent reduction was achieved. Fluoroscopy was used to confirm reduction. A three inch incision was made proximal to the trochanter. Subcutaneous tissue was dissected bluntly. Guidepin was placed at the tip of the trochanter and advanced into the femoral canal. Fluoroscopy confirmed appropriate guidepin placement. A opening reamer was placed over the guidepin. A long ball tipped guide pin was now placed down the femoral canal into the center of the distal femur. The nail length was now measured. Fluoroscopy confirmed appropriate guidepin placement. Flexible reamers were now passed over the guidepin to ream the intramedullary canal. The nail was attached to the insertion handle. Nail was now placed over the guidepin into the femoral canal. Fluoroscopy confirmed appropriate nail placement. A second incision was made over the lateral thigh. Cannulas were placed through the insertion handle down to the femur. Guidepin was now placed through the femoral nail into the center of the femoral head. Fluoroscopy confirmed appropriate guidepin placement. Screw length was measured. Cannulated drill was placed over the guidepin. Appropriate length lag screw was now placed. Traction was released and compression was applied. The set screw was now tightened in dynamic mode. Next, using perfect walker river technique a distal interlocking screw was placed. Screw holes were predrilled and screw lengths were measured. Final fluoroscopy revealed well aligned fracture with well-placed hardware. Incision was closed with 3-0 Vicryl and tomasa. Sterile dressings were applied. Patient was awakened and transferred to recovery room.
--- NOTE | 2018-07-09 10:59 | P.CONOP ---
[facility] Orthopedics Consult Note - [facility] Consult date: 07/09/18 Chief complaint: Left hip fracture Narrative: Nancy is a 68-year-old female. She lives at a nursing facility. She was standing when she turned around. She tripped over her walker. She landed on her left side. She had immediate left hip pain. Initially pain was severe and intense. She states it was 10 out of 10. Pain is worse with any movement. Pain is slightly improved with rest. She denies dizziness, syncope, loss of consciousness. She is currently awake alert on the orthopedic floor. Her only complaint is her left hip and leg pain. Review of Systems Patient denies fevers, chills, weight loss, headache, visual changes, hearing loss, chest pain, palpitations, shortness of breath, nausea, vomiting, no urinary changes, diarrhea, bowel changes, neck pain, back pain, skin rashes, weakness of extremities, easy bleeding, enlarged lymph nodes, numbness of extremities, anxiety, or depression. Patient's social history, past medical history, and family history were reviewed on chart and with patient. [facility] - History History Provided By: Patient - Medical History Medical History: Medical History (Last Reviewed 07/09/18 @ 10:57 by Pablo Wilkins MD) Breast cancer COPD (chronic obstructive pulmonary disease) DDD (degenerative disc disease) DVT (deep venous thrombosis) History of gastrectomy Ovarian cancer Seizures Thyroid cancer - Surgical History Surgical History: Surgical History (Last Reviewed 07/09/18 @ 10:57 by Pablo Wilkins MD) H/O oophorectomy H/O thyroidectomy History of right hip replacement History of spinal surgery Hx of cholecystectomy - Family History Family History: Family History (Last Reviewed 07/09/18 @ 10:57 by Pablo Wilkins MD) Sister Bladder cancer - Social History I have reviewed the patient's Social History: Yes - Tobacco History Second Hand Smoke Exposure: No Tobacco Use In Past 30 Days: No Smoking Status: Former smoker Tobacco Type: Cigarettes - Alcohol History How Often Do You Have a Drink Containing Alcohol: Never - Substance Use History Substance History: No History of Abuse - Immunization History Tetanus Immunization: >5 Years Hx Influenza Vaccine This Season: Yes Medications and Allergies Active Medications: Active Medications Hydrocodone Bitart/Acetaminophen ([place] 10/325) 1 tab PO Q3H PRN PRN Reason: Pain Scale 3-10 Al Hydroxide/Mg Hydroxide (Milk Of Mike Beltránq) 30 ml PO Q12H PRN PRN Reason: Mild Constipation Albuterol (Duoneb Neb (Prn)) 1 ampul NEB Q2HR NEB PRN PRN Reason: sob Bisacodyl (Dulcolax Supp) 10 mg RECTAL DAILY PRN PRN Reason: SEVERE CONSITIPATION Calcium/Vitamin D (Oscal With D 250/125 Mg) 1 tab PO TID ALEJANDRA Enoxaparin Sodium (Lovenox Inj) 30 mg SQ Q12HR ALEJANDRA Ergocalciferol (Vitamin D2) 50,000 unit PO ONCE ONE Stop: 07/09/18 10:52 Sodium Chloride (Ns Inj) 1,000 mls @ 125 mls/hr IV.CONT .Q8H [facility] Last Admin: 07/09/18 09:14 Dose: Not Given Sodium Chloride (Ns Inj) 1,000 mls @ 75 mls/hr IV.CONT .[id number] [facility] Last Admin: 07/09/18 05:03 Dose: 75 mls/hr Lactated Ringer's (Lr 1000 Ml Inj) 1,000 mls @ 30 mls/hr IV.SIG .Q24H [facility] Stop: 07/10/18 04:14 Sodium Chloride (Ns Inj) 500 mls @ 30 mls/hr IV.SIG .Q10H ALEJANDRA Cefazolin Sodium 1,000 mg/ (Sodium Chloride) 100 mls @ 200 mls/hr IV.SIG Q8H ALEJANDRA Stop: 07/10/18 03:29 Lactulose (Lactulose Liq) 30 ml PO DAILY PRN PRN Reason: SEVERE CONSITIPATION Miscellaneous Information (Misc Post-Op Orders (For Pharmacy)) 0 each OTHER STAT STA Stop: 07/09/18 10:52 Morphine Sulfate (Morphine Inj) 4 mg IV.PUSH Q4H PRN PRN Reason: PAIN SCALE 5-10 Ondansetron HCl (Zofran Inj) 4 mg IV.PUSH Q6H PRN PRN Reason: NAUSEA OR VOMITING Ondansetron HCl (Zofran Inj) 4 mg IV.PUSH Q6H PRN PRN Reason: NAUSEA Sennosides (Senokot) 17.2 mg PO Q12H PRN PRN Reason: Moderate Constipation Sodium Chloride (Ns Flush) 2 ml IV.FLUSH BID ALEJANDRA Sodium Chloride (Ns Flush) 2 ml IV.FLUSH PRN PRN PRN Reason: FLUSH AFTER USING IV ACCESS Vitamin D (Vitamin D3) 5,000 unit PO DAILY ALEJANDRA Allergies Allergy/AdvReac Type Severity Reaction Status Date / Time Phenothiazines Allergy Severe RASH Verified 07/09/18 07:57 trimethobenzamide Allergy Severe TETANY Verified 07/09/18 07:58 prochlorperazine AdvReac Severe Nausea/Vomi Verified 07/09/18 07:58 ting Home Medications Medication Instructions Recorded Confirmed Type escitalopram oxalate [Lexapro] 20 mg PO DAILY 07/09/18 07/09/18 History levothyroxine [Synthroid] 75 mcg PO DAILY 07/09/18 07/09/18 History meloxicam 7.5 mg PO DAILY 07/09/18 07/09/18 History metoclopramide HCl [Reglan] 10 mg PO TID 07/09/18 07/09/18 History pantoprazole [Protonix] 40 mg PO DAILY 07/09/18 07/09/18 History temazepam [Restoril] 30 mg PO HS 07/09/18 07/09/18 History Exam Vital signs: Vital Signs 07/08/18 23:40 07/08/18 23:46 07/09/18 03:46 Temperature 98.3 F Pulse Rate 65 69 Respiratory Rate 18 18 17 Blood Pressure 140/97 H 140/97 H 154/65 H Pulse Oximetry 96 96 98 07/09/18 04:00 Temperature 98.3 F Pulse Rate 69 Respiratory Rate 17 Blood Pressure 154/65 H Pulse Oximetry 98 Intake & Output 07/08/18 07/09/18 07/09/18 18:59 06:59 18:59 Output Total 975 / 975 Balance -975 / -975 Weight 74.5 kg 74.5 kg Output: Urine 975 / 975 Other: Date of Last Bowel Movement 07/08/18 Weight On Admission 74.5 kg Narrative: Nancy is a 68-year-old female. She appears to be in pain. General: Awake and alert. No acute distress. Appears well-developed well- nourished Head: Normocephalic, atraumatic pupils are equal Neck: Soft, nontender, trachea midline Abdomen: Soft, nondistended Examination of right arm reveals no pain or deformity with shoulder, elbow, or wrist motion. Skin is intact. Radial pulse is palpable. Normal capillary refill in fingers. Sensation is intact in radial, ulnar, and median nerve distributions. Shipwright Supervisor strength is +5. No lymphadenopathy noted. Examination of left arm reveals no pain or deformity with shoulder, elbow, or wrist motion. Skin is intact. Radial pulse is palpable. Normal capillary refill in fingers. Sensation is intact in radial, ulnar, and median nerve distributions. Shipwright Supervisor strength is +5. No lymphadenopathy noted. Examination of left lower extremity reveals pain with any left leg motion. Her left leg is shortened and externally rotated. She is very tender to palpation around the femur. Skin is intact. Sensation is intact in left foot. Dorsalis pedis pulse is palpable. Normal capillary refill and feet. Thigh and calf compartments are soft. No lymphadenopathy noted. Examination of right lower extremity reveals no pain or deformity with hip, knee , or ankle motion. Skin is intact. Sensation is intact in right foot. Dorsalis pedis pulse is palpable. Normal capillary refill and feet. Thigh and calf compartments are soft. No lymphadenopathy noted. +5 strength of ankle dorsiflexion and plantarflexion. Results - Labs Result Diagrams: 07/09/18 00:04 07/09/18 00:04 Labs: Laboratory Results - last 24 hr 07/09/18 07/09/18 07/09/18 00:04 00:04 00:04 WBC 6.7 RBC 3.12 L Hgb 10.4 L Hct 31.5 L MCV 100.9 H MCH 33.2 MCHC 32.9 RDW 16.6 Plt Count 147 L MPV 9.9 Neut % (Auto) 67.0 Lymph % (Auto) 26.8 [place] % (Auto) 4.2 Eos % (Auto) 1.1 Baso % (Auto) 0.9 Neut # (Auto) 4.5 Lymph # (Auto) 1.8 [place] # (Auto) 0.3 Eos # (Auto) 0.1 Baso # (Auto) 0.1 WBC Differential . Differential Comment Auto diff final PT 9.9 INR 1.0 APTT 25.0 Sodium 141 Potassium 5.0 Chloride 110 H Carbon Dioxide 22.3 Anion Gap 9 BUN 24 H Creatinine 1.10 H Estimated GFR 50 L Random Glucose 106 Calcium 8.1 L Total Bilirubin 0.3 AST 16 ALT 17 Alkaline Phosphatase 79 Total Protein 7.2 Albumin 3.7 Blood Type Blood Type Recheck Antibody Screen 07/09/18 00:04 WBC RBC Hgb Hct MCV MCH MCHC RDW Plt Count MPV Neut % (Auto) Lymph % (Auto) [place] % (Auto) Eos % (Auto) Baso % (Auto) Neut # (Auto) Lymph # (Auto) [place] # (Auto) Eos # (Auto) Baso # (Auto) WBC Differential Differential Comment PT INR APTT Sodium Potassium Chloride Carbon Dioxide Anion Gap BUN Creatinine Estimated GFR Random Glucose Calcium Total Bilirubin AST ALT Alkaline Phosphatase Total Protein Albumin Blood Type A Positive Blood Type Recheck Not needed Antibody Screen Negative - Diagnostic results Imaging: Impressions Hip X-Ray 07/09/18 00:15 CONCLUSION: Left intertrochanteric femoral neck fracture. Pelvis X-Ray 07/09/18 00:15 CONCLUSION: Acute left intertrochanteric femoral neck fracture. Hip x-ray: report reviewed, image reviewed Assessment and Plan - Assessment and Plan Nancy had a fall resulting in comminuted displaced left proximal femur fracture. Treatment options were discussed with patient. At this point I would recommend reduction and intramedullary fixation of left femur. The risk and benefits of surgery were discussed with patient. Patient is in agreement with plan for surgery. All questions were answered. The risk and benefits of surgery were discussed in depth with patient. The risk of surgery include bleeding, infection, injuries to arteries, nerves, or blood vessels, infection, wound complications, nonunion, malunion, painful hardware, and need for further surgery. I also discussed medical complications including blood clots, pneumonia, stroke, heart attack, and . Informed consent was obtained and all questions were answered. N.p.o.--plan on surgery this morning Calcium and vitamin D supplementation Physical therapy consult Follow-up with Dr. Wilkins in 2 weeks MIRIAM Goodman Lovenox A mid-level provider in my office (nurse practitioner or physician optometrist assistant) may see this patient on follow-up visits and continue to implement the objectives of this plan including: Starting or adjusting medications, injections , cast application, orthotics, brace application, physical therapy, radiological studies (including x-ray, MRI, CT, ultrasound, bone scan), vascular studies, neurologic studies, specialist consultation, and proceeding with surgical management, as appropriate.
[2018-07-09] MEDS ORDERED: *Meperidine Inj 25 MG/ML Vial PERIprocedural Use ONLY ONE (11:13)
[2018-07-09] MEDS ORDERED: *morphine SULFATE 4 MG/ML PERIprocedure ONLY ONE ×2 (11:20→11:30)
[2018-07-09] MEDS ORDERED: fentaNYL Citrate Inj 100 MCG/2 ML Ampul ONE (11:20)
[2018-07-09] MEDS: Calcium/Vitamin D 250/125 MG Tablet PO SCH ×2 (13:10→17:23)
--- NOTE | 2018-07-09 14:24 | XR ---
EXAM DATE: 07/09/2018 12:00 AM EDT AGE/SEX: 68 years / Female INDICATIONS: Open reduction left femur. CLINICAL DATA: This is the patient's subsequent encounter. Patient reports that signs and symptoms h ave been present for 2 days and indicates a pain score of Nonresponsive. MEDICAL/SURGICAL HISTORY: Non-responsive. Non-responsive. COMPARISON: [facility] [place], HIP LEFT 2V, 07/09/2018. . FINDINGS: 4 spot fluoroscopic images obtained in the operating room during a procedure demonstrates an antegrad e intramedullary hay within the proximal femur with a single distal interlocking screw and a proximal femoral head and neck screw. The intertrochanteric fracture remains visualized but there is improved alignment. The lesser trochanter fragment remains mildly displaced. CONCLUSION: Improved alignment following left femur ORIF. Electronically signed by: Tyson Farias MD 07/09/2018 2:23 PM EDT
[2018-07-09] MEDS: Morphine Inj 4 MG/ML Vial IV.PUSH PRN ×2 (16:10→20:10)
--- NOTE | 2018-07-09 20:47 | P.PNADD ---
Addendum to Inpatient Note Additional information: Attempted to see patient earlier in the day. Patient was in surgery. Will see patient on 07/10/2018.
[2018-07-10] MEDS: Morphine Inj 4 MG/ML Vial IV.PUSH PRN ×2 (00:43→04:44)
[2018-07-10] MEDS: Sod Chloride 0.9% Inj 1,000 ML IV.CONT SCH ×5 (00:47→19:45)
--- NOTE | 2018-07-10 07:15 | P.PNOP ---
Subjective Interval history: POD 1 s/p IMN left hip patient states in extreme pain. reports has not been able to rest since surgery. takes morphine and norco at home Physical Exam Vital signs: Vital Signs 07/09/18 08:00 07/09/18 11:11 07/09/18 11:15 Temperature 98.5 F 98.5 F Pulse Rate 73 102 H 96 H Respiratory Rate 18 14 12 Blood Pressure 155/68 H 162/93 H 159/72 H Pulse Oximetry 96 99 100 07/09/18 11:30 07/09/18 11:45 07/09/18 12:00 Temperature 98 F Pulse Rate 93 H 89 107 H Respiratory Rate 12 16 18 Blood Pressure 144/67 H 139/74 157/73 H Pulse Oximetry 100 96 98 07/09/18 12:15 07/09/18 16:00 07/09/18 20:00 Temperature 98 F 98.8 F Pulse Rate 95 H 89 Respiratory Rate 18 18 18 Blood Pressure 153/67 H 154/65 H Pulse Oximetry 96 97 07/10/18 00:00 07/10/18 04:00 Temperature 98.4 F 98.5 F Pulse Rate 81 80 Respiratory Rate 17 16 Blood Pressure 148/72 H 138/73 Pulse Oximetry 95 95 Intake & Output 07/09/18 07/10/18 07/10/18 18:59 06:59 18:59 Intake Total 1650 / 1650 820 / 820 Output Total 420 / 420 850 / 850 Balance 1230 / 1230 -30 / -30 Weight 74.5 kg Intake: IV 1150 / 1150 100 / 100 NS Inj 1,000 ML @ 75 mls/hr IV. 1000 / 1000 CONT .[id number] [facility] Rx#:[id number] Ancef 2 GM Premix Inj 2 gm In 50 / 50 50 ml @ 0 mls/hr IV.SIG .STK- [facility] Rx#:[id number] Ancef Inj 1,000 MG In NS Inj 100 / 100 100 / 100 100 ML @ 200 mls/hr IV.SIG Q8H [facility] Rx#:[id number] Oral 720 / 720 Anesthesia Amount 500 / 500 Output: Urine 850 / 850 Estimated Blood Loss 20 / 20 Urine Amount (Catheter) 400 / 400 primary 400 / 400 Other: Date of Last Bowel Movement 07/08/18 07/09/18 Narrative: LLE: dressings clean and dry. intact. NVI - Urinary Catheter Management primary Cath placed during this visit: no Results - Labs CBC & Chem 7: 07/09/18 00:04 07/09/18 00:04 - Imaging Impressions Femur X-Ray 07/09/18 00:00 CONCLUSION: Improved alignment following left femur ORIF. Assessment and Plan - Assessment and Plan 1) Left Subtrochanteric Femur Fx s/p IMN - POD 1 -TTWB -daily dressing changes POD 2 -DVT prophylaxis -will change IV morphine to IV Dilaudid 1mg Q4H PRN for breakthrough pain -f/u with [facility] or [facility] in 2 weeks
[2018-07-10] MEDS: HYDROmorphone PF Inj 2 MG/ML Vial IV.PUSH PRN ×4 (08:34→21:04)
[2018-07-10] MEDS: Calcium/Vitamin D 250/125 MG Tablet PO SCH ×3 (08:40→17:08)
[2018-07-10] MEDS: Enoxaparin Inj 30 MG/0.3 ML Syringe SQ SCH ×2 (10:43→21:04)
--- NOTE | 2018-07-10 15:08 | P.PN ---
Subjective Interval history: Follow up for left hip fracture. Patient is s/p left hip reduction and intramedullary nail fixation. Patient is complaining of inadequate pain control. She is sitting in her chair. No CP, shortness of breath, fever, chills. Physical Exam Vital signs: Vital Signs 07/09/18 16:00 07/09/18 20:00 07/10/18 00:00 Temperature 98 F 98.8 F 98.4 F Pulse Rate 95 H 89 81 Respiratory Rate 18 18 17 Blood Pressure 153/67 H 154/65 H 148/72 H Pulse Oximetry 96 97 95 07/10/18 04:00 07/10/18 09:05 07/10/18 10:42 Temperature 98.5 F Pulse Rate 80 Respiratory Rate 16 16 16 Blood Pressure 138/73 Pulse Oximetry 95 Intake & Output 07/09/18 07/10/18 07/10/18 18:59 06:59 18:59 Intake Total 1650 / 1650 820 / 820 100 / 100 Output Total 420 / 420 850 / 850 Balance 1230 / 1230 -30 / -30 100 / 100 Weight 74.5 kg 74.5 kg Intake: IV 1150 / 1150 100 / 100 100 / 100 NS Inj 1,000 ML @ 75 mls/hr IV. 1000 / 1000 CONT .[id number] [facility] Rx#:[id number] Ancef 2 GM Premix Inj 2 gm In 50 / 50 50 ml @ 0 mls/hr IV.SIG .STK- [facility] Rx#:[id number] Ancef Inj 1,000 MG In NS Inj 100 / 100 100 / 100 100 / 100 100 ML @ 200 mls/hr IV.SIG Q8H [facility] Rx#:[id number] Oral 720 / 720 Anesthesia Amount 500 / 500 Output: Urine 850 / 850 Estimated Blood Loss 20 / 20 Urine Amount (Catheter) 400 / 400 primary 400 / 400 Other: Date of Last Bowel Movement 07/08/18 07/09/18 Narrative: GENERAL: Alert, NAD. SKIN: Warm and dry. HEAD: Normocephalic. EYES: No scleral icterus. No injection or drainage. NECK: Supple, trachea midline. No JVD or lymphadenopathy. CARDIOVASCULAR: Regular rate and rhythm without murmurs, gallops, or rubs. RESPIRATORY: Breath sounds equal bilaterally. No accessory muscle use. GASTROINTESTINAL: Abdomen soft, non-tender, nondistended. MUSCULOSKELETAL: No cyanosis, or edema. Able to move all toes. She has pain on her left lower ext on movements. BACK: Nontender without obvious deformity. No CVA tenderness. - Urinary Catheter Management primary Cath placed during this visit: no Results - Labs CBC & Chem 7: 07/09/18 00:04 07/09/18 00:04 - Imaging Impressions Femur X-Ray 07/09/18 00:00 CONCLUSION: Improved alignment following left femur ORIF. Assessment and Plan - Plan 68 y/o female with a history of COPD, seizures, ovarian/breast/thyroid cancer presented to the ED status post fall at her nursing facility. She was found to have a left hip fracture. Patient underwent surgical intervention on 07/09/2018. Acute intertrochanteric left hip fracture -s/p left hip reduction and IM nail fixation - Continue [place], Dilaudid PRN for pain. - Lovenox for DVT prevention. - Bowel regimen. Hypothyroidism - Continue Levothyroxine 75 mcg Qday. Full code. Lovenox.
[2018-07-10] MEDS ORDERED: ALPRAZolam 0.5 MG Tablet PO ONE (20:00)
[2018-07-11] MEDS: HYDROmorphone PF Inj 2 MG/ML Vial IV.PUSH PRN ×6 (01:34→20:32)
[2018-07-11] MEDS: Sod Chloride 0.9% Inj 1,000 ML IV.CONT SCH ×4 (01:37→16:37)
[2018-07-11 04:54] LABS: Baso # (Auto) 0.1 th/mm3 (0.0-0.2); Baso % (Auto) 0.9 % (0.0-2.0); Eos % (Auto) 0.5 % (0.0-4.0); Lymph # (Auto) 1.1 th/mm3 (1.0-4.8); Lymph % (Auto) 19.5 % (9.0-44.0); Mean Corpuscular HGB Conc 33.2 % (32.0-36.0); Mean Corpuscular Hemoglobin 32.9 pg (27.0-34.0); Mean Corpuscular Volume 99.2 fL (80.0-100.0); Mean Platelet Volume 10.3 fL (7.0-11.0); Mono # (Auto) 0.7 th/mm3 (0.0-0.9); Mono % (Auto) 12.8 % (0.0-8.0); Neut # (Auto) 3.9 th/mm3 (1.8-7.7); Neut % (Auto) 66.3 % (16.0-70.0); Platelet Count 107 th/mm3 (150-450); Red Blood Count 1.81 mil/mm3 (4.00-5.30); Red Cell Distribution Width 16.6 % (11.6-17.2); White Blood Count 5.9 th/mm3 (4.0-11.0)
[2018-07-11 05:31] LABS: Alanine Aminotransferase 13 U/L (10-53); Albumin 2.9 g/dL (3.4-5.0); Alkaline Phosphatase 51 U/L (45-117); Anion Gap 9 meq/L (5-15); Aspartate Aminotransferase 19 U/L (15-37); Blood Urea Nitrogen 12 mg/dL (7-18); Calcium 8.4 mg/dL (8.5-10.1); Carbon Dioxide 25.5 meq/L (21.0-32.0); Chloride 110 meq/L (98-107); Glomerular Filtration Rate Greater Than 89 mL/min (>89); Glucose,Random 104 mg/dL (74-106); Potassium 3.5 meq/L (3.5-5.1); Sodium 144 meq/L (136-145); Total Protein 5.9 g/dL (6.4-8.2)
[2018-07-11] MEDS: Levothyroxine 75 MCG Tablet PO SCH (05:37)
[2018-07-11] MEDS ORDERED: Sodium Chlor 0.9% Inj 250 ML IV.SIG SCH (06:00)
--- NOTE | 2018-07-11 06:42 | P.PNOP ---
Subjective Interval history: Resting comfortably in bed with no new complaint Physical Exam Vital signs: Vital Signs 07/10/18 08:00 07/10/18 09:05 07/10/18 10:42 Temperature 98.8 F Pulse Rate 88 Respiratory Rate 18 16 16 Blood Pressure 152/85 H Pulse Oximetry 93 L 07/10/18 13:20 07/10/18 14:45 07/10/18 16:00 Temperature 99.1 F Pulse Rate 82 Respiratory Rate 16 18 18 Blood Pressure 149/67 H Pulse Oximetry 94 L 07/10/18 19:45 07/10/18 20:00 07/11/18 00:00 Temperature 99 F 98.3 F Pulse Rate 72 84 Respiratory Rate 18 22 22 Blood Pressure 161/74 H 155/64 H Pulse Oximetry 97 99 Intake & Output 07/10/18 07/10/18 07/11/18 06:59 18:59 06:59 Intake Total 820 / 820 100 / 100 Output Total 850 / 850 1200 / 1200 Balance -30 / -30 -1100 / -1100 Weight 74.5 kg Intake: IV 100 / 100 100 / 100 Ancef Inj 1,000 MG In NS Inj 100 / 100 100 / 100 100 ML @ 200 mls/hr IV.SIG Q8H [facility] Rx#:[id number] Oral 720 / 720 Output: Urine 850 / 850 1200 / 1200 Other: Date of Last Bowel Movement 07/09/18 07/09/18 Narrative: Left lower extremity: Clean dry dressings intact. Moderate swelling. Distally intact sensation with active dorsiflexion and plantar flexion of foot. - Urinary Catheter Management primary Cath placed during this visit: no Results - Labs CBC & Chem 7: 07/11/18 04:17 07/11/18 04:17 Laboratory Results - last 24 hr 07/11/18 07/11/18 07/11/18 04:17 04:17 05:35 WBC 5.9 RBC 1.81 L Hgb 6.0 L* Hct 18.0 L* MCV 99.2 MCH 32.9 MCHC 33.2 RDW 16.6 Plt Count 107 L MPV 10.3 Prelim Diff (Auto) Slide review pending Neut % (Auto) 66.3 Lymph % (Auto) 19.5 [place] % (Auto) 12.8 H Eos % (Auto) 0.5 Baso % (Auto) 0.9 Neut # (Auto) 3.9 Lymph # (Auto) 1.1 [place] # (Auto) 0.7 Eos # (Auto) 0.0 Baso # (Auto) 0.1 Differential Comment . Sodium 144 Potassium 3.5 Chloride 110 H Carbon Dioxide 25.5 Anion Gap 9 BUN 12 Creatinine 0.62 Estimated GFR Greater than 89 Random Glucose 104 Calcium 8.4 L Total Bilirubin 0.4 AST 19 ALT 13 Alkaline Phosphatase 51 Total Protein 5.9 L D Albumin 2.9 L MTS Gel Crossmatch See Detail Bld Prod Order Comment Assessment and Plan - Assessment and Plan 1) Left Subtrochanteric Femur Fx s/p IMN - POD 2 -TTWB -daily dressing changes beginning POD 2 -DVT prophylaxis -will change IV morphine to IV Dilaudid 1mg Q4H PRN for breakthrough pain Case management for rehab placementorthopedically cleared for discharge -f/u with [facility] or [facility] in 2 weeks
[2018-07-11 06:56] LABS: Acanthocytes Occ; Ovalocytes 1+
[2018-07-11 06:57] LABS: Platelet Morphology Normal (Normal)
[2018-07-11 07:04] LABS: Hematocrit 18.5 % (35.0-46.0); Hemoglobin 6.2 gm/dL (11.6-15.3)
[2018-07-11] MEDS: Calcium/Vitamin D 250/125 MG Tablet PO SCH ×3 (08:05→17:29)
[2018-07-11] MEDS: Enoxaparin Inj 30 MG/0.3 ML Syringe SQ SCH ×2 (09:04→20:35)
--- NOTE | 2018-07-11 11:24 | P.PN ---
Subjective Interval history: Follow up for left hip fracture and anemia. Patient is resting in bed and blood transfusion is in progress. Patient complains of inadequate pain control. Also , she requests her home med Restoril at night. Physical Exam Vital signs: Vital Signs 07/10/18 13:20 07/10/18 14:45 07/10/18 16:00 Temperature 99.1 F Pulse Rate 82 Respiratory Rate 16 18 18 Blood Pressure 149/67 H Pulse Oximetry 94 L 07/10/18 19:45 07/10/18 20:00 07/11/18 00:00 Temperature 99 F 98.3 F Pulse Rate 72 84 Respiratory Rate 18 22 22 Blood Pressure 161/74 H 155/64 H Pulse Oximetry 97 99 07/11/18 04:00 07/11/18 08:00 07/11/18 08:51 Temperature 98.7 F 98.6 F 98.4 F Pulse Rate 97 H 88 83 Respiratory Rate 20 14 16 Blood Pressure 140/73 129/62 129/60 Pulse Oximetry 95 95 07/11/18 09:12 Temperature 99.3 F Pulse Rate 84 Respiratory Rate 16 Blood Pressure 128/60 Pulse Oximetry 95 Intake & Output 07/10/18 07/11/18 07/11/18 18:59 06:59 18:59 Intake Total 100 / 100 1720 / 1720 Output Total 1200 / 1200 1150 / 1150 Balance -1100 / -1100 570 / 570 Weight 75.5 kg Intake: IV 100 / 100 1000 / 1000 NS Inj 1,000 ML @ 75 mls/hr IV. 1000 / 1000 CONT .[id number] [facility] Rx#:[id number] Ancef Inj 1,000 MG In NS Inj 100 / 100 100 ML @ 200 mls/hr IV.SIG Q8H [facility] Rx#:[id number] Oral 720 / 720 Intake (Blood Product) Amt 0 / 0 Rbc As-3 Leukoreduced Unit 0 / 0 [id number] Output: Urine 1200 / 1200 1150 / 1150 Other: Date of Last Bowel Movement 07/09/18 07/09/18 Narrative: GENERAL: Alert, Oriented x 3, NAD. SKIN: Warm and dry. HEAD: Normocephalic. EYES: No scleral icterus. No injection or drainage. NECK: Supple, trachea midline. No JVD or lymphadenopathy. CARDIOVASCULAR: Regular rate and rhythm without murmurs, gallops, or rubs. RESPIRATORY: Breath sounds equal bilaterally. No accessory muscle use. GASTROINTESTINAL: Abdomen soft, non-tender, nondistended. MUSCULOSKELETAL: No cyanosis, or edema. s/p left hip surgery. BACK: Nontender without obvious deformity. No CVA tenderness. - Urinary Catheter Management primary Cath placed during this visit: no Results - Labs CBC & Chem 7: 07/11/18 06:35 07/11/18 04:17 Laboratory Results - last 24 hr 07/11/18 07/11/18 07/11/18 04:17 04:17 05:35 WBC 5.9 RBC 1.81 L Hgb 6.0 L* Hct 18.0 L* MCV 99.2 MCH 32.9 MCHC 33.2 RDW 16.6 Plt Count 107 L MPV 10.3 Prelim Diff (Auto) Slide review pending Neut % (Auto) 66.3 Lymph % (Auto) 19.5 [place] % (Auto) 12.8 H Eos % (Auto) 0.5 Baso % (Auto) 0.9 Neut # (Auto) 3.9 Lymph # (Auto) 1.1 [place] # (Auto) 0.7 Eos # (Auto) 0.0 Baso # (Auto) 0.1 WBC Differential . Diff Scan Auto diff confirmed Differential Comment . Platelet Estimate Low L Platelet Morphology Normal Ovalocytes 1+ H Acanthocytes (Spur) Occ H Sodium 144 Potassium 3.5 Chloride 110 H Carbon Dioxide 25.5 Anion Gap 9 BUN 12 Creatinine 0.62 Estimated GFR Greater than 89 Random Glucose 104 Calcium 8.4 L Total Bilirubin 0.4 AST 19 ALT 13 Alkaline Phosphatase 51 Total Protein 5.9 L D Albumin 2.9 L MTS Gel Crossmatch See Detail Bld Prod Order Comment 07/11/18 06:35 WBC RBC Hgb 6.2 L* Hct 18.5 L* MCV MCH MCHC RDW Plt Count MPV Prelim Diff (Auto) Neut % (Auto) Lymph % (Auto) [place] % (Auto) Eos % (Auto) Baso % (Auto) Neut # (Auto) Lymph # (Auto) [place] # (Auto) Eos # (Auto) Baso # (Auto) WBC Differential Diff Scan Differential Comment Platelet Estimate Platelet Morphology Ovalocytes Acanthocytes (Spur) Sodium Potassium Chloride Carbon Dioxide Anion Gap BUN Creatinine Estimated GFR Random Glucose Calcium Total Bilirubin AST ALT Alkaline Phosphatase Total Protein Albumin MTS Gel Crossmatch Bld Prod Order Comment Assessment and Plan - Plan 68 y/o female with a history of COPD, seizures, ovarian/breast/thyroid cancer presented to the ED status post fall at her nursing facility. She was found to have a left hip fracture. Patient underwent surgical intervention on 07/09/2018. Acute intertrochanteric left hip fracture -s/p left hip reduction and IM nail fixation - Acetaminophen, [place] for pain. Dilaudid for breakthrough. - Lovenox for DVT prevention. - Bowel regimen. Anemia - Hgb 6.2 this morning. Patient is receiving 2 units of PRBCs. Hypothyroidism - Continue Levothyroxine 75 mcg Qday. Insomnia - will continue Restoril 30mg QHS. Full code. Lovenox.
[2018-07-11] MEDS ORDERED: Acetaminophen 500 MG Tablet PO PRN (14:00)
[2018-07-11] MEDS: Temazepam 15 MG Capsule PO PRN (20:21)
[2018-07-12] MEDS: Sod Chloride 0.9% Inj 1,000 ML IV.CONT SCH ×7 (00:16→23:00)
[2018-07-12] MEDS: HYDROmorphone PF Inj 2 MG/ML Vial IV.PUSH PRN ×6 (01:20→21:05)
[2018-07-12] MEDS: Levothyroxine 75 MCG Tablet PO SCH (05:20)
[2018-07-12 06:34] LABS: Hematocrit 25.6 % (35.0-46.0); Hemoglobin 8.8 gm/dL (11.6-15.3)
--- NOTE | 2018-07-12 06:38 | P.PNOP ---
Subjective Interval history: Continue to have some difficulty with pain. She is very concerned and nervous about moving. Physical Exam Vital signs: Vital Signs 07/11/18 08:00 07/11/18 08:51 07/11/18 09:12 Temperature 98.6 F 98.4 F 99.3 F Pulse Rate 88 83 84 Respiratory Rate 14 16 16 Blood Pressure 129/62 129/60 128/60 Pulse Oximetry 95 95 07/11/18 12:00 07/11/18 13:15 07/11/18 13:33 Temperature 98.7 F 99.1 F 98.9 F Pulse Rate 74 85 82 Respiratory Rate 16 16 16 Blood Pressure 126/58 L 116/58 L 133/64 Pulse Oximetry 92 L 95 95 07/11/18 16:00 07/11/18 20:00 07/12/18 00:00 Temperature 98.9 F 99.0 F 98.4 F Pulse Rate 78 71 73 Respiratory Rate 16 17 18 Blood Pressure 117/59 L 115/53 L 154/67 H Pulse Oximetry 96 94 L 96 Intake & Output 07/11/18 07/11/18 07/12/18 06:59 18:59 06:59 Intake Total 2520 / 2520 Output Total 1150 / 1150 Balance 1370 / 1370 Weight 75.5 kg Intake: IV 1000 / 1000 NS Inj 1,000 ML @ 75 mls/hr IV. 1000 / 1000 CONT .[id number] [facility] Rx#:[id number] Oral 720 / 720 Intake (Blood Product) Amt 800 / 800 Rbc As-3 Leukoreduced Unit 400 / 400 [id number] Rbc As-3 Leukoreduced Unit 400 / 400 [id number] Output: Urine 1150 / 1150 Other: Date of Last Bowel Movement 07/09/18 07/09/18 07/09/18 Narrative: Left lower extremity: Clean dry dressings intact. Intact sensation distally. Moderate swelling. Distally intact sensation good capillary refills. - Urinary Catheter Management primary Cath placed during this visit: no Results - Labs CBC & Chem 7: 07/11/18 06:35 07/11/18 04:17 Laboratory Results - last 24 hr 07/11/18 07/11/18 07/11/18 04:17 05:35 06:35 Hgb 6.2 L* Hct 18.5 L* WBC Differential . Diff Scan Auto diff confirmed Platelet Estimate Low L Platelet Morphology Normal Ovalocytes 1+ H Acanthocytes (Spur) Occ H MTS Gel Crossmatch See Detail Bld Prod Order Comment Assessment and Plan - Assessment and Plan 1) Left Subtrochanteric Femur Fx s/p IMN - POD 3 -TTWB -daily dressing changes -DVT prophylaxis -will change IV morphine to IV Dilaudid 1mg Q4H PRN for breakthrough pain Case management for rehab placementorthopedically cleared for discharge -f/u with [facility] or [facility] in 2 weeks
[2018-07-12] MEDS: Calcium/Vitamin D 250/125 MG Tablet PO SCH ×3 (08:28→17:13)
[2018-07-12] MEDS: Enoxaparin Inj 30 MG/0.3 ML Syringe SQ SCH ×2 (10:16→20:02)
--- NOTE | 2018-07-12 12:27 | P.PN ---
Subjective Interval history: Follow up for left hip fracture and anemia. Patient continues to complain of pain. She is not cooperating with PT. Orthopedic surgery cleared for discharge but patient does not want to go today. Last BM 07/09/2018. Physical Exam Vital signs: Vital Signs 07/11/18 13:15 07/11/18 13:33 07/11/18 16:00 Temperature 99.1 F 98.9 F 98.9 F Pulse Rate 85 82 78 Respiratory Rate 16 16 16 Blood Pressure 116/58 L 133/64 117/59 L Pulse Oximetry 95 95 96 07/11/18 20:00 07/12/18 00:00 07/12/18 08:00 Temperature 99.0 F 98.4 F 98.5 F Pulse Rate 71 73 73 Respiratory Rate 17 18 16 Blood Pressure 115/53 L 154/67 H 146/65 H Pulse Oximetry 94 L 96 95 Intake & Output 07/11/18 07/12/18 07/12/18 18:59 06:59 18:59 Intake Total 2520 / 2520 240 / 240 Output Total 1150 / 1150 Balance 1370 / 1370 240 / 240 Intake: IV 1000 / 1000 NS Inj 1,000 ML @ 75 mls/hr IV. 1000 / 1000 CONT .[id number] [facility] Rx#:[id number] Oral 720 / 720 240 / 240 Intake (Blood Product) Amt 800 / 800 Rbc As-3 Leukoreduced Unit 400 / 400 [id number] Rbc As-3 Leukoreduced Unit 400 / 400 [id number] Output: Urine 1150 / 1150 Other: Date of Last Bowel Movement 07/09/18 07/09/18 08/08/18 Narrative: GENERAL: Alert, Oriented x 3, NAD. SKIN: Warm and dry. HEAD: Normocephalic. EYES: No scleral icterus. No injection or drainage. NECK: Supple, trachea midline. No JVD or lymphadenopathy. CARDIOVASCULAR: Regular rate and rhythm without murmurs, gallops, or rubs. RESPIRATORY: Breath sounds equal bilaterally. No accessory muscle use. GASTROINTESTINAL: Abdomen soft, non-tender, nondistended. MUSCULOSKELETAL: No cyanosis, or edema. s/p left hip surgery. BACK: Nontender without obvious deformity. No CVA tenderness. - Urinary Catheter Management primary Cath placed during this visit: no Results - Labs CBC & Chem 7: 07/12/18 05:44 07/11/18 04:17 Laboratory Results - last 24 hr 07/11/18 07/12/18 05:35 05:44 Hgb 8.8 L D Hct 25.6 L MTS Gel Crossmatch See Detail Bld Prod Order Comment - Imaging Femur X-Ray 07/09/18 00:00 CONCLUSION: Improved alignment following left femur ORIF. Hip X-Ray 07/09/18 00:15 CONCLUSION: Left intertrochanteric femoral neck fracture. Pelvis X-Ray 07/09/18 00:15 CONCLUSION: Acute left intertrochanteric femoral neck fracture. Assessment and Plan - Plan 68 y/o female with a history of COPD, seizures, ovarian/breast/thyroid cancer presented to the ED status post fall at her nursing facility. She was found to have a left hip fracture. Patient underwent surgical intervention on 07/09/2018. Acute intertrochanteric left hip fracture -s/p left hip reduction and IM nail fixation - Acetaminophen, [place] for pain. Dilaudid for breakthrough. - Lovenox for DVT prevention. - Bowel regimen. Anemia - Hgb 6.2, received 2 units of PRBCs. Hgb improved to 8.8. Hypothyroidism - Continue Levothyroxine 75 mcg Qday. Insomnia - will continue Restoril 30mg QHS. Full code. Lovenox. Discharge plan: Discussed with RN. Will give her bowel regimen today and encourage better PO food intake. Also, encourage participation with PT. Discharge in the AM.
[2018-07-12] MEDS: clonazePAM 0.5 MG Tablet PO SCH ×2 (14:40→21:04)
[2018-07-12] MEDS: Temazepam 15 MG Capsule PO PRN (20:01)
[2018-07-13] MEDS: HYDROmorphone PF Inj 2 MG/ML Vial IV.PUSH PRN ×5 (01:00→15:07)
[2018-07-13] MEDS: Levothyroxine 75 MCG Tablet PO SCH (05:03)
[2018-07-13] MEDS: clonazePAM 0.5 MG Tablet PO SCH ×2 (05:03→13:14)
--- NOTE | 2018-07-13 06:39 | P.PNOP ---
Subjective Interval history: POd 4 s/p IMN left hip no chnges. improving Physical Exam Vital signs: Vital Signs 07/12/18 08:00 07/12/18 12:00 07/12/18 20:00 Temperature 98.5 F 99.2 F 99.5 F Pulse Rate 73 62 70 Respiratory Rate 16 18 18 Blood Pressure 146/65 H 157/67 H 129/60 Pulse Oximetry 95 97 98 07/12/18 20:01 07/12/18 20:24 07/12/18 22:33 Temperature Pulse Rate Respiratory Rate 18 18 18 Blood Pressure Pulse Oximetry 07/12/18 23:59 07/13/18 00:00 07/13/18 04:00 Temperature 98.7 F 98.9 F Pulse Rate 72 71 Respiratory Rate 18 19 18 Blood Pressure 149/66 H 118/64 Pulse Oximetry 99 95 07/13/18 04:09 07/13/18 05:07 Temperature Pulse Rate Respiratory Rate 18 18 Blood Pressure Pulse Oximetry Intake & Output 07/12/18 07/12/18 07/13/18 06:59 18:59 06:59 Intake Total 1140 / 1140 Output Total 200 / 200 250 / 250 Balance 940 / 940 -250 / -250 Weight 75.5 kg Intake: Oral 1140 / 1140 Output: Urine 200 / 200 250 / 250 Other: # Voids 1 1 Date of Last Bowel Movement 07/09/18 08/08/18 07/12/18 Narrative: LLE: dressings clean and dry. intact. NVI - Urinary Catheter Management primary Cath placed during this visit: no Results - Labs CBC & Chem 7: 07/12/18 05:44 07/11/18 04:17 Laboratory Results - last 24 hr 07/12/18 05:44 Hgb 8.8 L D Hct 25.6 L Assessment and Plan - Assessment and Plan 1) Left Subtrochanteric Femur Fx s/p IMN - POD 4 -TTWB -daily dressing changes -DVT prophylaxis -Case management for rehab placementorthopedically cleared for discharge -f/u with [facility] or [facility] in 2 weeks patient is on chronic pain meds. will defer pain meds to current prescriber.
[2018-07-13 08:30] VITALS: TEMP 98.3
[2018-07-13] MEDS: Sod Chloride 0.9% Inj 1,000 ML IV.CONT SCH ×3 (09:03→15:56)
[2018-07-13] MEDS: Calcium/Vitamin D 250/125 MG Tablet PO SCH ×2 (09:05→13:14)
[2018-07-13] MEDS: Enoxaparin Inj 30 MG/0.3 ML Syringe SQ SCH (09:05)
[2018-07-13 12:11] VITALS: BP 103/57; PULSE 71; RESP 17; O2SAT 96
--- NOTE | 2018-07-13 13:44 | P.PN ---
Physical Exam Vital signs: Vital Signs 07/12/18 20:00 07/12/18 20:01 07/12/18 20:24 Temperature 99.5 F Pulse Rate 70 Respiratory Rate 18 18 18 Blood Pressure 129/60 Pulse Oximetry 98 07/12/18 22:33 07/12/18 23:59 07/13/18 00:00 Temperature 98.7 F Pulse Rate 72 Respiratory Rate 18 18 19 Blood Pressure 149/66 H Pulse Oximetry 99 07/13/18 04:00 07/13/18 04:09 07/13/18 05:07 Temperature 98.9 F Pulse Rate 71 Respiratory Rate 18 18 18 Blood Pressure 118/64 Pulse Oximetry 95 07/13/18 08:00 07/13/18 12:00 Temperature 98.3 F 98.3 F Pulse Rate 66 71 Respiratory Rate 18 17 Blood Pressure 123/60 103/57 L Pulse Oximetry 95 96 Intake & Output 07/12/18 07/13/18 07/13/18 18:59 06:59 18:59 Intake Total 1140 / 1140 Output Total 200 / 200 250 / 250 Balance 940 / 940 -250 / -250 Weight 75.5 kg Intake: Oral 1140 / 1140 Output: Urine 200 / 200 250 / 250 Other: # Voids 1 1 Date of Last Bowel Movement 08/08/18 07/12/18 07/12/18 - Urinary Catheter Management primary Cath placed during this visit: no Results - Labs CBC & Chem 7: 07/12/18 05:44 07/11/18 04:17 Assessment and Plan - Plan 68 y/o female with a history of COPD, seizures, ovarian/breast/thyroid cancer presented to the ED status post fall at her nursing facility. She was found to have a left hip fracture. Patient underwent surgical intervention on 07/09/2018. Acute intertrochanteric left hip fracture -s/p left hip reduction and IM nail fixation - Acetaminophen, [place] for pain. Dilaudid for breakthrough. - Lovenox for DVT prevention. - Bowel regimen. Acute post-hemorrhagic anemia - Hgb 6.2, received 2 units of PRBCs. Hgb improved to 8.8. Hypothyroidism - Continue Levothyroxine 75 mcg Qday. Insomnia - will continue Restoril 30mg QHS. Full code. Lovenox. Discharge plan: Discussed with RN. Will give her bowel regimen today and encourage better PO food intake. Also, encourage participation with PT. Discharge in the AM.
--- NOTE | 2018-07-13 22:34 | P.DS ---
Date of admission: 07/09/18 02:53 Primary care physician: [facility] Brief History from admission: 68 y/o female with a history of COPD, seizures, ovarian/breast/thyroid cancer presented to the ED status post fall at her nursing facility. She states she was at the vending machine and when she turned around she fell over her walker. She is currently complaining of constant, pain, 10/10, pain to left hip, with radiation down her left leg, worse with movement, better with pain medication. She denies any chest pain, shortness of breath, fever, chills. DS: Medications - Discharge Medications Prescriptions: hydrocodone-acetaminophen [[place]] 1 tab PO Q6H PRN #20 tab PRN Reason: Pain 5-10 rivaroxaban [Xarelto] 10 mg PO DAILY #14 tab DS: Summary Hospital Course: 68 y/o female with a history of COPD, seizures, ovarian/breast/thyroid cancer presented to the ED status post fall at her nursing facility. She was found to have a left hip fracture. Patient underwent surgical intervention on 07/09/2018. Acute intertrochanteric left hip fracture -s/p left hip reduction and IM nail fixation - Acetaminophen, [place] for pain. Dilaudid for breakthrough. - Lovenox for DVT prevention. - Bowel regimen. Anemia - Hgb 6.2, received 2 units of PRBCs. Hgb improved to 8.8. Hypothyroidism - Continue Levothyroxine 75 mcg Qday. Insomnia - continue Restoril 30mg QHS. Full code. Lovenox. Patient was seen/examined. She complains of persistent pain. Orthopedic surgery cleared for discharged. We discussed regarding the importance of PT at rehab. She verbalized understanding. We will discharge patient to SNF with pain medications. I checked the [employer] database which shows patient's significant use of narcotic pain meds. However, due to surgery, we will give her 5 days of pain meds (total 20 tablets). - Time Spent with Patient Total time spent providing and/or coordinating discharge services: Less than 30 minutes - Quality: VTE Deep Vein Thrombosis/Pulmonary Embolism Present on Admission: No Exam Vital signs: Vital Signs 07/12/18 23:59 07/13/18 00:00 07/13/18 04:00 Temperature 98.7 F 98.9 F Pulse Rate 72 71 Respiratory Rate 18 19 18 Blood Pressure 149/66 H 118/64 Pulse Oximetry 99 95 07/13/18 04:09 07/13/18 05:07 07/13/18 08:00 Temperature 98.3 F Pulse Rate 66 Respiratory Rate 18 18 18 Blood Pressure 123/60 Pulse Oximetry 95 07/13/18 12:00 Temperature 98.3 F Pulse Rate 71 Respiratory Rate 17 Blood Pressure 103/57 L Pulse Oximetry 96 Intake & Output 07/13/18 07/13/18 07/14/18 06:59 18:59 06:59 Intake Total 900 / 900 Output Total 250 / 250 Balance -250 / -250 900 / 900 Weight 75.5 kg Intake: Oral 900 / 900 Output: Urine 250 / 250 Other: # Voids 1 2 Date of Last Bowel Movement 07/12/18 07/12/18 Results Procedures completed during hospitalization: Date of procedure: 07/09/18 Left hip reduction and intramedullary nail fixation - Impressions ITS Impressions Femur X-Ray 07/09/18 00:00 CONCLUSION: Improved alignment following left femur ORIF. Hip X-Ray 07/09/18 00:15 CONCLUSION: Left intertrochanteric femoral neck fracture. Pelvis X-Ray 07/09/18 00:15 CONCLUSION: Acute left intertrochanteric femoral neck fracture. Discharge Plan - Discharge Disposition Patient Disposition: Discharge to SNF - Discharge Condition Condition: Stable - Discharge Order Discharge Orders: Discharge Order (Routine); Ordered 07/12/18 Ordered By: Chanell Prince [facility]opedic Clear for Discharge (Routine); Ordered 07/11/18 Ordered By: Zhang Kapadia - Discharge Details Anticipated Discharge Date: 07/13/18 - Physicians Team Primary Care Provider: [facility]ician [facility]s Attending Provider: Chanell Prince Other Providers: Pablo Wilkins MD ; [facility]
== END 2018-07-13 14:00 ==
LOC: NEPC 23:20 → NEDA 07-09 02:53 → N06 07-09 04:00
PROVIDERS: ADMIT Hospitalist; ATTEND Hospitalist